=== PATIENT | female | born 1985 | race Two or more races ===

== ENCOUNTER 2024-11-21 21:31 | Inpatient (IN) | payer MEDICAID, SELFPAY ==
[2024-11-21 21:32] VITALS: BP 123/80; PULSE 99; RESP 17; TEMP 37; O2SAT 98
[2024-11-21 22:11] VITALS: PULSE 112; RESP 20; O2SAT 99; BMI 34.9
--- NOTE | 2024-11-21 22:12 | XR_ITS ---
Examination: CT brain head without contrast. 2-D sagittal coronal reconstructions Date and time of exam:November 21, 2024 1102 hours Indications: Patient fell today, passed out 3 hours ago, hit head head pain CTDI: vol (mGy):49 DLP: (mGycm):939 Technique: Multiple CT axial sections of the brain have been obtained, 5 mm slice thickness. Contrast has not been administered. 2-D sagittal, coronal reconstructions have been obtained Low dose protocols were performed. One or more of the following dose reduction techniques were used; automated exposure control, adjustment of the mA and/or KV according to patient size, use of iterative reconstruction technique. Findings: No significant ventricular enlargement. Intra-axial or extra-axial hemorrhage density is not seen. No mass effect or midline shift Basal cisterns are not remarkable. Fourth ventricle is midline. Cranial vault intact. Impression: Negative for acute hemorrhage, mass effect or midline shift
--- NOTE | 2024-11-21 22:13 | PD.EDADULT ---
ED General RME/HPI General Chief complaint: Syncope / Near Syncope Stated complaint: SYNCOPE EPISODE Time Seen by Provider: 11/21/24 22:11 Arrival date/time: 11/21/24 21:31 CC: Syncope HPI patient felt lightheaded dizzy and passed out in her bathroom not sure if she hit her cell head against items in the bathroom states that she has right sided temporal pain, continues to be mildly dizzy. EMS report tachycardia, and a blood sugar greater than 400. Patient is awake alert complaining of right temporal pain. And left knee pain. Related Data Home Medications ?Medication ?Instructions ?Recorded ?Confirmed metformin 1,000 mg tablet 1,000 mg PO QDAY 11/22/24 11/22/24 Allergies Allergy/AdvReac Type Severity Reaction Status Date / Time No Known Allergies Allergy Verified 11/21/24 22:37 Review of Systems Review of Systems Narrative Review of Systems: GEN: No fever, no chills, no weight loss EYES: No discharge, no visual changes, no pain HEENT: No ear pain, no congestion, no sore throat PULM: No shortness of breath, no cough, no congestion CV: No chest pain, no dyspnea on exertion, no palpitations GI: No nausea, no vomiting, no diarrhea, no pain, no constipation : No frequency, no urgency, no dysuria MUSC/SKEL: + joint pain, no back pain SKIN: No rash PSYCH: No hallucinations, no depression HEME/LYMPH: No easy bleeding or bruising tendencies NEURO: No weakness, + headache ED Exam Narrative Physical exam: [General: In mild discomfort not in any acute distress Head mild hematoma to the right temporal region no abrasion induration ulceration or depression anywhere else in the scalp. HEENT: Eyes: Pupils are PERRLA EOMs are intact nose no rhinorrhea or epistaxis mouth pink moist membranes uvula is midline swallow symmetrical phonation is normal. Neck is supple nontender, no JVD no edema Chest equal chest rise nontender to palpation Respiratory: Clear to auscultation no wheezes crackles or rubs CV: Rate rhythm is regular no murmurs rubs or clicks Abdomen is soft nontender no masses positive bowel sounds all 4 quadrants Back: No CVA tenderness no spinous process tenderness from cervical spine thoracic and lumbar spine Skin: Intact no petechiae rash induration ulceration or crepitus Extremities: Left knee pain to the medial aspect of the knee however full range of motion no ecchymosis edema or erythema. Moving all other extremities against resistance cap refill less than 2 seconds neurosensory intact Neuro: Awake alert oriented x3 Glascow coma 15 no focal deficits] Course Quality Measures VTE prophylaxis Orders Category Date Time Status COVID-19 Screening Questionnaire NOW Care 11/22/24 06:[address] Screening X1 Care 11/22/24 01:06 Active Decision to Admit X1 Care 11/22/24 06:05 Completed EKG (ED ONLY) *Do not use* NOW Care 11/21/24 22:12 Completed Saline [Insert IV] NOW Care 11/21/24 23:29 Active Straight [In and Out Catheter] X1 Care 11/21/24 23:29 Completed Consult to Cardiology Stat Cons 11/22/24 06:[address] angio chest abdomen pelvis Stat Exams 11/21/24 23:[address] cervical spine wo con Stat Exams 11/21/24 23:[address] head/brain wo con Stat Exams 11/21/24 22:12 Completed EKG (ED Only) Stat Exams 11/21/24 22:12 Ordered Alcohol, Blood Medical Stat Lab 11/21/24 23:41 Completed BNP [B-Type Natriuretic Peptide] Stat Lab 11/21/24 23:41 Completed Beta Hydroxybutyrate Stat Lab 11/21/24 23:41 Completed CBC Stat Lab 11/21/24 22:36 Completed Comprehensive Metabolic Panel Stat Lab 11/21/24 22:36 Completed D-Dimer Stat Lab 11/21/24 23:41 Completed Drug Screen,Urine Stat Lab 11/21/24 23:30 Completed HCG,Qualitative Serum Stat Lab 11/21/24 23:41 Completed Magnesium Stat Lab 11/21/24 23:41 Completed TSH [Thyroid Stimulating Hormone] Stat Lab 11/21/24 23:41 Completed Troponin I Stat Lab 11/21/24 23:41 Completed Urinalysis Stat Lab 11/21/24 23:30 Completed Urine Culture Stat Lab 11/21/24 23:30 Received VBG [Venous Blood Gas] Stat Lab 11/21/24 23:41 Completed Atropine Inj Vial Med 11/22/24 01:56 Discontinued 0.5 mg IVP X1 ONE Dextrose 5%-Ns [D5-Ns] 1,000 ml Med 11/22/24 03:30 Discontinued IV 125 mls/hr Dextrose 5%-Ns [D5-Ns] 500 ml Med 11/22/24 03:30 Discontinued IV 125 mls/hr Insulin Regular Med 11/21/24 23:29 Discontinued 5 unit SC X1 ONE Metoclopramide Inj [Reglan Inj] Med 11/22/24 01:55 Discontinued 10 mg IVP X1 ONE Ondansetron Inj [Zofran Inj] Med 11/22/24 01:07 Discontinued 4 mg IV X1 ONE Sodium Chloride 0.9% 1000 ml [Ns] 1,000 ml Med 11/21/24 23:29 Discontinued IV 999 mls/hr cefTRIAXone/D5w 1gm IV premix [Rocephin/D5w 1gm IV Med 11/22/24 00:26 Discontinued premix] 50 ml IV X1 Vital Signs Vital signs: Vital Signs Temperature 98.6 F 11/21/24 21:32 Pulse Rate 99 11/21/24 21:32 Respiratory Rate 17 11/21/24 21:32 Blood Pressure 123/80 11/21/24 21:32 Pulse Oximetry (%) 98 11/21/24 21:32 Oxygen Delivery Method Room Air 11/21/24 21:32 [facility] Patient data External records reviewed:: [facility] previous records Clinical information provided by:: patient Social determinants that could affect healthcare access:: none Patient has the following chronic illnesses:: None How is presenting disease/condition affected by chronic disease/condition?: uneffected by Evaluation data The following diagnostics were reviewed and interpreted by me:: lab results and radiology exam(s) Lab and/or radiology exams considered but not ordered:: See [facility] Interpretation Summary: Bradycardia Medications Medications considered but not ordered:: None Medication administrations:: Medication Administration History Acetaminophen (Acetaminophen 325 Mg Tablet) 650 mg PO Q6H PRN PRN Reason: Fever >100.3 or Pain Stop: 12/22/24 07:51 Albuterol/Ipratropium (Albuterol/Ipratropium (Duoneb) Rt Kristyn 3 Ml Nebu) 3 ml INH Q2HR PRN PRN Reason: SHORTNESS OF BREATH OR WHEEZE Stop: 12/22/24 07:51 Dextrose (Dextrose 50%-Water Inj 50 Ml Syringe) 50 ml IV Q15MIN PRN PRN Reason: BG <50 OR BG <70 & pt unresponsive Stop: 12/22/24 07:56 Glucagon (Glucagon Inj 1 Mg Vial) 1 mg IM Q15MIN PRN PRN Reason: BG <70, and no IV access Heparin Sodium (Porcine) (Heparin Sod Inj 5000 Unit/Ml Vial) 5,000 unit SC BID FOR[facility]LY [facility], 1928–1983 Stop: 12/06/24 08:59 Last Admin: 11/22/24 09:33 Dose: 5,000 unit Documented By: DEBBIE Co-signed By: DO Insulin Human Lispro (Insulin Lispro (Admelog) 1 Unit/0.01 Ml Unit) 0 unit SC ACHS FOR[facility]LY [facility], 1928–1983; Protocol Stop: 12/22/24 11:29 Last Admin: 11/22/24 12:33 Dose: 3 unit Documented By: LF Co-signed By: DO Ondansetron HCl (Ondansetron Inj 2 Mg/Ml Inj 2 Ml) 4 mg IV Q6H PRN; Protocol PRN Reason: NAUSEA OR VOMITING Stop: 12/22/24 07:51 Pantoprazole Sodium (Pantoprazole Inj 40 Mg Vial) 40 mg IVP QDAY [facility], 1928–1983 Stop: 12/22/24 08:59 Last Admin: 11/22/24 09:33 Dose: 40 mg Documented By: DEBBIE Sennosides (Senna Tablet) 1 tab PO QDAY FOR[facility], [facility]1983; Protocol Stop: 12/22/24 08:59 Last Admin: 11/22/24 09:33 Dose: 1 tab Documented By: DEBBIE Discontinued Medications Atropine Sulfate (Atropine Sulf Inj 1 Mg/Ml Vial) 0.5 mg IVP X1 ONE Stop: 11/22/24 01:57 Last Admin: 11/22/24 06:20 Dose: Not Given Documented By: JALYN Non-Admin Reason: HR 80-100, cancelled by provider Sodium Chloride (Ns) 1,000 mls @ 999 mls/hr IV .Q1H1M ONE Stop: 11/22/24 00:29 Last Infusion: 11/22/24 01:11 Dose: Infused Documented By: Admin: 11/21/24 23:47 Dose: 999 mls/hr Documented By: IBRAHIMA Ceftriaxone Sodium/Dextrose (Rocephin/D5w 1gm Iv Premix) 50 mls @ 100 mls/hr IV X1 ONE Stop: 11/22/24 00:55 Last Infusion: 11/22/24 02:29 Dose: Infused Documented By: Admin: 11/22/24 01:16 Dose: 100 mls/hr Documented By: IBRAHIMA Dextrose/Sodium Chloride (D5-Ns) 500 mls @ 125 mls/hr IV .Q4H KELLY Stop: 11/22/24 07:29 Dextrose/Sodium Chloride (D5-Ns) 1,000 mls @ 125 mls/hr IV .Q8H KELLY Stop: 11/22/24 11:29 Last Infusion: 11/22/24 08:12 Dose: 0 mls/hr Documented By: Admin: 11/22/24 03:38 Dose: 125 mls/hr Documented By: CCT Comments: Bag not scanning, verified IV fluid with Desi, RN Sodium Chloride (Ns) 1,000 mls @ 999 mls/hr IV .Q1H1M ONE Stop: 11/22/24 10:52 Last Infusion: 11/22/24 11:20 Dose: Infused Documented By: Admin: 11/22/24 10:10 Dose: 999 mls/hr Documented By: DEBBIE Insulin Human Lispro (Insulin Lispro (Admelog) 1 Unit/0.01 Ml Unit) 0 unit SC ACHS KELLY; Protocol Stop: 12/22/24 11:29 Insulin Human Regular (Insulin Hum Regular 1 Unit/0.01 Ml (Per Unit)) 5 unit SC X1 ONE Stop: 11/21/24 23:30 Last Admin: 11/21/24 23:46 Dose: Not Given Documented By: IBRAHIMA Non-Admin Reason: Duplicate Medication on eMAR Admin: 11/21/24 23:45 Dose: 5 unit Documented By: CB Co-signed By: ROMINA Metoclopramide HCl (Metoclopramide Inj 5 Mg/Ml Vial 2 Ml) 10 mg IVP X1 ONE; Protocol Stop: 11/22/24 01:56 Last Admin: 11/22/24 02:13 Dose: 10 mg Documented By: CCT Ondansetron HCl (Ondansetron Inj 2 Mg/Ml Inj 2 Ml) 4 mg IV X1 ONE; Protocol Stop: 11/22/24 01:08 Last Admin: 11/22/24 01:15 Dose: 4 mg Documented By: CB None Consultations Consultation(s) initiated? (list below): No Diagnosis Differential Diagnosis ED Complaint MDM: Bradycardia ACS OK Most likely diagnosis given after review of the tests above:: Bradycardia Admission Indicated Admission indicated?: indicated Explain why admission is indicated or not indicated:: Further medical management Admission Request Was there a request for admission?: No Disposition Plan Disposition Plan: Admit Medical Decision Making Differential Diagnosis Differential Diagnosis: Bradycardia ACS OK Lab Data 11/22/24 08:40 11/22/24 08:40 Labs: Lab Results 11/21/24 11/21/24 11/21/24 Range/Units 22:36 23:30 23:41 WBC 7.8 (3.6-11.0) Thou/mm3 RBC 4.52 (4.00-5.20) Miln/mm3 Hgb 13.2 (12.0-16.0) g/dL Hct 37.8 (36.0-46.0) % MCV 84 (80-100) fL MCH 29.2 (25.0-35.0) pg MCHC 34.9 (31.0-37.0) g/dl RDW Std Deviation 38.0 (36.4-46.3) fL Plt Count 246 (140-440) Thou/mm3 Neut % (Auto) 57 (37-80) % Lymph % (Auto) 34 (10-50) % Piatt % (Auto) 7 (0-12) % Eos % (Auto) 1 (0-10) % Baso % (Auto) 0 (0-2.5) % Neut # (Auto) 4.4 (1.8-7.7) Thou/mm3 Lymph # (Auto) 2.7 (1.0-4.8) Thou/mm3 Piatt # (Auto) 0.6 (0.0-0.8) Thou/mm3 Eos # (Auto) 0.1 (0.0-0.5) Thou/mm3 Baso # (Auto) 0.0 (0.0-0.2) Thou/mm3 Immature Gran # (Auto) 0.01 H (0.00-0.00) Thou/mm3 Absolute Nucleated RBC 0.00 (0.00-0.00) Thou/mm3 Immature Gran % 0 (0-0) % Nucleated RBC % 0 (0) /100 WBC D-Dimer < 250 (<600) ng/mL VBG pH 7.30 L (7.33-7.66) VBG pCO2 45 (36-56) mmHg VBG pO2 34 (15-58) mmHg VBG O2 Sat (Esther) 62 L (96-97) % VBG Base Excess -5 L (-3-3) Sodium 134 L (136-145) mMol/L Potassium 3.7 (3.4-5.1) mMol/L Chloride 103 (98-107) mMol/L Carbon Dioxide 19.7 L (20.0-31.0) mMol/L Anion Gap 11 (7-16) BUN 16 (9-23) mg/dL Creatinine 0.8 (0.6-1.3) mg/dL Estim Creat Clear Calc 91.9 (>60) mL/min eGFR > 60 (60 - ) See Note BUN/Creatinine Ratio 20 (12-20) Ratio Glucose 308 H (74-106) mg/dL Calculated Osmolality 281 (275-295) Calcium 10.1 (8.3-10.6) mg/dL Corrected Calcium 10.1 (8.5-10.1) mg/dL Magnesium 1.8 (1.6-2.6) mg/dL Total Bilirubin 0.5 (0.3-1.2) mg/dL AST 17 (0-34) U/L ALT 37 (10-49) U/L Alkaline Phosphatase 65 (46-116) U/L Troponin I < 0.020 (0.0-0.045) ng/mL B-Natriuretic Peptide < 20 (0-100) pg/mL Total Protein 7.0 (5.7-8.2) gm/dL Albumin 4.1 (3.5-5.0) gm/dL Globulin 2.9 (2.3-3.5) gm/dL Albumin/Globulin Ratio 1.4 (1.2-2.2) Beta-Hydroxybutyrate/Acetoacetate 0.2 (<0.6) mmol/L TSH 1.13 (0.55-4.78) uIU/mL HCG, Qual Negative Ur Collection Type Clean Catch Urine Color Colorless A (Lt Yel-Yel) Urine Clarity Clear (Clear/Hazy) Urine pH 5.5 (5.0-7.0) Ur Specific [place] 1.016 (1.001-1.035) Urine Protein Negative (Neg - Trace) Urine Glucose (UA) 4+ A (Negative) Urine Ketones Negative (Negative) Urine Blood Negative (Negative) Urine Nitrite Positive (Negative) Urine Bilirubin Negative (Negative) Urine Urobilinogen (Auto) Negative (0.0-1.0) mg/dL Ur Leukocyte Esterase Negative (Negative) Urine RBC 1 (0-3) /hpf Urine WBC 9 H (0-5) /hpf Ur Squamous Epith Cells 1 (0-5) /hpf Urine Bacteria Rare (None) Urine Opiates Screen Negative (Negative) Urine Fentanyl Screen Negative (Negative) Ur Barbiturates Screen Negative (Negative) U Amphetamin/Meth Scrn Negative (Negative) U Benzodiazepines Scrn Negative (Negative) U Cocaine Metab Screen Negative (Negative) U Marijuana (THC) Screen Negative (Negative) Ethyl Alcohol < 3.0 (0-10.0) mg/dL Discharge Plan Plan Patient Disposition: Admit Acute Care w/in Hospital Problem List Clinical Impression: Syncope, Bradycardia
--- NOTE | 2024-11-21 22:20 | PC.NURSE ---
Pt brought to the ER via [facility] for syncopal episode. Report received from grease buffer Gera. Pt was in the bathroom felt dizziness while getting up from toilet and passed out. Pt does c/o headache on the right side, rates pain 6/10; unknown if pt hit her head. Pt is alert/oriented to self and place. Pt placed on court recording monitor. Call light within reach. Discussed plan of care with pt, verbalized understanding.
[2024-11-21 22:35] VITALS: PULSE 99
[2024-11-21 22:57] LABS: Basophils % (Auto) 0 % (0-2.5); Eosinophils # (Auto) 0.1 Thou/mm3 (0.0-0.5); Eosinophils % (Auto) 1 % (0-10); Hematocrit 37.8 % (36.0-46.0); Hemoglobin 13.2 g/dL (12.0-16.0); Immature Granulocytes % (Auto) 0 % (0-0); Immature Granulocytes Auto 0.01 Thou/mm3 (0.00-0.00); Lymphocytes # (Auto) 2.7 Thou/mm3 (1.0-4.8); Lymphocytes % (Auto) 34 % (10-50); Mean Corpuscular HGB Conc 34.9 g/dl (31.0-37.0); Mean Corpuscular Hemoglobin 29.2 pg (25.0-35.0); Mean Corpuscular Volume 84 fL (80-100); Monocytes # (Auto) 0.6 Thou/mm3 (0.0-0.8); Monocytes % (Auto) 7 % (0-12); Neutrophils # (Auto) 4.4 Thou/mm3 (1.8-7.7); Neutrophils % (Auto) 57 % (37-80); Nucleated Red Blood Cell % 0 /100 WBC (0); Platelet Count 246 Thou/mm3 (140-440); Red Blood Count 4.52 Miln/mm3 (4.00-5.20); White Blood Count 7.8 Thou/mm3 (3.6-11.0)
--- NOTE | 2024-11-21 22:57 | PC.NURSE ---
Pt taken to CT via [facility].
[2024-11-21 22:59] LABS: Alanine Aminotransferase 37 U/L (10-49); Albumin, Serum 4.1 gm/dL (3.5-5.0); Albumin/Globulin Ratio 1.4 (1.2-2.2); Alkaline Phosphatase 65 U/L (46-116); Anion Gap 11 (7-16); Aspartate Amino Transferase 17 U/L (0-34); BUN/Creatinine Ratio 20 Ratio (12-20); Bilirubin,Total 0.5 mg/dL (0.3-1.2); Blood Urea Nitrogen 16 mg/dL (9-23); Calcium 10.1 mg/dL (8.3-10.6); Calcium (Corrected) 10.1 mg/dL (8.5-10.1); Carbon Dioxide 19.7 mMol/L (20.0-31.0); Chloride 103 mMol/L (98-107); Creatinine (Component) 0.8 mg/dL (0.6-1.3); Estimated Creatinine Clearance 91.9 mL/min (>60); Globulin 2.9 gm/dL (2.3-3.5); Glucose 308 mg/dL (74-106); Osmolality,Calculated 281 (275-295); Potassium 3.7 mMol/L (3.4-5.1); Sodium 134 mMol/L (136-145); eGFR > 60 See Note
--- NOTE | 2024-11-21 23:30 | XR_ITS ---
Examination: CTA chest, with intravenous contrast. CTA abdomen, with intravenous contrast. CTA pelvis, with intravenous contrast. 2-D sagittal and coronal reconstructions. 3-D reconstructions. Date and time of exam: November 22, 2024 0235 hrs. Indications: Injury to the chest and abdomen today, chest pain abdomen pain CTDI vol (mgy) 11.4 DLP (MGycm) 821 Technique: Multiple CTA images, 2.0 mm slice thickness, obtained chest, abdomen, pelvis, with the high-resolution 64 slice scanner. 100 cc Isovue-370 is administered intravenously. Sagittal and coronal 2-D reconstructions are obtained. 3-D reconstructions, angiographic images are obtained. 3-D postprocessing, including vascular maximum intensity projections. Low dose protocols were performed. One or more of the following dose reduction techniques were used; automated exposure control, adjustment of the mA and/or KV according to patient size, use of iterative reconstruction technique. Findings: Thoracic aorta pulmonary arteries intact No pulmonary artery emboli No hemopericardium No pneumothorax pulmonary contusion or hemothorax No liver splenic or renal laceration Significant scarring right kidney No renal or ureteral calculi, no hydronephrosis Aorta intact Normal appendix 21 mm fat-containing umbilical hernia Anteverted uterus Osseous structures intact Impression: Thoracic aorta pulmonary arteries intact No hemopericardium pneumothorax or hemothorax No abdominal parenchymal laceration Abdominal aorta intact No free blood in the abdomen or pelvis
--- NOTE | 2024-11-21 23:30 | XR_ITS ---
Examination: CT cervical spine without contrast 2-D sagittal reconstructions 2-D coronal reconstructions 3-D reconstructions. Exam date and time:November 22, 2024 at 0023 hrs. Indications: Injury to the neck today, neck pain CTDI:vol (mGy) 14.4 DLP: (mGycm) 313 Technique: Multiple 2 mm axial sections of the cervical spine have been obtained. The coronal and sagittal reconstructions have been obtained. 3-D reconstructions have been obtained. Low dose protocols were performed. One or more of the following dose reduction techniques were used; automated exposure control, adjustment of the mA and/or KV according to patient size, use of iterative reconstruction technique. Findings: Axial sections demonstrate intact base of the skull. C1 exhibit satisfactory relationship to the odontoid. No acute cervical vertebral body fracture seen. Alignment posterior spinous processes satisfactory. Impression: No acute cervical fracture.
[2024-11-21] MEDS: INSULIN HUM REGULAR 1 UNIT/0.01 ML (PER UNIT) 5 UNIT SC (23:45)
[2024-11-21] MEDS: SODIUM CHLORIDE 0.9% 1000 ML 1,000 ML 999 ML IV (23:47)
[2024-11-21 23:54] LABS: Collection Type, Urine Clean Catch
[2024-11-22] VITALS (14 sets, daily range): BP systolic 100–136; BP diastolic 63–85; PULSE 40–130; RESP 16–97; TEMP 36.6–37.1; O2SAT 95–100
[2024-11-22 00:03] LABS: Bacteria,Urine Rare; Bilirubin,Urine Negative (Negative); Blood,Urine Negative (Negative); Clarity,Urine Clear (Clear/Hazy); Color,Urine Colorless (Lt Yel-Yel); Glucose, Urine 4+ (Negative); Ketones,Urine Negative (Negative); Leukocyte Esterase,Urine Negative (Negative); Nitrite,Urine Positive (Negative); PH,Urine 5.5 (5.0-7.0); Protein,Urine Negative (Neg - Trace); RBC,Urine 1 /hpf (0-3); Specific Gravity,Urine 1.016 (1.001-1.035); Squamous Epithelial Cell,Urine 1 /hpf (0-5); Urobilinogen,Urine Negative mg/dL (0.0-1.0); WBC,Urine 9 /hpf (0-5)
[2024-11-22 00:08] LABS: Base Excess, Venous -5 (-3-3); O2 Saturation, Venous 62 % (96-97); PCO2, Venous 45 mmHg (36-56); PO2, Venous 34 mmHg (15-58)
[2024-11-22 00:15] LABS: Beta Hydroxybutyrate 0.2 mmol/L (<0.6)
[2024-11-22 00:25] LABS: Amphetamine/Methamp Scrn,U Negative (Negative); Barbiturate Screen,Urine Negative (Negative); Benzodiazepines Screen,Urine Negative (Negative); Benzoylecgonine Screen, Ur Negative (Negative); Fentanyl Screen,Urine Negative (Negative); Opiate Screen,Urine Negative (Negative); THC Screen,Urine Negative (Negative)
[2024-11-22 00:27] LABS: D-Dimer < 250 ng/mL (<600)
[2024-11-22 00:52] LABS: B-Type Natriuretic Peptide < 20 pg/mL (0-100)
--- NOTE | 2024-11-22 01:00 | PC.NURSE ---
At this time, pt states I don't feel good, I need to throw up . Noted heart high 40s, low 50s. Pt given emesis bag. Pt did vomit 200cc of gastric content, green in color. Heart rate is now 100s. Dr. Young made aware. No new orders received at this time.
[2024-11-22 01:01] LABS: Alcohol, Blood Medical < 3.0 mg/dL (0-10.0); Magnesium 1.8 mg/dL (1.6-2.6); Thyroid Stimulating Hormone 1.13 uIU/mL (0.55-4.78); Troponin I < 0.020 ng/mL (0.0-0.045)
[2024-11-22 01:02] LABS: HCG,Qualitative Serum Negative
[2024-11-22] MEDS: ONDANSETRON INJ 2 MG/ML INJ 2 ML 4 MG IV (01:15)
[2024-11-22] MEDS: cefTRIAXone/D5w 1gm IV premix 50 ML IV (01:16)
--- NOTE | 2024-11-22 01:50 | PC.NURSE ---
Noted low HR again, lowest 39. Pt felt nauseated and vomited again. Dr. Young aware, per MD will put in new orders.
--- NOTE | 2024-11-22 01:50 | PC.NURSE ---
Noted low HR again, lowest 39. Pt feeling nauseated and did vomit. Dr. Young aware, per MD will put in new orders.
[2024-11-22] MEDS: METOCLOPRAMIDE INJ 5 MG/ML VIAL 2 ML 10 MG IVP (02:13)
--- NOTE | 2024-11-22 03:20 | PC.NURSE ---
Bedside glucose is 67. Pt is awake/alert/oriented to self and place. No s/s of acute distress noted. Dr. Young made aware. Per MD, will put in new orders.
[2024-11-22] MEDS: DEXTROSE 5%-NS 1,000 ML 125 ML IV (03:38)
--- NOTE | 2024-11-22 05:02 | PC.NURSE ---
At this time, pt is alert/oriented to self and place. No s/s of acute distress noted. Rechecked bedside glucose 155. Dr. Young aware, no new orders received. Plan of care ongoing.
--- NOTE | 2024-11-22 05:20 | PD.EDADDENDU ---
Emergency Room Addendum Addendum Narrative: I took over the care from Link Arriaga NP at 11 PM on 11/21/2024, see his notes for complete H&P and ED course. I reviewed all diagnostic test results. My interpretation of the EKG is sinus rhythm with no acute ST?T changes. My review of the head CT report is no acute findings. My review of the cervical spine CT report is no acute fracture. My review of the chest/abdomen/pelvis CT report is: Blood tests and urine tests remarkable for GLU 308 and UTI. Episodes of bradycardia and vomiting noted. Treatment here included IV fluid and Zofran and Reglan and atropine and Rocephin. When she developed hypoglycemia, D5 ordered. I discussed the case with our office rep and our hospitalist. About the presentation and exam and diagnostics and treatments here. And need of further care in the hospital. Will accept the patient. Steve Young MD
--- NOTE | 2024-11-22 07:10 | PD.RESEVENT ---
Documentation for date of: 11/22/24 Event Note Event Note: Received a call around 6:04 AM on 11/22/2024 for patient in emergency room bed 17, 38-year-old female with past medical history of possible type 2 diabetes (no A1c on file but on metformin) who presented to the ED after she had a syncopal episode where she felt dizzy and had a fall. In the ED, patient presented normotensive with heart rate fluctuating from 99/100 down to a low of 40, respiratory rate 17, afebrile and satting 98 on room air. Pertinent lab findings included blood glucose initially 415, WBC 7.8, hemoglobin 13.2, magnesium 1.8, potassium 3.7, TSH 1.13. Head CT and cervical spine CT showed no acute process or fracture. CTA of the chest abdomen pelvis showed no evidence of vascular injury. Atropine was ordered but never given to the patient as she did not become symptomatic in the ED; however, ED physician called Dr. Kline who would like to admit the patient for workup for the possible symptomatic bradycardia. Signed out the patient to the morning hospitalist team. Smith Negrete, PGY-1
--- NOTE | 2024-11-22 08:03 | ECHO_ITS ---
Transthoracic Echo Report Ht (in): 61 Wt (lb): 185 Exam Location: [facility] Status: Emergency Toe Stapler: Paulina Varela Indications: Procedure Performed: BP: 105 / 80 HR: 102 Rhythm: Tachycardia Technical Quality: Fair MEASUREMENTS (Male / Female) Normal Values 2D ECHO LV Diastolic Diameter PLAX 3.9 cm 4.2 - 5.9 / 3.9 - 5.3 cm LV Systolic Diameter PLAX 2.4 cm IVS Diastolic Thickness 1.0 cm 0.6 - 1.0 / 0.6 - 0.9 cm LVPW Diastolic Thickness 1.1 cm 0.6 - 1.0 / 0.6 - 0.9 cm LV Relative Wall Thickness 0.6 LVOT Diameter 1.8 cm LA Volume Index 13.4 cm?/m? 16 - 28 cm?/m? Ascending Aorta Diameter 2.8 cm M-MODE Aortic Root Diameter MM 2.7 cm LA Systolic Diameter MM 3.4 cm LA Ao Ratio MM 1.3 AV Cusp Separation MM 1.9 cm DOPPLER AV Peak Velocity 121.0 cm/s AV Peak Gradient 5.9 mmHg AV Mean Gradient 3.0 mmHg AV Velocity Time Integral 18.9 cm LVOT Peak Velocity 81.3 cm/s LVOT Peak Gradient 2.6 mmHg LVOT Velocity Time Integral 13.8 cm LVOT Cardiac Index 1846.4 cm?/min?m? AV Area Cont Eq vti 1.9 cm? AV Area Cont Eq pk 1.7 cm? MV Peak Velocity 81.8 cm/s MV Peak Gradient 2.7 mmHg MV Mean Velocity 50.9 cm/s MV Mean Gradient 1.0 mmHg MV Area PHT 5.9 cm? Mitral E Point Velocity 60.1 cm/s Mitral A Point Velocity 86.8 cm/s Mitral E to A Ratio 0.7 LV E' Lateral Velocity 7.9 cm/s Mitral E to LV E' Lateral Ratio 7.6 LV E' Septal Velocity 6.6 cm/s Mitral E to LV E' Septal Ratio 9.1 FINDINGS Left Ventricle Normal left ventricular size, wall thickness, systolic function with no obvious regional wall motion abnormalities. The ejection fraction is visually estimated at 65-70%. Right Ventricle The right ventricle is normal in size and systolic function. Left Atrium The left atrium is normal by two-dimensional, color flow and Doppler imaging with no structural abnormalities, no thrombus formation present. Right Atrium The right atrium is normal by two-dimensional imaging, color flow and Doppler imaging with no struct ural abnormalities, no thrombus formation present. Atrial Septum The interatrial septum appears normal with no evidence of a shunt. Aorta The aorta is normal by two-dimensional, color flow and Doppler interrogation. Mitral Valve The mitral valve is normal by two-dimensional, color flow and Doppler interrogation. There is trace mitral valve regurgitation. Aortic Valve The aortic valve is trileaflet and normal by two-dimensional, color flow and Doppler interrogation. There is no significant aortic valve regurgitation. Tricuspid Valve The tricuspid valve is normal by two-dimensional, color flow and Doppler interrogation. There is tra ce tricuspid valve regurgitation. Pulmonic Valve There is no significant pulmonic valve regurgitation. Vessels The pulmonary artery appears normal. The inferior vena cava pulmonary and hepatic veins appear jad l. Pericardium The pericardium is normal by two-dimensional imaging. There is no significant pericardial effusion. CONCLUSIONS Normal LV size and function. Estimated EF 65-70% Normal RV size and function Trace MR, TR. Ana Andre (Electronically Signed) Final Date: 23 November 2024 15:42
--- NOTE | 2024-11-22 08:05 | ESHP_ITS ---
<Statement entered by Adam Gill MD - 11/22/24 15:34> 46-year-old female with past medical history of cvv-bowivbs-vnuvawoxq diabetes mellitus came to the ED with chief complaint of syncopal episode. Admitted for symptomatic bradycardia. Her heart rate flactuates from 100s to low 50s. she is insulin sensitive .pending cardiac reccs. will hold metformin . she had elevated lactic acid. IV fluid given. continue current management. I discussed with and supervised my co-resident involved in the care of this patient. I agree with the assessment and plan as documented above. Adam Gill,PGY-3 Disclaimer: Despite multiple revisions, due to the dictation software being used, the document below may not be free of grammatical errors including phonetic/typographic errors. However, this does not deter from our commitment to providing health care in the patient's best interest in mind. Documentation for date of: 11/22/24 HPI History of Present Illness Chief complaint: Syncopal episode History of present illness: HPI: Patient is a 38-year-old female with past medical history significant for aeo-pvrqiqz-medsiemwy diabetes mellitus type 2 [10.4]. Patient presented today with a chief complaint of a syncopal episode. Patient says that last night she was sitting on the toilet micturating, upon standing she began to feel dizzy and fainted. She says she thinks she hit her head on the wall prior to falling to the ground. The next thing she remembers she was in the emergency department. In the emergency department patient experienced 4 episode of vomiting, food contents which resolved after treatment with Zofran and IVF. She denies eating anything out of the ordinary. Patient denies any chest pain/pressure, palpitations or shortness of breath. Also denies any PND/orthopnea and diarrhea. Upon review patient also denies any cough, fever, chills, sick contacts or recent travel. ED course: BP 123/80, pulse 99, RR 17, temp 98.6, SpO2 98%. Labs significant for glucose 308, Hb 13.2, HCT 37.8, troponin <0.02, D-dimer <250, TSH 1.13, HbA1c 10.4%. Urinalysis significant for 4+ glucose and nitrite positive. EKG sinus rhythm, rate 94, no acute ST changes. CT chest Abdo pelvis was done which showed no significant findings. CT cervical spine and brain were also done which showed no signs of fracture, mass effect, midline shift or hemorrhage. Patient received insulin lispro 5U SC x 1, normal saline 1L IVF bolus, ondansetron 4 Mg IV x 1, metoclopramide 10 Mg IV x 1 and ceftriaxone 1 g IV x 1. Initially patient's blood glucose was elevated at 308, she received insulin lispro 5 units SC x 1. Subsequently patient became hypoglycemic with a blood glucose of 67 and was started on D5/normal saline by the emergency department physician. Patient also had 1 episode of bradycardia with rates in the 40s, subsequently improved after IV fluids. Patient will be admitted to the floor for workup and management of syncopal episode. Review of Systems Review of Systems Narrative Review of Systems: GENERAL: Denies fever/chills or diaphoresis. HEENT: Denies headaches or visual changes. Denies discharge. Neuro: Denies unusual weakness or difficulty speaking. CARDIO: As above PULM: As above GI: As above URO: Denies buring/itching/pain/urinary changes. APPLIANCE REPAIRER: Denies menstrual changes, hot flashes. MSK/EXT/SKIN: Denies joint/skeletal/muschle pain, issues/changes in upper or lower extremities, itchiness, or superficial pain. PSYCH: Cooperative, pleasant mood & affect. The rest of the review of systems is otherwise negative. Past Medical History Past Medical History Comments [facility] COMMENT: Past medical history: ?Smp-pmtbwwz-ncidsxaqw type II [10.4] Medication list: - Metformin 1 g p.o. daily ? Jardiance Past surgical history: ?Bilateral tubal ligation?2017 Allergies: -NKFDA Social history: Occupational History: Patient previously worked in an [employer]. Unemployed for the past year, she stopped to stay at home and take care of her 4 kids Education Level: Graduated from high school Marital Status: Not . She lives with her partner and 4 children Tobacco use: Denies ETHO use: Has 1 drink per year Illicit drug use: Denies Social History Note: lives with and 4 children Family History: Denies any family history of medical conditions Exam Vital Signs Temp Pulse Resp BP Pulse Ox O2 Del Method 98.4 F 99 16 125/79 97 Room Air 11/22/24 07:48 11/22/24 07:48 11/22/24 07:48 11/22/24 07:48 11/22/24 07:48 11/22/24 07:48 Narrative Exam Constitutional Alert, oriented x 3 and comfortable. Young female lying in bed HEENT Vision grossly intact. Patent nares. Trachea midline Respiratory Chest normal on inspection and clear auscultation bilaterally Cardiovascular S1 and S2 audible, RRR. No murmurs carotid bruit. No gross JVD. Abdominal Soft, obese and non tender to palpation in all quadrants. BS + Genitourinary No bladder tenderness, no flank pain. Normal to palpation Musculoskeletal Extremities tone within normal limits. No LE edema. Neurological CN II - XII grossly intact. Extremity motor and sensation grossly intact. Skin Warm, dry and intact. No apparent lesions. Psychiatric Patient has good affect, is cooperative Results: Labs 11/23/24 05:34 11/23/24 05:34 Labs: Short CBC 11/21/24 Range/Units 22:36 WBC 7.8 (3.6-11.0) Thou/mm3 Hgb 13.2 (12.0-16.0) g/dL Hct 37.8 (36.0-46.0) % Plt Count 246 (140-440) Thou/mm3 BMP 11/21/24 22:36 Sodium 134 L Potassium 3.7 Chloride 103 Carbon Dioxide 19.7 L BUN 16 Creatinine 0.8 Glucose 308 H Calcium 10.1 Cardiac Enzymes 11/21/24 Range/Units 23:41 Troponin I < 0.020 (0.0-0.045) ng/mL Liver Function 11/21/24 Range/Units 22:36 Total Bilirubin 0.5 (0.3-1.2) mg/dL AST 17 (0-34) U/L ALT 37 (10-49) U/L Alkaline Phosphatase 65 (46-116) U/L Albumin 4.1 (3.5-5.0) gm/dL Urine 11/21/24 Range/Units 23:30 Urine Color Colorless A (Lt Yel-Yel) Urine Clarity Clear (Clear/Hazy) Urine pH 5.5 (5.0-7.0) Ur Specific [place] 1.016 (1.001-1.035) Urine Protein Negative (Neg - Trace) Urine Glucose (UA) 4+ A (Negative) ABG Interpretation ABG results: 11/21/24 23:41 VBG pH 7.30 L VBG pCO2 45 VBG pO2 34 VBG Base Excess -5 L Quality Measures Quality Measures VTE prophylaxis Medications Home Medications and Allergies Allergies Allergy/AdvReac Type Severity Reaction Status Date / Time No Known Allergies Allergy Verified 11/21/24 22:37 Visit Medications Acetaminophen (Acetaminophen 325 Mg Tablet) 650 mg PO Q6H PRN PRN Reason: Fever >100.3 or Pain Stop: 12/22/24 07:51 Albuterol/Ipratropium (Albuterol/Ipratropium (Duoneb) Rt Kristyn 3 Ml Nebu) 3 ml INH Q2HR PRN PRN Reason: SHORTNESS OF BREATH OR WHEEZE Stop: 12/22/24 07:51 Dextrose (Dextrose 50%-Water Inj 50 Ml Syringe) 50 ml IV Q15MIN PRN PRN Reason: BG <50 OR BG <70 & pt unresponsive Stop: 12/22/24 07:56 Glucagon (Glucagon Inj 1 Mg Vial) 1 mg IM Q15MIN PRN PRN Reason: BG <70, and no IV access Insulin Human Lispro (Insulin Lispro (Admelog) 1 Unit/0.01 Ml Unit) 0 unit SC [facility]; Protocol Stop: 12/22/24 11:29 Ondansetron HCl (Ondansetron Inj 2 Mg/Ml Inj 2 Ml) 4 mg IV Q6H PRN; Protocol PRN Reason: NAUSEA OR VOMITING Stop: 12/22/24 07:51 Pantoprazole Sodium (Pantoprazole Inj 40 Mg Vial) 40 mg IVP QDAY KELLY Stop: 12/22/24 08:59 Sennosides (Senna Tablet) 1 tab PO QDAY KELLY; Protocol Stop: 12/22/24 08:59 Discontinued Medications Atropine Sulfate (Atropine Sulf Inj 1 Mg/Ml Vial) 0.5 mg IVP X1 ONE Stop: 11/22/24 01:57 Last Admin: 11/22/24 06:20 Dose: Not Given Sodium Chloride (Ns) 1,000 mls @ 999 mls/hr IV .Q1H1M ONE Stop: 11/22/24 00:29 Last Infusion: 11/22/24 01:11 Dose: Infused Ceftriaxone Sodium/Dextrose (Rocephin/D5w 1gm Iv Premix) 50 mls @ 100 mls/hr IV X1 ONE Stop: 11/22/24 00:55 Last Infusion: 11/22/24 02:29 Dose: Infused Dextrose/Sodium Chloride (D5-Ns) 500 mls @ 125 mls/hr IV .Q4H KELLY Stop: 11/22/24 07:29 Dextrose/Sodium Chloride (D5-Ns) 1,000 mls @ 125 mls/hr IV .Q8H KELLY Stop: 11/22/24 11:29 Last Admin: 11/22/24 03:38 Dose: 125 mls/hr Insulin Human Regular (Insulin Hum Regular 1 Unit/0.01 Ml (Per Unit)) 5 unit SC X1 ONE Stop: 11/21/24 23:30 Last Admin: 11/21/24 23:46 Dose: Not Given Metoclopramide HCl (Metoclopramide Inj 5 Mg/Ml Vial 2 Ml) 10 mg IVP X1 ONE; Protocol Stop: 11/22/24 01:56 Last Admin: 11/22/24 02:13 Dose: 10 mg Ondansetron HCl (Ondansetron Inj 2 Mg/Ml Inj 2 Ml) 4 mg IV X1 ONE; Protocol Stop: 11/22/24 01:08 Last Admin: 11/22/24 01:15 Dose: 4 mg Assessment & Plan Plan Patient is a 38-year-old female with past medical history significant for hmp-haflelw-hqggwprmg diabetes mellitus type 2 [10.4]. Patient presented today with a chief complaint of a syncopal episode. Patient will be admitted to the floor for workup and management of syncopal episode. 1. Syncopal episode for investigation 2. Symptomatic bradycardia 3. Orthostatic hypotension Patient says that last night she was sitting on the toilet micturating, upon standing she began to feel dizzy and fainted. DDx: Vasovagal syncope, micturition syncope, sinus node dysfunction, orthostatic hypotension EKG showed sinus rhythm, rate [address] changes. Orthostatic vitals positive. Sitting BP 109/83, standing BP 100/63 Plan: ? Telemetry monitoring ? Transthoracic echocardiogram ordered to assess for wall motion abnormalities, septal defects, valvular defects and ejection fraction - Compression stockings for orthostatic hypotension ? Cardiology, Dr. Christo Kline consulted and is closely following the case. Appreciate recommendations. 4. Wtl-iqmgcrr-iwlnydhdj diabetes mellitus type 2 [10.4%] 5. Lactic acidosis 6. Vomiting - resolved HbA1c on this admission 10.4% On admission bicarb 19.7 and lactic acid 6 In the ED Patient received insulin lispro 5U SC x 1, normal saline 1L IVF bolus, ondansetron 4 Mg IV x 1, metoclopramide 10 Mg IV x 1 and ceftriaxone 1 g IV x 1. This is most likely due to insulin administration and vomiting in a insulin na?ve patient. Plan: ? 1L normal saline IVF bolus ? Repeat lactic acid Health maintenance: Disposition: Pending Transthoracic Echocardiogram Diet: Low consistent Carb Lines: pIVs GI Prophylaxis: Pantoprazole Thrombo Prophylaxis: Heparin Code status: FULL CODE Plan of care discussed with Attending Dr. Gandara and PGY3 Dr. Bridget Fierro MD PGY 1 Attending Provider Attestation/Addendum Claudia, Nicki Gandara DO, attest that I was physically present for the sykes portions of the service and evaluated the patient with the resident and I reviewed and discussed the case with the resident and agree with the resident's findings and plans of care as documented above Patient is a 38-year-old female with past medical history of diabetes who was brought into the ED after having a syncopal episode at home. Patient had just had a bowel movement when she got up and felt very dizzy and lost consciousness. Patient does not recall if she hit her head. Patient states she has been feeling well prior to that and denies any constipation. She denies any fevers, chills, chest pain, shortness of breath. She denies eating out or having any diarrhea. However, upon evaluation in the ED, patient was noted to have nausea and vomiting. She was also noted to have episodes of bradycardia in the 40s. This is concerning for possible symptomatic bradycardia leading to her syncopal episode. Cardiology was consulted from ED. She was noted to have elevated glucose 308 negative D-dimer and TSH 1.3. CTA chest abdomen pelvis was unremarkable. CT head and cervical spine were also unremarkable. Patient was given 5 units of lispro in the ED due to elevated blood glucose which resulted in hypoglycemia of 67. Patient received IV fluids in the ED. Lactic acid was also noted to be elevated at 6. Patient is likely dehydrated secondary to nausea and vomiting. Patient stated that she was feeling well prior to these episodes. Patient will likely need to stop metformin on discharge due to elevated lactic acidosis. Will continue to give IV fluids and follow-up with cardiology recommendations. Will admit to med/telemetry for further cardiac monitoring and workup of symptomatic bradycardia. Suspect that the bradycardia may be associated with vasovagal episode occurring after she had had a bowel movement and nausea and vomiting
--- NOTE | 2024-11-22 08:15 | PC.NURSE ---
SPOKE WITH DR SAUER ABOUT PT BLOOD SUGAR AT 319 NOW. LAST NIGHT PT WAS GIVEN INSULIN FOR ELEVATED BLOOD SUGAR BUT THEN PT BLOOD SUGAR DROPPED TO THE 60'S AND IVF WITH DEXTROS WAS STARTED. PER DR SAUER OK TO STOP IVF AT THIS TIME.
--- NOTE | 2024-11-22 08:24 | PC.NURSE ---
SPOKE AGAIN WITH DR SAUER INFORMED THAT PT IS VERY SENSITIVE TO THE INSULIN THAT THE 5 UNITS THEY GAVE HER LAST NIGHT DROPPED HER SUGARS QUICKLY THATS WHY THEY STARTED THE D5 1/2 NS. PT ONLY TAKES PO MEDS AT HOME. INFORMED I JUST TURNED OFF THE IV DEXTROS AND REQUEST TO HOLD THE MORNING INSULIN TO SEE HOW PT DOES. OK WITH DR SAUER TO HOLD AM INSULIN AND TO CALL AT THE 1130 CHECK TO SEE HOW PT IS DOING
[2024-11-22 08:59] LABS: Basophils % (Auto) 0 % (0-2.5); Eosinophils % (Auto) 0 % (0-10); Hematocrit 41.2 % (36.0-46.0); Hemoglobin 14.2 g/dL (12.0-16.0); Immature Granulocytes % (Auto) 0 % (0-0); Immature Granulocytes Auto 0.02 Thou/mm3 (0.00-0.00); Lymphocytes % (Auto) 12 % (10-50); Mean Corpuscular HGB Conc 34.5 g/dl (31.0-37.0); Mean Corpuscular Hemoglobin 29.2 pg (25.0-35.0); Mean Corpuscular Volume 85 fL (80-100); Monocytes # (Auto) 0.3 Thou/mm3 (0.0-0.8); Monocytes % (Auto) 4 % (0-12); Neutrophils % (Auto) 84 % (37-80); Nucleated Red Blood Cell % 0 /100 WBC (0); Platelet Count 258 Thou/mm3 (140-440); RDW Standard Deviation 39.5 fL (36.4-46.3); Red Blood Count 4.86 Miln/mm3 (4.00-5.20); White Blood Count 8.3 Thou/mm3 (3.6-11.0)
[2024-11-22 09:26] LABS: INR 1.1 (0.9-1.3); Partial Thromboplastin Time 30.5 Seconds (22.0-36.0); Prothrombin Time 12.2 Seconds (9.0-12.2)
[2024-11-22 09:29] LABS: Glucose Estimated Average 252 mg/dL (80-131); Hemoglobin A1C 10.4 % Hgb (4.8-6.0)
[2024-11-22 09:30] LABS: Anion Gap 16 (7-16); BUN/Creatinine Ratio 15 Ratio (12-20); Blood Urea Nitrogen 20 mg/dL (9-23); Calcium 9.2 mg/dL (8.3-10.6); Carbon Dioxide 17.1 mMol/L (20.0-31.0); Cardiac Risk Estimate 2.9 RATIO (3.7-5.6); Chloride 102 mMol/L (98-107); Cholesterol 88 mg/dL (132-200); Creatinine (Component) 1.3 mg/dL (0.6-1.3); Estimated Creatinine Clearance 56.5 mL/min (>60); Glucose 293 mg/dL (74-106); HDL Cholesterol 30 mg/dL (40-60); LDL Cholesterol,Calculated 35 mg/dL (0-130); Osmolality,Calculated 283 (275-295); Potassium 4.2 mMol/L (3.4-5.1); Sodium 135 mMol/L (136-145); Triglycerides 115 mg/dL (30-150); eGFR 53 See Note
[2024-11-22] MEDS: SENNA TABLET 1 TAB PO (09:33)
[2024-11-22] MEDS: HEPARIN SOD INJ 5000 UNIT/ML VIAL SC ×2 (09:33→20:10)
[2024-11-22] MEDS: PANTOPRAZOLE INJ 40 MG VIAL IVP (09:33)
--- NOTE | 2024-11-22 09:52 | PC.NURSE ---
PATIENT UP TO BEDSIDE COMMODE. DOES STATE SHE HAD MILD DIZZINESS WHEN GETTING UP. PT TOLERATED WELL.
[2024-11-22] MEDS: SODIUM CHLORIDE 0.9% 1000 ML 1,000 ML 999 ML IV (10:10)
--- NOTE | 2024-11-22 11:13 | PC.CC ---
Patient is a 38 year-old female who presents to the hospital for Syncopal Episode. Jackeline CORMIER made culy-vl-rhun contact with patient. ASW introduced self, role, and reason for visit. Patient appeared alert and oriented to self, location, and situation. Patient was pleasant and engaged in initial assessment. Patient confirmed information on demographics and reports to living at home with her children. Per patient, she is able to ambulate independently and complete her own ADLs with no assistance. Patient receives primary care at [facility] in [place], [place]. Patient uses [facility] for prescription medication. Patient named her mother, Maria Guadalupe Cortes as her next of kin. Upon discharge patient plans to return home. financial services professional to follow up with any discharge needs.
[2024-11-22 11:54] LABS: Reflex Lactate? Y
[2024-11-22] MEDS: INSULIN LISPRO (AdmeLOG) 1 UNIT/0.01 ML UNIT SC ×3 (12:33→20:13)
[2024-11-22 12:34] LABS: Lactic Acid, 3 HR 4.7 mMol/L (0.4-2.0)
--- NOTE | 2024-11-22 13:19 | PC.NURSE ---
MD DR SAUER CONTACTED REGARDING LACTIC RESULTS AND ORTHO STATICS. STATES SHE WILL TAKE A LOOK AT THEM.
--- NOTE | 2024-11-22 14:01 | ESCONSULT_ITS ---
<Statement entered by Gabriele Kline MD - 11/25/24 10:18> I personally evaluated the patient apparently had a syncopal episode bradycardia mostly vagal episode no need for pacemaker implantation evaluated the patient with PGY 2 Dr. Garner agree with the treatment and recommendation no need for placement plantation patient can be discharged home once he remains asymptomatic nausea vomiting is resolved. Bradycardia appears to be due to vagal stimulation but no evidence of AV block. HPI Data of Consult Requesting Physician: Nicki Gandara DO Admitting Provider: Nicki Gandara DO Attending Provider: Nicki Gandara DO Primary Care Provider: Roseline Merrill PA-C Consult Narrative History of present illness: 38-year-old female patient with significant medical history of diabetes type 2 was brought to ED for an episode of syncope. Patient denies having similar symptoms in the past. Patient states while she was in the bathroom and trying to get up from the toilet she blacked out and fell forward. Patient denied chest pressure/pain/palpitations/headache/NVD or other associate symptoms. Patient follows up with [facility] where she has been prescribed on multiple p.o. medications for her diabetes. Patient has been endorsing polyuria and yesterday had a few episodes of vomiting. On arrival in ED patient was normotensive but her heart rate fluctuated between 99-40 while saturating well with respiratory rate of 17. Labs were significant for glucose of 415, WBC 7.8, Hgb 13.2, mag 1.8, K3.7, TSH 1.1. Initial EKG showed sinus rhythm in the 90s bpm. Head, cervical spine CT were negative for hemorrhage and fractures. Over time patient was witnessed to have bradycardia with pauses while patient was vomiting. Initially atropine was ordered but never administered as patient was asymptomatic. Cardiology was consulted for further management. Medical Hx: Diabetes Medications (need reconciliation): Metformin, Januvia Surgical Hx: Tubal ligation, cholecystectomy Social Hx: Denies smoking cigarette, drinking alcohol or using other illicit drugs, lives with and children Allergies: NKDA CODE STATUS: Full code 11/22/24: Patient syncope most likely secondary to orthostatic hypotension. Patient states she has been having decreased p.o. intake and has been experiencing increased urinary frequency. On admission patient's glucose in the 400s. Patient's bradycardia improved after 1 L of bolus fluid in the ED. While examining patient she was tachycardic most likely secondary to her dehydration. Will recommend continuing fluid intake and managing better glucose control along with orthostatic vitals in the morning. cc:: cc: Nicki Gandara DO Review of Systems Review of Systems Systems Reviewed: All systems reviewed, normal except as documented Exam Vital Signs Temp Pulse Resp BP Pulse Ox O2 Del Method 98.7 F 115 H 16 100/63 97 Room Air 11/22/24 12:55 11/22/24 12:55 11/22/24 12:55 11/22/24 12:55 11/22/24 12:55 11/22/24 12:55 Narrative Exam Constitutional: well-developed, well-nourished, in no acute distress, lying in bed HEENT: NCAT, EOMI, reactive round pupils b/l, patent nares b/l, moist mucous membranes Lung: CTAB, no wheezing, no rhonchi Heart: Regular S1S2, no murmurs, gallops, or rubs Abdomen: Soft, non-distended, non-tender, bowel sounds present throughout Extremities: No cyanosis, clubbing, or edema, LE pulses present b/l Neurologic: No focal sensory or motor deficits noted, AOx3, appropriate affect Skin: Warm, dry, no lesions or rashes noted Results Labs 11/22/24 08:40 11/22/24 08:40 Labs: Short CBC 11/21/24 11/22/24 Range/Units 22:36 08:40 WBC 7.8 8.3 (3.6-11.0) Thou/mm3 Hgb 13.2 14.2 (12.0-16.0) g/dL Hct 37.8 41.2 (36.0-46.0) % Plt Count 246 258 (140-440) Thou/mm3 BMP 11/21/24 11/22/24 22:36 08:40 Sodium 134 L 135 L Potassium 3.7 4.2 D Chloride 103 102 Carbon Dioxide 19.7 L 17.1 L BUN 16 20 Creatinine 0.8 1.3 D Glucose 308 H 293 H Calcium 10.1 9.2 Cardiac Enzymes 11/21/24 Range/Units 23:41 Troponin I < 0.020 (0.0-0.045) ng/mL Liver Function 11/21/24 Range/Units 22:36 Total Bilirubin 0.5 (0.3-1.2) mg/dL AST 17 (0-34) U/L ALT 37 (10-49) U/L Alkaline Phosphatase 65 (46-116) U/L Albumin 4.1 (3.5-5.0) gm/dL Urine 11/21/24 Range/Units 23:30 Urine Color Colorless A (Lt Yel-Yel) Urine Clarity Clear (Clear/Hazy) Urine pH 5.5 (5.0-7.0) Ur Specific [place] 1.016 (1.001-1.035) Urine Protein Negative (Neg - Trace) Urine Glucose (UA) 4+ A (Negative) ABG Interpretation ABG results: 11/21/24 23:41 VBG pH 7.30 L VBG pCO2 45 VBG pO2 34 VBG Base Excess -5 L Quality Measures Quality Measures VTE prophylaxis Medications Home Medications and Allergies Home Medications ?Medication ?Instructions ?Recorded ?Confirmed ?Type metformin 1,000 mg tablet 1,000 mg PO QDAY 11/22/24 11/22/24 History Allergies Allergy/AdvReac Type Severity Reaction Status Date / Time No Known Allergies Allergy Verified 11/21/24 22:37 Visit Medications Acetaminophen (Acetaminophen 325 Mg Tablet) 650 mg PO Q6H PRN PRN Reason: Fever >100.3 or Pain Stop: 12/22/24 07:51 Albuterol/Ipratropium (Albuterol/Ipratropium (Duoneb) Rt Kristyn 3 Ml Nebu) 3 ml INH Q2HR PRN PRN Reason: SHORTNESS OF BREATH OR WHEEZE Stop: 12/22/24 07:51 Dextrose (Dextrose 50%-Water Inj 50 Ml Syringe) 50 ml IV Q15MIN PRN PRN Reason: BG <50 OR BG <70 & pt unresponsive Stop: 12/22/24 07:56 Glucagon (Glucagon Inj 1 Mg Vial) 1 mg IM Q15MIN PRN PRN Reason: BG <70, and no IV access Heparin Sodium (Porcine) (Heparin Sod Inj 5000 Unit/Ml Vial) 5,000 unit SC BID KELLY Stop: 12/06/24 08:59 Last Admin: 11/22/24 09:33 Dose: 5,000 unit Insulin Human Lispro (Insulin Lispro (Admelog) 1 Unit/0.01 Ml Unit) 0 unit SC [facility]; Protocol Stop: 12/22/24 11:29 Last Admin: 11/22/24 12:33 Dose: 3 unit Ondansetron HCl (Ondansetron Inj 2 Mg/Ml Inj 2 Ml) 4 mg IV Q6H PRN; Protocol PRN Reason: NAUSEA OR VOMITING Stop: 12/22/24 07:51 Pantoprazole Sodium (Pantoprazole Inj 40 Mg Vial) 40 mg IVP QDAY [facility] Stop: 12/22/24 08:59 Last Admin: 11/22/24 09:33 Dose: 40 mg Sennosides (Senna Tablet) 1 tab PO QDAY [facility]; Protocol Stop: 12/22/24 08:59 Last Admin: 11/22/24 09:33 Dose: 1 tab Discontinued Medications Atropine Sulfate (Atropine Sulf Inj 1 Mg/Ml Vial) 0.5 mg IVP X1 ONE Stop: 11/22/24 01:57 Last Admin: 11/22/24 06:20 Dose: Not Given Sodium Chloride (Ns) 1,000 mls @ 999 mls/hr IV .Q1H1M ONE Stop: 11/22/24 00:29 Last Infusion: 11/22/24 01:11 Dose: Infused Ceftriaxone Sodium/Dextrose (Rocephin/D5w 1gm Iv Premix) 50 mls @ 100 mls/hr IV X1 ONE Stop: 11/22/24 00:55 Last Infusion: 11/22/24 02:29 Dose: Infused Dextrose/Sodium Chloride (D5-Ns) 500 mls @ 125 mls/hr IV .Q4H [facility] Stop: 11/22/24 07:29 Dextrose/Sodium Chloride (D5-Ns) 1,000 mls @ 125 mls/hr IV .Q8H [facility] Stop: 11/22/24 11:29 Last Infusion: 11/22/24 08:12 Dose: 0 mls/hr Sodium Chloride (Ns) 1,000 mls @ 999 mls/hr IV .Q1H1M ONE Stop: 11/22/24 10:52 Last Infusion: 11/22/24 11:20 Dose: Infused Insulin Human Lispro (Insulin Lispro (Admelog) 1 Unit/0.01 Ml Unit) 0 unit SC [facility]; Protocol Stop: 12/22/24 11:29 Insulin Human Regular (Insulin Hum Regular 1 Unit/0.01 Ml (Per Unit)) 5 unit SC X1 ONE Stop: 11/21/24 23:30 Last Admin: 11/21/24 23:46 Dose: Not Given Metoclopramide HCl (Metoclopramide Inj 5 Mg/Ml Vial 2 Ml) 10 mg IVP X1 ONE; Protocol Stop: 11/22/24 01:56 Last Admin: 11/22/24 02:13 Dose: 10 mg Ondansetron HCl (Ondansetron Inj 2 Mg/Ml Inj 2 Ml) 4 mg IV X1 ONE; Protocol Stop: 11/22/24 01:08 Last Admin: 11/22/24 01:15 Dose: 4 mg Assessment & Plan Plan 38-year-old female patient with significant medical history of diabetes type 2 was brought to ED for an episode of syncope. #Syncope #Bradycardia Cardiac vs. Noncardiac (Vasovagal, Seizure, Situational syncope, Carotid sinus syndrome, Orthostasis) Most likely due to orthostasis in setting of dehydration and decreased p.o. intake Plan: ? Orthostasis vitals ? Encourage p.o. intake of fluids ? Echocardiogram pending ? Replete electrolytes as needed #DM2 #Hyperglycemia ?Management per primary team This patient care was discussed with my attending Dr. Eliud Braxton MD PGY-2 Disclaimer: Minor errors in supervisor cartography may be present since this note was dictated by speech recognition software.
[2024-11-22 15:11] LABS: Lactate (Lactic Acid) 2.2 mMol/L (0.4-2.0)
--- NOTE | 2024-11-22 17:46 | PC.NURSE ---
PATIENT HR NOTED TO BE ABOVE 110 ALL DAY. ADMITTING MD NOTIFIED AND AWARE THIS AM. PT DOES STATE SHE FEELS BETTER AT THIS TIME
[2024-11-22 18:10] LABS: Reflex Lactate? Y
[2024-11-22 19:12] LABS: Lactic Acid, 3 HR 2.7 mMol/L (0.4-2.0)
[2024-11-23] VITALS (7 sets, daily range): BP systolic 100–114; BP diastolic 69–80; PULSE 96–104; RESP 16–98; TEMP 36.2–36.4; O2SAT 96–99
[2024-11-23 05:56] LABS: Basophils % (Auto) 0 % (0-2.5); Eosinophils # (Auto) 0.1 Thou/mm3 (0.0-0.5); Eosinophils % (Auto) 1 % (0-10); Hemoglobin 13.9 g/dL (12.0-16.0); Immature Granulocytes % (Auto) 0 % (0-0); Immature Granulocytes Auto 0.02 Thou/mm3 (0.00-0.00); Lymphocytes # (Auto) 2.9 Thou/mm3 (1.0-4.8); Lymphocytes % (Auto) 42 % (10-50); Mean Corpuscular HGB Conc 33.9 g/dl (31.0-37.0); Mean Corpuscular Hemoglobin 28.9 pg (25.0-35.0); Mean Corpuscular Volume 85 fL (80-100); Monocytes # (Auto) 0.6 Thou/mm3 (0.0-0.8); Monocytes % (Auto) 9 % (0-12); Neutrophils # (Auto) 3.3 Thou/mm3 (1.8-7.7); Neutrophils % (Auto) 47 % (37-80); Nucleated Red Blood Cell % 0 /100 WBC (0); Platelet Count 258 Thou/mm3 (140-440); RDW Standard Deviation 39.8 fL (36.4-46.3); Red Blood Count 4.81 Miln/mm3 (4.00-5.20)
[2024-11-23 06:37] LABS: Anion Gap 11 (7-16); BUN/Creatinine Ratio 25 Ratio (12-20); Blood Urea Nitrogen 25 mg/dL (9-23); Calcium 9.7 mg/dL (8.3-10.6); Carbon Dioxide 22.6 mMol/L (20.0-31.0); Chloride 102 mMol/L (98-107); Estimated Creatinine Clearance 67.6 mL/min (>60); Glucose 212 mg/dL (74-106); Osmolality,Calculated 282 (275-295); Potassium 3.1 mMol/L (3.4-5.1); Sodium 136 mMol/L (136-145); eGFR > 60 See Note
[2024-11-23] MEDS: ACETAMINOPHEN 325 MG TABLET 650 MG PO (07:15)
[2024-11-23] MEDS: INSULIN LISPRO (AdmeLOG) 1 UNIT/0.01 ML UNIT SC ×2 (07:19→11:46)
[2024-11-23] MEDS: POTASSIUM CHLORIDE 20 mEq TABCR 40 MEQ PO (09:01)
[2024-11-23] MEDS: HEPARIN SOD INJ 5000 UNIT/ML VIAL SC (09:01)
[2024-11-23] MEDS: PANTOPRAZOLE INJ 40 MG VIAL IVP (09:02)
[2024-11-23] MEDS: SENNA TABLET 1 TAB PO (09:02)
--- NOTE | 2024-11-23 13:29 | ESDS_ITS ---
<Statement entered by Nicki Gandara DO - 11/23/24 16:38> I, Nicki Gandara DO, attest that I was physically present for the sykes portions of the service and evaluated the patient with the resident and I reviewed and discussed the case with the resident and agree with the resident's findings and plans of care as documented above <Statement entered by Adam Gill MD - 11/23/24 15:40> I discussed with and supervised my co-resident involved in the care of this patient. I agree with the assessment and plan as documented above. Adam Gill,PGY-3 Disclaimer: Despite multiple revisions, due to the dictation software being used, the document below may not be free of grammatical errors including phonetic/typographic errors. However, this does not deter from our commitment to providing health care in the patient's best interest in mind. Planned Discharge Date 11/23/24 DS: Providers Provider Date of admission: 11/23/24 07:57 Primary care physician: Roseline Merrill PA-C Admitting Provider: Nicki Gandara DO Attending Provider on Admission: Nicki Gandara DO Consults: 11/22/24 06:05 Consult to Cardiology Stat Comment: Consulting Provider: Gabriele Kline Instructions: Bradycardia and Syncope Attending Provider on DC: Nicki Gandara DO Discharging Provider: Sunny Fierro MD DS: Diagnosis Problem List Completed Was Problem List Reviewed/Reconciled?: Yes Hospital Course Hospital Course Hospital course: Patient is a 38-year-old female with past medical history significant for [id number]-ptclgvjux diabetes mellitus type 2 [10.4]. Patient presented today with a chief complaint of a syncopal episode. Patient will be admitted to the floor for workup and management of syncopal episode. With regards to her syncopal episode likely etiology vasovagal syncope and orthostatic hypotension. During hospitalization patient was treated with normal saline 1 L IV fluid bolus patient, ondansetron, metoclopramide after which her condition improved. Orthostatic vitals were positive patient was counseled on anti orthostasis muscles. These included stockings and clenching leg muscles. Also counseled on Dr Lomas for obstructive including getting up slowly from the toilet. For her lactic acidosis on diabetes mellitus type 2. Patient was also treated with 1 L normal saline IV fluid bolus after which her lactic acid returned to normal limits. Her vomiting also resolved. All patient's labs are now returning to baseline. Patient is now clinically stable and fit for discharge to home. Discharge diagnoses: 1. Syncopal episode secondary to orthostatic hypotension and vasovagal stimulation 2. Symptomatic bradycardia secondary to vomiting?resolved 3. Orthostatic hypotension 4. Sbw-erjtpmm-kapwwidog diabetes mellitus type 2 [7.4%] 5. Lactic acidosis?resolved 6. Vomiting?resolved Discharge plan: - You were found to have orthostatic hypotension. This means that your blood pressure drops when you stand. To avoid future events, stand slowly and wear compression stocking that reach up to your mid thigh during the day. Also get up slowly when you stand from toilet. - We have discontinued your Jardiance, the diabetic medication. This can also cause low blood pressure and dizziness. Please discard of any you have at home. - We have discontinued your medication metformin. Please discard of any you have at home. - We have started you on a medication Januvia for your diabetes. Take 1 tablet once a day. - Please follow up with your primary doctor within 1 week of discharge. - If you experience any new, persistent or worsening of symptoms either call your primary doctor, dial 911 or come to the emergency department. We are grateful to be able to participate in Ms. Webb's care. We wish her the best. Plan of care discussed with Attending Dr. Gandara and PGY3 Dr. Bridget Fierro MD PGY 1 Time Spent with Patient Time attestation: Total time spent providing and/or coordinating discharge services: Time spent: Greater than 30 minutes (35) Exam Vital Signs Temp Pulse Resp BP Pulse Ox O2 Del Method 97.6 F 104 H 16 114/73 98 Room Air 11/23/24 11:51 11/23/24 11:51 11/23/24 11:51 11/23/24 11:51 11/23/24 11:51 11/23/24 11:51 Narrative Exam Constitutional Alert, oriented x 3 and comfortable. Young female lying in bed HEENT Vision grossly intact. Patent nares. Trachea midline Respiratory Chest normal on inspection and clear auscultation bilaterally Cardiovascular S1 and S2 audible, RRR. No murmurs carotid bruit. No gross JVD. Abdominal Soft, obese and non tender to palpation in all quadrants. BS + Genitourinary No bladder tenderness, no flank pain. Normal to palpation Musculoskeletal Extremities tone within normal limits. No LE edema. Neurological CN II - XII grossly intact. Extremity motor and sensation grossly intact. Skin Warm, dry and intact. No apparent lesions. Psychiatric Patient has good affect, is cooperative Discharge Plan Plan Patient Disposition: HOME (Self Care) Care Plan Goals: - You were found to have orthostatic hypotension. This means that your blood pressure drops when you stand. To avoid future events, stand slowly and wear compression stocking that reach up to your mid thigh during the day. Also get up slowly when you stand from toilet. - We have discontinued your Jardiance, the diabetic medication. This can also cause low blood pressure and dizziness. Please discard of any you have at home. - We have discontinued your medication metformin. Please discard of any you have at home. - We have started you on a medication Januvia for your diabetes. Take 1 tablet once a day. - Please follow up with your primary doctor within 1 week of discharge. - If you experience any new, persistent or worsening of symptoms either call your primary doctor, dial 911 or come to the emergency department. Prescriptions/Referrals Prescriptions/Med Rec: New Januvia 100 mg tablet 100 mg PO QDAY 30 Days Qty: 30 1RF Discontinued metformin 1,000 mg Tablet 1,000 mg PO QDAY Referrals: Roseline Merrill PA-C [Primary Care Provider] - Patient/Caregiver Discharge Instructions Education Materials: What Is Syncope?, Treatment for Vasovagal Syncope, Understanding Vasovagal Syncope Print Language: Icelandic Stand Alone Forms: [employer] Info., Patient Portal Info Letter Discharge Order Discharge Orders: Discharge (Routine); Ordered 11/23/24 Ordered By: Sunny Fierro Quality Discharge Quality Measures VTE prophylaxis
== END 2024-11-23 14:50 | disposition home or self-care (01) | DRG 204 ==
LOC: SERX 11-22 06:46 → S3NX 11-23 06:42 → SERHOLD 11-27 06:10
PROVIDERS: Registered Nurse General Practice; Admitting Provider Internal Medicine; Emergency Provider Emergency Medicine; PCP Physician Assistant; Visit Provider Internal Medicine
DX: I95.1 Orthostatic hypotension (principal); E11.65 Type 2 diabetes mellitus with hyperglycemia; E87.20 Acidosis, unspecified; R00.1 Bradycardia, unspecified; E86.0 Dehydration; Z79.84 Long term (current) use of oral hypoglycemic drugs
CPT/HCPCS: 36415; 70450; 71275; 72125; 74174; 80048; 80053; 80061; 80307; 80320; 81001; 82010; 82803; 83036; 83605; 83735; 83880; 84443; 84484; 84703; 85025; 85379; 85610; 85730; 87077; 87086; 87186; 93005; 93225; 93306; 96361; 96365; 96372; 96375; 99285; A4649; G0378; J0696; J1643; J1815; J2405; J2470; J2765; J7030; J7042; Q9967; A9270; G0480; J1644

== ENCOUNTER → 2024-12-18 | Outpatient (CLI) | payer OTHER, SELFPAY ==
--- NOTE | 2024-12-18 14:00 | XR_ITS ---
Examination: Breast ultrasound, unilateral, right Date and time of exam: December 18, 2024 1442 hours INDICATIONS: Outside mammogram 08/28/2024 15 mm focal asymmetry upper outer right breast Technique: Real-time wilkerson scale ultrasonographic imaging performed right breast including all 4 quadrants as well as nipple retroareolar and axillary region. Findings: 11:00 oval mass spiculated margins 3.6 x 2.2 x 3.1 cm Abnormal multiple axillary lymph nodes IMPRESSION: BI-RADS Category 4: Suspicious for malignancy Suspicious mass 11:00 position right breast, biopsy is needed to exclude breast carcinoma, this mass is amenable to ultrasound-guided breast biopsy for diagnosis Also pathologic multiple right axillary lymph nodes, consider biopsy
--- NOTE | 2024-12-18 14:30 | XR_ITS ---
Examination: Diagnostic digital mammography, unilateral, right Computer aided detection 3-D breast Tomosynthesis, unilateral Date and time of exam: December 18, 2024 1458 hours INDICATIONS: Outside mammogram 08/28/2024 focal asymmetry upper outer right breast Technique: Nonmagnified MLO, CC views of the right breast have been obtained, reconstructed from 3-D Tomosynthesis images. R2 computer aided detection program utilized for evaluation of suspicious masses and/or abnormal calcifications. 3-D Tomosynthesis images obtained. Findings: The breast is heterogeneously dense, which may obscure small masses Suspicious mass is confirmed 11:00 position right breast, 3.6 cm, indistinct margins Partial visualization enlarged axillary lymph nodes, also noted on right breast sonogram today Impression: BI-RADS Category 4: Suspicious for malignancy Suspicious mass 11:00 position right breast Biopsy is needed to say breast carcinoma, this mass is amenable to ultrasound-guided breast biopsy for diagnosis as well as right axillary lymph node
== END | disposition home or self-care (01) ==
PROVIDERS: PCP Family Medicine; Referring Provider Advanced Practice Midwife; Visit Provider Advanced Practice Midwife
DX: R92.341 Mammographic extreme density, right breast (principal); N63.11 Unspecified lump in the right breast, upper outer quadrant; I89.8 Other specified noninfective disorders of lymphatic vessels and lymph nodes
CPT/HCPCS: 76641; 77061; 77065; G0279

== ENCOUNTER 2025-02-05 11:57 | Emergency (ER) | payer MEDICAID, SELFPAY ==
[2025-02-05 11:59] VITALS: BMI 33.2
[2025-02-05 12:22] VITALS: BP 117/81; PULSE 96; RESP 19; TEMP 37; O2SAT 96
--- NOTE | 2025-02-05 12:25 | XR_ITS ---
Examination: Breast ultrasound, unilateral, right complete Date and time of exam: February 11, 2025 1304 hrs. Indications: Palpable lump right breast note is beginning 2 days ago, ultrasound December 18, 2024 BI-RADS 4 suspicious nodule 11:00 position right breast Technique: Real-time wilkerson scale ultrasonographic imaging performed right breast including all 4 quadrants as well as nipple retroareolar and axillary region. Findings: 11:00 oval mass suspicious margins 5.1 x 3.3 cm Multiple abnormal right axillary lymph nodes, the largest 2.2 x 1.5 cm Impression: BI-RADS Category 4: Suspicious for malignancy Suspicious mass 11:00 position right breast as well as suspicious right axillary lymph nodes Biopsy of the left o'clock nodule is needed as well as one of the suspicious right axillary lymph nodes
--- NOTE | 2025-02-05 12:26 | PD.EDRME ---
Rapid Medical Screening Exam E Arrival date/time: 02/05/25 11:57 39-year-old female with no known medical history presents to the emergency room with a chief complaint of tenderness and pain to the right breast. Patient states there are 2 lumps 1 to the breast and 1 to the axilla. Patient states primary care provider told her to come to the emergency room the pain continues. I have greeted and performed a focused initial assessment of this patient. A comprehensive ED assessment and evaluation of the patient, analysis of all test results, and completion of the medical decision making process will be conducted by additional ED providers. Chief Complaint: Recheck/Abnormal Lab/Rx Vital signs: Vital Signs Temperature 98.6 F 02/05/25 12:22 Pulse Rate 96 02/05/25 12:22 Respiratory Rate 19 02/05/25 12:22 Blood Pressure 117/81 02/05/25 12:22 Pulse Oximetry (%) 96 02/05/25 12:22 Oxygen Delivery Method Room Air 02/05/25 12:22 Vital signs reviewed by provider: Yes
[2025-02-05] MEDS: KETOROLAC INJ 60 MG/2 ML VIAL 30 MG IM (12:34)
--- NOTE | 2025-02-05 14:51 | EDNOTE_ITS ---
ED Skin Abcess FB-RME/HPI General Chief complaint: Recheck/Abnormal Lab/Rx Stated complaint: Right breast lump with pain 09/07 x 1 day Time Seen by Provider: 02/05/25 14:13 Arrival date/time: 02/05/25 11:57 RME / HPI RME / HPI narrative: 02/05/25 11:57 39-year-old female with no known medical history presents to the emergency room with a chief complaint of tenderness and pain to the right breast. Patient states there are 2 lumps 1 to the breast and 1 to the axilla. Patient states primary care provider told her to come to the emergency room the pain continues. I have greeted and performed a focused initial assessment of this patient. A comprehensive ED assessment and evaluation of the patient, analysis of all test results, and completion of the medical decision making process will be conducted by additional ED providers. 39 yo female patient presenting with pain to right breast x 1 day. Noticed a lump approximately 3 months ago. Also c/o dry cough. Has been referred to surgery for biposy. Denies fever. Denies CP, SOB. Related Data Previous Rx's ?Medication ?Instructions ?Recorded sitagliptin phosphate 100 mg 100 mg PO QDAY 1 month #3 0 tabs 11/23/24 tablet (Januvia) ibuprofen 600 mg tablet 600 mg PO Q6H PRN pain #30 t abs 02/05/25 Allergies Allergy/AdvReac Type Severity Reaction Status Date / Time No Known Allergies Allergy Verified 11/21/24 22:37 Review of Systems Review of Systems Systems Reviewed: All systems reviewed, normal except as documented ED Exam Narrative Physical exam: GENERAL APPEARANCE: alert and oriented x 4, well-developed, well-nourished, no acute distress HEENT: Normocephalic, atraumatic CHEST: palpable irregular mass right breast 11 oclock, right axillary LAD LUNGS: No increased work of breathing, no respiratory distress HEART: Good peripheral perfusion ABDOMEN: non distended EXTREMITIES: atraumatic; no edema NEUROLOGIC: awake; alert and oriented x4; cranial nerves II-XII grossly intact PSYCHIATRIC: appropriate mood and affect SKIN: warm, dry, normal color; no rashes Course Quality Measures none Orders Category Date Time Status US breast RT complete Stat Exams 02/05/25 12:25 Completed HYDROcodone*/APAP 5/325 [Marathon 5/325] Med 02/05/25 14:55 Discontinued 1 tab PO X1 ONE Ketorolac Inj [Toradol Inj] Med 02/05/25 12:25 Discontinued 30 mg IM X1 ONE Vital Signs Vital signs: Vital Signs Temperature 98.6 F 02/05/25 12:22 Pulse Rate 96 02/05/25 12:22 Respiratory Rate 19 02/05/25 12:22 Blood Pressure 117/81 02/05/25 12:22 Pulse Oximetry (%) 96 02/05/25 12:22 Oxygen Delivery Method Room Air 02/05/25 12:22 Skin / Abscess / Foreign Body Patient data External records reviewed:: [facility] previous records Clinical information provided by:: patient Social determinants that could affect healthcare access:: none Patient has the following chronic illnesses:: Diabetes How is presenting disease/condition affected by chronic disease/condition?: uneffected by Evaluation data The following diagnostics were reviewed and interpreted by me:: radiology exam(s) Lab and/or radiology exams considered but not ordered:: None Interpretation Summary: Agree with radiologist interpretation of ultrasound Medications / Prescriptions Medications or Prescriptions considered but not ordered:: None Medication administrations:: Medication Administration History Discontinued Medications Hydrocodone Bitart/Acetaminophen (Hydrocodone/Apap 5/325 Tablet) 1 tab PO X1 ONE Stop: 02/05/25 14:56 Ketorolac Tromethamine (Ketorolac Inj 60 Mg/2 Ml Vial) 30 mg IM X1 ONE Stop: 02/05/25 12:26 Last Admin: 02/05/25 12:34 Dose: 30 mg Documented By: BD As above Consultations Consultation(s) initiated? (list below): No Diagnosis Skin/Abscess Differential Diagnosis: abscess of skin or subcutaneous tissue, cellulitis, insect bites and other Most likely diagnosis given after review of the tests above:: Breast mass with concern for malignancy Admission Indicated Admission indicated?: not indicated Admission Request Was there a request for admission?: No Disposition Plan Disposition Plan: Discharge Discharge Attestation Discharge Attestation: The patient and all family members were given an opportunity to ask questions and understood the discharge instructions. Discharge instructions specifically effects, indications for sooner follow up or return to the emergency department, and the expected course of current diagnosis. Patient condition: Stable Discharge Plan Plan Patient Disposition: HOME (Self Care) Prescriptions/Referrals Prescriptions/Med Rec: New ibuprofen 600 mg tablet 600 mg PO Q6H PRN (Reason: pain) Qty: 30 0RF No Action Januvia 100 mg tablet 100 mg PO QDAY 30 Days Qty: 30 1RF Referrals: Olegario Haley MD [Primary Care Provider] - In 1 week Problem List Clinical Impression: Breast mass, right Patient/Caregiver Discharge Instructions Education Materials: ED Breast Lump, Uncertain Cause Additional Instructions: Follow up with surgeon for biopsy as previously referred by your primary care doctor Print Language: Kosovan Stand Alone Forms: [employer]ha Award Info., Patient Portal Info Letter
[2025-02-05] MEDS: HYDROcodone/APAP 5/325 TABLET 1 TAB PO (15:02)
== END 2025-02-05 15:05 | disposition home or self-care (01) ==
PROVIDERS: Emergency Provider Emergency Medicine; PCP Family Medicine
DX: N63.11 Unspecified lump in the right breast, upper outer quadrant (principal); E11.9 Type 2 diabetes mellitus without complications
CPT/HCPCS: 76641; 93005; 99284; J1885; A9270

== ENCOUNTER → 2025-04-03 | Outpatient (CLI) | payer OTHER, SELFPAY ==
[2025-04-02 13:48] LABS: Basophils % (Auto) 0 % (0-2.5); Eosinophils # (Auto) 0.2 Thou/mm3 (0.0-0.5); Eosinophils % (Auto) 3 % (0-10); Hematocrit 39.6 % (36.0-46.0); Hemoglobin 13.9 g/dL (12.0-16.0); Immature Granulocytes % (Auto) 0 % (0-0); Immature Granulocytes Auto 0.04 Thou/mm3 (0.00-0.00); Lymphocytes # (Auto) 2.4 Thou/mm3 (1.0-4.8); Lymphocytes % (Auto) 26 % (10-50); Mean Corpuscular HGB Conc 35.1 g/dl (31.0-37.0); Mean Corpuscular Hemoglobin 28.3 pg (25.0-35.0); Mean Corpuscular Volume 81 fL (80-100); Monocytes # (Auto) 0.7 Thou/mm3 (0.0-0.8); Monocytes % (Auto) 8 % (0-12); Neutrophils # (Auto) 5.6 Thou/mm3 (1.8-7.7); Neutrophils % (Auto) 63 % (37-80); Nucleated Red Blood Cell % 0 /100 WBC (0); Platelet Count 308 Thou/mm3 (140-440); RDW Standard Deviation 35.8 fL (36.4-46.3); Red Blood Count 4.92 Miln/mm3 (4.00-5.20)
[2025-04-02 14:04] LABS: Partial Thromboplastin Time 29.9 Seconds (22.0-36.0); Prothrombin Time 10.9 Seconds (9.0-12.2)
[2025-04-02 14:16] LABS: Beta HCG,Quantitative 1 mIU/mL (<5.0)
--- NOTE | 2025-04-03 08:30 | XR_ITS ---
Examinations: Ultrasound-guided percutaneous breast biopsy, left breast 11:00 nodule Left breast sonography limited INDICATIONS: Left breast sonogram February 05, 2025 BI-RADS 4 suspicious mass 11:00 position left breast. Exam date and time: April 03, 2025 0923 hours. Informed consent provided. Technique: A timeout was completed verifying correct patient, procedure, site, positioning, and special equipment if applicable Informed consent provided. The patient was placed in a supine position for the breast biopsy. Sonographic images of the breast were performed for localization of the suspicious nodule The patient's breast was prepped and draped in sterile fashion. Maximum sterile barrier technique, hand hygiene, ultrasound sterile technique 1% lidocaine was used to anesthetize the skin and breast adjacent to the suspicious nodule. Utilizing ultrasonographic guidance, 8 core biopsies were obtained of the suspicious nodule utilizing an 18-gauge BioPince needle. The specimens appears satisfactory. US guided breast biopsy marker placement. Estimated blood loss 3 cc. The patient tolerated the procedure well and there were no complications. Impression: Successful ultrasound-guided percutaneous breast biopsy, left breast 11:00 nodule. Ultrasound guided breast biopsy marker placement.
--- NOTE | 2025-04-03 08:30 | XR_ITS ---
Examinations: Ultrasound-guided percutaneous biopsy right axillary lymph node Right axillary sonography limited INDICATIONS: BI-RADS 4 suspicious axillary lymph nodes on breast sonogram January 28, 2025 right axilla Exam date and time: April 03, 2025 0925 hours. Informed consent provided. Technique: A timeout was completed verifying correct patient, procedure, site, positioning, and special equipment if applicable Informed consent provided. The patient was placed in a supine position for the axillary biopsy. Sonographic images of the axilla were performed for localization of the suspicious axillary lymph node The patient's breast was prepped and draped in sterile fashion. Maximum sterile barrier technique, hand hygiene, ultrasound sterile technique 1% lidocaine was used to anesthetize the skin and breast adjacent to the suspicious nodule. Utilizing ultrasonographic guidance, 8 core biopsies were obtained of the suspicious nodule utilizing an 18-gauge BioPince needle. The specimens appears satisfactory. The patient tolerated the procedure well and there were no complications. Impression: Successful ultrasound-guided percutaneous biopsy abnormal right axillary lymph node
== END | disposition home or self-care (01) ==
LOC: SDIM 08:42
PROVIDERS: Radiology Diagnostic Radiology; PCP Physician Assistant; Referring Provider Physician Assistant; Visit Provider Physician Assistant
DX: C50.411 Malignant neoplasm of upper-outer quadrant of right female breast (principal); C50.611 Malignant neoplasm of axillary tail of right female breast; Z17.1 Estrogen receptor negative status [ER-]; Z17.22 Progesterone receptor negative status; Z01.812 Encounter for preprocedural laboratory examination
CPT/HCPCS: 19083; 19084; 36415; 84702; 85025; 85610; 85730; A4648

== ENCOUNTER 2025-06-12 15:45 | Emergency (ER) | payer MEDICAID, SELFPAY ==
[2025-06-12 16:00] VITALS: BP 135/85; PULSE 109; RESP 18; TEMP 37.1; O2SAT 96
--- NOTE | 2025-06-12 16:16 | XR_ITS ---
Examination: Cervical spine 3 views TECHNIQUE: AP, lateral, coned AP odontoid cervical spine 3 views Date and time: June 12, 2025, 1634 hours INDICATIONS: Neck pain 3 months. FINDINGS: Satisfactory limited cervical vertebral bodies. No cervical fracture No significant cervical disc narrowing IMPRESSION: No cervical fracture or significant cervical disc narrowing
--- NOTE | 2025-06-12 16:16 | XR_ITS ---
Examination: Shoulder,left, 3 views Technique: Shoulder AP internal rotation, AP external rotation, Y view shoulder, 3 views Exam date and time :June 12, 2025 1623 hours INDICATIONS: Left shoulder pain beginning 3 months ago. FINDINGS: Mild narrowing glenohumeral joint. No shoulder fracture or dislocation No AC joint separation IMPRESSION: Mild narrowing glenohumeral joint
--- NOTE | 2025-06-12 16:16 | EKG_ITS ---
[facility] Test Date: 2025-06-12 Pat Name: ROLLY FERRODepartment: Room: - Gender: Female [employer]: : 1985 Requested By: Divya Bobby Order Number: [id number] Reading MD: Divya Bobby Measurements Intervals [place] Rate: 124 P: 18 SC: 133 QRS: 12 QRSD: 85 T: 21 QT: 298 QTc: 429 Interpretive Statements SINUS TACHYCARDIA ABNORMAL RHYTHM ECG No previous ECG available for comparison /store/S0/[id number].pdf
--- NOTE | 2025-06-12 16:16 | XR_ITS ---
Examination: Duplex scan of the upper extremity, unilateral left Date and time of exam: June 12, 2025 1657 hours INDICATIONS: Left arm and shoulder swelling and pain 3 months Technique: Duplex scan of the extremity veins using B-mode/grayscale imaging and Doppler spectral analysis and color flow Attention is directed to internal echogenicity, compression and augmentation involving these veins, color flow assessment, spectral analysis Findings: Major deep venous structures in the extremity demonstrate normal course and caliber. There is no evidence of deep vein thrombosis. Normal color flow and spectral analysis Impression: Negative for DVT..
--- NOTE | 2025-06-12 16:17 | EDNOTE_ITS ---
Upper Extremity Injury RME/HPI General Chief Complaint: Extremity Injury, Upper Stated Complaint: L) ARM/SHOULDER PAIN Time Seen by Provider: 06/12/25 16:02 Arrival date/time: 06/12/25 15:45 This is a case of a 39-year-old female with no medical history came in in the emergency room due to left arm pain for 1 week on and off with swelling denies any injury or trauma patient states that the pain is sharp radiating to the left side of the neck going down to his left elbow denies any numbness tingling sensation weakness chest pain shortness of breath or palpitation Limitations: no limitations Related Data Previous Rx's ?Medication ?Instructions ?Recorded sitagliptin phosphate 100 mg 100 mg PO QDAY 1 month #3 0 tabs 11/23/24 tablet (Januvia) ibuprofen 600 mg tablet 600 mg PO Q6H PRN pain #30 t abs 02/05/25 cyclobenzaprine 10 mg tablet 10 mg PO BID PRN muscle s pasm #10 06/12/25 tabs ibuprofen 800 mg tablet 800 mg PO Q8H PRN pain #20 t abs 06/12/25 lidocaine 5 % topical patch 1 patch topical QDAY PRN p ain #15 06/12/25 (Lidoderm) ea Allergies Allergy/AdvReac Type Severity Reaction Status Date / Time No Known Allergies Allergy Verified 06/12/25 15:49 Review of Systems Review of Systems Systems Reviewed: All systems reviewed, normal except as documented Constitutional Constitutional: Reports system reviewed and no additional complaints, except as documented, Reports as per HPI, Denies chills, Denies fever(s) and Denies headache(s) ENT Ears, Nose, Mouth, and Throat: Denies headache(s) and Reports neck pain Cardiovascular Cardiovascular: Reports system reviewed and no additional complaints, except as documented and Reports as per HPI Respiratory Respiratory: Reports system reviewed and no additional complaints, except as documented and Reports as per HPI Gastrointestinal Gastrointestinal: Reports system reviewed and no additional complaints, except as documented and Reports as per HPI Musculoskeletal Musculoskeletal: Reports system reviewed and no additional complaints, except as documented, Reports as per HPI, Reports neck pain and Reports other (Left arm pain left shoulder pain) Neurologic Neurologic: Reports system reviewed and no additional complaints, except as documented, Reports as per HPI and Denies headache(s) Past Medical History Past Medical History CARDIAC: Negative Cardiac Disorders or Congestive Heart Failure RESPIRATORY: Negative Chronic Obstructive Pulmonary Disease (COPD) or Asthma GENITOURINARY: Negative Renal Disease ENDOCRINE: Positive Endocrine Disorders and Diabetes Mellitus Type 2; Negative Diabetes Mellitus Type 1 HEMATOLOGIC: Negative Sickle Cell Disease OTHER HISTORY: Positive Hospitalization; Negative Falls, Blood Transfusions or Anesthesia Reactions Surgical History SURGICAL: Positive Tubal Ligation Social History SMOKING STATUS: Never smoker ED Exam General Limitations: Present no limitations General appearance: Present alert, in no apparent distress and other (Patient is awake alert oriented not in distress nontoxic looking well-hydrated well- nourished) Head Head exam: Present atraumatic, normocephalic and normal inspection Eye Eye exam: Present normal appearance, PERRL and EOMI ENT ENT exam: Present normal exam, normal oropharynx and mucous membranes moist Neck Neck exam: Present normal inspection, full ROM, trachea midline and tenderness (Mild tenderness on the cervical area no crepitation no deformity no redness no swelling no paraspinal no paravertebral tenderness negative meningeal sign ROM intact neurovascular intact); Absent meningismus, lymphadenopathy or thyromegaly Chest Chest inspection: Present normal inspection and symmetric chest wall rise Respiratory Respiratory exam: Present normal lung sounds bilaterally; Absent respiratory distress, wheezes, stridor, accessory muscle use or prolonged expiratory phase Cardiovascular Cardiovascular exam: Present regular rate, normal rhythm and normal heart sounds; Absent bradycardia, tachycardia, irregular rhythm, systolic murmur or diastolic murmur Abdominal Exam Abdominal exam: Present soft and normal bowel sounds; Absent distention, tenderness, guarding or rebound Extremities Exam Extremities exam: Present normal inspection and full ROM Expanded Upper Extremity Exam Shoulder exam: Present normal inspection, full ROM, tenderness (Mild tenderness on the left shoulder joint mild swelling no crepitation no deformity ROM intact neurovascular) and swelling; Absent abrasion, laceration, ecchymosis, deformity, crepitus, dislocation, erythema or tenderness over AC joint Arm exam: Present normal inspection, full ROM, tenderness (Mild tenderness on the left arm mild swelling ROM intact neurovascular) and swelling; Absent abrasion, laceration, ecchymosis, deformity, crepitus, erythema or other Elbow exam: Present normal inspection and full ROM; Absent tenderness or swelling Forearm/Wrist exam: Present normal inspection and full ROM; Absent tenderness or swelling Hand exam: Present normal inspection and full ROM; Absent tenderness or swelling Back Exam Back exam: Present normal inspection and full ROM Neurological Exam Neurological exam: Present alert, oriented X3, CN II-XII intact, normal gait and reflexes normal; Absent motor sensory deficit Psychiatric Psychiatric exam: Present normal affect and normal mood Skin Skin exam: Present warm, dry, intact and normal color Course Quality Measures none Orders Category Date Time Status EKG (ED ONLY) *Do not use* NOW Care 06/12/25 16:17 Completed EKG (ED ONLY) *Do not use* NOW Care 06/12/25 18:37 Completed sling [Splint / Immobilizer] STAT Care 06/12/25 18:21 Active EKG (ED Only) Stat Exams 06/12/25 16:16 Draft EKG (ED Only) Stat Exams 06/12/25 18:36 Draft US venous doppler UE LT Stat Exams 06/12/25 16:16 Completed XR cervical spine 2-3V Stat Exams 06/12/25 16:16 Completed XR shoulder LT min 2V Stat Exams 06/12/25 16:16 Completed Troponin I Stat Lab 06/12/25 16:28 Completed Dexamethasone Inj [Decadron Inj] Med 06/12/25 18:21 Discontinued 10 mg IM X1 ONE Ketorolac Inj [Toradol Inj] Med 06/12/25 18:21 Discontinued 30 mg IM X1 ONE Vital Signs Vital signs: Vital Signs Temperature 98.7 F 06/12/25 16:00 Pulse Rate 109 H 06/12/25 16:00 Respiratory Rate 18 06/12/25 16:00 Blood Pressure 135/85 H 06/12/25 16:00 Pulse Oximetry (%) 96 06/12/25 16:00 Oxygen Delivery Method Room Air 06/12/25 16:00 Patient is not febrile not tachycardic not tachypneic BP stable not hypoxic oxygen saturation in room Extremity Injury MDM Narrative MDM Narrative:: This is a case of a 39-year-old female with no medical history came in in the emergency room due to left arm pain for 1 week on and off with swelling denies any injury or trauma patient states that the pain is sharp radiating to the left side of the neck going down to his left elbow denies any numbness tingling sensation weakness chest pain shortness of breath or palpitation physical examination patient is awake alert oriented not in distress nontoxic looking neurological exam is normal awake alert oriented x 4 no focal deficit GCS 15/15 steady gait patient noted to have tenderness on the left shoulder joint with mild swelling no crepitation no deformity ROM intact but with pain neurovascular intact left arm noted to have tenderness and mild swelling ROM intact neurovascular intact mild tenderness on the left side of the neck no crepitation no deformity no paraspinal tenderness no paravertebral tenderness straight leg exam is normal no signs and symptoms of cauda equina patient EKG showed sinus tach at 104 troponin is negative thus the left arm pain is not a cardiac origin patient x-ray of the shoulder noted a mild narrowing of glenohumeral joint suggestive of osteoarthritis patient neck x-ray is normal patient is negative for DVT patient was given Toradol and dexamethasone and sling was applied patient tolerated well neurovascular intact patient with results reassessed after 30 minutes pain was improved and resolved patient will follow-up with PCP in 2 days for reevaluation and to be referred to Ortho for further evaluation and treatment for possible MRI to rule out ligament injury for any recurrence persistent worsening symptoms return precaution in the ER was advised Patient was discharged with comfortable condition walking with stable gait. Patient verbalized no further complains explained diagnosis and answered patient question. Patient is comfortable with the proposed management plan including the need to follow up with his/her primary care physician and any specialist if applicable Discussed patient for any urgent condition or worsening sx, He/She needed to go to emergency room immediately or call 911. Patient acknowledge the responsibility to follow up as instructed and to monitor her/his symptoms. For any persistence of the symptoms for more than 3-5 days return precaution advised. Discussed the result of the test and was given printed discharge instruction Patient data External records reviewed:: [facility] previous records Clinical information provided by:: patient Social determinants that could affect healthcare access:: none Patient has the following chronic illnesses:: None How is presenting disease/condition affected by chronic disease/condition?: no chronic disease Evaluation data The following diagnostics were reviewed and interpreted by me:: lab results and radiology exam(s) Lab and/or radiology exams considered but not ordered:: Reviewed Interpretation Summary: Reviewed Medications / Prescriptions Medications or Prescriptions considered but not ordered:: Given Medication administrations:: Medication Administration History Discontinued Medications Dexamethasone Sodium Phosphate (Dexamethasone Sod Phos Inj 10 Mg/Ml Vial) 10 mg IM X1 ONE Stop: 06/12/25 18:22 Ketorolac Tromethamine (Ketorolac Inj 60 Mg/2 Ml Vial) 30 mg IM X1 ONE Stop: 06/12/25 18:22 Given Consultations Consultation(s) initiated? (list below): No Diagnosis Upper Extremity Injury Differential Diagnosis: other (Osteoarthritis DDD cervical DVT) Most likely diagnosis given after review of the tests above:: Osteoarthritis Admission Indicated Admission indicated?: not indicated Explain why admission is indicated or not indicated:: Not indicated Admission Request Was there a request for admission?: No Admission Attestation Admission request attestation: Not indicated Disposition Plan Disposition Plan: Discharge Discharge Attestation Discharge Attestation: The patient and all family members were given an opportunity to ask questions and understood the discharge instructions. Discharge instructions specifically effects, indications for sooner follow up or return to the emergency department, and the expected course of current diagnosis. Patient condition: Stable Discharge Plan Plan Patient Disposition: HOME (Self Care) Patient condition on transfer: Stable Prescriptions/Referrals Prescriptions/Med Rec: New ibuprofen 800 mg tablet 800 mg PO Q8H PRN (Reason: pain) Qty: 20 0RF cyclobenzaprine 10 mg tablet 10 mg PO BID PRN (Reason: muscle spasm) Qty: 10 0RF Rx Instructions: no dirving lidocaine [Lidoderm] 5 % adhesive patch,medicated 1 patch topical QDAY PRN (Reason: pain) Qty: 15 0RF Rx Instructions: leave on most painful area for up to 12 hrs No Action Januvia 100 mg tablet 100 mg PO QDAY 30 Days Qty: 30 1RF ibuprofen 600 mg tablet 600 mg PO Q6H PRN (Reason: pain) Qty: 30 0RF Referrals: No Primary/Family,Physician [Primary Care Provider] - In 1 week Problem List Clinical Impression: Osteoarthritis of left shoulder, Neck muscle spasm, Arm pain, left Patient/Caregiver Discharge Instructions Education Materials: ED Neck Spasm, No Trauma, ED Osteoarthritis, ED RICE Additional Instructions: Follow-up with your primary care physician in 2 days for reevaluation and to be referred to orthopedic surgeon for further evaluation and treatment of osteoarthritis for possible MRI to rule out ligament injury worsening symptoms or any emergent concerns such as numbness weakness tingling sensation incontinence to urine or stool call 911 or go to the nearest emergency room ice pack and warm compress as needed for pain elevate to decrease swelling keep the sling in place until cleared by your primary care physician take your medication as directed Print Language: Mongolian Stand Alone Forms: Radha Award Info., Patient Portal Info Letter PA/DOCK GUARD Supervising Physician NAILA/MELODY Supervising Physician: DR Dinero
[2025-06-12 16:59] LABS: Troponin I < 0.002 ng/mL (0.0-0.045)
--- NOTE | 2025-06-12 18:36 | EKG_ITS ---
[facility] Test Date: 2025-06-12 Pat Name: ROLLY FERRODepartment: Room: - Gender: Female Home Health Care Respiratory Therapist: : 1985 Requested By: Divya Bobby Order Number: [id number] Reading MD: Divya Bobby Measurements Intervals [place] Rate: 104 P: 17 NC: 134 QRS: 30 QRSD: 85 T: 23 QT: 334 QTc: 440 Interpretive Statements SINUS TACHYCARDIA ABNORMAL RHYTHM ECG Compared to ECG 06/12/2025 16:24:05 No significant changes /store/S0/[id number]/[id number].pdf
[2025-06-12] MEDS: KETOROLAC INJ 60 MG/2 ML VIAL 30 MG IM (19:00)
[2025-06-12] MEDS: DEXAMETHASONE SOD PHOS INJ 10 MG/ML VIAL IM (19:00)
[2025-06-12 19:12] VITALS: BP 123/68; PULSE 79; RESP 19; TEMP 36.8; O2SAT 100
== END 2025-06-12 19:12 | disposition home or self-care (01) ==
PROVIDERS: Nurse Practitioner Family; Emergency Provider Emergency Medicine
DX: M19.012 Primary osteoarthritis, left shoulder (principal); M62.838 Other muscle spasm
CPT/HCPCS: 36415; 72040; 73030; 84484; 93005; 93971; 96372; 99284; J1100; J1885

== ENCOUNTER 2025-06-28 08:57 | Outpatient (RCR) | payer MEDICAID, SELFPAY ==
--- NOTE | 2025-06-06 16:48 | CTCCONSULT_ITS ---
[facility] [address] [place], [place] [address] Consultation Note Date: 06/06/2025 MR#: [id number] Name: ROLLY FERRO : 1985 Dx: C50.411 Malignant neoplasm of upper-outer quadrant of right female breast Attending physician. NAILA Kim [facility]. Reason for consultation. Patient with triple negative breast CA with axillary mets referred to the cancer center. History of Present Illness: Patient is a 39-year-old lady who felt a growing mass in her right breast. Bilateral mammogram 08/28/2024 revealed a focal asymmetry right breast with 1.5 cm upper outer quadrant and additional imaging recommended. Underwent right breast ultrasound 02/05/2025 and this revealed large 5.1 x 3.3 cm suspicious mass 11:00 with multiple abnormal right axilla lymph nodes largest 2.2 x 1.5 cm. Underwent biopsy of the right breast mass 04/03/2025 at 11:00 revealing infiltrating ductal carcinoma high-grade modified SBR 08/07 ER [place] negative HER2/pipe 1+ negative and the right axillary mass infiltrating carcinoma high-grade as detailed in the right breast mass. Patient referred to the cancer center. Past Medical History: History of diabetes Meds. Naproxen Janumet Allergies none Family history. No breast cancer or other cancers in family Social History: Age of first 13 4 pregnancies 4 births last menses May 30 2025 Review of Systems: Has pain in the right axilla and the left shoulder, she shortness of breath with exertion unexplained fatigue diarrhea chest pains Physical Exam: General: Adequate nourished appearing lady no acute distress HEENT: Adequate nourished appearing lady no acute distress; right supra [place] palpable CV: Large right breast mass involving about one half of her right breast central and outer portion; easily palpable right axillary mass about the size of a golf ball. ABD: Soft no organomegaly tenderness EXT: No signs of clubbing or edema Assessment:#1. Local regional advanced right breast CA involving about one half of her right breast in the central and outer quadrant with right axillary mass about the size of a golf ball. Both breast and axilla biopsied infiltrating ductal carcinoma triple negative with high Ki-67 greater than 50% positive. Right supra clavicle node feels enlarged as well. #2. Port placement for chemo access, echocardiogram to establish baseline prior to chemo, PET scan for staging. #3. Medical oncologist Dr. King will see patient soon. #4. I will follow patient for palliative care and the probable eventual need for radiation post chemo postsurgery. #5. Thank you for referral to the cancer center and allowing me to evaluate this patient. Cc: [facility] Electronically signed by: Dominick Young MD, DABR 06/06/2025 4:46 PM
--- NOTE | 2025-06-28 12:55 | CTCCONSULT_ITS ---
Patient: ROLLY FERRO : 1985 MR#: [id number] Page 2 of 2 CONSULTATION NOTE DATE OF CONSULTATION: 06/28/2025 NAME: ROLLY FERRO ACCOUNT: [id number] : 1985 AGE: 39 REFERRING PHYSICIAN: Truman Stoner MD PRIMARY PHYSICIAN: REASON FOR VISIT: ONCOLOGY HISTORY: DIAGNOSIS: Malignant neoplasm of upper-outer quadrant of right female breast [ICD10] C50.411 DATE OF DIAGNOSIS: 04/03/2025 STAGE/TNM: At least stage III TREATMENT HISTORY: Care?Plan Start?Date Cycle Day Intent TNBC?Pembro?17?cy?TaxCar?4?cy?AC?4?cy?Keynote?522 06/28/2025 1 21 Curative?(adjuvant) HISTORY OF PRESENT ILLNESS: 39-year-old female 08/28/2024 mammogram showed abnormality in the right breast 02/05/2025 ultrasound of the right breast showed lesion concerning for malignancy 04/03/2025 right breast biopsy showed infiltrating ductal carcinoma high-grade grade 3 ER negative NM negative Ki-67 50% HER2 -1+ low and patient was referred to oncology 06/06/2025 patient seen by radiation oncologist Dr. Young. Right breast showed 5.1 x 3.3 cm mass and right axilla lymph node 2.2 x 1.5 cm documented on the ultrasound from 02/05/2025. Orders placed for PET CT scan port placement and patient referred to medical oncology 06/28/2025 patient seen by oncology. 6 stat orders placed for chemotherapy based on keynote trial. Expedited orders placed for port catheter placement and echocardiogram. Chemo can be started while waiting for echocardiogram PET CT scan pending Will wait for brain MRI. OTHER MEDICAL HISTORY/CONDITIONS: Right breast infiltrating ductal carcinoma - dx 04/03/25 Diabetes Arthritis DENIES FAMILY HISTORY: Patient?denies?family?cancer?history. 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 CeleBREX - 50 mg 1 Capsule Twice a Day 2. Janumet - 50-1,000 mg 1 tab Twice a Day 3. metFORMIN - 1,000 mg 1 tab Daily Medications Last Reconciled by Audrey Benedict RN on 06/28/2025 ALLERGIES: No Known Drug Allergies REVIEW OF SYSTEMS: A complete 14-point review of systems was performed and is negative except as noted in interval history. PHYSICAL EXAMINATION: VITAL SIGNS: Temperature?96.8, B/P?118/94, Height?61.5?inches, Oxygen?Saturation?99% Weight?164?lbs (Change?since?06/06/25:?-5?lbs) PAIN: 0 - No pain ECOG Performance Status: 0 - Asymptomatic and fully active GENERAL APPEARANCE: Appears well, in no apparent distress, appropriately interactive. HEENT: Normocephalic, no temporal wasting, normal conjunctiva, no scleral icterus, normal hearing, lips without lesions, neck normal range of motion. CARDIOVASCULAR: Not assessed. PULMONARY: Normal respiratory effort, no respiratory distress or use of accessory muscles, speaking in full sentences, no tachypnea. EXTREMITIES: No pedal edema or cyanosis. SKIN: Normal skin appearance. NEUROLOGIC: Alert and oriented x4. PSHYCHIATRIC: Appropriate affect, mood normal, behavior normal, intact thought and speech. Breast examination shows large breast lesion and enlarged lymph node LABORATORY DATA: I have personally reviewed and interpreted each of the patient?s relevant lab tests, abnormal findings are below: Date ASSESSMENT/PLAN: Locally advanced breast cancer systemic imaging pending Patient was unfortunately diagnosed with suspicious lesion in July 2024 Patient's care has been delayed and is finally seen in oncology on 06/28/2025 Discussed with patient the main course of treatment is neoadjuvant chemotherapy with the hope to shrink the tumor Will start on pembrolizumab carboplatin Taxol Adriamycin and cyclophosphamide based on keynote trial Will request for stat port catheter placement so patient can start chemotherapy Echo needed before Adriamycin Chemotherapy education class appointment given to patient Will start chemo ISAIAH Will request nurses to place pictures of the breast before starting chemotherapy in chart ORDERS: Order # Description [id number] [place] [address] [id number] CBC + Comprehensive Metabolic Panel [id number] Lab Appointment [id number] RETURN TO CLINIC: I reviewed the diagnosis, prognosis, and recommended treatment/procedure options with the patient (and/or their legal insurance claims representative), including the potential benefits, risks, side effects and alternative therapies. We also discussed the option of no treatment and the possibility of clinical trial participation, if applicable. All questions were addressed, and they demonstrated understanding. They provided informed consent to proceed with the proposed plan of care. BILLING AND COMPLIANCE: I reviewed external records from providers outside my specialty as summarized above. I spent a total of 50 minutes on this patient?s care on the day of their visit excluding time spent related to any billed procedures. This time includes time spent with the patient as well as time spent documenting in the medical record, reviewing patients records and tests, obtaining history, placing orders, communicating with other healthcare professionals, counseling the patient, family or caregiver, and/or care coordination for the diagnoses above. Electronically Signed by: Guille King MD T: 12:53 PM CC: PCP: Referring: Truman Stoner This document was completed utilizing speech recognition software. Grammatical errors, random word insertions, pronoun errors, and incomplete sentences are an occasional consequence of this system due to software limitations, ambient noise, and hardware issues. Any formal questions or concerns about the content, text or information contained within the body of this dictation should be directly addressed to the provider for clarification.
== END 2025-06-28 23:59 | disposition home or self-care (01) ==
LOC: SCTC 08:57
PROVIDERS: PCP Family Medicine; Referring Provider Family Medicine; Visit Provider Internal Medicine Hematology & Oncology
DX: C50.411 Malignant neoplasm of upper-outer quadrant of right female breast (principal); C50.611 Malignant neoplasm of axillary tail of right female breast; Z17.421 Hormone receptor negative with human epidermal growth factor receptor 2 negative status
CPT/HCPCS: 99213; G0463

== ENCOUNTER 2025-07-05 08:54 | Outpatient (CLI) | payer MEDICAID, SELFPAY ==
[2025-07-03 15:28] VITALS: BMI 32.5
[2025-07-04 15:21] LABS: Basophils # (Auto) 0.0 Thou/mm3 (0.0-0.2); Basophils % (Auto) 0 % (0-2.5); Eosinophils # (Auto) 0.2 Thou/mm3 (0.0-0.5); Eosinophils % (Auto) 2 % (0-10); Hematocrit 37.7 % (36.0-46.0); Hemoglobin 12.4 g/dL (12.0-16.0); Immature Granulocytes Auto 0.03 Thou/mm3 (0.00-0.00); Lymphocytes # (Auto) 1.6 Thou/mm3 (1.0-4.8); Lymphocytes % (Auto) 22 % (10-50); Mean Corpuscular HGB Conc 32.9 g/dl (31.0-37.0); Mean Corpuscular Hemoglobin 28.6 pg (25.0-35.0); Mean Corpuscular Volume 87 fL (80-100); Monocytes # (Auto) 0.4 Thou/mm3 (0.0-0.8); Monocytes % (Auto) 6 % (0-12); Neutrophils # (Auto) 4.9 Thou/mm3 (1.8-7.7); Neutrophils % (Auto) 69 % (37-80); Nucleated Red Blood Cell # 0.00 Thou/mm3 (0.00-0.00); Nucleated Red Blood Cell % 0 /100 WBC (0); Platelet Count 271 Thou/mm3 (140-440); RDW Standard Deviation 39.8 fL (36.4-46.3); Red Blood Count 4.33 Miln/mm3 (4.00-5.20); White Blood Count 7.1 Thou/mm3 (3.6-11.0)
[2025-07-04 15:36] LABS: HCG,Qualitative Serum Negative
[2025-07-04 15:39] LABS: INR 1.0 (0.9-1.3); Partial Thromboplastin Time 28.8 Seconds (22.0-36.0); Prothrombin Time 11.2 Seconds (9.0-12.2)
[2025-07-05] VITALS (14 sets, daily range): BP systolic 126–156; BP diastolic 89–103; PULSE 92–110; RESP 11–25; O2SAT 90–100
--- NOTE | 2025-07-05 09:30 | XR_ITS ---
Examination: IR venous implantation Port-A-Cath. Ultrasound-guided needle placement right internal jugular vein. Fluoroscopy AP Chest, portable single view Exam date and time: July 05, 2025 0920 hours INDICATIONS: Diagnosis malignant neoplasm upper outer quadrant right female breast need for long-term chemotherapy. Informed consent provided Technique: A timeout was completed, verifying correct patient, procedure, site, positioning, and special equipment if applicable The patient was placed in a dependent position appropriate for central line placement based on the vein to be cannulated. The patient's right neck was prepped and draped in sterile fashion. Maximum Sterile Barrier Technique used including cap, mask, sterile gown, sterile gloves, and sterile full body drape. If ultrasound technique used: sterile gel and sterile probe covers. Hand Hygiene performed using proper scrub, soap and water, or alcohol-based hand rub. Site right portable apparatus utilized to confirm patency of the right internal jugular vein. Utilizing ultrasonographic guidance successful 21-gauge needle puncture into the right internal jugular vein. Ultrasound images were recorded and stored. Successful micropuncture with a 21-gauge needle was performed. 0.18 wire guide was introduced into the IVC under fluoroscopic guidance. The wires is then exchanged for a 0.25 J-wire guide placed in the vena cava. Blunt dissection utilized to form pocket in the upper right chest 8 [place] 20 cm Port-A-Cath line connected to a Port-A-Cath reservoir and placed in venous sheath into the superior vena cava in proper position under fluoroscopic guidance Port-A-Cath incision site sutured radiologist was present for the entire procedure Estimated blood loss3 cc. Findings: Under fluoroscopy, the tip of the Port-A-Cath is in good position in the vena cava. Portable chest x-ray, post Port-A-Cath placement, as ordered. Impression: Successful ultrasound-guided needle placement right internal jugular vein. Successful IR venous implantation Port-A-Cath Fluoroscopy 0.5 minute radiation dose 5.91 milligray 1 spot fluoroscopic chest film. AP portable chest completion procedure demonstrates satisfactory position Port-A-Cath SVC. May use Port-A-Cath
[2025-07-05] MEDS: HEPARIN SOD LOCK SYR 100 UNIT/ML 500 UNIT STFIELD (10:00)
[2025-07-05] MEDS: SODIUM CHLORIDE 0.9% 500 ML 500 ML 250 ML IV (10:00)
[2025-07-05] MEDS: fentaNYL CIT INJ 50 mCg/ML AMP 2ML 150 MCG IV (10:29)
[2025-07-05] MEDS: LIDOCAINE INJ PF 1% 30 ML VIAL 10 ML INFL (10:30)
[2025-07-05] MEDS: LIDOCAINE 1% W/EPI 1:100K 20 ML VIAL 7 ML INFL (10:30)
--- NOTE | 2025-07-05 11:27 | XR_ITS ---
Examination: AP chest single view Technique one AP portable upright chest single view Date and time: July 05, 2025 11:28 AM INDICATIONS: Chest pain post Port-A-Cath insertion today. FINDINGS: Reduced inspiratory effort. Normal heart size. No pneumothorax. Mild elevation right hemidiaphragm. No aspiration pneumonia or pulmonary edema IMPRESSION: No pneumothorax No aspiration pneumonia or pulmonary edema
[2025-07-05] MEDS: fentaNYL CIT INJ 50 mCg/ML AMP 2ML 25 MCG IVP (11:35)
== END 2025-07-05 12:30 | disposition home or self-care (01) ==
PROVIDERS: Radiology Diagnostic Radiology; Referring Provider Radiology Therapeutic Radiology; Visit Provider Radiology Therapeutic Radiology
DX: C50.411 Malignant neoplasm of upper-outer quadrant of right female breast (principal); Z01.812 Encounter for preprocedural laboratory examination
CPT/HCPCS: 36558; 36415; 76937; 77001; 84703; 85025; 85610; 85730; 99152; 99153; C1769; C1788; C1894; J0689; J0690; J1642; J3010; J3490; J7050; J7999

== ENCOUNTER → 2025-07-13 | Outpatient (CLI) | payer MEDICAID, SELFPAY ==
--- NOTE | 2025-07-13 15:30 | XR_ITS ---
Examination: CT chest with intravenous contrast CT abdomen with intravenous contrast CT pelvis with intravenous contrast 2-D coronal and sagittal reconstructions Time of exam: July 13, 2025 1542 hours Comparison November 22, 2024 INDICATIONS: Diagnosis breast cancer 6 months ago, restaging CTDI: vol (mGy) : 19.9 DLP: (mGycm): 838 Technique: Multiple axial images of the chest, abdomen and pelvis with intravenous contrast, 3.0 mm slice thickness. Images obtained post intravenous injection Isovue 370 60 cc. 2-D sagittal and coronal reconstructions. Low dose protocols were performed. One or more of the following dose reduction techniques were used; automated exposure control, adjustment of the mA and/or KV according to patient size, use of iterative reconstruction technique. Findings: Spiculated 6.7 x 7.7 cm right breast mass with multiple markedly enlarged axillary metastatic lymph nodes, the largest 4 cm No thoracic aortic aneurysm dilatation No pulmonary artery filling defects. No paratracheal tracheobronchial or bronchopulmonary adenopathy. No pneumonia, pulmonary edema, pleural disease or pulmonary nodules Diffuse fatty infiltration throughout the liver no liver or splenic lesions Contracted gallbladder No pancreatic mass Normal adrenal glands Moderate right renal parenchymal scar formation, no hydronephrosis or renal calculi Normal appendix No abdominal or pelvic lymphadenopathy 21 mm fat-containing a buckle hernia No bowel obstruction No ascites No pelvic mass Urinary bladder wall thickening up to 7 mm The osseous structures appear intact IMPRESSION: Large right breast mass with spiculated margins Multiple metastatic right axillary lymph nodes No mediastinal lymphadenopathy No pneumonia, pulmonary edema, pleural disease or pulmonary nodules. Normal adrenal glands No hepatic metastases No abdominal or pelvic lymphadenopathy Mild urinary bladder wall thickening, differential would include cystitis
== END | disposition home or self-care (01) ==
PROVIDERS: PCP Family Medicine; Referring Provider Radiology Therapeutic Radiology; Visit Provider Radiology Therapeutic Radiology
DX: N63.10 Unspecified lump in the right breast, unspecified quadrant (principal); N32.89 Other specified disorders of bladder; C77.3 Secondary and unspecified malignant neoplasm of axilla and upper limb lymph nodes; C50.411 Malignant neoplasm of upper-outer quadrant of right female breast
CPT/HCPCS: 71260; 74177; A4649; Q9967

== ENCOUNTER → 2025-07-13 | Outpatient (CLI) | payer MEDICAID, SELFPAY ==
--- NOTE | 2025-07-13 12:30 | XR_ITS ---
Examination: Bone scan whole body, radioisotope Date and time of exam: July 13, 2025 1337 hours INDICATIONS: Diagnosis malignant neoplasm upper outer quadrant right female breast, staging Technique: Study has been performed with intravenous administration of 23.3 mci 99M technetium MDP. Anterior, posterior whole body images are obtained. Images have been obtained including the lower extremities. Findings: Increased isotope accumulation upper body the sternum Minor increased uptake right hip IMPRESSION: Positive bone scan but nonspecific Recommend plain film sternum and right hip follow-up
== END | disposition home or self-care (01) ==
PROVIDERS: Referring Provider Radiology Therapeutic Radiology; Visit Provider Radiology Therapeutic Radiology
DX: R93.7 Abnormal findings on diagnostic imaging of other parts of musculoskeletal system (principal); C50.411 Malignant neoplasm of upper-outer quadrant of right female breast
CPT/HCPCS: 78306; A9503

== ENCOUNTER → 2025-07-17 | Outpatient (CLI) | payer MEDICAID, SELFPAY ==
--- NOTE | 2025-07-17 09:30 | ECHO_ITS ---
Transthoracic Echo Report Ht (in): 62 Wt (lb): 166 Exam Location: Echo Lab Status: Outpatient Hearing Aid Fitter: Marta Denton Indications: Procedure Performed: BP: 154 / 41 HR: 100 MEASUREMENTS (Male / Female) Normal Values 2D ECHO LV Diastolic Diameter PLAX 3.8 cm 4.2 - 5.9 / 3.9 - 5.3 cm LV Systolic Diameter PLAX 2.5 cm IVS Diastolic Thickness 1.0 cm 0.6 - 1.0 / 0.6 - 0.9 cm LVPW Diastolic Thickness 1.1 cm 0.6 - 1.0 / 0.6 - 0.9 cm LV Relative Wall Thickness 0.6 LVOT Diameter 1.9 cm LA Volume Index 21.6 cm?/m? 16 - 28 cm?/m? Ascending Aorta Diameter 2.6 cm M-MODE AV Cusp Separation MM 1.6 cm DOPPLER AV Peak Velocity 130.0 cm/s AV Peak Gradient 6.8 mmHg AV Mean Gradient 4.0 mmHg AV Velocity Time Integral 25.3 cm LVOT Peak Velocity 87.5 cm/s LVOT Peak Gradient 3.1 mmHg LVOT Velocity Time Integral 14.3 cm LVOT Cardiac Index 2201.2 cm?/min?m? AV Area Cont Eq vti 1.6 cm? AV Area Cont Eq pk 1.9 cm? MV Area PHT 8.1 cm? Mitral E Point Velocity 57.8 cm/s Mitral A Point Velocity 72.4 cm/s Mitral E to A Ratio 0.8 LV E' Lateral Velocity 6.9 cm/s Mitral E to LV E' Lateral Ratio 8.4 LV E' Septal Velocity 4.8 cm/s Mitral E to LV E' Septal Ratio 12.1 TR Peak Velocity 198.7 cm/s TR Peak Gradient 15.8 mmHg PV Peak Velocity 93.1 cm/s PV Peak Gradient 3.5 mmHg FINDINGS Left Ventricle Normal left ventricular size, wall thickness, systolic function with no obvious regional wall motion abnormalities. There is grade I diastolic dysfunction of the left ventricle (impaired relaxation pattern). The ejection fraction is visually estimated at 60-65%. Right Ventricle The right ventricle is normal in size and systolic function. The estimated right ventricular systolic pressure, 21 mmHg. Left Atrium The left atrial cavity size is mildly increased. Right Atrium The right atrium is normal by two-dimensional imaging, color flow and Doppler imaging with no structural abnormalities, no thrombus formation present. Atrial Septum The interatrial septum appears normal with no evidence of a shunt. Aorta The aorta is normal by two-dimensional, color flow and Doppler interrogation. Mitral Valve The mitral valve is normal by two-dimensional, color flow and Doppler interrogation. Trace mitral regurgitation. Aortic Valve The aortic valve is trileaflet and normal by two-dimensional, color flow and Doppler interrogation. There is no significant aortic valve regurgitation. Tricuspid Valve The tricuspid valve is normal by two-dimensional, color flow and Doppler interrogation There is trace tricuspid valve regurgitation. Pulmonic Valve The pulmonic valve is not well visualized. There is no significant pulmonic valve regurgitation. Vessels The pulmonary artery appears normal. The inferior vena cava pulmonary and hepatic veins appear normal. Pericardium The pericardium is normal by two-dimensional imaging. There is no significant pericardial effusion. CONCLUSIONS Normal left ventricular size and function. Approximate ejection fraction is 60-60% LA mildly dilated Trace mitral and trace tricuspid regurgitation noted. No wall motion abnormalities noted. Apoorva Lawson (Electronically Signed) Final Date: 17 July 2025 12:28
== END | disposition home or self-care (01) ==
LOC: SDIM 09:05
PROVIDERS: PCP Family Medicine; Referring Provider Radiology Therapeutic Radiology; Visit Provider Radiology Therapeutic Radiology
DX: I08.1 Rheumatic disorders of both mitral and tricuspid valves (principal); C50.411 Malignant neoplasm of upper-outer quadrant of right female breast
CPT/HCPCS: 93306

== ENCOUNTER 2025-07-18 02:42 | Emergency (ER) | payer MEDICAID, SELFPAY ==
[2025-07-18 02:43] VITALS: BMI 32.0
[2025-07-18 03:04] VITALS: BP 141/97; PULSE 98; RESP 16; TEMP 36.7; O2SAT 98
--- NOTE | 2025-07-18 03:18 | XR_ITS ---
Examination: CT brain head without contrast. 2-D sagittal coronal reconstructions Date and time of exam:July 18, 2025 0403 hours INDICATIONS: Headaches and pressure behind the right eye beginning 2 days ago CTDI: vol (mGy):48.7 DLP: (mGycm):968 Technique: Multiple CT axial sections of the brain have been obtained, 5 mm slice thickness. Contrast has not been administered. 2-D sagittal, coronal reconstructions have been obtained Low dose protocols were performed. One or more of the following dose reduction techniques were used; automated exposure control, adjustment of the mA and/or KV according to patient size, use of iterative reconstruction technique. Findings: No significant ventricular enlargement. Intra-axial or extra-axial hemorrhage density is not seen. No mass effect or midline shift Basal cisterns are not remarkable. Fourth ventricle is midline. Cranial vault intact. Impression: Negative for acute hemorrhage, mass effect or midline shift As clinically warranted, consider brain MRI follow-up if symptoms persist
--- NOTE | 2025-07-18 03:26 | EDNOTE_ITS ---
ED Headache RME/HPI General Chief Complaint: Headache Stated Complaint: HEADACHE X 2 DAYS Time Seen by Provider: 07/18/25 03:17 Arrival date/time: 07/18/25 02:42 39F with history of breast cancer (port put in 2 weeks ago; hasn't started chemo yet) presents to ED with 2 days of R-sided KENNEY and eye pressure. Patient denies vision changes, AMS, seizures, N/V, slurred speech, weakness, URI symptoms, and fevers/chills. Some light sensitivity. Limitations: no limitations Related Data Home Medications ?Medication ?Instructions ?Recorded ?Confirmed metformin 1,000 mg tablet 1,000 mg PO QDAY 07/05/25 sitagliptin phosphate 50 1 tab PO BID 07/05/25 mg-metformin 1,000 mg tablet (Janumet) Previous Rx's ?Medication ?Instructions ?Recorded rizatriptan 10 mg disintegrating See Rx Instructions P O .COMPLEX 07/18/25 tablet (Maxalt-TRAFFIC INCIDENT MANAGEMENT MANAGER) #14 tabs Allergies Allergy/AdvReac Type Severity Reaction Status Date / Time No Known Allergies Allergy Verified 07/18/25 02:46 Review of Systems Review of Systems Systems Reviewed: All systems reviewed, normal except as documented Constitutional Constitutional: Reports system reviewed and no additional complaints, except as documented, Reports as per HPI, Denies fever(s) and Reports headache(s) Eyes Eyes: Reports as per HPI and Reports photophobia ENT Ears, Nose, Mouth, and Throat: Denies disequilibrium and Reports headache(s) Cardiovascular Cardiovascular: Reports system reviewed and no additional complaints, except as documented, Denies chest pain and Denies dyspnea Respiratory Respiratory: Reports system reviewed and no additional complaints, except as documented, Denies cough and Denies dyspnea Gastrointestinal Gastrointestinal: Reports system reviewed and no additional complaints, except as documented, Denies abdominal pain, Denies nausea and Denies vomiting Neurologic Neurologic: Reports system reviewed and no additional complaints, except as documented, Denies confusion, Denies disequilibrium and Reports headache(s) Psychiatric Psychiatric: Denies confusion Past Medical History Past Medical History CARDIAC: Negative Cardiac Disorders or Congestive Heart Failure RESPIRATORY: Negative Chronic Obstructive Pulmonary Disease (COPD) or Asthma GASTROINTESTINAL: Negative Gastrointestinal Disorders GENITOURINARY: Positive Kidney Stones; Negative Renal Disease REPRODUCTIVE: Positive Breast Cancer MUSCULOSKELETAL: Positive Arthritis ENDOCRINE: Positive Endocrine Disorders and Diabetes Mellitus Type 2; Negative Diabetes Mellitus Type 1 HEMATOLOGIC: Negative Sickle Cell Disease OTHER HISTORY: Positive Hospitalization, Cancer (stage 3) and Breast Cancer; Negative Falls, Blood Transfusions or Anesthesia Reactions Surgical History SURGICAL: Positive Tubal Ligation Social History SMOKING STATUS: Never smoker ED Exam General Limitations: Present no limitations General appearance: Present alert and in no apparent distress Head Head exam: Present atraumatic Eye Eye exam: Present normal appearance, PERRL and EOMI ENT ENT exam: Present normal exam, normal oropharynx and mucous membranes moist Neck Neck exam: Present normal inspection, full ROM and trachea midline Chest Chest inspection: Present normal inspection and symmetric chest wall rise Respiratory Respiratory exam: Present normal lung sounds bilaterally Cardiovascular Cardiovascular exam: Present regular rate, normal rhythm and normal heart sounds Abdominal Exam Abdominal exam: Present soft and normal bowel sounds Extremities Exam Extremities exam: Present normal inspection and full ROM Back Exam Back exam: Present normal inspection and full ROM Neurological Exam Neurological exam: Present alert, oriented X3 and CN II-XII intact Psychiatric Psychiatric exam: Present normal affect and normal mood Skin Skin exam: Present warm, dry, intact and normal color Course Quality Measures none Orders Category Date Time Status CT head/brain wo con Stat Exams 07/18/25 03:18 Taken Metoclopramide [Reglan] Med 07/18/25 03:17 Discontinued 10 mg PO X1 ONE SUMAtriptan INJ [Imitrex Inj] Med 07/18/25 03:17 Discontinued 6 mg SC X1 ONE Vital Signs Vital signs: Vital Signs Temperature 98.0 F 07/18/25 03:04 Pulse Rate 98 07/18/25 03:04 Respiratory Rate 16 07/18/25 03:04 Blood Pressure 141/97 H 07/18/25 03:04 Pulse Oximetry (%) 98 07/18/25 03:04 Oxygen Delivery Method Room Air 07/18/25 03:04 O2 at 98% on RA and WNLs Headache MDM Narrative MDM Narrative:: 39F with history of breast cancer (port put in 2 weeks ago; hasn't started chemo yet) presents to ED with 2 days of R-sided KENNEY and eye pressure. Patient denies vision changes, AMS, seizures, N/V, slurred speech, weakness, URI symptoms, and fevers/chills. Some light sensitivity. Physical exam reveals normal pupil response and EOM. CN II-XII grossly intact. Gait normal. Speech normal. Neg pronator drift. Patient is afebrile, calm, and alert. CT unremarkable. Meds improved symptoms. Patient data External records reviewed:: [facility] previous records Clinical information provided by:: patient Social determinants that could affect healthcare access:: none Patient has the following chronic illnesses:: breast cancer How is presenting disease/condition affected by chronic disease/condition?: exacerbated by Evaluation data The following diagnostics were reviewed and interpreted by me:: radiology exam(s) Lab and/or radiology exams considered but not ordered:: ordered Interpretation Summary: above Medications / Prescriptions Medications or Prescriptions considered but not ordered:: ordered Medication administrations:: Medication Administration History Discontinued Medications Metoclopramide HCl (Metoclopramide 5 Mg Tablet) 10 mg PO X1 ONE Stop: 07/18/25 03:18 Last Admin: 07/18/25 03:49 Dose: 10 mg Documented By: Sumatriptan Succinate (Sumatriptan Inj 6 Mg/0.5 Ml Vial) 6 mg SC X1 ONE Stop: 07/18/25 03:18 Last Admin: 07/18/25 03:49 Dose: 6 mg Documented By: above Consultations Consultation(s) initiated? (list below): No Diagnosis Differential diagnosis headache: migraine, tension headache, subarachnoid hemorrhage, headache, meningitis, sinusitis and postconcussion syndrome Most likely diagnosis given after review of the tests above:: migraine Admission Indicated Admission indicated?: not indicated Admission Request Was there a request for admission?: No Disposition Plan Disposition Plan: Discharge Discharge Attestation Discharge Attestation: The patient and all family members were given an opportunity to ask questions and understood the discharge instructions. Discharge instructions specifically effects, indications for sooner follow up or return to the emergency department, and the expected course of current diagnosis. Patient condition: Stable Discharge Plan Plan Patient Disposition: HOME (Self Care) Discharge Disposition comment: STable Prescriptions/Referrals Prescriptions/Med Rec: New rizatriptan [Maxalt-TRAFFIC INCIDENT MANAGEMENT MANAGER] 10 mg tablet,disintegrating See Rx Instructions .ROUTE .COMPLEX Qty: 14 0RF Rx Instructions: take 1 tab at onset of headache; if no relief may repeat 1 tab after at least 2 hrs; max = 3 tabs/24 hr No Action Janumet 50-1,000 mg tablet 1 tab PO BID metformin 1,000 mg tablet 1,000 mg PO QDAY Referrals: Olegario Haley MD [Primary Care Provider] - In 1 week Problem List Clinical Impression: Migraine Patient/Caregiver Discharge Instructions Education Materials: ED Headache, Migraine, Classic Additional Instructions: Please follow-up with PCP within 24-48 hours and return immediately if symptoms worsen. Print Language: Faroese Stand Alone Forms: Work/School Release, Patient Portal Info Letter PA/SANDFILL OPERATOR SURFACE Supervising Physician PA/SANDFILL OPERATOR SURFACE Supervising Physician: Dr. Young
[2025-07-18] MEDS: SUMAtriptan INJ 6 MG/0.5 ML VIAL SC (03:49)
[2025-07-18] MEDS: METOCLOPRAMIDE 5 MG TABLET 10 MG PO (03:49)
--- NOTE | 2025-07-18 04:36 | PRELIM_ITS ---
CT scan of the head without intravenous contrast (axial sections with sagittal and coronal reformats). July 18, 2025 0403 hours Clinical History: Headache and pressure behind right eye Comparison: No prior study is available for comparison. Findings: There is no evidence of intracranial hemorrhage, mass effect or midline shift. The ventricles and CSF spaces are unremarkable. The calvarium is unremarkable. There is partial sclerosis of the bilateral mastoid air cells. The visualized paranasal sinuses are clear. Impression: No evidence of intracranial hemorrhage, mass effect or midline shift. Other findings as described above. Suggest clinical correlation and follow up accordingly. Report Electronically Signed By: Cory Calvert 07/18/2025 4:36:11 AM [EST]
== END 2025-07-18 04:59 | disposition home or self-care (01) ==
PROVIDERS: Emergency Provider Emergency Medicine; PCP Family Medicine
DX: G43.909 Migraine, unspecified, not intractable, without status migrainosus (principal)
CPT/HCPCS: 70450; 96372; 99283; J3030; A9270

== ENCOUNTER 2025-07-26 07:49 | Outpatient (RCR) | payer MEDICAID, SELFPAY ==
[2025-06-29 11:58] LABS: Basophils # (Auto) 0.0 Thou/mm3 (0.0-0.2); Basophils % (Auto) 0 % (0-2.5); Eosinophils # (Auto) 0.1 Thou/mm3 (0.0-0.5); Eosinophils % (Auto) 1 % (0-10); Hematocrit 39.8 % (36.0-46.0); Hemoglobin 13.6 g/dL (12.0-16.0); Immature Granulocytes Auto 0.04 Thou/mm3 (0.00-0.00); Lymphocytes # (Auto) 2.2 Thou/mm3 (1.0-4.8); Lymphocytes % (Auto) 21 % (10-50); Mean Corpuscular HGB Conc 34.2 g/dl (31.0-37.0); Mean Corpuscular Hemoglobin 29.1 pg (25.0-35.0); Mean Corpuscular Volume 85 fL (80-100); Monocytes # (Auto) 0.7 Thou/mm3 (0.0-0.8); Monocytes % (Auto) 7 % (0-12); Neutrophils # (Auto) 7.5 Thou/mm3 (1.8-7.7); Neutrophils % (Auto) 71 % (37-80); Nucleated Red Blood Cell # 0.00 Thou/mm3 (0.00-0.00); Nucleated Red Blood Cell % 0 /100 WBC (0); Platelet Count 286 Thou/mm3 (140-440); RDW Standard Deviation 41.3 fL (36.4-46.3); Red Blood Count 4.68 Miln/mm3 (4.00-5.20); White Blood Count 10.6 Thou/mm3 (3.6-11.0)
[2025-06-29 12:09] LABS: Alanine Aminotransferase 49 U/L (10-49); Albumin, Serum 4.3 gm/dL (3.5-5.0); Albumin/Globulin Ratio 1.3 (1.2-2.2); Alkaline Phosphatase 57 U/L (46-116); Anion Gap 13 (7-16); Aspartate Amino Transferase 31 U/L (0-34); BUN/Creatinine Ratio 23 Ratio (12-20); Bilirubin,Total 0.3 mg/dL (0.3-1.2); Blood Urea Nitrogen 16 mg/dL (9-23); Calcium 9.9 mg/dL (8.3-10.6); Calcium (Corrected) 9.9 mg/dL (8.5-10.1); Carbon Dioxide 24.7 mMol/L (20.0-31.0); Chloride 103 mMol/L (98-107); Creatinine (Component) 0.7 mg/dL (0.6-1.3); Globulin 3.4 gm/dL (2.3-3.5); Glucose 66 mg/dL (74-106); Osmolality,Calculated 280 (275-295); Potassium 3.5 mMol/L (3.4-5.1); Sodium 141 mMol/L (136-145); Total Protein 7.7 gm/dL (5.7-8.2); eGFR > 60 See Note
[2025-07-18 16:33] LABS: Basophils # (Auto) 0.0 Thou/mm3 (0.0-0.2); Basophils % (Auto) 0 % (0-2.5); Eosinophils # (Auto) 0.2 Thou/mm3 (0.0-0.5); Eosinophils % (Auto) 3 % (0-10); Hematocrit 37.4 % (36.0-46.0); Hemoglobin 12.6 g/dL (12.0-16.0); Immature Granulocytes Auto 0.02 Thou/mm3 (0.00-0.00); Lymphocytes # (Auto) 1.9 Thou/mm3 (1.0-4.8); Lymphocytes % (Auto) 26 % (10-50); Mean Corpuscular HGB Conc 33.7 g/dl (31.0-37.0); Mean Corpuscular Hemoglobin 28.8 pg (25.0-35.0); Mean Corpuscular Volume 86 fL (80-100); Monocytes # (Auto) 0.5 Thou/mm3 (0.0-0.8); Monocytes % (Auto) 7 % (0-12); Neutrophils # (Auto) 4.9 Thou/mm3 (1.8-7.7); Neutrophils % (Auto) 65 % (37-80); Nucleated Red Blood Cell # 0.00 Thou/mm3 (0.00-0.00); Nucleated Red Blood Cell % 0 /100 WBC (0); Platelet Count 264 Thou/mm3 (140-440); RDW Standard Deviation 38.3 fL (36.4-46.3); Red Blood Count 4.37 Miln/mm3 (4.00-5.20); White Blood Count 7.5 Thou/mm3 (3.6-11.0)
[2025-07-18 17:05] LABS: Alanine Aminotransferase 33 U/L (10-49); Albumin, Serum 4.0 gm/dL (3.5-5.0); Albumin/Globulin Ratio 1.3 (1.2-2.2); Alkaline Phosphatase 62 U/L (46-116); Anion Gap 15 (7-16); Aspartate Amino Transferase 26 U/L (0-34); BUN/Creatinine Ratio 11 Ratio (12-20); Bilirubin,Total 0.3 mg/dL (0.3-1.2); Blood Urea Nitrogen 11 mg/dL (9-23); Calcium 9.8 mg/dL (8.3-10.6); Calcium (Corrected) 9.8 mg/dL (8.5-10.1); Carbon Dioxide 20.3 mMol/L (20.0-31.0); Chloride 99 mMol/L (98-107); Creatinine (Component) 1.0 mg/dL (0.6-1.3); Free T4 (Free Thyroxine) 1.35 ng/dL (0.89-1.76); Globulin 3.2 gm/dL (2.3-3.5); Osmolality,Calculated 294 (275-295); Potassium 4.0 mMol/L (3.4-5.1); Sodium 134 mMol/L (136-145); Thyroid Stimulating Hormone 1.17 uIU/mL (0.55-4.78); Total Protein 7.2 gm/dL (5.7-8.2); eGFR > 60 See Note
[2025-07-19 07:10] LABS: Glucose 578 mg/dL (74-106)
[2025-07-25 16:14] LABS: Basophils # (Auto) 0.0 Thou/mm3 (0.0-0.2); Basophils % (Auto) 0 % (0-2.5); Eosinophils # (Auto) 0.1 Thou/mm3 (0.0-0.5); Eosinophils % (Auto) 3 % (0-10); Hematocrit 34.3 % (36.0-46.0); Hemoglobin 11.4 g/dL (12.0-16.0); Immature Granulocytes Auto 0.02 Thou/mm3 (0.00-0.00); Lymphocytes # (Auto) 1.7 Thou/mm3 (1.0-4.8); Lymphocytes % (Auto) 31 % (10-50); Mean Corpuscular HGB Conc 33.2 g/dl (31.0-37.0); Mean Corpuscular Hemoglobin 29.1 pg (25.0-35.0); Mean Corpuscular Volume 88 fL (80-100); Monocytes # (Auto) 0.4 Thou/mm3 (0.0-0.8); Monocytes % (Auto) 8 % (0-12); Neutrophils # (Auto) 3.2 Thou/mm3 (1.8-7.7); Neutrophils % (Auto) 58 % (37-80); Nucleated Red Blood Cell # 0.00 Thou/mm3 (0.00-0.00); Nucleated Red Blood Cell % 0 /100 WBC (0); Platelet Count 247 Thou/mm3 (140-440); RDW Standard Deviation 39.5 fL (36.4-46.3); Red Blood Count 3.92 Miln/mm3 (4.00-5.20); White Blood Count 5.4 Thou/mm3 (3.6-11.0)
[2025-07-25 16:31] LABS: HCG,Qualitative Serum Negative
[2025-07-25 16:45] LABS: Alanine Aminotransferase 58 U/L (10-49); Albumin, Serum 3.7 gm/dL (3.5-5.0); Albumin/Globulin Ratio 1.3 (1.2-2.2); Alkaline Phosphatase 52 U/L (46-116); Anion Gap 11 (7-16); Aspartate Amino Transferase 34 U/L (0-34); BUN/Creatinine Ratio 22 Ratio (12-20); Bilirubin,Total 0.3 mg/dL (0.3-1.2); Blood Urea Nitrogen 13 mg/dL (9-23); Calcium 9.4 mg/dL (8.3-10.6); Calcium (Corrected) 9.6 mg/dL (8.5-10.1); Carbon Dioxide 25.1 mMol/L (20.0-31.0); Chloride 102 mMol/L (98-107); Creatinine (Component) 0.6 mg/dL (0.6-1.3); Globulin 2.8 gm/dL (2.3-3.5); Glucose 285 mg/dL (74-106); Osmolality,Calculated 285 (275-295); Potassium 3.7 mMol/L (3.4-5.1); Sodium 138 mMol/L (136-145); Total Protein 6.5 gm/dL (5.7-8.2); eGFR > 60 See Note
== END 2025-07-29 23:59 | disposition home or self-care (01) ==
LOC: SCTC 07:49
PROVIDERS: PCP Physician Assistant; Referring Provider Physician Assistant; Visit Provider Internal Medicine Hematology & Oncology
DX: Z51.11 Encounter for antineoplastic chemotherapy (principal); C50.411 Malignant neoplasm of upper-outer quadrant of right female breast; Z17.1 Estrogen receptor negative status [ER-]; Z17.22 Progesterone receptor negative status; Z17.32 Human epidermal growth factor receptor 2 negative status
CPT/HCPCS: 36415; 36591; 80053; 84439; 84443; 84703; 85025; 96367; 96375; 96413; 96417; 99424; 99425; A4216; J1100; J1200; J1453; J1642; J2405; J3490; J7040; J7050; J9045; J9267; J9271

== ENCOUNTER → 2025-08-08 | Outpatient (CLI) | payer MEDICAID, SELFPAY ==
[2025-08-08 10:11] LABS: Basophils # (Auto) 0.0 Thou/mm3 (0.0-0.2); Basophils % (Auto) 0 % (0-2.5); Eosinophils # (Auto) 0.1 Thou/mm3 (0.0-0.5); Eosinophils % (Auto) 2 % (0-10); Hematocrit 35.1 % (36.0-46.0); Hemoglobin 11.8 g/dL (12.0-16.0); Immature Granulocytes Auto 0.04 Thou/mm3 (0.00-0.00); Lymphocytes # (Auto) 1.4 Thou/mm3 (1.0-4.8); Lymphocytes % (Auto) 25 % (10-50); Mean Corpuscular HGB Conc 33.6 g/dl (31.0-37.0); Mean Corpuscular Hemoglobin 29.1 pg (25.0-35.0); Mean Corpuscular Volume 87 fL (80-100); Monocytes # (Auto) 0.4 Thou/mm3 (0.0-0.8); Monocytes % (Auto) 6 % (0-12); Neutrophils # (Auto) 3.8 Thou/mm3 (1.8-7.7); Neutrophils % (Auto) 66 % (37-80); Nucleated Red Blood Cell # 0.00 Thou/mm3 (0.00-0.00); Nucleated Red Blood Cell % 0 /100 WBC (0); Platelet Count 237 Thou/mm3 (140-440); RDW Standard Deviation 38.8 fL (36.4-46.3); Red Blood Count 4.05 Miln/mm3 (4.00-5.20); White Blood Count 5.8 Thou/mm3 (3.6-11.0)
[2025-08-08 10:31] LABS: Alanine Aminotransferase 40 U/L (10-49); Albumin, Serum 3.9 gm/dL (3.5-5.0); Albumin/Globulin Ratio 1.5 (1.2-2.2); Alkaline Phosphatase 65 U/L (46-116); Anion Gap 7 (7-16); Aspartate Amino Transferase 22 U/L (0-34); BUN/Creatinine Ratio 18 Ratio (12-20); Bilirubin,Total 0.2 mg/dL (0.3-1.2); Blood Urea Nitrogen 11 mg/dL (9-23); Calcium 9.3 mg/dL (8.3-10.6); Calcium (Corrected) 9.4 mg/dL (8.5-10.1); Carbon Dioxide 26.1 mMol/L (20.0-31.0); Chloride 106 mMol/L (98-107); Creatinine (Component) 0.6 mg/dL (0.6-1.3); Globulin 2.6 gm/dL (2.3-3.5); Glucose 238 mg/dL (74-106); Osmolality,Calculated 284 (275-295); Potassium 4.2 mMol/L (3.4-5.1); Sodium 139 mMol/L (136-145); Thyroid Stimulating Hormone 0.72 uIU/mL (0.55-4.78); Total Protein 6.5 gm/dL (5.7-8.2); eGFR > 60 See Note
[2025-08-08 11:01] LABS: HCG,Qualitative Serum Negative
== END | disposition home or self-care (01) ==
LOC: SLAB 09:25
PROVIDERS: PCP Family Medicine; Referring Provider Internal Medicine Hematology & Oncology; Visit Provider Internal Medicine Hematology & Oncology
DX: C50.411 Malignant neoplasm of upper-outer quadrant of right female breast (principal)
CPT/HCPCS: 36415; 80053; 84443; 84703; 85025

== ENCOUNTER 2025-08-20 22:24 | Emergency (ER) | payer MEDICAID, SELFPAY ==
[2025-08-20 22:27] VITALS: BP 135/88; PULSE 134; RESP 19; TEMP 37; O2SAT 98; BMI 29.2
[2025-08-20 22:29] VITALS: PULSE 98; RESP 16; O2SAT 98
--- NOTE | 2025-08-20 22:31 | XR_ITS ---
Examination: CT brain head without contrast. 2-D sagittal coronal reconstructions Date and time of exam:August 20, 2025, 1111 hrs. Indications: Injury to the head today, head pain CTDI: vol (mGy):50.8 DLP: (mGycm):966 Technique: Multiple CT axial sections of the brain have been obtained, 5 mm slice thickness. Contrast has not been administered. 2-D sagittal, coronal reconstructions have been obtained Low dose protocols were performed. One or more of the following dose reduction techniques were used; automated exposure control, adjustment of the mA and/or KV according to patient size, use of iterative reconstruction technique. Findings: No significant ventricular enlargement. Intra-axial or extra-axial hemorrhage density is not seen. No mass effect or midline shift Basal cisterns are not remarkable. Fourth ventricle is midline. Cranial vault intact. Impression: Negative for acute hemorrhage, mass effect or midline shift
--- NOTE | 2025-08-20 22:31 | XR_ITS ---
Examination: CT cervical spine without contrast 2-D sagittal reconstructions 2-D coronal reconstructions 3-D reconstructions. Exam date and time:August 20, 2025 1111 hrs. Indications: Injury to the neck today, neck pain CTDI:vol (mGy) 16.9 DLP: (mGycm) 344 Technique: Multiple 2 mm axial sections of the cervical spine have been obtained. The coronal and sagittal reconstructions have been obtained. 3-D reconstructions have been obtained. Low dose protocols were performed. One or more of the following dose reduction techniques were used; automated exposure control, adjustment of the mA and/or KV according to patient size, use of iterative reconstruction technique. Findings: Axial sections demonstrate intact base of the skull. C1 exhibit satisfactory relationship to the odontoid. No acute cervical vertebral body fracture seen. Alignment posterior spinous processes satisfactory. Impression: No acute cervical fracture.
--- NOTE | 2025-08-20 22:33 | EKG_ITS ---
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
[2025-08-20 22:39] VITALS: PULSE 131
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
[2025-08-20] MEDS: SODIUM CHLORIDE 0.9% 1000 ML 1,000 ML 999 ML IV (22:48)
[2025-08-20 23:40] LABS: Basophils # (Auto) 0.0 Thou/mm3 (0.0-0.2); Basophils % (Auto) 0 % (0-2.5); Eosinophils # (Auto) 0.1 Thou/mm3 (0.0-0.5); Eosinophils % (Auto) 2 % (0-10); Hematocrit 32.0 % (36.0-46.0); Hemoglobin 11.0 g/dL (12.0-16.0); Immature Granulocytes Auto 0.03 Thou/mm3 (0.00-0.00); Lymphocytes # (Auto) 1.3 Thou/mm3 (1.0-4.8); Lymphocytes % (Auto) 24 % (10-50); Mean Corpuscular HGB Conc 34.4 g/dl (31.0-37.0); Mean Corpuscular Hemoglobin 29.3 pg (25.0-35.0); Mean Corpuscular Volume 85 fL (80-100); Monocytes # (Auto) 0.3 Thou/mm3 (0.0-0.8); Monocytes % (Auto) 6 % (0-12); Neutrophils # (Auto) 3.7 Thou/mm3 (1.8-7.7); Neutrophils % (Auto) 68 % (37-80); Nucleated Red Blood Cell # 0.00 Thou/mm3 (0.00-0.00); Nucleated Red Blood Cell % 0 /100 WBC (0); Platelet Count 160 Thou/mm3 (140-440); RDW Standard Deviation 40.7 fL (36.4-46.3); Red Blood Count 3.76 Miln/mm3 (4.00-5.20); White Blood Count 5.4 Thou/mm3 (3.6-11.0)
[2025-08-20 23:56] LABS: Alanine Aminotransferase 30 U/L (10-49); Albumin, Serum 3.9 gm/dL (3.5-5.0); Albumin/Globulin Ratio 1.7 (1.2-2.2); Alkaline Phosphatase 73 U/L (46-116); Anion Gap 9 (7-16); Aspartate Amino Transferase 14 U/L (0-34); BUN/Creatinine Ratio 18 Ratio (12-20); Bilirubin,Total 0.2 mg/dL (0.3-1.2); Blood Urea Nitrogen 14 mg/dL (9-23); Calcium 9.3 mg/dL (8.3-10.6); Calcium (Corrected) 9.4 mg/dL (8.5-10.1); Carbon Dioxide 25.5 mMol/L (20.0-31.0); Chloride 108 mMol/L (98-107); Creatinine (Component) 0.8 mg/dL (0.6-1.3); Estimated Creatinine Clearance 86.3 mL/min (>60); Globulin 2.3 gm/dL (2.3-3.5); Glucose 362 mg/dL (74-106); Magnesium 1.2 mg/dL (1.6-2.6); Osmolality,Calculated 298 (275-295); Potassium 3.4 mMol/L (3.4-5.1); Sodium 142 mMol/L (136-145); Total Protein 6.2 gm/dL (5.7-8.2); eGFR > 60 See Note
[2025-08-21 00:02] LABS: INR 1.0 (0.9-1.3); Partial Thromboplastin Time 26.2 Seconds (22.0-36.0); Prothrombin Time 11.1 Seconds (9.0-12.2)
--- NOTE | 2025-08-21 00:02 | XR_ITS ---
Examination: Left shoulder 2 views Technique one AP internal rotation Y-view left shoulder 2 views Date and time: August 21, 2025, 0008 hrs. Indications: Patient fell today with injury to the shoulder, shoulder pain Findings: No shoulder fracture or dislocation No foreign body Impression: No shoulder fracture or dislocation
[2025-08-21 00:16] VITALS: BP 133/92; PULSE 117; RESP 16; TEMP 36.7; O2SAT 98
[2025-08-21] MEDS: MAGNESIUM OXIDE 400 MG TABLET PO (00:26)
[2025-08-21] MEDS: INSULIN HUM REGULAR 1 UNIT/0.01 ML (PER UNIT) 5 UNIT SC (00:27)
--- NOTE | 2025-08-21 01:15 | PC.NURSE ---
TCSO WAS ON SCENE, .
[2025-08-21 01:31] VITALS: BP 133/74; PULSE 115; RESP 19; O2SAT 99
== END 2025-08-21 01:31 | disposition home or self-care (01) ==
PROVIDERS: Emergency Provider Emergency Medicine; PCP Family Medicine
DX: S06.9X9A Unspecified intracranial injury with loss of consciousness of unspecified duration, initial encounter (principal); M54.2 Cervicalgia; M25.512 Pain in left shoulder; E83.42 Hypomagnesemia; E11.65 Type 2 diabetes mellitus with hyperglycemia; R00.0 Tachycardia, unspecified; I10 Essential (primary) hypertension; C50.919 Malignant neoplasm of unspecified site of unspecified female breast; Y04.0XXA Assault by unarmed brawl or fight, initial encounter
CPT/HCPCS: 36415; 70450; 72125; 73030; 80053; 83735; 85025; 85610; 85730; 93005; 96360; 99284; J1815; J7030; A9270

== ENCOUNTER 2025-08-23 07:33 | Outpatient (RCR) | payer MEDICAID, SELFPAY ==
[2025-08-01 12:57] LABS: Basophils # (Auto) 0.1 Thou/mm3 (0.0-0.2); Basophils % (Auto) 1 % (0-2.5); Eosinophils # (Auto) 0.2 Thou/mm3 (0.0-0.5); Eosinophils % (Auto) 3 % (0-10); Hematocrit 37.5 % (36.0-46.0); Hemoglobin 12.6 g/dL (12.0-16.0); Immature Granulocytes Auto 0.05 Thou/mm3 (0.00-0.00); Lymphocytes # (Auto) 1.9 Thou/mm3 (1.0-4.8); Lymphocytes % (Auto) 30 % (10-50); Mean Corpuscular HGB Conc 33.6 g/dl (31.0-37.0); Mean Corpuscular Hemoglobin 29.1 pg (25.0-35.0); Mean Corpuscular Volume 87 fL (80-100); Monocytes # (Auto) 0.5 Thou/mm3 (0.0-0.8); Monocytes % (Auto) 7 % (0-12); Neutrophils # (Auto) 3.8 Thou/mm3 (1.8-7.7); Neutrophils % (Auto) 59 % (37-80); Nucleated Red Blood Cell # 0.00 Thou/mm3 (0.00-0.00); Nucleated Red Blood Cell % 0 /100 WBC (0); Platelet Count 323 Thou/mm3 (140-440); RDW Standard Deviation 39.2 fL (36.4-46.3); Red Blood Count 4.33 Miln/mm3 (4.00-5.20); White Blood Count 6.5 Thou/mm3 (3.6-11.0)
[2025-08-01 13:18] LABS: HCG,Qualitative Serum Negative
[2025-08-01 13:27] LABS: Alanine Aminotransferase 61 U/L (10-49); Albumin, Serum 4.2 gm/dL (3.5-5.0); Albumin/Globulin Ratio 1.4 (1.2-2.2); Alkaline Phosphatase 62 U/L (46-116); Anion Gap 14 (7-16); Aspartate Amino Transferase 33 U/L (0-34); BUN/Creatinine Ratio 34 Ratio (12-20); Bilirubin,Total 0.3 mg/dL (0.3-1.2); Blood Urea Nitrogen 17 mg/dL (9-23); Calcium 10.3 mg/dL (8.3-10.6); Calcium (Corrected) 10.3 mg/dL (8.5-10.1); Carbon Dioxide 21.4 mMol/L (20.0-31.0); Chloride 104 mMol/L (98-107); Creatinine (Component) 0.5 mg/dL (0.6-1.3); Globulin 3.0 gm/dL (2.3-3.5); Glucose 73 mg/dL (74-106); Osmolality,Calculated 278 (275-295); Potassium 3.9 mMol/L (3.4-5.1); Sodium 139 mMol/L (136-145); Total Protein 7.2 gm/dL (5.7-8.2); eGFR > 60 See Note
[2025-08-15 11:41] LABS: Basophils # (Auto) 0.0 Thou/mm3 (0.0-0.2); Basophils % (Auto) 1 % (0-2.5); Eosinophils # (Auto) 0.1 Thou/mm3 (0.0-0.5); Eosinophils % (Auto) 2 % (0-10); Hematocrit 33.6 % (36.0-46.0); Hemoglobin 11.6 g/dL (12.0-16.0); Immature Granulocytes Auto 0.08 Thou/mm3 (0.00-0.00); Lymphocytes # (Auto) 1.8 Thou/mm3 (1.0-4.8); Lymphocytes % (Auto) 25 % (10-50); Mean Corpuscular HGB Conc 34.5 g/dl (31.0-37.0); Mean Corpuscular Hemoglobin 29.3 pg (25.0-35.0); Mean Corpuscular Volume 85 fL (80-100); Monocytes # (Auto) 0.5 Thou/mm3 (0.0-0.8); Monocytes % (Auto) 7 % (0-12); Neutrophils # (Auto) 4.6 Thou/mm3 (1.8-7.7); Neutrophils % (Auto) 65 % (37-80); Nucleated Red Blood Cell # 0.00 Thou/mm3 (0.00-0.00); Nucleated Red Blood Cell % 0 /100 WBC (0); Platelet Count 259 Thou/mm3 (140-440); RDW Standard Deviation 38.1 fL (36.4-46.3); Red Blood Count 3.96 Miln/mm3 (4.00-5.20); White Blood Count 7.1 Thou/mm3 (3.6-11.0)
[2025-08-15 11:53] LABS: HCG,Qualitative Serum Negative
[2025-08-15 11:55] LABS: Alanine Aminotransferase 37 U/L (10-49); Albumin, Serum 4.0 gm/dL (3.5-5.0); Albumin/Globulin Ratio 1.6 (1.2-2.2); Alkaline Phosphatase 72 U/L (46-116); Anion Gap 12 (7-16); Aspartate Amino Transferase 23 U/L (0-34); BUN/Creatinine Ratio 13 Ratio (12-20); Bilirubin,Total 0.3 mg/dL (0.3-1.2); Blood Urea Nitrogen 8 mg/dL (9-23); Calcium 9.4 mg/dL (8.3-10.6); Calcium (Corrected) 9.4 mg/dL (8.5-10.1); Carbon Dioxide 22.5 mMol/L (20.0-31.0); Chloride 105 mMol/L (98-107); Creatinine (Component) 0.6 mg/dL (0.6-1.3); Globulin 2.5 gm/dL (2.3-3.5); Glucose 281 mg/dL (74-106); Osmolality,Calculated 285 (275-295); Potassium 3.8 mMol/L (3.4-5.1); Sodium 139 mMol/L (136-145); Thyroid Stimulating Hormone 0.66 uIU/mL (0.55-4.78); Total Protein 6.5 gm/dL (5.7-8.2); eGFR > 60 See Note
[2025-08-22 11:16] LABS: Basophils # (Auto) 0.0 Thou/mm3 (0.0-0.2); Basophils % (Auto) 0 % (0-2.5); Eosinophils # (Auto) 0.1 Thou/mm3 (0.0-0.5); Eosinophils % (Auto) 2 % (0-10); Hematocrit 32.1 % (36.0-46.0); Hemoglobin 11.3 g/dL (12.0-16.0); Immature Granulocytes Auto 0.04 Thou/mm3 (0.00-0.00); Lymphocytes # (Auto) 1.8 Thou/mm3 (1.0-4.8); Lymphocytes % (Auto) 29 % (10-50); Mean Corpuscular HGB Conc 35.2 g/dl (31.0-37.0); Mean Corpuscular Hemoglobin 29.7 pg (25.0-35.0); Mean Corpuscular Volume 84 fL (80-100); Monocytes # (Auto) 0.4 Thou/mm3 (0.0-0.8); Monocytes % (Auto) 6 % (0-12); Neutrophils # (Auto) 3.8 Thou/mm3 (1.8-7.7); Neutrophils % (Auto) 62 % (37-80); Nucleated Red Blood Cell # 0.00 Thou/mm3 (0.00-0.00); Nucleated Red Blood Cell % 0 /100 WBC (0); Platelet Count 166 Thou/mm3 (140-440); RDW Standard Deviation 39.3 fL (36.4-46.3); Red Blood Count 3.81 Miln/mm3 (4.00-5.20); White Blood Count 6.1 Thou/mm3 (3.6-11.0)
[2025-08-22 11:38] LABS: HCG,Qualitative Serum Negative
[2025-08-22 11:41] LABS: Alanine Aminotransferase 35 U/L (10-49); Albumin, Serum 4.1 gm/dL (3.5-5.0); Albumin/Globulin Ratio 1.8 (1.2-2.2); Alkaline Phosphatase 63 U/L (46-116); Anion Gap 15 (7-16); Aspartate Amino Transferase 22 U/L (0-34); BUN/Creatinine Ratio 13 Ratio (12-20); Bilirubin,Total 0.3 mg/dL (0.3-1.2); Blood Urea Nitrogen 8 mg/dL (9-23); Calcium 9.5 mg/dL (8.3-10.6); Calcium (Corrected) 9.5 mg/dL (8.5-10.1); Carbon Dioxide 21.5 mMol/L (20.0-31.0); Chloride 105 mMol/L (98-107); Creatinine (Component) 0.6 mg/dL (0.6-1.3); Globulin 2.3 gm/dL (2.3-3.5); Glucose 234 mg/dL (74-106); Osmolality,Calculated 287 (275-295); Potassium 3.2 mMol/L (3.4-5.1); Sodium 141 mMol/L (136-145); Total Protein 6.4 gm/dL (5.7-8.2); eGFR > 60 See Note
[2025-08-22 11:47] LABS: Folate 14.30 ng/mL (>5.38); Vitamin B12 353 pg/mL (211-911)
[2025-08-22 11:48] LABS: Ferritin 86 ng/mL (7.3-270.7); Iron 63 mcg/dL (50-170); Percent Iron Saturation 17 % (20-55); Total Iron Binding Capacity 357 mcg/dL (250-425); Unsaturated Iron Binding 294 (225-295)
[2025-08-22 17:02] LABS: Magnesium 1.2 mg/dL (1.6-2.6)
[2025-08-23 13:29] LABS: Magnesium 2.0 mg/dL (1.6-2.6)
--- NOTE | 2025-08-26 23:17 | CTCFLWUP_ITS ---
Patient: KYLIE FERRO : 1985 Page 5 of 6 FOLLOW UP NOTE DATE OF SERVICE: 08/20/2025 NAME: KYLIE FERRO ACCOUNT: [id number] : 1985 AGE: 39 INTERVAL HISTORY: Kylie Webb, a female undergoing chemotherapy, presented for follow-up with headaches, shoulder pain, scalp rash, skin matthew, and anxiety with tachycardia. Her tumors are shrinking after completing 2 cycles of chemotherapy. Treatment plan includes continuing chemotherapy with follow-up in 2 months, muscle relaxants for shoulder pain, minor-infused coconut oil and topical steroids for scalp dermatitis, iron studies for hyperpigmentation, and Ativan 1mg PRN for anxiety, particularly before chemotherapy sessions. Subjective Chief Complaint Follow-up for cancer treatment, headaches, shoulder pain, skin matthew, scalp rash, anxiety with shortness of breath and chest pain History of Present Illness Kylie Webb presents for follow-up of ongoing cancer treatment. She reports that her tumors are shrinking in response to chemotherapy. The patient is experiencing daily headaches and shoulder pain as side effects of the treatment. Ms. Webb notes that she has been having headaches every day, which may be exacerbated by eye strain. She also complains of shoulder pain, which is aggravated by poor posture. The patient reports feeling out of breath and experiencing significant pain around her chemotherapy port site. She experiences anxiety related to her chemotherapy treatments, with her heart rate increasing to 118-120 beats per minute during these episodes. The patient has developed a rash on her scalp following hair loss from chemotherapy. She describes the area as sensitive to touch and painful. Additionally, Ms. Webb has noticed matthew of her skin, which may be related to sun exposure or possibly iron deficiency. In terms of treatment adherence, the patient is continuing with her prescribed chemotherapy regimen and has completed approximately half of the planned treatment course. She denies drinking coffee, which has been suggested to help with her headaches. Medications and Supplements - Protein shakes (Insure or Premier Protein) - Coffee - Ativan 1 mg - For anxiety and to help relax before chemotherapy - Chemotherapy - Causing weakness - Patient has completed 2 cycles Review of Systems General: Positive for muscle aches. Skin: Positive for skin matthew, scalp rash. HEENT: Positive for headaches. Cardiovascular: Positive for tachycardia. Respiratory: Positive for dyspnea. Musculoskeletal: Positive for shoulder pain. Psychiatric: Positive for anxiety. Objective Vital Signs - Heart Rate: 118-120 bpm Physical Examination Musculoskeletal: Pain elicited when shoulders are manipulated. Significant tightness noted in shoulder area. Skin: Matthew of the skin observed. Rash present on scalp. 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 [ICD10] C50.411 DATE OF DIAGNOSIS: 04/03/2025 STAGE/TNM: At least stage III TREATMENT HISTORY: Care?Plan Start?Date Cycle Day Intent TNBC?Pembro?17?cy?TaxCar?4?cy?AC?4?cy?Keynote?522 07/19/2025 1 21 Curative?(adjuvant) HISTORY OF PRESENT ILLNESS: 39-year-old female 08/28/2024 mammogram showed abnormality in the right breast 02/05/2025 ultrasound of the right breast showed lesion concerning for malignancy 04/03/2025 right breast biopsy showed infiltrating ductal carcinoma high-grade grade 3 ER negative DC negative Ki-67 50% HER2 -1+ low and patient was referred to oncology 06/06/2025 patient seen by radiation oncologist Dr. Young. Right breast showed 5.1 x 3.3 cm mass and right axilla lymph node 2.2 x 1.5 cm documented on the ultrasound from 02/05/2025. Orders placed for PET CT scan port placement and patient referred to medical oncology 06/28/2025 patient seen by oncology. 6 stat orders placed for chemotherapy based on keynote trial. Expedited orders placed for port catheter placement and echocardiogram. Chemo can be started while waiting for echocardiogram PET CT scan pending Will wait for brain MRI. OTHER MEDICAL HISTORY/CONDITIONS: Right breast infiltrating ductal carcinoma - dx 04/03/25 Diabetes Arthritis DENIES FAMILY HISTORY: Patient?denies?family?cancer?history. 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 Tobacco?Use:?DENIES ETOH?Use:?DENIES Drug?Note:?DENIES Social History Note:?LIVES WITH 3 CHILDREN RUNNER ON HISTORY: Menarche?-?Age:?13 Date?LMP:?05/30/2025 Hormone?Use:?DEPO?X?3?YRS :?4 Live?Births:?4 Age?1st?:?13 MEDICATIONS: 1. CeleBREX - 50 mg 1 Capsule Twice a Day 2. Compazine - 5 mg 5 mg Daily 3. Janumet - 50-1,000 mg 1 tab Twice a Day 4. metFORMIN - 1,000 mg 1 tab Daily 5. ondansetron - 8 mg 8 mg Daily Medications Last Reconciled by Maria Guadalupe Chávez MD on 08/20/2025 ALLERGIES: No Known Drug Allergies REVIEW OF SYSTEMS: A complete 14-point review of systems was performed and is negative except as noted in interval history. PHYSICAL EXAMINATION: VITAL SIGNS: Temperature?97.6, B/P?137/91, Oxygen?Saturation?97% Weight?160?lbs (Change?since?08/16/25:?-10.4?lbs) PAIN: 0 - No pain ECOG Performance Status: 1 - Symptomatic; ambulatory; restricted in strenuous activity GENERAL APPEARANCE: Appears well, in no apparent distress, appropriately interactive. HEENT: Normocephalic, no temporal wasting, normal conjunctiva, no scleral icterus, normal hearing, lips without lesions, neck normal range of motion. CARDIOVASCULAR: Not assessed. PULMONARY: Normal respiratory effort, no respiratory distress or use of accessory muscles, speaking in full sentences, no tachypnea. EXTREMITIES: No pedal edema or cyanosis. SKIN: Normal skin appearance. NEUROLOGIC: Alert and oriented x4. PSHYCHIATRIC: Appropriate affect, mood normal, behavior normal, intact thought and speech. Breast examination shows large breast lesion and enlarged lymph node LABORATORY DATA: I have personally reviewed and interpreted each of the patient?s relevant lab tests, abnormal findings are below: Date 08/22/25 08/23/25 ??WHITE?BLOOD?COUNT?(Thou/mm3) 6.1 ? ??RED?BLOOD?COUNT?(Miln/mm3) 3.81?L ? ??HEMOGLOBIN?(gm/dl) 11.3?L ? ??HEMATOCRIT?(%) 32.1?L ? ??PLATELET?COUNT?(Thou/mm3) 166 ? ??NEUTROPHILS?%,?AUTO?(%) 62 ? ??LYMPH?%,?AUTO?(%) 29 ? ??NEUTROPHILS,?AUTO?(Thou/mm3) 3.8 ? ??GLUCOSE,RANDOM?(mg/dL) 234?H ? ??BLOOD?UREA?NITROGEN?(mg/dL) 8?L ? ??CREATININE?(mg/dL) 0.60 ? ??SODIUM?(mmol/L) 141 ? ??POTASSIUM?(mmol/L) 3.2?L ? ??CHLORIDE?(mmol/L) 105 ? ??CrCl?(CandG)?(ml/min) 120.76 ? ??AST/SGOT?(Unit/L) 22 ? ??ALT/SGPT?(Unit/L) 35 ? ??ALKALINE?PHOSPHATASE?(Unit/L) 63 ? ??BILIRUBIN,?TOTAL?(mg/dL) 0.3 ? ??PROTEIN?TOTAL?(gm/dl) 6.4 ? ??ALBUMIN,?SERUM?(gm/dl) 4.1 ? ??GLOBULIN?(gm/dl) 2.3 ? ??ALBUMIN/GLOBULIN?RATIO 1.8 ? ??CALCIUM,?SERUM?(mg/dL) 9.5 ? ??CALCIUM?SERUM?(CORRECTED)?(mg/dL) 9.5 ? ??MAGNESIUM?(mg/dL) 1.2?L 2.0 ASSESSMENT/PLAN: Assessment and Plan Kylie Webb, a female patient undergoing chemotherapy for tumor treatment, presents with headaches, shoulder pain, and scalp irritation. Malignant neoplasm (unspecified) Assessment: Patient is undergoing chemotherapy for tumor treatment. Recent imaging shows tumor shrinkage, indicating positive response to current treatment regimen. Patient has completed approximately half of the planned treatment course (2 cycles). Plan: - Continue current chemotherapy regimen - Follow-up appointment in 2 months - Monitor for side effects and complications Headache Assessment: Patient reports daily headaches, likely multifactorial in etiology. Contributing factors may include chemotherapy-induced muscle weakness, eye strain, and possible caffeine withdrawal. Plan: - Recommend consistent use of prescription eyewear - Advise on proper posture (shoulders back, lift bust) - Suggest daily coffee consumption with food (avoid on chemotherapy days) - Consider protein shakes (e.g., Ensure, Premier Protein) for nutritional support Myalgia Assessment: Patient reports shoulder pain, which is exacerbated by poor posture. Physical examination reveals significant muscle tightness in the shoulder area. Plan: - Prescribe muscle relaxant for nighttime use - Recommend posture-supporting belt - Educate on proper posture techniques Dermatitis of scalp Assessment: Patient presents with scalp irritation and rash following chemotherapy-induced alopecia. Scalp is sensitive to touch, suggesting possible inflammation or dermatitis. Plan: - Recommend application of minor-infused coconut oil twice daily - Prescribe topical steroid cream for scalp - Advise against scratching or irritating the scalp - Suggest use of cold cap therapy during chemotherapy to reduce pain and sensitivity Hyperpigmentation Assessment: Patient exhibits matthew of the skin, which may be due to chemotherapy side effects or possible iron deficiency. Plan: - Order iron studies - Recommend twice-daily application of sunscreen - Advise sun avoidance - Consider IV iron supplementation pending lab results Anxiety Assessment: Patient experiences anxiety before chemotherapy treatments, manifesting as dyspnea and tachycardia (heart rate up to 132 bpm noted previously). Plan: - Prescribe Ativan 1 mg tablet PRN for anxiety, especially before chemotherapy treatments - Educate on proper use and potential for habit formation - Recommend distraction techniques (e.g., music, watching shows) during chemotherapy - Teach vagus nerve stimulation technique (rubbing behind the earORDERS: Order # Description [id number] Comprehensive Metabolic Panel - 12 + CBC with Auto Diff [id number] Iron Panel + Ferritin + Vitamin B-12 + Folic Acid; Serum [id number] MD Follow Up 2 Months [id number] CBC + Comprehensive Metabolic Panel [id number] Lab Appointment RETURN TO CLINIC: I reviewed the diagnosis, prognosis, and recommended treatment/procedure options with the patient (and/or their legal electroplating sales representative), including the potential benefits, risks, side effects and alternative therapies. We also discussed the option of no treatment and the possibility of clinical trial participation, if applicable. All questions were addressed, and they demonstrated understanding. They provided informed consent to proceed with the proposed plan of care. BILLING AND COMPLIANCE: I reviewed external records from providers outside my specialty as summarized above. I spent a total of 50 minutes on this patient?s care on the day of their visit excluding time spent related to any billed procedures. This time includes time spent with the patient as well as time spent documenting in the medical record, reviewing patients records and tests, obtaining history, placing orders, communicating with other healthcare professionals, counseling the patient, family or caregiver, and/or care coordination for the diagnoses above. Electronically Signed by: {Object.Sanct_ID*PnP.NameFL@}, {Object.Sanct_ID*PnP.Suffix@U} D: {Object.Sanct_Date} T: {Object.Sanct_Time} CC: PCP: Referring: Olegario Haley This document was completed utilizing speech recognition software. Grammatical errors, random word insertions, pronoun errors, and incomplete sentences are an occasional consequence of this system due to software limitations, ambient noise, and hardware issues. Any formal questions or concerns about the content, text or information contained within the body of this dictation should be directly addressed to the provider for clarification.
== END 2025-08-28 23:59 | disposition home or self-care (01) ==
LOC: SCTC 07:33
PROVIDERS: PCP Family Medicine; Referring Provider Family Medicine; Visit Provider Internal Medicine Hematology & Oncology
DX: Z51.11 Encounter for antineoplastic chemotherapy (principal); C50.411 Malignant neoplasm of upper-outer quadrant of right female breast; Z17.1 Estrogen receptor negative status [ER-]; Z17.22 Progesterone receptor negative status; Z17.32 Human epidermal growth factor receptor 2 negative status; R51.9 Headache, unspecified; M79.18 Myalgia, other site; L30.9 Dermatitis, unspecified; L81.9 Disorder of pigmentation, unspecified; F41.9 Anxiety disorder, unspecified
CPT/HCPCS: 36591; 80053; 82607; 82728; 82746; 83540; 83550; 83735; 84443; 84703; 85025; 96367; 96368; 96375; 96413; 96417; 99212; A4216; J1100; J1200; J1453; J1642; J2405; J3475; J3490; J7040; J7050; J7060; J9045; J9267; J9271; G0463

== ENCOUNTER 2025-08-24 14:01 | Outpatient (RCR) | payer MEDICAID, SELFPAY ==
--- NOTE | 2025-08-24 14:54 | PT.OIERPT ---
PT OP Initial Eval Patient Information Outpatient Physical Therapy Treatment Date: 08/24/25 Visit Reasons: pain in left shoulder Medical Diagnosis: M19.012 Treatment Dx #1: Left Shoulder Pain Treatment Dx #2: Left Shoulder Mobility Deficits Start of Care: 08/24/25 Smoking Status Smoking Status: Never smoker Initial Assessment Subjective: Pt is a 39 y/o female reports of left shoulder pain (8/10) insidious onset ~ 1 month ago. Pt denies of trauma or injury. Pt's most recent xray negative. No MRI has been done thus far. Pt has limitation with overhead motions, lifting, chores, self care, gripping, and performing recreational activities. Objective: Left Shoulder PROM: all motions are WFL Left Shoulder AROM Flexion: 160 deg Abduction: 160 deg External Rotation: 80 deg Internal Rotation: 70 deg Left Shoulder MMTs: grossly 3/5 Left Scapula MMTs: grossly 3/5 Special Test (+) active guadarrama's (+) speed's Palpation: TTP long head of biceps Assessment: Pt demonstrate left shoulder pain consistent with labrum involvement leading to difficulty with ADLs. Pt will attempt physical therapy if pain persist Pt will be refer back to provider for further consultation. Short Term and Surgical Scheduler Goals 1) Increase left shoulder AROM WFL in 6 wks to be able to perform overhead motions 2) Decrease shoulder pain to 2/10 in 6 wks to be able to sleep on the shoulder 3) Increase left shoulder MMTs grossly to 4-/5 in 6 wks to be able to perform lifting activities 4) Increase left scapula MMTs grossly to 4-/5 in 6 wks to be able to perform recreational activities 5) Indep with HEP Treatment Plan 1) Manual Therapy 2) Therapeutic Activities 3) Therapeutic Exercises 4) Modalities (ice, heat) Frequency and Duration: 2 x wk for 6 wks Certification Dates: 08/24/25 to 11/23/25 Procedure Charges OP PT Eval Mod Complex 30 minutes: Yes
== END 2025-08-28 23:59 | disposition home or self-care (01) ==
LOC: CPTX 14:01
PROVIDERS: PCP Nurse Practitioner Family; Referring Provider Nurse Practitioner Family; Visit Provider Nurse Practitioner Family
DX: M25.512 Pain in left shoulder (principal); M19.012 Primary osteoarthritis, left shoulder
CPT/HCPCS: 97162

== ENCOUNTER → 2025-09-12 | Outpatient (CLI) | payer MEDICAID, SELFPAY ==
[2025-09-12 10:52] LABS: HCG,Qualitative Serum Negative
[2025-09-12 10:58] LABS: Basophils # (Auto) 0.0 Thou/mm3 (0.0-0.2); Basophils % (Auto) 0 % (0-2.5); Eosinophils # (Auto) 0.2 Thou/mm3 (0.0-0.5); Eosinophils % (Auto) 6 % (0-10); Hematocrit 31.2 % (36.0-46.0); Hemoglobin 10.5 g/dL (12.0-16.0); Immature Granulocytes Auto 0.03 Thou/mm3 (0.00-0.00); Lymphocytes # (Auto) 1.5 Thou/mm3 (1.0-4.8); Lymphocytes % (Auto) 45 % (10-50); Mean Corpuscular HGB Conc 33.7 g/dl (31.0-37.0); Mean Corpuscular Hemoglobin 30.5 pg (25.0-35.0); Mean Corpuscular Volume 91 fL (80-100); Monocytes # (Auto) 0.2 Thou/mm3 (0.0-0.8); Monocytes % (Auto) 7 % (0-12); Neutrophils # (Auto) 1.4 Thou/mm3 (1.8-7.7); Neutrophils % (Auto) 41 % (37-80); Nucleated Red Blood Cell # 0.00 Thou/mm3 (0.00-0.00); Nucleated Red Blood Cell % 0 /100 WBC (0); Platelet Count 314 Thou/mm3 (140-440); RDW Standard Deviation 52.8 fL (36.4-46.3); Red Blood Count 3.44 Miln/mm3 (4.00-5.20); White Blood Count 3.5 Thou/mm3 (3.6-11.0)
[2025-09-12 14:26] LABS: Alanine Aminotransferase 63 U/L (10-49); Albumin, Serum 4.1 gm/dL (3.5-5.0); Albumin/Globulin Ratio 1.8 (1.2-2.2); Alkaline Phosphatase 63 U/L (46-116); Anion Gap 9 (7-16); Aspartate Amino Transferase 35 U/L (0-34); BUN/Creatinine Ratio 18 Ratio (12-20); Bilirubin,Total 0.3 mg/dL (0.3-1.2); Blood Urea Nitrogen 9 mg/dL (9-23); Calcium 9.5 mg/dL (8.3-10.6); Calcium (Corrected) 9.5 mg/dL (8.5-10.1); Carbon Dioxide 27.6 mMol/L (20.0-31.0); Chloride 107 mMol/L (98-107); Creatinine (Component) 0.5 mg/dL (0.6-1.3); Globulin 2.3 gm/dL (2.3-3.5); Glucose 94 mg/dL (74-106); Osmolality,Calculated 285 (275-295); Potassium 4.2 mMol/L (3.4-5.1); Sodium 144 mMol/L (136-145); Thyroid Stimulating Hormone 1.10 uIU/mL (0.55-4.78); Total Protein 6.4 gm/dL (5.7-8.2); eGFR > 60 See Note
[2025-09-12 16:41] LABS: Free T4 (Free Thyroxine) 1.36 ng/dL (0.89-1.76)
== END | disposition home or self-care (01) ==
LOC: SCTO 09:55
PROVIDERS: PCP Family Medicine; Referring Provider Internal Medicine Hematology & Oncology; Visit Provider Internal Medicine Hematology & Oncology
DX: C50.411 Malignant neoplasm of upper-outer quadrant of right female breast (principal); E03.9 Hypothyroidism, unspecified
CPT/HCPCS: 36415; 80053; 84439; 84443; 84703; 85025

== ENCOUNTER → 2025-09-19 | Outpatient (CLI) | payer MEDICAID, SELFPAY ==
[2025-09-19 09:23] LABS: Basophils # (Auto) 0.0 Thou/mm3 (0.0-0.2); Basophils % (Auto) 1 % (0-2.5); Eosinophils # (Auto) 0.1 Thou/mm3 (0.0-0.5); Eosinophils % (Auto) 2 % (0-10); Hematocrit 31.5 % (36.0-46.0); Hemoglobin 10.7 g/dL (12.0-16.0); Immature Granulocytes Auto 0.03 Thou/mm3 (0.00-0.00); Lymphocytes # (Auto) 1.5 Thou/mm3 (1.0-4.8); Lymphocytes % (Auto) 42 % (10-50); Mean Corpuscular HGB Conc 34.0 g/dl (31.0-37.0); Mean Corpuscular Hemoglobin 30.7 pg (25.0-35.0); Mean Corpuscular Volume 90 fL (80-100); Monocytes # (Auto) 0.4 Thou/mm3 (0.0-0.8); Monocytes % (Auto) 11 % (0-12); Neutrophils # (Auto) 1.5 Thou/mm3 (1.8-7.7); Neutrophils % (Auto) 44 % (37-80); Nucleated Red Blood Cell # 0.00 Thou/mm3 (0.00-0.00); Nucleated Red Blood Cell % 0 /100 WBC (0); Platelet Count 327 Thou/mm3 (140-440); RDW Standard Deviation 53.3 fL (36.4-46.3); Red Blood Count 3.49 Miln/mm3 (4.00-5.20); White Blood Count 3.5 Thou/mm3 (3.6-11.0)
[2025-09-19 09:35] LABS: HCG,Qualitative Serum Negative
[2025-09-19 09:36] LABS: Alanine Aminotransferase 45 U/L (10-49); Albumin, Serum 4.3 gm/dL (3.5-5.0); Albumin/Globulin Ratio 2.0 (1.2-2.2); Alkaline Phosphatase 78 U/L (46-116); Anion Gap 10 (7-16); Aspartate Amino Transferase 26 U/L (0-34); BUN/Creatinine Ratio 32 Ratio (12-20); Bilirubin,Total 0.4 mg/dL (0.3-1.2); Blood Urea Nitrogen 19 mg/dL (9-23); Calcium 9.8 mg/dL (8.3-10.6); Calcium (Corrected) 9.8 mg/dL (8.5-10.1); Carbon Dioxide 26.6 mMol/L (20.0-31.0); Chloride 105 mMol/L (98-107); Creatinine (Component) 0.6 mg/dL (0.6-1.3); Free T4 (Free Thyroxine) 1.60 ng/dL (0.89-1.76); Globulin 2.2 gm/dL (2.3-3.5); Glucose 117 mg/dL (74-106); Osmolality,Calculated 286 (275-295); Potassium 4.0 mMol/L (3.4-5.1); Sodium 142 mMol/L (136-145); Thyroid Stimulating Hormone 0.90 uIU/mL (0.55-4.78); Total Protein 6.5 gm/dL (5.7-8.2); eGFR > 60 See Note
== END | disposition home or self-care (01) ==
LOC: SCTO 08:38
PROVIDERS: PCP Family Medicine; Referring Provider Internal Medicine Hematology & Oncology; Visit Provider Internal Medicine Hematology & Oncology
DX: C50.411 Malignant neoplasm of upper-outer quadrant of right female breast (principal); E03.9 Hypothyroidism, unspecified
CPT/HCPCS: 36415; 80053; 84439; 84443; 84703; 85025

== ENCOUNTER 2025-09-26 11:30 | Outpatient (RCR) | payer MEDICAID, SELFPAY ==
--- NOTE | 2025-09-03 10:28 | PT.ODAYNRPT ---
PT Outpatient Daily Note OP Daily Note Outpatient Physical Therapy Treatment Date: 09/03/25 Visit Reasons: PAIN IN LEFT SHOULDER Subjective: Pt's shoulder feels a little better. Pt is unsure if it's because she's taking a lot of medication and thats why she is not feeling much pain. Objective: Please see flow chart for list of ther ex performed Assessment: tolerate exercises with minimal pain Plan: Continue with PT Length of Time (minutes) of Treatment: 30 Minutes Procedure Charges Therapeutic Exercise 30 minutes: Yes
--- NOTE | 2025-09-05 13:05 | PT.ODAYNRPT ---
PT Outpatient Daily Note OP Daily Note Outpatient Physical Therapy Treatment Date: 09/05/25 Visit Reasons: PAIN IN LEFT SHOULDER Subjective: Pt reports L shoulder is doing a little better. Objective: Please see lfow sheet for ther ex list. Assessment: Pt able to replicate assigned interventions with good technique, no complaints. Plan: Continue with pOC. Length of Time (minutes) of Treatment: 30 Minutes Procedure Charges Therapeutic Exercise 30 minutes: Yes
--- NOTE | 2025-09-19 11:42 | PT.ODAYNRPT ---
PT Outpatient Daily Note OP Daily Note Outpatient Physical Therapy Treatment Date: 09/19/25 Visit Reasons: PAIN IN LEFT SHOULDER Subjective: Pt's shoulder feels much better. Pt notice overhead motions are getting easier with less pain. Objective: Please see flow chart for list of ther ex performed Assessment: progress patient to shoulder 3 way with YTB with good tolerance to exercises. Pt demonstrate improved shoulder flexion and scaption AAROM with less pain Plan: Continue with PT Length of Time (minutes) of Treatment: 30 Minutes Procedure Charges Therapeutic Exercise 30 minutes: Yes
--- NOTE | 2025-09-26 12:51 | PT.ODAYNRPT ---
PT Outpatient Daily Note OP Daily Note Outpatient Physical Therapy Treatment Date: 09/26/25 Visit Reasons: PAIN IN LEFT SHOULDER Subjective: Pt's shoulder feels better. No new concerns to report. Objective: Please see flow chart for list of ther ex performed Assessment: tolerate exercises with minimal pain Plan: Continue with PT Length of Time (minutes) of Treatment: 30 Minutes Procedure Charges Therapeutic Exercise 30 minutes: Yes
== END 2025-09-28 23:59 | disposition home or self-care (01) ==
LOC: CPTX 11:30
PROVIDERS: PCP Nurse Practitioner Family; Referring Provider Nurse Practitioner Family; Visit Provider Nurse Practitioner Family
DX: M25.512 Pain in left shoulder (principal); M19.012 Primary osteoarthritis, left shoulder
CPT/HCPCS: 97110

== ENCOUNTER 2025-09-27 07:36 | Outpatient (RCR) | payer MEDICAID, SELFPAY ==
[2025-08-29 11:51] LABS: Basophils # (Auto) 0.0 Thou/mm3 (0.0-0.2); Basophils % (Auto) 0 % (0-2.5); Eosinophils # (Auto) 0.1 Thou/mm3 (0.0-0.5); Eosinophils % (Auto) 2 % (0-10); Hematocrit 34.6 % (36.0-46.0); Hemoglobin 12.1 g/dL (12.0-16.0); Immature Granulocytes Auto 0.04 Thou/mm3 (0.00-0.00); Lymphocytes # (Auto) 1.6 Thou/mm3 (1.0-4.8); Lymphocytes % (Auto) 25 % (10-50); Mean Corpuscular HGB Conc 35.0 g/dl (31.0-37.0); Mean Corpuscular Hemoglobin 29.6 pg (25.0-35.0); Mean Corpuscular Volume 85 fL (80-100); Monocytes # (Auto) 0.4 Thou/mm3 (0.0-0.8); Monocytes % (Auto) 6 % (0-12); Neutrophils # (Auto) 4.2 Thou/mm3 (1.8-7.7); Neutrophils % (Auto) 66 % (37-80); Nucleated Red Blood Cell # 0.00 Thou/mm3 (0.00-0.00); Nucleated Red Blood Cell % 0 /100 WBC (0); Platelet Count 182 Thou/mm3 (140-440); RDW Standard Deviation 43.1 fL (36.4-46.3); Red Blood Count 4.09 Miln/mm3 (4.00-5.20); White Blood Count 6.4 Thou/mm3 (3.6-11.0)
[2025-08-29 12:08] LABS: HCG,Qualitative Serum Negative
[2025-08-29 12:14] LABS: Magnesium 1.1 mg/dL (1.6-2.6)
[2025-08-29 12:45] LABS: Alanine Aminotransferase 56 U/L (10-49); Albumin, Serum 4.4 gm/dL (3.5-5.0); Albumin/Globulin Ratio 1.8 (1.2-2.2); Alkaline Phosphatase 66 U/L (46-116); Anion Gap 15 (7-16); Aspartate Amino Transferase 38 U/L (0-34); BUN/Creatinine Ratio 13 Ratio (12-20); Bilirubin,Total 0.6 mg/dL (0.3-1.2); Blood Urea Nitrogen 12 mg/dL (9-23); Calcium 9.4 mg/dL (8.3-10.6); Calcium (Corrected) 9.4 mg/dL (8.5-10.1); Carbon Dioxide 22.3 mMol/L (20.0-31.0); Chloride 102 mMol/L (98-107); Creatinine (Component) 0.9 mg/dL (0.6-1.3); Globulin 2.4 gm/dL (2.3-3.5); Osmolality,Calculated 295 (275-295); Potassium 3.8 mMol/L (3.4-5.1); Sodium 139 mMol/L (136-145); Thyroid Stimulating Hormone 0.66 uIU/mL (0.55-4.78); Total Protein 6.8 gm/dL (5.7-8.2); eGFR > 60 See Note
[2025-08-29 13:04] LABS: Glucose 427 mg/dL (74-106)
[2025-08-30 09:59] LABS: Glucose 150 mg/dL (74-106); Magnesium 1.2 mg/dL (1.6-2.6)
[2025-09-05 10:55] LABS: Basophils # (Auto) 0.0 Thou/mm3 (0.0-0.2); Basophils % (Auto) 0 % (0-2.5); Eosinophils # (Auto) 0.1 Thou/mm3 (0.0-0.5); Eosinophils % (Auto) 3 % (0-10); Hematocrit 29.9 % (36.0-46.0); Hemoglobin 10.1 g/dL (12.0-16.0); Immature Granulocytes Auto 0.02 Thou/mm3 (0.00-0.00); Lymphocytes # (Auto) 1.3 Thou/mm3 (1.0-4.8); Lymphocytes % (Auto) 35 % (10-50); Mean Corpuscular HGB Conc 33.8 g/dl (31.0-37.0); Mean Corpuscular Hemoglobin 30.1 pg (25.0-35.0); Mean Corpuscular Volume 89 fL (80-100); Monocytes # (Auto) 0.2 Thou/mm3 (0.0-0.8); Monocytes % (Auto) 7 % (0-12); Neutrophils # (Auto) 2.0 Thou/mm3 (1.8-7.7); Neutrophils % (Auto) 55 % (37-80); Nucleated Red Blood Cell # 0.00 Thou/mm3 (0.00-0.00); Nucleated Red Blood Cell % 0 /100 WBC (0); Platelet Count 192 Thou/mm3 (140-440); RDW Standard Deviation 49.1 fL (36.4-46.3); Red Blood Count 3.35 Miln/mm3 (4.00-5.20); White Blood Count 3.6 Thou/mm3 (3.6-11.0)
[2025-09-05 11:02] LABS: Magnesium 1.5 mg/dL (1.6-2.6)
[2025-09-05 11:06] LABS: HCG,Qualitative Serum Negative
[2025-09-05 11:08] LABS: Alanine Aminotransferase 38 U/L (10-49); Albumin, Serum 4.0 gm/dL (3.5-5.0); Albumin/Globulin Ratio 1.7 (1.2-2.2); Alkaline Phosphatase 63 U/L (46-116); Anion Gap 9 (7-16); Aspartate Amino Transferase 24 U/L (0-34); BUN/Creatinine Ratio 18 Ratio (12-20); Bilirubin,Total 0.3 mg/dL (0.3-1.2); Blood Urea Nitrogen 11 mg/dL (9-23); Calcium 9.4 mg/dL (8.3-10.6); Calcium (Corrected) 9.4 mg/dL (8.5-10.1); Carbon Dioxide 26.3 mMol/L (20.0-31.0); Chloride 108 mMol/L (98-107); Creatinine (Component) 0.6 mg/dL (0.6-1.3); Globulin 2.3 gm/dL (2.3-3.5); Glucose 142 mg/dL (74-106); Osmolality,Calculated 286 (275-295); Potassium 3.7 mMol/L (3.4-5.1); Sodium 143 mMol/L (136-145); Thyroid Stimulating Hormone 0.43 uIU/mL (0.55-4.78); Total Protein 6.3 gm/dL (5.7-8.2); eGFR > 60 See Note
[2025-09-06 09:57] LABS: Free T4 (Free Thyroxine) 1.34 ng/dL (0.89-1.76)
[2025-09-26 16:13] LABS: Basophils # (Auto) 0.0 Thou/mm3 (0.0-0.2); Basophils % (Auto) 0 % (0-2.5); Eosinophils # (Auto) 0.0 Thou/mm3 (0.0-0.5); Eosinophils % (Auto) 1 % (0-10); Hematocrit 29.3 % (36.0-46.0); Hemoglobin 10.3 g/dL (12.0-16.0); Immature Granulocytes Auto 0.05 Thou/mm3 (0.00-0.00); Lymphocytes # (Auto) 1.8 Thou/mm3 (1.0-4.8); Lymphocytes % (Auto) 38 % (10-50); Mean Corpuscular HGB Conc 35.2 g/dl (31.0-37.0); Mean Corpuscular Hemoglobin 31.1 pg (25.0-35.0); Mean Corpuscular Volume 89 fL (80-100); Monocytes # (Auto) 0.4 Thou/mm3 (0.0-0.8); Monocytes % (Auto) 9 % (0-12); Neutrophils # (Auto) 2.4 Thou/mm3 (1.8-7.7); Neutrophils % (Auto) 51 % (37-80); Nucleated Red Blood Cell # 0.00 Thou/mm3 (0.00-0.00); Nucleated Red Blood Cell % 0 /100 WBC (0); Platelet Count 291 Thou/mm3 (140-440); RDW Standard Deviation 51.8 fL (36.4-46.3); Red Blood Count 3.31 Miln/mm3 (4.00-5.20); White Blood Count 4.7 Thou/mm3 (3.6-11.0)
[2025-09-26 16:26] LABS: Alanine Aminotransferase 39 U/L (10-49); Albumin, Serum 4.5 gm/dL (3.5-5.0); Albumin/Globulin Ratio 2.1 (1.2-2.2); Alkaline Phosphatase 57 U/L (46-116); Anion Gap 11 (7-16); Aspartate Amino Transferase 30 U/L (0-34); BUN/Creatinine Ratio 26 Ratio (12-20); Bilirubin,Total 0.6 mg/dL (0.3-1.2); Blood Urea Nitrogen 13 mg/dL (9-23); Calcium 9.6 mg/dL (8.3-10.6); Calcium (Corrected) 9.6 mg/dL (8.5-10.1); Carbon Dioxide 25.7 mMol/L (20.0-31.0); Chloride 105 mMol/L (98-107); Creatinine (Component) 0.5 mg/dL (0.6-1.3); Free T4 (Free Thyroxine) 1.49 ng/dL (0.89-1.76); Globulin 2.1 gm/dL (2.3-3.5); Glucose 130 mg/dL (74-106); Osmolality,Calculated 285 (275-295); Potassium 3.3 mMol/L (3.4-5.1); Sodium 142 mMol/L (136-145); Thyroid Stimulating Hormone 0.53 uIU/mL (0.55-4.78); Total Protein 6.6 gm/dL (5.7-8.2); eGFR > 60 See Note
[2025-09-27 08:48] LABS: HCG,Qualitative Serum Negative
== END 2025-09-28 23:59 | disposition home or self-care (01) ==
LOC: SCTC 07:36
PROVIDERS: PCP Nurse Practitioner Family; Referring Provider Nurse Practitioner Family; Visit Provider Internal Medicine Hematology & Oncology
DX: Z51.11 Encounter for antineoplastic chemotherapy (principal); C50.411 Malignant neoplasm of upper-outer quadrant of right female breast; Z17.1 Estrogen receptor negative status [ER-]; Z17.22 Progesterone receptor negative status; Z17.32 Human epidermal growth factor receptor 2 negative status; R51.9 Headache, unspecified; M25.519 Pain in unspecified shoulder; L27.0 Generalized skin eruption due to drugs and medicaments taken internally; L65.8 Other specified nonscarring hair loss; T45.1X5D Adverse effect of antineoplastic and immunosuppressive drugs, subsequent encounter; R23.8 Other skin changes; F41.9 Anxiety disorder, unspecified
CPT/HCPCS: 36591; 80053; 82947; 83735; 84439; 84443; 84703; 85025; 96361; 96365; 96366; 96367; 96368; 96374; 96375; 96413; 96415; 96417; A4216; J1100; J1200; J1434; J1642; J2405; J3475; J3490; J7030; J7040; J7050; J7060; J9045; J9267; J9271; A9270

== ENCOUNTER 2025-10-14 07:39 | Emergency (ER) | payer MEDICAID, SELFPAY ==
[2025-10-14 07:41] VITALS: BMI 31.1
[2025-10-14 07:48] VITALS: BP 125/87; PULSE 122; RESP 19; TEMP 36.7; O2SAT 98
--- NOTE | 2025-10-14 08:14 | PD.EDNEURO ---
Neuro Symptoms Deficit-RME/HPI General Stated Complaint: WHOLE FACE RIGHT/HAND NUMB/FEELS COLD SINCE 0300 Time Seen by Provider: 10/14/25 08:05 Arrival date/time: 10/14/25 07:39 RME / HPI RME / HPI Narrative: See [facility] for Dr. Young's HPI Documentation. Related Data Home Medications ?Medication ?Instructions ?Recorded ?Confirmed metformin 1,000 mg tablet 1,000 mg PO QDAY 07/05/25 07/05/25 sitagliptin phosphate 50 1 tab PO BID 07/05/25 07/05/25 mg-metformin 1,000 mg tablet (Janumet) Previous Rx's ?Medication ?Instructions ?Recorded rizatriptan 10 mg disintegrating See Rx Instructions PO .COMPLEX 07/18/25 tablet (Maxalt-[employer]) #14 tabs cefdinir 300 mg capsule 300 mg PO BID #14 caps 10/14/25 lorazepam 2 mg tablet (Ativan) 2 mg PO BID PRN anxiety #20 tabs 10/14/25 magnesium oxide 400 mg PO BID #60 tabs 10/14/25 ondansetron 4 mg disintegrating 4 mg PO TID PRN nausea and 10/14/25 tablet vomiting 30 days #10 tabs Allergies Allergy/AdvReac Type Severity Reaction Status Date / Time No Known Allergies Allergy Verified 10/14/25 07:43 Review of Systems Review of Systems Systems Reviewed: All systems reviewed, normal except as documented Past Medical History Past Medical History GENITOURINARY: Positive Kidney Stones REPRODUCTIVE: Positive Breast Cancer MUSCULOSKELETAL: Positive Arthritis ENDOCRINE: Positive Endocrine Disorders and Diabetes Mellitus Type 2 OTHER HISTORY: Positive Hospitalization, Chemotherapy, Cancer and Breast Cancer Surgical History SURGICAL: Positive Tubal Ligation Social History SMOKING STATUS: Never smoker SUBSTANCE USE: does not use ALCOHOL: Never ED Exam Narrative Physical exam: See [facility] for Dr. Young's HPI Documentation. Course Quality Measures none Orders Category Date Time Status Bedside COVID-19 Antigen Test NOW Care 10/14/25 08:17 Completed EKG (ED ONLY) *Do not use* NOW Care 10/14/25 08:18 Completed Saline [Insert IV] NOW Care 10/14/25 08:[address] chest abdomen pelvis wo Stat Exams 10/14/25 08:[address] head/brain wo con Stat Exams 10/14/25 08:18 Completed EKG (ED Only) Stat Exams 10/14/25 08:18 Draft XR chest 1V portable Stat Exams 10/14/25 08:18 Completed BNP [B-Type Natriuretic Peptide] Stat Lab 10/14/25 08:38 Completed Beta Hydroxybutyrate Stat Lab 10/14/25 08:38 Completed Bilirubin,Direct Stat Lab 10/14/25 08:38 Completed Blood Culture (Lab) Stat Lab 10/14/25 08:38 Received CBC Stat Lab 10/14/25 08:38 Completed CMP [Comprehensive Metabolic Panel] Stat Lab 10/14/25 08:38 Completed CRP [C-Reactive Protein] Stat Lab 10/14/25 08:38 Completed ESR [Sed Rate (ESR)] Stat Lab 10/14/25 08:38 Completed Free T3 Stat Lab 10/14/25 08:38 Completed Free T4 (Free Thyroxine) Stat Lab 10/14/25 08:38 Completed HCG,Qualitative Serum Stat Lab 10/14/25 08:38 Completed Hemoglobin A1C [Glycohemoglobin w (eAG)] Stat Lab 10/14/25 08:38 Completed Influenza A & B Rapid Panel Stat Lab 10/14/25 09:23 Completed Lactate (Lactic Acid) Stat Lab 10/14/25 08:38 Completed Lipase Stat Lab 10/14/25 08:38 Completed Magnesium Stat Lab 10/14/25 08:38 Completed Procalcitonin Stat Lab 10/14/25 08:38 Completed TSH [Thyroid Stimulating Hormone] Stat Lab 10/14/25 08:38 Completed Troponin I Stat Lab 10/14/25 08:38 Completed UA, C/S IF [Urinalysis, C/S if Indicated] Stat Lab 10/14/25 08:51 Completed Urine Culture Stat Lab 10/14/25 08:51 Received Ketorolac Inj [Toradol Inj] Med 10/14/25 08:17 Discontinued 30 mg IVP X1 ONE LORazepam [Ativan Inj] Med 10/14/25 12:19 Discontinued 1 mg IVP X1 ONE LORazepam [Ativan Inj] Med 10/14/25 12:21 Discontinued 2 mg IVP X1 ONE Magnesium Sulfate 4 GM Ivpb [Magnesium Sulfate Ivpb] Med 10/14/25 09:45 Discontinued 4 gm in 50 ml IV X1 Morphine* Inj Med 10/14/25 08:17 Discontinued 2 mg IV X1 ONE Morphine* Inj Med 10/14/25 11:59 Discontinued 4 mg IV X1 ONE Ondansetron Inj [Zofran Inj] Med 10/14/25 08:17 Discontinued 4 mg IVP X1 ONE Sodium Chloride 0.9% 1000 ml [Ns] 1,000 ml Med 10/14/25 08:17 Discontinued IV 999 mls/hr cefTRIAXone/D5w 1gm IV premix [Rocephin/D5w 1gm IV Med 10/14/25 08:17 Discontinued premix] 1 gm in 50 ml IV X1 Vital Signs Vital signs: Vital Signs Temperature 98.1 F 10/14/25 07:48 Pulse Rate 122 H 10/14/25 07:48 Respiratory Rate 19 10/14/25 07:48 Blood Pressure 125/87 H 10/14/25 07:48 Pulse Oximetry (%) 98 10/14/25 07:48 Oxygen Delivery Method Room Air 10/14/25 07:48 Neuro Symptoms / Deficit MDM Narrative MDM Narrative:: This section includes all my notes and documentations, including HPI, PE, and ED course. Steve Young MD HPI: 39-year-old female with history of breast cancer (started chemotherapy a couple days ago) here with multiple concerns. Including headache and dizziness and chest pain and palpitations. No other complaints. ROS: All negative except as documented in HPI. Physical Exam: General: Alert and oriented. Appears anxious. Eyes: Conjunctivae and lids clear. EOMI. PERRL. ENT: No nasal congestion. Pharynx normal. Tympanic membrane normal bilaterally. Neck: Supple. No carotid bruit. No JVD. Heart: RRR. Lungs: No respiratory distress. Good air movement. No rhonchi, wheezing, rales. Abdomen: Soft and nontender. Normal bowel sounds. No distension. No rebound or guarding. Back: No CVA tenderness. Legs: No clubbing, cyanosis, edema. Skin: Warm and dry. Neuro: Alert and oriented X 3. Cranial Nerves II-XII grossly intact. No peripheral motor deficits. I reviewed all diagnostic test results: My interpretation of the EKG is: Sinus rhythm (103 bpm) with nonspecific ST-T changes. My interpretation of the chest x-ray is: No active disease My review of the head CT report is: NAD. My review of the chest/abdomen/pelvis CT report is: NAD. Blood tests remarkable for Mg 1.0. UA showed positive leukocyte esterase, 35 WBC, and bacteria. Covid/influenza negative. At this point, diagnoses include: UTI Hypomagnesemia Anxiety Treatment here included: IVF Zofran 4 mg IV Toradol 30 mg IV Morphine 4 mg IV Rocephin 1 g IV MgSO4 4 gram IV Ativan 2 g IV Significant improvement noted. Recommended outpatient treatment. Based on my best medical judgment, made decision no further evaluation or treatment indicated at this time. Patient understands and agrees to the discharge instructions customized and printed, see below. Discharge Instructions from Dr. Young printed for you: 1. After extensive evaluation, there is no life-threatening condition. Such as stroke or heart attack. 2. Your magnesium level was extremely low. Your organs need magnesium to function. Many of your symptoms were due to low magnesium level. Take magnesium pills as prescribed. Your body does not absorb magnesium from the pills very well. So increase food rich in magnesium. Such as peanuts and almonds and cashews and green and leafy vegetables. 3. For your urine infection, take cefdinir as prescribed. For good hydration, increase oral fluid and maintain clear urine. If dark or yellow, increase oral fluid. Zofran for nausea/vomiting. 4. Ativan for stress. 5. See a private doctor on 10/16/2025 for recheck and further care. Ask to review all test results and official radiology reports, to make sure you receive all necessary follow-ups and monitoring, including repeat magnesium level. 6. Seek immediate medical care with worsening or with any concerns. Instrucciones de giles del Dr. Young impresas para usted: 1. Tras stephanie evaluaci?n exhaustiva, no se detecta ninguna afecci?n que ponga en riesgo gutierrez za. [place] un derrame cerebral o un ataque card?aco. 2. Gutierrez nivel de magnesio era extremadamente bajo. Tonia ?rganos necesitan magnesio para funcionar. Muchos de tonia s?ntomas se debieron a un nivel bajo de magnesio. [place] las pastillas de magnesio seg?n lo prescrito. Gutierrez cuerpo no absorbe camelia el magnesio de las pastillas. Por lo tanto, aumente el consumo de alimentos ricos en magnesio. [place] cacahuetes, almendras, anacardos y verduras de hoja zaida. 3. Para gutierrez infecci?n urinaria, tome cefdinir seg?n lo prescrito. Para stephanie buena hidrataci?n, aumente la ingesta de l?quidos y mantenga la orina christine. Si es oscura o amarilla, aumente la ingesta de l?quidos. Zofran para las n?useas/v?mitos. 4. Ativan para el estr?s. 5. Consulte a un m?dico privado el 16/10/2025 para stephanie revisi?n y atenci?n adicional. Solicite revisar todos los resultados de las pruebas y los informes radiol?gicos oficiales para asegurarse de recibir todos los seguimientos y controles necesarios, incluyendo la repetici?n de la medici?n del nivel de magnesio. 6. Busque atenci?n m?dica inmediata si gutierrez estado empeora o si tiene alguna inquietud. Steve Young MD Patient data External records reviewed:: [facility] previous records Clinical information provided by:: patient Social determinants that could affect healthcare access:: none Patient has the following chronic illnesses:: History of breast cancer that started chemotherapy this past Wednesday. How is presenting disease/condition affected by chronic disease/condition?: exacerbated by Evaluation data The following diagnostics were reviewed and interpreted by me:: lab results, radiology exam(s) and EKG tracing(s) (My interpretation of the EKG is: Sinus rhythm (103 bpm) with nonspecific ST-T changes. Steve Young MD) Lab and/or radiology exams considered but not ordered:: none Interpretation Summary: I reviewed all diagnostic test results: My interpretation of the EKG is: Sinus rhythm (103 bpm) with nonspecific ST-T changes. My interpretation of the chest x-ray is: No active disease My review of the head CT report is: NAD. My review of the chest/abdomen/pelvis CT report is: NAD. Blood tests remarkable for Mg 1.0. UA showed positive leukocyte esterase, 35 WBC, and bacteria. Covid/influenza negative. Medications / Prescriptions Medications or Prescriptions considered but not ordered:: none Medication administrations:: Medication Administration History Discontinued Medications Ceftriaxone Sodium/Dextrose (Rocephin/D5w 1gm Iv Premix) 1 gm in 50 mls @ 100 mls/hr IV X1 ONE Stop: 10/14/25 08:46 Last Infusion: 10/14/25 09:13 Dose: Infused Documented By: Admin: 10/14/25 08:43 Dose: 100 mls/hr Documented By: EF Sodium Chloride (Ns) 1,000 mls @ 999 mls/hr IV .Q1H1M ONE Stop: 10/14/25 09:17 Last Infusion: 10/14/25 09:43 Dose: Infused Documented By: Admin: 10/14/25 08:42 Dose: 999 mls/hr Documented By: EF Magnesium Sulfate (Magnesium Sulfate Ivpb) 4 gm in 50 mls @ 12.5 mls/hr IV X1 ONE Stop: 10/14/25 13:44 Last Infusion: 10/14/25 14:19 Dose: Infused Documented By: Admin: 10/14/25 10:04 Dose: 12.5 mls/hr Documented By: EF Ketorolac Tromethamine (Ketorolac Inj 30 Mg/Ml Vial) 30 mg IVP X1 ONE Stop: 10/14/25 08:18 Last Admin: 10/14/25 08:43 Dose: 30 mg Documented By: EF Lorazepam (Lorazepam 2 Mg/Ml Vial) 1 mg IVP X1 ONE Stop: 10/14/25 12:20 Last Admin: 10/14/25 12:22 Dose: Not Given Documented By: EF Non-Admin Reason: Cancelled by Provider Lorazepam (Lorazepam 2 Mg/Ml Vial) 2 mg IVP X1 ONE Stop: 10/14/25 12:22 Last Admin: 10/14/25 12:24 Dose: 2 mg Documented By: EF Morphine Sulfate (Morphine Sulf Inj 4 Mg/Ml Vial) 2 mg IV X1 ONE Stop: 10/14/25 08:18 Last Admin: 10/14/25 08:43 Dose: 2 mg Documented By: EF Morphine Sulfate (Morphine Sulf Inj 4 Mg/Ml Vial) 4 mg IV X1 ONE Stop: 10/14/25 12:00 Last Admin: 10/14/25 12:08 Dose: 4 mg Documented By: EF Ondansetron HCl (Ondansetron Inj 2 Mg/Ml Inj 2 Ml) 4 mg IVP X1 ONE; Protocol Stop: 10/14/25 08:18 Last Admin: 10/14/25 08:43 Dose: 4 mg Documented By: EF Treatment here included: IVF Zofran 4 mg IV Toradol 30 mg IV Morphine 4 mg IV Rocephin 1 g IV MgSO4 4 gram IV Ativan 2 g IV Consultations Consultation(s) initiated? (list below): No Diagnosis Neuro Differential Diagnosis: convulsions, delirium, subarachnoid hemorrhage, peripheral neuropathy, cerebrovascular accident, transient cerebral ischemia and other Most likely diagnosis given after review of the tests above:: UTI Hypomagnesemia Anxiety Admission Indicated Admission indicated?: not indicated Explain why admission is indicated or not indicated:: With significant improvement and no condition needing emergent intervention, there was no indication for admission. Admission Request Was there a request for admission?: No Disposition Plan Disposition Plan: Discharge Discharge Attestation Discharge Attestation: The patient and all family members were given an opportunity to ask questions and understood the discharge instructions. Discharge instructions specifically effects, indications for sooner follow up or return to the emergency department, and the expected course of current diagnosis. Patient condition: Stable Discharge Plan Plan Patient Disposition: HOME (Self Care) Prescriptions/Referrals Prescriptions/Med Rec: New cefdinir 300 mg capsule 300 mg PO BID Qty: 14 0RF magnesium oxide 400 mg magnesium tablet 400 mg PO BID Qty: 60 0RF lorazepam [Ativan] 2 mg tablet 2 mg PO BID PRN (Reason: anxiety) Qty: 20 0RF ondansetron 4 mg tablet,disintegrating 4 mg PO TID PRN (Reason: nausea and vomiting) 30 Days Qty: 10 0RF No Action rizatriptan [Maxalt[employer]] 10 mg tablet,disintegrating See Rx Instructions .ROUTE .COMPLEX Qty: 14 0RF Rx Instructions: take 1 tab at onset of headache; if no relief may repeat 1 tab after at least 2 hrs; max = 3 tabs/24 hr Janumet 50-1,000 mg tablet 1 tab PO BID metformin 1,000 mg tablet 1,000 mg PO QDAY Problem List Clinical Impression: UTI (urinary tract infection), Hypomagnesemia Patient/Caregiver Discharge Instructions Discharge Activity: activity as tolerated Education Materials: Magnesium (Blood), ED CYSTITIS Female Adult Additional Instructions: Discharge Instructions from Dr. Young printed for you: 1. After extensive evaluation, there is no life-threatening condition. Such as stroke or heart attack. 2. Your magnesium level was extremely low. Your organs need magnesium to function. Many of your symptoms were due to low magnesium level. Take magnesium pills as prescribed. Your body does not absorb magnesium from the pills very well. So increase food rich in magnesium. Such as peanuts and almonds and cashews and green and leafy vegetables. 3. For your urine infection, take cefdinir as prescribed. For good hydration, increase oral fluid and maintain clear urine. If dark or yellow, increase oral fluid. Zofran for nausea/vomiting. 4. Ativan for stress. 5. See a private doctor on 10/16/2025 for recheck and further care. Ask to review all test results and official radiology reports, to make sure you receive all necessary follow-ups and monitoring, including repeat magnesium level. 6. Seek immediate medical care with worsening or with any concerns. Instrucciones de giles del Dr. Young impresas para usted: 1. Tras stephanie evaluaci?n exhaustiva, no se detecta ninguna afecci?n que ponga en riesgo gutierrez za. [place] un derrame cerebral o un ataque card?aco. 2. Gutierrez nivel de magnesio era extremadamente bajo. Tonia ?rganos necesitan magnesio para funcionar. Muchos de tonia s?ntomas se debieron a un nivel bajo de magnesio. [place] las pastillas de magnesio seg?n lo prescrito. Gutierrez cuerpo no absorbe camelia el magnesio de las pastillas. Por lo tanto, aumente el consumo de alimentos ricos en magnesio. [place] cacahuetes, almendras, anacardos y verduras de hoja zaida. 3. Para gutierrez infecci?n urinaria, tome cefdinir seg?n lo prescrito. Para stephanie buena hidrataci?n, aumente la ingesta de l?quidos y mantenga la orina christine. Si es oscura o amarilla, aumente la ingesta de l?quidos. Zofran para las n?useas/v?mitos. 4. Ativan para el estr?s. 5. Consulte a un m?dico privado el 16/10/2025 para stephanie revisi?n y atenci?n adicional. Solicite revisar todos los resultados de las pruebas y los informes radiol?gicos oficiales para asegurarse de recibir todos los seguimientos y controles necesarios, incluyendo la repetici?n de la medici?n del nivel de magnesio. 6. Busque atenci?n m?dica inmediata si gutierrez estado empeora o si tiene alguna inquietud. Print Language: Malay Stand Alone Forms: Radha Award Info., Patient Portal Info Letter
--- NOTE | 2025-10-14 08:18 | XR_ITS ---
Examination: CT chest, without intravenous contrast. CT abdomen, without intravenous contrast. CT pelvis, without intravenous contrast. 2-D sagittal and coronal reconstructions. 3-D reconstructions. Date and time of exam: October 14, 2025, 1114 hours, comparison CT chest abdomen pelvis July 13, 2025 INDICATIONS: Diagnosis breast cancer, right arm numbness facial numbness shortness of breath beginning 3:00 a.m. this morning, patient undergoing chemotherapy CTDI vol (mgy) 9.98 DLP (MGycm) 666 Technique: Multiple CT images, 3.0 mm slice thickness, obtained chest, abdomen, pelvis, with the high-resolution 64 slice scanner.. Sagittal and coronal 2-D reconstructions are obtained. 3-D reconstructions Low dose protocols were performed. One or more of the following dose reduction techniques were used; automated exposure control, adjustment of the mA and/or KV according to patient size, use of iterative reconstruction technique. Findings: Smaller right breast mass with breast biopsy marker, axial image 53, which may represent residual glandular tissue and scarring, measuring 32 mm Abnormal right axillary lymph nodes although smaller compared to the July 13, 2025 exam No thoracic aortic or pulmonary arterial enlargement No interval paratracheal tracheobronchial or bronchopulmonary adenopathy No interval pneumonia or pulmonary edema or pulmonary mass lesion No interval liver or splenic lesion No gallstones No pancreatic or adrenal mass lesion Tiny 1 to 2 mm right renal calculi and soft calcifications lower pole right kidney but no hydronephrosis or ureteral calculi No interval significant abdominal or pelvic lymphadenopathy Normal appendix No pelvic mass Bladder intact Moderate osteopenia IMPRESSION: Smaller right breast mass with breast marker right breast, 32 mm scarring versus glandular tissue versus residual right breast mass Abnormal right axillary lymph nodes although smaller compared to July 13, 2025 No interval mediastinal lymphadenopathy No interval pneumonia or pulmonary edema No interval liver or splenic lesions No metastatic adrenal mass lesions Nonobstructing right renal calculi No interval abdominal or pelvic lymphadenopathy Given the patient's presentation, consider right arm venogram follow-up
--- NOTE | 2025-10-14 08:18 | XR_ITS ---
EXAMINATION: AP chest single view TECHNIQUE: 1. AP portable upright chest single view Date and time: October 14, 2025, 0842 hours, comparison July 05, 2025 INDICATIONS: Shortness of breath chest pain beginning 6 hours ago FINDINGS: Normal heart size Mild elevation right hemidiaphragm. Right internal jugular Port-A-Cath tip right atrium No pneumonia or pulmonary edema IMPRESSION: No active disease
--- NOTE | 2025-10-14 08:18 | XR_ITS ---
Examination: CT brain head without contrast. 2-D sagittal coronal reconstructions Date and time of exam: October 14, 2025, 1113 hours, comparison 08/20/2025 INDICATIONS: Breast carcinoma diagnosis, metastatic axillary lymph nodes, undergoing chemotherapy, onset headache right facial numbness beginning 3:00 a.m. this morning CTDI: vol (mGy): 50.3 DLP: (mGycm): 998 Technique: Multiple CT axial sections of the brain have been obtained, 5 mm slice thickness. Contrast has not been administered. 2-D sagittal, coronal reconstructions have been obtained Low dose protocols were performed. One or more of the following dose reduction techniques were used; automated exposure control, adjustment of the mA and/or KV according to patient size, use of iterative reconstruction technique. Findings: No significant ventricular enlargement. Intra-axial or extra-axial hemorrhage density is not seen. No mass effect or midline shift Basal cisterns are not remarkable. Fourth ventricle is midline. Cranial vault intact. Impression: Negative for acute hemorrhage, mass effect or midline shift As clinically warranted, brain MRI follow-up pre and postcontrast would best assess for acute ischemic change, early cerebral metastatic disease
--- NOTE | 2025-10-14 08:18 | EKG_ITS ---
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
[2025-10-14] MEDS: SODIUM CHLORIDE 0.9% 1000 ML 1,000 ML 999 ML IV (08:42)
[2025-10-14] MEDS: KETOROLAC INJ 30 MG/ML VIAL IVP (08:43)
[2025-10-14] MEDS: ONDANSETRON INJ 2 MG/ML INJ 2 ML 4 MG IVP (08:43)
[2025-10-14] MEDS: MORPHINE SULF INJ 4 MG/ML VIAL 2 MG IV (08:43)
[2025-10-14] MEDS: cefTRIAXone/D5w 1gm IV premix 1 GM/50 ML BAG IV (08:43)
[2025-10-14 08:55] LABS: Lactate (Lactic Acid) 1.8 mMol/L (0.4-2.0)
[2025-10-14 08:57] LABS: Beta Hydroxybutyrate 0.3 mmol/L (<0.6)
[2025-10-14 09:01] LABS: Basophils # (Auto) 0.1 Thou/mm3 (0.0-0.2); Basophils % (Auto) 1 % (0-2.5); Eosinophils # (Auto) 0.0 Thou/mm3 (0.0-0.5); Eosinophils % (Auto) 0 % (0-10); Hematocrit 29.8 % (36.0-46.0); Hemoglobin 10.2 g/dL (12.0-16.0); Immature Granulocytes Auto 1.06 Thou/mm3 (0.00-0.00); Lymphocytes # (Auto) 0.7 Thou/mm3 (1.0-4.8); Lymphocytes % (Auto) 7 % (10-50); Mean Corpuscular HGB Conc 34.2 g/dl (31.0-37.0); Mean Corpuscular Hemoglobin 31.8 pg (25.0-35.0); Mean Corpuscular Volume 93 fL (80-100); Monocytes # (Auto) 0.2 Thou/mm3 (0.0-0.8); Monocytes % (Auto) 2 % (0-12); Neutrophils # (Auto) 8.3 Thou/mm3 (1.8-7.7); Neutrophils % (Auto) 80 % (37-80); Nucleated Red Blood Cell # 0.00 Thou/mm3 (0.00-0.00); Nucleated Red Blood Cell % 0 /100 WBC (0); Platelet Count 106 Thou/mm3 (140-440); RDW Standard Deviation 52.9 fL (36.4-46.3); Red Blood Count 3.21 Miln/mm3 (4.00-5.20); White Blood Count 10.4 Thou/mm3 (3.6-11.0)
[2025-10-14 09:08] LABS: HCG,Qualitative Serum Negative
[2025-10-14 09:12] LABS: Glucose Estimated Average 169 mg/dL (80-131); Hemoglobin A1C 7.5 % Hgb (4.8-6.0)
[2025-10-14 09:16] LABS: B-Type Natriuretic Peptide < 20 pg/mL (0-100)
[2025-10-14 09:21] LABS: Sed Rate (ESR) 11 mm/hr (0-20)
[2025-10-14 09:23] LABS: Alanine Aminotransferase 30 U/L (10-49); Albumin, Serum 4.5 gm/dL (3.5-5.0); Albumin/Globulin Ratio 2.5 (1.2-2.2); Alkaline Phosphatase 81 U/L (46-116); Anion Gap 10 (7-16); Aspartate Amino Transferase 17 U/L (0-34); BUN/Creatinine Ratio 23 Ratio (12-20); Bilirubin,Direct 0.4 mg/dL (0.0-0.3); Bilirubin,Total 0.8 mg/dL (0.3-1.2); Blood Urea Nitrogen 14 mg/dL (9-23); C-Reactive Protein < 0.5 mg/dL (0.0-0.9); Calcium 9.1 mg/dL (8.3-10.6); Calcium (Corrected) 9.1 mg/dL (8.5-10.1); Carbon Dioxide 25.2 mMol/L (20.0-31.0); Chloride 105 mMol/L (98-107); Creatinine (Component) 0.6 mg/dL (0.6-1.3); Estimated Creatinine Clearance 118.6 mL/min (>60); Globulin 1.8 gm/dL (2.3-3.5); Glucose 230 mg/dL (74-106); Lipase 39 U/L (12-53); Magnesium 1.0 mg/dL (1.6-2.6); Osmolality,Calculated 286 (275-295); Potassium 3.8 mMol/L (3.4-5.1); Procalcitonin 0.19 ng/ml (0.0-0.49); Sodium 140 mMol/L (136-145); Thyroid Stimulating Hormone 0.29 uIU/mL (0.55-4.78); Total Protein 6.3 gm/dL (5.7-8.2); Troponin I < 0.002 ng/mL (0.0-0.045); eGFR > 60 See Note
[2025-10-14 09:28] VITALS: BP 114/81; PULSE 103; RESP 14; TEMP 36.7; O2SAT 99
[2025-10-14 09:35] LABS: Collection Type, Urine Clean Catch
[2025-10-14 09:44] LABS: Bacteria,Urine Rare; Bilirubin,Urine Negative (Negative); Blood,Urine Negative (Negative); Glucose, Urine Trace (Negative); Ketones,Urine Negative (Negative); Leukocyte Esterase,Urine Positive (Negative); Nitrite,Urine Negative (Negative); PH,Urine 6.5 (5.0-7.0); Protein,Urine Negative (Neg - Trace); RBC,Urine 1 /hpf (0-3); Specific Gravity,Urine 1.003 (1.001-1.035); Squamous Epithelial Cell,Urine 1 /hpf (0-5); Urobilinogen,Urine Negative mg/dL (0.0-1.0); WBC,Urine 35 /hpf (0-5)
[2025-10-14 09:48] LABS: Clarity,Urine Hazy (Clear/Hazy); Color,Urine Lt-Yellow (Lt Yel-Yel); Culture Indicated,Urine Yes
[2025-10-14 09:56] LABS: Influenza A Ag Negative; Influenza B Ag Negative
[2025-10-14] MEDS: Magnesium Sulfate 4 GM Ivpb 4 GM/50 ML BAG IV (10:04)
[2025-10-14 10:40] LABS: Free T3 3.3 pg/mL (2.3-4.2); Free T4 (Free Thyroxine) 1.61 ng/dL (0.89-1.76)
[2025-10-14] MEDS: MORPHINE SULF INJ 4 MG/ML VIAL IV (12:08)
[2025-10-14] MEDS: LORazepam 2 MG/ML VIAL IVP (12:24)
[2025-10-14 13:26] VITALS: BP 114/76; PULSE 110; RESP 8; TEMP 36.6; O2SAT 100
== END 2025-10-14 14:24 | disposition home or self-care (01) ==
PROVIDERS: Emergency Provider Emergency Medicine; PCP Family Medicine
DX: N39.0 Urinary tract infection, site not specified (principal); E83.42 Hypomagnesemia
CPT/HCPCS: 36415; 70450; 71045; 71250; 74176; 80053; 81001; 82010; 82248; 83036; 83605; 83690; 83735; 83880; 84145; 84439; 84443; 84481; 84484; 84703; 85025; 85652; 86140; 87040; 87077; 87086; 87186; 87502; 87635; 93005; 96361; 96365; 96366; 96375; 99284; J0696; J1885; J2060; J2270; J2405; J3475; J7030

== ENCOUNTER 2025-10-18 14:54 | Inpatient (IN) | payer MEDICAID, SELFPAY ==
[2025-10-18] VITALS (9 sets, daily range): BP systolic 113–131; BP diastolic 80–97; PULSE 115–131; RESP 18–96; TEMP 36.5–38.9; O2SAT 10–100; BMI 30.2
--- NOTE | 2025-10-18 15:00 | EKG_ITS ---
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
--- NOTE | 2025-10-18 15:00 | XR_ITS ---
EXAMINATION: AP chest single view TECHNIQUE: AP portable semiupright chest single view Date and time: June 17, 2025, 1527 hours, comparison October 14, 2025 INDICATIONS: Weakness today FINDINGS: Normal heart size No pneumonia or pulmonary edema. Right internal jugular Port-A-Cath tip right atrium Moderate osteopenia IMPRESSION: No active disease
[2025-10-18] MEDS: MethylPREDNISolone SOD SUCC 62.5 MG/ML 2ML VIAL 125 MG IV (15:08)
[2025-10-18] MEDS: SODIUM CHLORIDE 0.9% 1000 ML 1,000 ML 999 ML IV ×2 (15:12→16:48)
--- NOTE | 2025-10-18 15:24 | PD.EDSOB ---
ED SOB =RME/HPI General Chief Complaint: Weakness Stated Complaint: WEAKNESS Time Seen by Provider: 10/18/25 15:00 Arrival date/time: 10/18/25 14:54 RME / HPI RME / HPI Narrative: 39 year old female with history of hypertension, diabetes, and breast cancer presents to the ED BIBA from home for evaluation of shortness of breath today. Per medics report, the patient on scene was found lying on the floor and appeared to have difficulty breathing. State the patient was saturating 96-97% on room air. However, was noted to be hypotensive SBP 50s and tachycardic 150s. Was started on IV fluids and after ~ 200cc SBP improved to 60s then 114s with the latest SBP being 90s prior to arrival. Prehospital BG 153. In the ED, patient reports she began a new chemotherapy last week and has noted feeling more fatigued than usual. States today she had chest pressure and tightness accompanied by feeling short of breath, faint, and itching sensation all throughout body. States she put herself down to the floor. No LOC reported. Patient additionally reports she was evaluated here last week and diagnosed with a UTI. Was discharged home with antibiotics which she has taken. Denies any fevers, chills, nausea, vomiting, abdominal pain, or urinary symptoms. Does report diarrhea beginning yesterday, occurring 4-5x's a day. Related Data Home Medications ?Medication ?Instructions ?Recorded ?Confirmed metformin 1,000 mg tablet 1,000 mg PO QDAY 07/05/25 07/05/25 sitagliptin phosphate 50 1 tab PO BID 07/05/25 07/05/25 mg-metformin 1,000 mg tablet (Janumet) Previous Rx's ?Medication ?Instructions ?Recorded rizatriptan 10 mg disintegrating See Rx Instructions PO .COMPLEX 07/18/25 tablet (Maxalt-FIRE EXTINGUISH[employer] TESTER) #14 tabs cefdinir 300 mg capsule 300 mg PO BID #14 caps 10/14/25 lorazepam 2 mg tablet (Ativan) 2 mg PO BID PRN anxiety #20 tabs 10/14/25 magnesium oxide 400 mg PO BID #60 tabs 10/14/25 ondansetron 4 mg disintegrating 4 mg PO TID PRN nausea and 10/14/25 tablet vomiting 30 days #10 tabs Allergies Allergy/AdvReac Type Severity Reaction Status Date / Time No Known Allergies Allergy Verified 10/14/25 07:43 Review of Systems Review of Systems Systems Reviewed: All systems reviewed, normal except as documented Past Medical History Past Medical History RESPIRATORY: Positive Asthma GENITOURINARY: Positive Kidney Stones REPRODUCTIVE: Positive Breast Cancer MUSCULOSKELETAL: Positive Arthritis ENDOCRINE: Positive Endocrine Disorders and Diabetes Mellitus Type 2 OTHER HISTORY: Positive Hospitalization, Chemotherapy, Cancer and Breast Cancer Surgical History SURGICAL: Positive Tubal Ligation Social History SMOKING STATUS: Never smoker SUBSTANCE USE: does not use ED Exam Narrative Physical exam: Constitutional: Awake, alert, ill appearing, uncomfortable. HEENT: Normocephalic, atraumatic, extraocular movements intact. Neck: Supple CV: Tachycardic rate and regular rhythm, no murmurs/rubs/gallops heard Lungs: Generally clear to auscultation BL, no respiratory distress. Abd: Soft, tender to lower abdomen, ND, no HSM noted to palpation, no rebound or guarding. Extremities: No deformities, no edema noted Neuro: AAOx3, CN 2-12 GIBL, no acute neuro deficit noted. Skin: Warm, dry, intact Course Course Course Narrative: 1714h: Pt with fever and neutropenia. Treating for neutropenic fever. No source determined thus far. Cultures pending. CTA ordered for r/o PE given reported SOB w CP earlier today - pending. Sats 100% on RA at this time and no respiratory distress. I spoke with hospitalist team B for admission. They will see pt for admit. Quality Measures Current suspected stage: sepsis Possible source: unknown Blood cultures ordered: completed in ED Antibiotic ordered: Yes Pertinent labs: 10/18/25 15:14 Procalcitonin 0.25 ng/ml (0.0-0.49) sepsis Orders Category Date Time Status Admit to Inpatient Status Routine Admission 10/18/25 18:17 Active Patient Condition Routine Admission 10/18/25 18:16 Ordered Bedside COVID-19 Antigen Test NOW Care 10/18/25 16:55 Active COVID-19 Screening Questionnaire NOW Care 10/18/25 17:[address] Screening NOW Care 10/18/25 16:18 Active Business Insurance Agent NOW Care 10/18/25 15:00 Active Continuous Pulse Oximetry NOW Care 10/18/25 15:00 Completed Continuous Pulse Oximetry NOW Care 10/18/25 18:16 Completed Decision to Admit X1 Care 10/18/25 17:15 Completed EKG (ED ONLY) *Do not use* NOW Care 10/18/25 15:00 Completed Insert IV STAT Care 10/18/25 15:00 Active Isolation Precaution QSHIFT Care 10/18/25 17:35 Active Miscellaneous Nursing Order NOW Care 10/18/25 18:21 Active Notify provider NEEDED Care 10/18/25 18:16 Active Sequential Compression Device QSHIFT Care 10/18/25 18:16 Active Straight [In and Out Catheter] X1 Care 10/18/25 16:33 Active Diet Carbohydrate Consistent Diet 10/19/[address] angio chest Stat Exams 10/18/25 16:18 Completed EKG (ED Only) Stat Exams 10/18/25 15:00 Draft XR chest 1V portable Stat Exams 10/18/25 15:00 Completed Arterial Blood Gas Stat Lab 10/18/25 17:21 Completed B-Type Natriuretic Peptide Stat Lab 10/18/25 15:14 Completed Blood Culture (Lab) Stat Lab 10/18/25 16:46 Received CBC AM DRAW Lab 10/19/25 05:26 Completed CBC AM DRAW Lab 10/20/25 05:00 Ordered CBC AM DRAW Lab 10/21/25 05:00 Ordered CBC AM DRAW Lab 10/22/25 05:00 Ordered CBC AM DRAW Lab 10/23/25 05:00 Ordered CBC AM DRAW Lab 10/24/25 05:00 Ordered CBC AM DRAW Lab 10/25/25 05:00 Ordered CBC AM DRAW Lab 10/26/25 05:00 Ordered CBC AM DRAW Lab 10/27/25 05:00 Ordered CBC AM DRAW Lab 10/28/25 05:00 Ordered CBC Stat Lab 10/18/25 15:14 Completed Comprehensive Metabolic Panel AM DRAW Lab 10/19/25 05:26 Completed Comprehensive Metabolic Panel AM DRAW Lab 10/20/25 05:00 Ordered Comprehensive Metabolic Panel AM DRAW Lab 10/21/25 05:00 Ordered Comprehensive Metabolic Panel AM DRAW Lab 10/22/25 05:00 Ordered Comprehensive Metabolic Panel AM DRAW Lab 10/23/25 05:00 Ordered Comprehensive Metabolic Panel AM DRAW Lab 10/24/25 05:00 Ordered Comprehensive Metabolic Panel AM DRAW Lab 10/25/25 05:00 Ordered Comprehensive Metabolic Panel AM DRAW Lab 10/26/25 05:00 Ordered Comprehensive Metabolic Panel AM DRAW Lab 10/27/25 05:00 Ordered Comprehensive Metabolic Panel AM DRAW Lab 10/28/25 05:00 Ordered Comprehensive Metabolic Panel Stat Lab 10/18/25 15:14 Completed D-Dimer Stat Lab 10/18/25 15:14 Completed Drug Screen,Urine Stat Lab 10/18/25 16:43 Completed HCG Qualitative,Urine Stat Lab 10/18/25 16:49 Completed HCG,Qualitative Serum Stat Lab 10/18/25 15:14 Completed Influenza A & B Rapid Panel Stat Lab 10/18/25 17:19 Completed MRSA Nasal Screen Stat Lab 10/18/25 21:07 Received Magnesium AM DRAW Lab 10/19/25 05:26 Completed Magnesium AM DRAW Lab 10/20/25 05:00 Ordered Magnesium AM DRAW Lab 10/21/25 05:00 Ordered Magnesium AM DRAW Lab 10/22/25 05:00 Ordered Magnesium AM DRAW Lab 10/23/25 05:00 Ordered Magnesium AM DRAW Lab 10/24/25 05:00 Ordered Magnesium AM DRAW Lab 10/25/25 05:00 Ordered Magnesium AM DRAW Lab 10/26/25 05:00 Ordered Magnesium AM DRAW Lab 10/27/25 05:00 Ordered Magnesium AM DRAW Lab 10/28/25 05:00 Ordered Magnesium Stat Lab 10/18/25 15:14 Completed Partial Thromboplastin Time Stat Lab 10/18/25 15:14 Completed Path Review Blood Smear Stat Lab 10/18/25 15:14 Completed Phosphorous AM DRAW Lab 10/19/25 05:26 Completed Phosphorous AM DRAW Lab 10/20/25 05:00 Ordered Phosphorous AM DRAW Lab 10/21/25 05:00 Ordered Phosphorous AM DRAW Lab 10/22/25 05:00 Ordered Phosphorous AM DRAW Lab 10/23/25 05:00 Ordered Phosphorous AM DRAW Lab 10/24/25 05:00 Ordered Phosphorous AM DRAW Lab 10/25/25 05:00 Ordered Phosphorous AM DRAW Lab 10/26/25 05:00 Ordered Phosphorous AM DRAW Lab 10/27/25 05:00 Ordered Phosphorous AM DRAW Lab 10/28/25 05:00 Ordered Procalcitonin Stat Lab 10/18/25 15:14 Completed Prothrombin Time with INR Stat Lab 10/18/25 15:14 Completed RSV [Respiratory Syncytial Virus Ag] Stat Lab 10/18/25 21:07 Completed Strep A Rapid Stat Lab 10/18/25 17:19 Completed Troponin I Stat Lab 10/18/25 15:14 Completed Urinalysis Stat Lab 10/18/25 16:49 Completed Urine Culture Stat Lab 10/18/25 16:49 Received Acetaminophen Ivpb [Ofirmev Inj] Med 10/18/25 16:33 Discontinued 1,000 mg in 100 ml IV NOW Acetaminophen Tab [Tylenol Tab] Med 10/18/25 18:16 Active 650 mg PO Q6H PRN Acetaminophen Tab [Tylenol Tab] Med 10/18/25 18:16 Active 650 mg PO Q6H PRN Cefepime Inj [Maxipime Inj] 2 gm Med 10/18/25 17:11 Discontinued SODIUM CHLORIDE 0.9% (Popper) [Ns 0.9% (P)] 50 ml IV NOW DiphenhydrAMINE INJ [Benadryl Inj] Med 10/18/25 15:01 Discontinued 50 mg IVP X1 ONE HYDROcodone*/APAP 5/325 [[place] 5/325] Med 10/18/25 18:16 Active 1 tab PO Q4HR PRN HYDROcodone/APAP 10/325 [[place] 10/325] Med 10/18/25 18:16 Active 1 tab PO Q4HR PRN Magnesium Sulfate 2 GM Ivpb [Magnesium Sulfate Ivpb] Med 10/18/25 16:32 Discontinued 2 gm in 50 ml IV X1 MethylPREDNISolone.* [SoluMEDROL Inj] Med 10/18/25 15:00 Discontinued 125 mg IV X1 ONE Ondansetron Inj [Zofran Inj] Med 10/18/25 18:16 Active 4 mg IVP Q6H PRN Pantoprazole Inj [Protonix Inj] Med 10/19/25 09:00 Active 40 mg IVP QDAY Piper/Tazo Inj [Zosyn Inj] 4.5 gm Med 10/18/25 22:00 Active Sodium Chloride 0.9% (Pop) [NS 0.9% mini bag] 100 ml IV Q8HR Senna [Senokot] Med 10/18/25 18:16 Active 1 tab PO QDAY PRN Sodium Chloride 0.9% 1000 ml [Ns] 1,000 ml Med 10/18/25 15:01 Discontinued IV 999 mls/hr Sodium Chloride 0.9% 1000 ml [Ns] 1,000 ml Med 10/18/25 16:34 Discontinued IV 999 mls/hr Vancomycin Inj 1,500 mg Med 10/18/25 17:12 Discontinued Sodium Chloride 0.9% 500 ml [Ns] 500 ml IV X1 Vancomycin Pharmacy to Dose Med 10/18/25 18:30 Discontinued 1 each IV QDAY Code Status Routine Oth 10/18/25 18:16 Ordered Oxygen Delivery NOW RT 10/18/25 15:00 Active Oxygen Delivery PRN RT 10/18/25 18:16 Active Vital Signs Vital signs: Vital Signs Pulse Rate 131 H 10/18/25 15:00 Respiratory Rate 20 10/18/25 15:00 Pulse Oximetry (%) 10 L 10/18/25 15:00 Oxygen Flow Rate 4 10/18/25 15:00 Shortness of Breath / Dyspnea Patient data External records reviewed:: [facility] previous records and EMS form Clinical information provided by:: patient and EMS Social determinants that could affect healthcare access:: none Patient has the following chronic illnesses:: hypertension, diabetes, and breast cancer How is presenting disease/condition affected by chronic disease/condition?: exacerbated by Evaluation data The following diagnostics were reviewed and interpreted by me:: lab results, radiology exam(s) and EKG tracing(s) (EKG @ 15:11h, interpreted by me, sinus tachycardia, rate 131, no STEMI. ) Lab and/or radiology exams considered but not ordered:: none Interpretation Summary: Ordering Physician: America Hoyt MD Date of Service: 10/18/25 Procedure(s): XR chest 1V portable Accession Number(s): [id number] cc: Johnie Garcia MD; America Hoyt MD~ EXAMINATION: AP chest single view TECHNIQUE: AP portable semiupright chest single view Date and time: June 17, 2025, 1527 hours, comparison October 14, 2025 INDICATIONS: Weakness today FINDINGS: Normal heart size No pneumonia or pulmonary edema. Right internal jugular Port-A-Cath tip right atrium Moderate osteopenia IMPRESSION: No active disease Dictated By: Johnie Garcia MD Signed By: <Electronically signed by Johnie Garcia MD in OV> 10/18/25 9307 Medications / Prescriptions Medications or Prescriptions considered but not ordered:: None Medication administrations:: Medication Administration History Acetaminophen (Acetaminophen 325 Mg Tablet) 650 mg PO Q6H PRN PRN Reason: Fever >101.5 Stop: 11/17/25 18:15 Acetaminophen (Acetaminophen 325 Mg Tablet) 650 mg PO Q6H PRN PRN Reason: PAIN SCALE 1-3 (mild Stop: 11/17/25 18:15 Hydrocodone Bitart/Acetaminophen (Hydrocodone/Apap 5/325 Tablet) 1 tab PO Q4HR PRN PRN Reason: PAIN SCALE 4-6 (Moderate Stop: 10/23/25 18:15 Hydrocodone Bitart/Acetaminophen (Hydrocodone/Apap 10/325 Tab) 1 tab PO Q4HR PRN PRN Reason: PAIN SCALE 7-10 (Severe Stop: 10/23/25 18:15 Dextrose (Dextrose 50%-Water Inj 50 Ml Syringe) 25 ml IV Q15MIN PRN PRN Reason: BG 50-70 responsive npo pt Stop: 11/17/25 19:08 Dextrose (Dextrose 50%-Water Inj 50 Ml Syringe) 50 ml IV Q15MIN PRN PRN Reason: BG <50 OR BG <70 & pt unresponsive Stop: 11/17/25 19:08 Glucagon (Glucagon Inj 1 Mg Vial) 1 mg IM Q15MIN PRN PRN Reason: BG <70, and no IV access Piperacillin Sod/Tazobactam (Sod 4.5 gm/ Sodium Chloride) 100 mls @ 25 mls/hr IV Q8HR [facility]; Protocol Stop: 10/25/25 21:59 Last Admin: 10/19/25 05:07 Dose: 25 mls/hr Documented By: Infusion: 10/19/25 02:19 Dose: Infused Documented By: Admin: 10/18/25 22:19 Dose: 25 mls/hr Documented By: RM Insulin Human Lispro (Insulin Lispro (Admelog) 1 Unit/0.01 Ml Unit) 0 unit SC [facility]; Protocol Stop: 11/17/25 20:59 Last Admin: 10/18/25 20:46 Dose: 4 unit Documented By: ANIYA Co-signed By: ADE Ondansetron HCl (Ondansetron Inj 2 Mg/Ml Inj 2 Ml) 4 mg IVP Q6H PRN; Protocol PRN Reason: NAUSEA OR VOMITING Stop: 11/17/25 18:15 Pantoprazole Sodium (Pantoprazole Inj 40 Mg Vial) 40 mg IVP QDAY [facility] Stop: 11/18/25 08:59 Pharmacy Consult (Vancomycin Pharmacy To Dose 1 Each Each) 1 each IV QDAY PRN PRN Reason: PROTOCOL Stop: 11/17/25 18:29 Sennosides (Senna Tablet) 1 tab PO QDAY PRN; Protocol PRN Reason: constipation Stop: 11/17/25 18:15 Discontinued Medications Diphenhydramine HCl (Diphenhydramine Inj 50 Mg/Ml Vial) 50 mg IVP X1 ONE Stop: 10/18/25 15:02 Last Admin: 10/18/25 15:11 Dose: 50 mg Documented By: ED Sodium Chloride (Ns) 1,000 mls @ 999 mls/hr IV .Q1H1M ONE Stop: 10/18/25 16:01 Last Infusion: 10/18/25 16:53 Dose: Infused Documented By: Admin: 10/18/25 15:12 Dose: 999 mls/hr Documented By: ED Magnesium Sulfate (Magnesium Sulfate Ivpb) 2 gm in 50 mls @ 25 mls/hr IV X1 ONE Stop: 10/18/25 18:31 Last Admin: 10/18/25 16:48 Dose: 25 mls/hr Documented By: ROMINA Acetaminophen (Ofirmev Inj) 1,000 mg in 100 mls @ 250 mls/hr IV NOW ONE Stop: 10/18/25 16:56 Last Infusion: 10/18/25 17:12 Dose: Infused Documented By: Admin: 10/18/25 16:47 Dose: 250 mls/hr Documented By: DB Sodium Chloride (Ns) 1,000 mls @ 999 mls/hr IV .Q1H1M ONE Stop: 10/18/25 17:34 Last Infusion: 10/18/25 18:40 Dose: Infused Documented By: Admin: 10/18/25 16:48 Dose: 999 mls/hr Documented By: DB Cefepime HCl 2 gm/ Sodium (Chloride) 50 mls @ 100 mls/hr IV NOW ONE Stop: 10/18/25 17:40 Last Infusion: 10/18/25 18:41 Dose: Infused Documented By: Admin: 10/18/25 17:30 Dose: 100 mls/hr Documented By: DB Vancomycin HCl 1,500 mg/ (Sodium Chloride) 500 mls @ 200 mls/hr IV X1 ONE Stop: 10/18/25 19:41 Last Admin: 10/18/25 19:13 Dose: 200 mls/hr Documented By: RUSSELL Magnesium Sulfate (Magnesium Sulfate Ivpb) 4 gm in 50 mls @ 12.5 mls/hr IV X1 ONE Stop: 10/18/25 22:49 Last Admin: 10/18/25 20:46 Dose: 12.5 mls/hr Documented By: WO Potassium Chloride (Kcl Ivpb) 10 meq in 100 mls @ 100 mls/hr IV Q1H KELLY Stop: 10/18/25 22:51 Last Admin: 10/19/25 03:22 Dose: 100 mls/hr Documented By: Infusion: 10/19/25 01:07 Dose: Infused Documented By: Admin: 10/19/25 00:07 Dose: 100 mls/hr Documented By: Infusion: 10/18/25 23:18 Dose: Infused Documented By: Admin: 10/18/25 22:18 Dose: 100 mls/hr Documented By: Infusion: 10/18/25 21:46 Dose: Infused Documented By: Admin: 10/18/25 20:46 Dose: 100 mls/hr Documented By: ANIYA Insulin Human Regular (Insulin Hum Regular 1 Unit/0.01 Ml (Per Unit)) 10 unit IV X1 ONE Stop: 10/19/25 00:18 Last Admin: 10/19/25 00:39 Dose: 10 unit Documented By: RM Co-signed By: SAVANNAH Methylprednisolone Sodium Succinate (Methylprednisolone Sod Succ 62.5 Mg/Ml 2ml Vial) 125 mg IV X1 ONE Stop: 10/18/25 15:01 Last Admin: 10/18/25 15:08 Dose: 125 mg Documented By: ED Pharmacy Consult (Vancomycin Pharmacy To Dose 1 Each Each) 1 each IV QDAY KELLY Stop: 11/17/25 18:29 Last Admin: 10/18/25 20:14 Dose: Not Given Documented By: RM(2) Non-Admin Reason: Duplicate Medication on eMAR See above Consultations Consultation(s) initiated? (list below): Yes Consultation #1 (Physician, Specialty, Details): See course Diagnosis Shortness of Breath Differential Diagnosis: acute exacerbation of chronic obstructive airways disease, congestive heart failure, community acquired pneumonia and pulmonary embolism Most likely diagnosis given after review of the tests above:: Neutropenic fever sepsis Hypomagnesemia Thrombocytopenia Admission Indicated Admission indicated?: indicated Admission Request Was there a request for admission?: Yes Admission Attestation Admission request attestation: Discussed case with [] from Hospitalist service regarding admission. Discussed patients ED course, exam findings, labs, and radiology results. The Hospitalist [agrees,declines] to accept the patient for admission. Disposition Plan Disposition Plan: Admit Critical Care Time Critical Care Time Critical Care Time: Yes Total Critical Care Time (min.): 32 Attestation: The high probability of a clinically significant, sudden or life threatening deterioration required my full and direct attention, intervention and personal management. The aggregate critical care time was [32] minutes. This time is in addition to time spent performing reported procedures but includes the following: [x] Data Review and interpretation [x] Patient assessment and monitoring of vital signs [x] Documentation [x] Medication orders and management Discharge Plan Plan Patient Disposition: Admit Acute Care w/in Hospital Problem List Clinical Impression: Neutropenic fever, Sepsis, Hypomagnesemia, Thrombocytopenia
[2025-10-18 15:49] LABS: INR 1.1 (0.9-1.3); Partial Thromboplastin Time 31.6 Seconds (22.0-36.0); Prothrombin Time 11.2 Seconds (9.0-12.2)
[2025-10-18 15:51] LABS: B-Type Natriuretic Peptide < 20 pg/mL (0-100)
[2025-10-18 15:53] LABS: Alanine Aminotransferase 12 U/L (10-49); Albumin, Serum 4.1 gm/dL (3.5-5.0); Albumin/Globulin Ratio 2.6 (1.2-2.2); Alkaline Phosphatase 53 U/L (46-116); Anion Gap 13 (7-16); Aspartate Amino Transferase 10 U/L (0-34); BUN/Creatinine Ratio 20 Ratio (12-20); Bilirubin,Total 0.8 mg/dL (0.3-1.2); Blood Urea Nitrogen 12 mg/dL (9-23); Calcium 9.0 mg/dL (8.3-10.6); Calcium (Corrected) 9.0 mg/dL (8.5-10.1); Carbon Dioxide 21.0 mMol/L (20.0-31.0); Chloride 104 mMol/L (98-107); Creatinine (Component) 0.6 mg/dL (0.6-1.3); Estimated Creatinine Clearance 116.9 mL/min (>60); Globulin 1.6 gm/dL (2.3-3.5); Glucose 274 mg/dL (74-106); Magnesium 1.0 mg/dL (1.6-2.6); Osmolality,Calculated 285 (275-295); Potassium 3.5 mMol/L (3.4-5.1); Sodium 138 mMol/L (136-145); Total Protein 5.7 gm/dL (5.7-8.2); Troponin I < 0.020 ng/mL (0.0-0.045); eGFR > 60 See Note
[2025-10-18 15:58] LABS: D-Dimer 722 ng/mL (<600)
--- NOTE | 2025-10-18 16:18 | XR_ITS ---
Examination: CTA chest with intravenous contrast 2-D reconstructions 3-D reconstructions, vascular Date and time of exam: October 18, 2025, 1809 hours, comparison CT chest without contrast October 14, 2025 CTDI: vol (mGy) 8.99 DLP: (mGycm) 277 INDICATIONS: Chest pain shortness of breath today Technique: Multiple axial sections of the thorax have been obtained. 3 mm slice thickness, from below the hemidiaphragms to above the apices of the lungs. Mediastinal and lung density settings have been obtained. 2-D sagittal and coronal reconstructions. 3-D angiographic renderings, 3-D volume renderings, 3D post processing, vascular maximum intensity projections obtained. Contrast administered is 100 cc Isovue-370. Low dose protocols were performed. One or more of the following dose reduction techniques were used; automated exposure control, adjustment of the mA and/or KV according to patient size, use of iterative reconstruction technique. Findings: Again noted right breast mass with breast biopsy marker, 30 mm No thoracic aortic aneurysmal dilatation or dissection There is considerable breathing movement degrading pulmonary artery visualization but no pulmonary artery filling defects noted No pneumonia or pulmonary edema 25 mm splenic lesion axial image 103 No visualized liver lesion no gallstones No pancreatic mass Kidneys partially visualized no hydronephrosis IMPRESSION: Negative for pulmonary artery emboli No pneumonia or pulmonary edema Recommend splenic ultrasound follow-up to exclude 25 mm splenic lesion
[2025-10-18] MEDS: ACETAMINOPHEN IVPB 1,000 MG/100 ML VIAL 250 MG IV (16:47)
[2025-10-18] MEDS: Magnesium Sulfate 2 GM Ivpb 2 GM/50 ML BAG IV (16:48)
[2025-10-18 16:54] LABS: Collection Type, Urine Clean Catch; Squamous Epithelial Cell,Urine 0 /hpf (0-5)
[2025-10-18 16:58] LABS: Basophils # (Auto) 0.0 Thou/mm3 (0.0-0.2); Basophils % (Auto) 0 % (0-2.5); Eosinophils # (Auto) 0.0 Thou/mm3 (0.0-0.5); Eosinophils % (Auto) 6 % (0-10); Hematocrit 23.4 % (36.0-46.0); Immature Granulocytes Auto 0.00 Thou/mm3 (0.00-0.00); Lymphocytes # (Auto) 0.5 Thou/mm3 (1.0-4.8); Lymphocytes % (Auto) 75 % (10-50); Mean Corpuscular HGB Conc 35.9 g/dl (31.0-37.0); Mean Corpuscular Hemoglobin 31.5 pg (25.0-35.0); Mean Corpuscular Volume 88 fL (80-100); Monocytes # (Auto) 0.1 Thou/mm3 (0.0-0.8); Monocytes % (Auto) 13 % (0-12); Neutrophils # (Auto) 0.0 Thou/mm3 (1.8-7.7); Neutrophils % (Auto) 6 % (37-80); Nucleated Red Blood Cell # 0.00 Thou/mm3 (0.00-0.00); Nucleated Red Blood Cell % 0 /100 WBC (0); RDW Standard Deviation 42.0 fL (36.4-46.3); Red Blood Count 2.67 Miln/mm3 (4.00-5.20)
[2025-10-18 17:01] LABS: Hemoglobin 8.4 g/dL (12.0-16.0); Platelet Count 47 Thou/mm3 (140-440); White Blood Count 0.7 Thou/mm3 (3.6-11.0)
[2025-10-18 17:07] LABS: Amphetamine/Methamp Scrn,U Negative (Negative); Barbiturate Screen,Urine Negative (Negative); Benzodiazepines Screen,Urine Negative (Negative); Benzoylecgonine Screen, Ur Negative (Negative); Fentanyl Screen,Urine Negative (Negative); Opiate Screen,Urine Negative (Negative); THC Screen,Urine Negative (Negative)
[2025-10-18 17:10] LABS: Bacteria,Urine 4+; Bilirubin,Urine Negative (Negative); Blood,Urine Negative (Negative); Clarity,Urine Clear (Clear/Hazy); Color,Urine Lt-Yellow (Lt Yel-Yel); Glucose, Urine 4+ (Negative); Ketones,Urine Negative (Negative); Leukocyte Esterase,Urine Negative (Negative); Nitrite,Urine Negative (Negative); PH,Urine 6.0 (5.0-7.0); Protein,Urine Negative (Neg - Trace); RBC,Urine < 1 /hpf (0-3); Specific Gravity,Urine 1.005 (1.001-1.035); Urobilinogen,Urine Negative mg/dL (0.0-1.0); WBC,Urine 1 /hpf (0-5)
[2025-10-18 17:26] LABS: HCG,Qualitative Serum Negative
[2025-10-18 17:27] LABS: Base Excess -4 (-3-3); HCO3 21 mEq/L (20-26); Inspired Oxygen, FIO2 21 %; O2 Saturation 101 % (91-98); PCO2 34 mmHg (32.0-48.0); PO2 174 mmHg (83-108); pH, Arterial 7.40 (7.35-7.45)
[2025-10-18 17:27] LABS: Procalcitonin 0.25 ng/ml (0.0-0.49)
[2025-10-18 17:28] LABS: Allen Test Performed/OK; Puncture Site Right Radial
[2025-10-18] MEDS: CEFEPIME INJ 2 GM in SODIUM CHLORIDE 0.9% (Popper) 50 ML IV (17:30)
[2025-10-18 17:32] LABS: Path Review Blood Smear Sent to Pathologist; Slide Review Platelets confirmed
[2025-10-18 17:55] LABS: Influenza A Ag Negative; Influenza B Ag Negative; Strep A Rapid Negative (Negative)
--- NOTE | 2025-10-18 18:23 | ESHP_ITS ---
<Statement entered by Daily Aguilar MD - 10/20/25 18:18> Patient was seen and examined at bedside. I agree on the assessment and plan on this note as documented by resident Dr Sam Ortiz DO PGY1. 39-year-old female with past medical history of hypertension, diabetes, migraines and breast cancer with significant metastasis to brain with invasion of occipital bone presented to [facility] emergency department with a chief complaint of worsening shortness of breath. Chest x-ray in ER negative for pneumonia, CTA negative for PE, patient significantly neutropenic otherwise pancytopenia noted on labs, D-dimer elevation was noted as well. Patient will be started on empiric IV Zosyn and vancomycin due to neutropenic sepsis, unknown source for now will consider further workup. Otherwise 25 mm splenic lesion was noted for which patient was undergo ultrasound spleen. Continue to monitor patient. Case discussed with attending Dr. Hugh Aguilar MD PGY-2 Documentation for date of: 10/18/25 HPI History of Present Illness History of present illness: History of Present Illness: Deangelo Cruzica 39 y/o Female, with PMH of hypertension, diabetes, and breast cancer, presented to ED on 10/18/2025 due to worsening Shortness of Breathe. 6-month ago patient was diagnosed with breast cancer. It was then she has been getting treatment with Oncologist, Dr. Carreon. About 2 weeks ago she changed her Chemo-Port and started a new chemotherapy medication. Since then she started to have episodes of shortness of breath that looks like a panic attack and rash on her chest. Today at 2 PM her shortness of breath started to worsen prompting her to call ambulance. She also had headache and chills. Patient based on ED record, patient was found lying on floor with difficulty breathing but her O2 saturation was 96 to 97% on room air with hypotension of systolic blood pressure 50s and tachycardia with 150s. After IV fluids, her systolic blood pressure improved to 110 later at downtrended to 90s. Patient will be admitted for management of neutropenic fever. ED course -Vitals: 113/91, 100% on room air, RR 22, OK 126, temperature 102.F -Labs: WBC 0.7, Hgb 8.4, HCT 23.4, platelet 47, neutrophil percentage 6, D-dimer 722, potassium 3.5, glucose 274, magnesium 1.0, troponin<0.02, BNP<20 -UA: clear yellow urine, urine glucose 4+, urine nitrate negative, urine bacteria 4+, urine WBC 1. -CXR (10/18/2025): No pneumonia or pulmonary edema. -Chest CTA (10/18/2025): Negative for pulmonary artery emboli, No pneumonia or pulmonary edema, Recommend splenic ultrasound follow-up to exclude 25 mm splenic lesion In ED patient received acetaminophen IV 1000 mg x 1, cefepime IV 2 g, IV Benadryl 50 mg x 1, IV magnesium 2 g x 1, IV Solu-Medrol 125 mg x 1, IV bolus NS 1 L x 2, IV vancomycin 1500 mg x 1 Medical history: As stated above Surgical history: Denies Allergies: NKDA Medications: Pending official med rec Family history: Famil hx of cancer Social history: Denies smoking cigarettes, drinking alcohol or using other illicit drugsI Review of Systems Review of Systems Narrative Review of Systems: All 12 systems assessed and the patient denies unless otherwise stated in HPI Exam Vital Signs Temp Pulse Resp BP Pulse Ox O2 Del Method O2 Flow Rate 99.8 F 117 H 25 H 130/88 H 100 Nasal Cannula 4 10/18/25 17:33 10/18/25 18:17 10/18/25 18:17 10/18/25 17:33 10/18/25 18:17 10/18/25 17:33 10/18/25 18:17 Narrative Exam General: No acute distress, Frail, AAO x3 Eye: PERRL, EOMI, normal conjunctiva, no scleral icterus HENT: Normocephalic, atraumatic, hearing intact to conversation at normal volume, moist oral mucosa Neck: Supple, non-tender, no JVD, no lymphadenopathy Lungs:Symmetric chest rise, Clear to auscultate bilaterally, No wheezing, rhonchi, crackles Heart: Peripheral pulses intact bilaterally, Regular Rate and Rhythm. Abdomen: Soft, non-tender, non-distended, no palpable masses Musculoskeletal: Normal range of motion and strength, No cyanosis or edema, No visible joint swelling Skin: Skin is warm, dry, no rashes or lesions. Psychiatric: Cooperative, appropriate mood and affect, Awake and alert, not agitated Neuro: Cranial nerves II-XII grossly intact. Strength 5/5 throughout. Sensations intact to light touch. Results: Labs 10/19/25 19:42 10/19/25 05:26 Labs: Short CBC 10/18/25 Range/Units 15:14 WBC 0.7 L* D (3.6-11.0) Thou/mm3 Hgb 8.4 L (12.0-16.0) g/dL Hct 23.4 L (36.0-46.0) % Plt Count 47 L D (140-440) Thou/mm3 BMP 10/18/25 15:14 Sodium 138 Potassium 3.5 Chloride 104 Carbon Dioxide 21.0 BUN 12 Creatinine 0.6 Glucose 274 H Calcium 9.0 Cardiac Enzymes 10/18/25 Range/Units 15:14 Troponin I < 0.020 (0.0-0.045) ng/mL Liver Function 10/18/25 Range/Units 15:14 Total Bilirubin 0.8 (0.3-1.2) mg/dL AST 10 (0-34) U/L ALT 12 (10-49) U/L Alkaline Phosphatase 53 (46-116) U/L Albumin 4.1 (3.5-5.0) gm/dL Urine 10/18/25 Range/Units 16:49 Urine Color Lt-Yellow (Lt Yel-Yel) Urine Clarity Clear (Clear/Hazy) Urine pH 6.0 (5.0-7.0) Ur Specific [place] 1.005 (1.001-1.035) Urine Protein Negative (Neg - Trace) Urine Glucose (UA) 4+ A (Negative) ABG Interpretation ABG results: 10/18/25 17:21 ABG pH 7.40 ABG pCO2 34 ABG pO2 174 H ABG HCO3 21 ABG O2 Saturation 101 H ABG Base Excess -4 L Quality Measures Quality Measures sepsis Current suspected stage: sepsis Possible source: unknown Blood cultures ordered: completed in ED Antibiotic ordered: Yes Medications Home Medications and Allergies Home Medications ?Medication ?Instructions ?Recorded ?Confirmed ?Type metformin 1,000 mg tablet 1,000 mg PO QDAY 07/05/25 History sitagliptin phosphate 50 1 tab PO BID 07/05/25 History mg-metformin 1,000 mg tablet (Janumet) Allergies Allergy/AdvReac Type Severity Reaction Status Date / Time No Known Allergies Allergy Verified 10/14/25 07:43 Visit Medications Acetaminophen (Acetaminophen 325 Mg Tablet) 650 mg PO Q6H PRN PRN Reason: Fever >101.5 Stop: 11/17/25 18:15 Acetaminophen (Acetaminophen 325 Mg Tablet) 650 mg PO Q6H PRN PRN Reason: PAIN SCALE 1-3 (mild Stop: 11/17/25 18:15 Hydrocodone Bitart/Acetaminophen (Hydrocodone/Apap 5/325 Tablet) 1 tab PO Q4HR PRN PRN Reason: PAIN SCALE 4-6 (Moderate Stop: 10/23/25 18:15 Hydrocodone Bitart/Acetaminophen (Hydrocodone/Apap 10/325 Tab) 1 tab PO Q4HR PRN PRN Reason: PAIN SCALE 7-10 (Severe Stop: 10/23/25 18:15 Magnesium Sulfate (Magnesium Sulfate Ivpb) 2 gm in 50 mls @ 25 mls/hr IV X1 ONE Stop: 10/18/25 18:31 Last Admin: 10/18/25 16:48 Dose: 25 mls/hr Vancomycin HCl 1,500 mg/ (Sodium Chloride) 500 mls @ 200 mls/hr IV X1 ONE Stop: 10/18/25 19:41 Piperacillin Sod/Tazobactam (Sod 4.5 gm/ Sodium Chloride) 100 mls @ 200 mls/hr IV Q8HR KELLY; Protocol Stop: 10/25/25 21:59 Ondansetron HCl (Ondansetron Inj 2 Mg/Ml Inj 2 Ml) 4 mg IVP Q6H PRN; Protocol PRN Reason: NAUSEA OR VOMITING Stop: 11/17/25 18:15 Pantoprazole Sodium (Pantoprazole Inj 40 Mg Vial) 40 mg IVP QDAY KELLY Stop: 11/18/25 08:59 Pharmacy Consult (Vancomycin Pharmacy To Dose 1 Each Each) 1 each IV QDAY KELLY Stop: 11/18/25 08:59 Pharmacy Consult (Vancomycin Pharmacy To Dose 1 Each Each) 1 each IV QDAY KELLY Stop: 11/17/25 18:29 Sennosides (Senna Tablet) 1 tab PO QDAY PRN; Protocol PRN Reason: constipation Stop: 11/17/25 18:15 Discontinued Medications Diphenhydramine HCl (Diphenhydramine Inj 50 Mg/Ml Vial) 50 mg IVP X1 ONE Stop: 10/18/25 15:02 Last Admin: 10/18/25 15:11 Dose: 50 mg Sodium Chloride (Ns) 1,000 mls @ 999 mls/hr IV .Q1H1M ONE Stop: 10/18/25 16:01 Last Infusion: 10/18/25 16:53 Dose: Infused Acetaminophen (Ofirmev Inj) 1,000 mg in 100 mls @ 250 mls/hr IV NOW ONE Stop: 10/18/25 16:56 Last Infusion: 10/18/25 17:12 Dose: Infused Sodium Chloride (Ns) 1,000 mls @ 999 mls/hr IV .Q1H1M ONE Stop: 10/18/25 17:34 Last Admin: 10/18/25 16:48 Dose: 999 mls/hr Cefepime HCl 2 gm/ Sodium (Chloride) 50 mls @ 100 mls/hr IV NOW ONE Stop: 10/18/25 17:40 Last Admin: 10/18/25 17:30 Dose: 100 mls/hr Methylprednisolone Sodium Succinate (Methylprednisolone Sod Succ 62.5 Mg/Ml 2ml Vial) 125 mg IV X1 ONE Stop: 10/18/25 15:01 Last Admin: 10/18/25 15:08 Dose: 125 mg Assessment & Plan Plan Ms Marquez, Kylie 39 y/o Female, with PMH of hypertension, diabetes, and breast cancer, presented to ED on 10/18/2025 due to worsening Shortness of Breathe. Patient will be admitted for management of neutropenic fever. #Neutropenic fever, with unknown source #Hx of UTI, E.coli 10/14/2025 -About 2 weeks ago she changed her Chemo-Port and started a new chemotherapy medication. Since then she started to have episodes of shortness of breath that looks like a panic attack and rash on her chest. -On 10/14/2025, Her urine culture showed E.coli -Labs: WBC 0.7, Hgb 8.4, HCT 23.4, platelet 47, neutrophil percentage 6, D-dimer 722, potassium 3.5, glucose 274, magnesium 1.0, troponin<0.02, BNP<20 -UA: clear yellow urine, urine glucose 4+, urine nitrate negative, urine bacteria 4+, urine WBC 1. -CXR (10/18/2025): No pneumonia or pulmonary edema. -Chest CTA (10/18/2025): Negative for pulmonary artery emboli, No pneumonia or pulmonary edema, Recommend splenic ultrasound follow-up to exclude 25 mm splenic lesion Plan: -Pending BCx and UCx -On IV zosyn 4.5 g q8hr (10/18-) and IV Vancomycin qd (10/18-) #Breast Cancer -On chemo-port -Currently following oncologist, Dr. King. -Follow-up outpatient #HTN -Pending med rec #Type 2 Diabetes Mellitus -HbA1c (10/14/2025): 7.5 -On SSI #25 mm splenic lesion -Incidental finding on 25 mm on Chest CTA (10/18/2025) -Pending Spleen US Disposition: Tele Diet: Carb consistent diet GI prophylaxis: IV pantoprazole 40mg qd DVT prophylaxis: SCD Code: FULL Assessment and plan discussed with my attending physician Dr. Conrad and Dr. Aguilar (PGY-2) Dr. Ortiz (PGY-1) - Internal medicine resident Attending Provider Attestation/Addendum I have seen and examined the patient. I was physically present for the [place] portions of the services provided including history, physical exam, diagnosis, treatment plans and orders. I agree with assessment and plan of care as documented by residents. After examination of the patient and review of the clinical data I feel that this patient needs admission to the hospital for further treatment/evaluation. Even though this this note was carefully revised there may still be minor errors in apparatus cleaner due to voice recognition software. Hugh Conrad MD
--- NOTE | 2025-10-18 18:52 | XR_ITS ---
EXAMINATION: Ultrasound soft tissue spleen TECHNIQUE: Grayscale sonographic images soft tissue spleen Date and time: October 18, 2025, 1903 hours INDICATIONS: Splenic lesion on CT examination today. FINDINGS: Spleen 13.8 cm No splenic lesion is confirmed IMPRESSION: Mild splenomegaly No splenic lesion is confirmed, CT appearance probably relates to heterogeneous enhancement of the spleen on the contrast images
[2025-10-18] MEDS: Vancomycin Inj 1,500 MG in SODIUM CHLORIDE 0.9% 500 ML 500 ML 200 MG IV (19:13)
[2025-10-18 19:30] LABS: HCG Qualitative,Urine Negative
[2025-10-18] MEDS: Magnesium Sulfate 4 GM Ivpb 4 GM/50 ML BAG IV (20:46)
[2025-10-18] MEDS: INSULIN LISPRO (AdmeLOG) 1 UNIT/0.01 ML UNIT SC (20:46)
[2025-10-18] MEDS: POTASSIUM CHL 10 mEq IVPB 10 MEQ/100 ML BAG 100 MEQ IV ×2 (20:46→22:18)
[2025-10-18 22:14] LABS: Respiratory Syncytial Virus Ag Negative (Negative)
[2025-10-18] MEDS: PIPER/TAZO INJ 4.5 GM in SODIUM CHLORIDE 0.9% (POP) 100 ML IV (22:19)
[2025-10-19] VITALS (11 sets, daily range): BP systolic 100–136; BP diastolic 66–89; PULSE 99–115; RESP 14–29; TEMP 35.8–36.8; O2SAT 96–100; BMI 32.1
[2025-10-19] MEDS: POTASSIUM CHL 10 mEq IVPB 10 MEQ/100 ML BAG 100 MEQ IV ×2 (00:07→03:22)
[2025-10-19] MEDS: INSULIN HUM REGULAR 1 UNIT/0.01 ML (PER UNIT) 10 UNIT IV (00:39)
[2025-10-19] MEDS: PIPER/TAZO INJ 4.5 GM in SODIUM CHLORIDE 0.9% (POP) 100 ML IV ×3 (05:07→21:05)
[2025-10-19 06:08] LABS: Basophils # (Auto) 0.0 Thou/mm3 (0.0-0.2); Basophils % (Auto) 0 % (0-2.5); Eosinophils # (Auto) 0.1 Thou/mm3 (0.0-0.5); Eosinophils % (Auto) 12 % (0-10); Immature Granulocytes Auto 0.00 Thou/mm3 (0.00-0.00); Lymphocytes # (Auto) 0.4 Thou/mm3 (1.0-4.8); Lymphocytes % (Auto) 63 % (10-50); Mean Corpuscular HGB Conc 34.9 g/dl (31.0-37.0); Mean Corpuscular Hemoglobin 31.5 pg (25.0-35.0); Mean Corpuscular Volume 90 fL (80-100); Monocytes # (Auto) 0.1 Thou/mm3 (0.0-0.8); Monocytes % (Auto) 12 % (0-12); Neutrophils # (Auto) 0.1 Thou/mm3 (1.8-7.7); Neutrophils % (Auto) 13 % (37-80); Nucleated Red Blood Cell # 0.00 Thou/mm3 (0.00-0.00); Nucleated Red Blood Cell % 0 /100 WBC (0); RDW Standard Deviation 43.6 fL (36.4-46.3); Red Blood Count 2.13 Miln/mm3 (4.00-5.20)
[2025-10-19 06:15] LABS: Hematocrit 19.2 % (36.0-46.0); Hemoglobin 6.7 g/dL (12.0-16.0); Platelet Count 42 Thou/mm3 (140-440); White Blood Count 0.6 Thou/mm3 (3.6-11.0)
[2025-10-19 06:38] LABS: Alanine Aminotransferase 10 U/L (10-49); Albumin, Serum 3.5 gm/dL (3.5-5.0); Albumin/Globulin Ratio 2.1 (1.2-2.2); Alkaline Phosphatase 43 U/L (46-116); Anion Gap 9 (7-16); Aspartate Amino Transferase < 8 U/L (0-34); BUN/Creatinine Ratio 26 Ratio (12-20); Bilirubin,Total 0.4 mg/dL (0.3-1.2); Blood Urea Nitrogen 13 mg/dL (9-23); Calcium 8.5 mg/dL (8.3-10.6); Calcium (Corrected) 8.9 mg/dL (8.5-10.1); Carbon Dioxide 24.1 mMol/L (20.0-31.0); Chloride 108 mMol/L (98-107); Creatinine (Component) 0.5 mg/dL (0.6-1.3); Estimated Creatinine Clearance 144.9 mL/min (>60); Globulin 1.7 gm/dL (2.3-3.5); Glucose 219 mg/dL (74-106); Magnesium 1.8 mg/dL (1.6-2.6); Osmolality,Calculated 288 (275-295); Phosphorous 3.1 mg/dL (2.4-5.1); Potassium 4.2 mMol/L (3.4-5.1); Sodium 141 mMol/L (136-145); Total Protein 5.2 gm/dL (5.7-8.2); eGFR > 60 See Note
[2025-10-19 06:45] LABS: Path Review Blood Smear Sent to Pathologist; Slide Review Platelets confirmed
[2025-10-19] MEDS: ACETAMINOPHEN 325 MG TABLET 650 MG PO (07:26)
--- NOTE | 2025-10-19 08:29 | ESPR_ITS ---
Subjective Subjective Interval history: unable to see today. have a test planned of my own. admitted for fever and breast CA. counts low. on empiric vanco/zosyn with neg chest imaging noted. Exam Vital Signs Temp Pulse Resp BP Pulse Ox O2 Del Method O2 Flow Rate 98.3 F 107 H 20 112/68 100 Nasal Cannula 2 10/19/25 07:50 10/19/25 07:50 10/19/25 07:50 10/19/25 07:50 10/19/25 07:50 10/19/25 07:50 10/19/25 07:50 Objective - Internal Medicine Labs 10/19/25 05:26 10/19/25 05:26 Labs: Laboratory Results - last 24 hr 10/18/25 10/18/25 10/18/25 15:14 16:43 16:49 WBC 0.7 L* D RBC 2.67 L Hgb 8.4 L Hct 23.4 L MCV 88 MCH 31.5 MCHC 35.9 RDW Std Deviation 42.0 Plt Count 47 L D Neut % (Auto) 6 L Lymph % (Auto) 75 H [place] % (Auto) 13 H Eos % (Auto) 6 Baso % (Auto) 0 Neut # (Auto) 0.0 L Lymph # (Auto) 0.5 L [place] # (Auto) 0.1 Eos # (Auto) 0.0 Baso # (Auto) 0.0 Immature Gran # (Auto) 0.00 Absolute Nucleated RBC 0.00 Immature Gran % 0 Nucleated RBC % 0 Smear Path Review Sent to Pathologist PT 11.2 INR 1.1 APTT 31.6 D-Dimer 722 H Puncture Site ABG pH ABG pCO2 ABG pO2 ABG HCO3 ABG O2 Saturation ABG Base Excess FiO2 Sodium 138 Potassium 3.5 Chloride 104 Carbon Dioxide 21.0 Anion Gap 13 BUN 12 Creatinine 0.6 Estim Creat Clear Calc 116.9 eGFR > 60 BUN/Creatinine Ratio 20 Glucose 274 H Calculated Osmolality 285 Calcium 9.0 Corrected Calcium 9.0 Phosphorus Magnesium 1.0 L Total Bilirubin 0.8 AST 10 ALT 12 Alkaline Phosphatase 53 Troponin I < 0.020 B-Natriuretic Peptide < 20 Total Protein 5.7 Albumin 4.1 Globulin 1.6 L Albumin/Globulin Ratio 2.6 H Procalcitonin 0.25 HCG, Qual Negative Ur Collection Type Clean Catch Urine Color Lt-Yellow Urine Clarity Clear Urine pH 6.0 Ur Specific [place] 1.005 Urine Protein Negative Urine Glucose (UA) 4+ A Urine Ketones Negative Urine Blood Negative Urine Nitrite Negative Urine Bilirubin Negative Urine Urobilinogen (Auto) Negative Ur Leukocyte Esterase Negative Urine RBC < 1 Urine WBC 1 Ur Squamous Epith Cells 0 Urine Bacteria 4+ A Urine HCG, Qual Negative Urine Opiates Screen Negative Urine Fentanyl Screen Negative Ur Barbiturates Screen Negative U Amphetamin/Meth Scrn Negative U Benzodiazepines Scrn Negative U Cocaine Metab Screen Negative U Marijuana (THC) Screen Negative Influenza A (Rapid) Influenza B (Rapid) RSV Rapid Group A Strep Rapid Misc Test Result Platelets confirmed Crossmatch 10/18/25 10/18/25 10/18/25 17:19 17:21 21:07 WBC RBC Hgb Hct MCV MCH MCHC RDW Std Deviation Plt Count Neut % (Auto) Lymph % (Auto) [place] % (Auto) Eos % (Auto) Baso % (Auto) Neut # (Auto) Lymph # (Auto) [place] # (Auto) Eos # (Auto) Baso # (Auto) Immature Gran # (Auto) Absolute Nucleated RBC Immature Gran % Nucleated RBC % Smear Path Review PT INR APTT D-Dimer Puncture Site Right Radial ABG pH 7.40 ABG pCO2 34 ABG pO2 174 H ABG HCO3 21 ABG O2 Saturation 101 H ABG Base Excess -4 L FiO2 21 Sodium Potassium Chloride Carbon Dioxide Anion Gap BUN Creatinine Estim Creat Clear Calc eGFR BUN/Creatinine Ratio Glucose Calculated Osmolality Calcium Corrected Calcium Phosphorus Magnesium Total Bilirubin AST ALT Alkaline Phosphatase Troponin I B-Natriuretic Peptide Total Protein Albumin Globulin Albumin/Globulin Ratio Procalcitonin HCG, Qual Ur Collection Type Urine Color Urine Clarity Urine pH Ur Specific [place] Urine Protein Urine Glucose (UA) Urine Ketones Urine Blood Urine Nitrite Urine Bilirubin Urine Urobilinogen (Auto) Ur Leukocyte Esterase Urine RBC Urine WBC Ur Squamous Epith Cells Urine Bacteria Urine HCG, Qual Urine Opiates Screen Urine Fentanyl Screen Ur Barbiturates Screen U Amphetamin/Meth Scrn U Benzodiazepines Scrn U Cocaine Metab Screen U Marijuana (THC) Screen Influenza A (Rapid) Negative Influenza B (Rapid) Negative RSV Rapid Negative Group A Strep Rapid Negative Misc Test Result Crossmatch 10/19/25 10/19/25 05:26 08:05 WBC 0.6 L* RBC 2.13 L Hgb 6.7 L* D Hct 19.2 L* MCV 90 MCH 31.5 MCHC 34.9 RDW Std Deviation 43.6 Plt Count 42 L Neut % (Auto) 13 L Lymph % (Auto) 63 H [place] % (Auto) 12 Eos % (Auto) 12 H Baso % (Auto) 0 Neut # (Auto) 0.1 L Lymph # (Auto) 0.4 L [place] # (Auto) 0.1 Eos # (Auto) 0.1 Baso # (Auto) 0.0 Immature Gran # (Auto) 0.00 Absolute Nucleated RBC 0.00 Immature Gran % 0 Nucleated RBC % 0 Smear Path Review Sent to Pathologist PT INR APTT D-Dimer Puncture Site ABG pH ABG pCO2 ABG pO2 ABG HCO3 ABG O2 Saturation ABG Base Excess FiO2 Sodium 141 Potassium 4.2 D Chloride 108 H Carbon Dioxide 24.1 Anion Gap 9 BUN 13 Creatinine 0.5 L Estim Creat Clear Calc 144.9 eGFR > 60 BUN/Creatinine Ratio 26 H Glucose 219 H D Calculated Osmolality 288 Calcium 8.5 Corrected Calcium 8.9 Phosphorus 3.1 Magnesium 1.8 Total Bilirubin 0.4 AST < 8 ALT 10 Alkaline Phosphatase 43 L Troponin I B-Natriuretic Peptide Total Protein 5.2 L Albumin 3.5 D Globulin 1.7 L Albumin/Globulin Ratio 2.1 Procalcitonin HCG, Qual Ur Collection Type Urine Color Urine Clarity Urine pH Ur Specific [place] Urine Protein Urine Glucose (UA) Urine Ketones Urine Blood Urine Nitrite Urine Bilirubin Urine Urobilinogen (Auto) Ur Leukocyte Esterase Urine RBC Urine WBC Ur Squamous Epith Cells Urine Bacteria Urine HCG, Qual Urine Opiates Screen Urine Fentanyl Screen Ur Barbiturates Screen U Amphetamin/Meth Scrn U Benzodiazepines Scrn U Cocaine Metab Screen U Marijuana (THC) Screen Influenza A (Rapid) Influenza B (Rapid) RSV Rapid Group A Strep Rapid Misc Test Result Platelets confirmed Crossmatch See Detail ABG Interpretation ABG results: 10/18/25 17:21 ABG pH 7.40 ABG pCO2 34 ABG pO2 174 H ABG HCO3 21 ABG O2 Saturation 101 H ABG Base Excess -4 L Assessment & Plan A&P Narrative acute illness with fever leucopenia with neutropenia. possibly from chemo for breast CA breast ca current empiric abx reasonable, I will be seeing her wednesday if she remains in house at that time. if port obviously infected then it should be removed if no port then may be acute viral process as those occur too. if bc neg at 48hr. can move to po levaquin to finish 7d rx overall Time Spent With Patient Time: Total time spent is greater than 50% in coordination of care (as documented) at patient's floor/unit and/or counseling patient:
--- NOTE | 2025-10-19 09:07 | PC.SS ---
Follow up note: On IV antibiotic. Cultures are pending.
[2025-10-19] MEDS: FILGRASTIM INJ (ZARXIO) 300 MCG/0.5 ML SYRINGE SC (10:37)
[2025-10-19] MEDS: VANCOMYCIN/D5W 1,250 MG IVPB 250 ML 120 MG IV ×2 (10:40→21:05)
[2025-10-19] MEDS: BENZONATATE 100 MG CAPSULE PO ×2 (11:47→22:10)
--- NOTE | 2025-10-19 12:04 | XR_ITS ---
Examination: CT abdomen and pelvis without contrast. Coronal 3-D reconstructions. Sagittal 2-D reconstructions. Date and time of exam: October 19, 2025, 1442 hours INDICATIONS: Fever with neutropenia several days Comparison October 14, 2025 CTDI: vol (mGy): 8.86 DLP: (mGycm): 509 Technique: Axial images of the abdomen have been obtained, 3 mm slice thickness Intravenous contrast material has not been administered. Low dose protocols were performed. One or more of the following dose reduction techniques were used; automated exposure control, adjustment of the mA and/or KV according to patient size, use of iterative reconstruction technique. Findings: No focal liver or splenic lesions No gallstones No pancreatic or adrenal mass No renal or ureteral calculi, no hydronephrosis Normal appendix 3 cm umbilical hernia containing incarcerated fat No abdominal or pelvic abscess No diverticulitis Urinary bladder is contracted around a Pool catheter, urinary bladder shows significant thickening IMPRESSION: No renal or ureteral calculi, no hydronephrosis Normal appendix 3 cm umbilical hernia containing incarcerated fat No abdominal or pelvic abscess Cystitis pattern
[2025-10-19] MEDS: INSULIN LISPRO (AdmeLOG) 1 UNIT/0.01 ML UNIT SC ×3 (12:33→21:05)
--- NOTE | 2025-10-19 14:19 | ESPR_ITS ---
<Statement entered by Dell Melissa MD - 10/19/25 17:35> Patient seen and examined at bedside. I discussed and supervised with the internet systems administrator physician who took care of this patient. I personally saw and examined the patient. I agree with most of the assessment and plan. Plan of care discussed with attending Dr. Conrad. Dell Melissa MD PGY-2 Documentation for date of: 10/19/25 Subjective Subjective Interval history: Overnight patient has been afebrile with 98.3 F. Patient's hemoglobin dropped down to 6.78.4. 1 units of PRBC was given. Blood culture and urine culture are still pending. Per oncology recommendations, started on Filgrastim 300 mcg SC qd. patient still have a burning pain on her chest where Chemo-Port was inserted. ID consulted. Will continue IV vancomycin and IV zosyn 4.5 g IV q8hr Pending CT abd/pelvis w/o contrast. Exam Vital Signs Temp Pulse Resp BP Pulse Ox O2 Del Method O2 Flow Rate 96.9 F 108 H 16 108/68 99 Nasal Cannula 2 10/19/25 12:00 10/19/25 12:00 10/19/25 12:00 10/19/25 12:00 10/19/25 12:00 10/19/25 12:00 10/19/25 12:00 Narrative Exam General: No acute distress, Frail, AAO x3 Eye: PERRL, EOMI, normal conjunctiva, no scleral icterus HENT: Normocephalic, atraumatic, hearing intact to conversation at normal volume, moist oral mucosa Neck: Supple, non-tender, no JVD, no lymphadenopathy Lungs:Symmetric chest rise, Clear to auscultate bilaterally, No wheezing, rhonchi, crackles Heart: Peripheral pulses intact bilaterally, Regular Rate and Rhythm. Abdomen: Soft, non-tender, non-distended, no palpable masses Musculoskeletal: Normal range of motion and strength, No cyanosis or edema, No visible joint swelling Skin: Skin is warm, dry, no rashes or lesions. Psychiatric: Cooperative, appropriate mood and affect, Awake and alert, not agitated Neuro: Cranial nerves II-XII grossly intact. Strength 5/5 throughout. Sensations intact to light touch. Objective Labs 10/19/25 05:26 10/19/25 05:26 Labs: Laboratory Results - last 24 hr 10/18/25 10/18/25 10/18/25 15:14 16:43 16:49 WBC 0.7 L* D RBC 2.67 L Hgb 8.4 L Hct 23.4 L MCV 88 MCH 31.5 MCHC 35.9 RDW Std Deviation 42.0 Plt Count 47 L D Neut % (Auto) 6 L Lymph % (Auto) 75 H [place] % (Auto) 13 H Eos % (Auto) 6 Baso % (Auto) 0 Neut # (Auto) 0.0 L Lymph # (Auto) 0.5 L [place] # (Auto) 0.1 Eos # (Auto) 0.0 Baso # (Auto) 0.0 Immature Gran # (Auto) 0.00 Absolute Nucleated RBC 0.00 Immature Gran % 0 Nucleated RBC % 0 Smear Path Review Sent to Pathologist PT 11.2 INR 1.1 APTT 31.6 D-Dimer 722 H Puncture Site ABG pH ABG pCO2 ABG pO2 ABG HCO3 ABG O2 Saturation ABG Base Excess FiO2 Sodium 138 Potassium 3.5 Chloride 104 Carbon Dioxide 21.0 Anion Gap 13 BUN 12 Creatinine 0.6 Estim Creat Clear Calc 116.9 eGFR > 60 BUN/Creatinine Ratio 20 Glucose 274 H Calculated Osmolality 285 Calcium 9.0 Corrected Calcium 9.0 Phosphorus Magnesium 1.0 L Total Bilirubin 0.8 AST 10 ALT 12 Alkaline Phosphatase 53 Troponin I < 0.020 B-Natriuretic Peptide < 20 Total Protein 5.7 Albumin 4.1 Globulin 1.6 L Albumin/Globulin Ratio 2.6 H Procalcitonin 0.25 HCG, Qual Negative Ur Collection Type Clean Catch Urine Color Lt-Yellow Urine Clarity Clear Urine pH 6.0 Ur Specific [place] 1.005 Urine Protein Negative Urine Glucose (UA) 4+ A Urine Ketones Negative Urine Blood Negative Urine Nitrite Negative Urine Bilirubin Negative Urine Urobilinogen (Auto) Negative Ur Leukocyte Esterase Negative Urine RBC < 1 Urine WBC 1 Ur Squamous Epith Cells 0 Urine Bacteria 4+ A Urine HCG, Qual Negative Urine Opiates Screen Negative Urine Fentanyl Screen Negative Ur Barbiturates Screen Negative U Amphetamin/Meth Scrn Negative U Benzodiazepines Scrn Negative U Cocaine Metab Screen Negative U Marijuana (THC) Screen Negative Influenza A (Rapid) Influenza B (Rapid) RSV Rapid Group A Strep Rapid Misc Test Result Platelets confirmed Blood Type Antibody Screen Crossmatch Blood Bank Wristband ID 10/18/25 10/18/25 10/18/25 17:19 17:21 21:07 WBC RBC Hgb Hct MCV MCH MCHC RDW Std Deviation Plt Count Neut % (Auto) Lymph % (Auto) [place] % (Auto) Eos % (Auto) Baso % (Auto) Neut # (Auto) Lymph # (Auto) [place] # (Auto) Eos # (Auto) Baso # (Auto) Immature Gran # (Auto) Absolute Nucleated RBC Immature Gran % Nucleated RBC % Smear Path Review PT INR APTT D-Dimer Puncture Site Right Radial ABG pH 7.40 ABG pCO2 34 ABG pO2 174 H ABG HCO3 21 ABG O2 Saturation 101 H ABG Base Excess -4 L FiO2 21 Sodium Potassium Chloride Carbon Dioxide Anion Gap BUN Creatinine Estim Creat Clear Calc eGFR BUN/Creatinine Ratio Glucose Calculated Osmolality Calcium Corrected Calcium Phosphorus Magnesium Total Bilirubin AST ALT Alkaline Phosphatase Troponin I B-Natriuretic Peptide Total Protein Albumin Globulin Albumin/Globulin Ratio Procalcitonin HCG, Qual Ur Collection Type Urine Color Urine Clarity Urine pH Ur Specific [place] Urine Protein Urine Glucose (UA) Urine Ketones Urine Blood Urine Nitrite Urine Bilirubin Urine Urobilinogen (Auto) Ur Leukocyte Esterase Urine RBC Urine WBC Ur Squamous Epith Cells Urine Bacteria Urine HCG, Qual Urine Opiates Screen Urine Fentanyl Screen Ur Barbiturates Screen U Amphetamin/Meth Scrn U Benzodiazepines Scrn U Cocaine Metab Screen U Marijuana (THC) Screen Influenza A (Rapid) Negative Influenza B (Rapid) Negative RSV Rapid Negative Group A Strep Rapid Negative Misc Test Result Blood Type Antibody Screen Crossmatch Blood Bank Wristband ID 10/19/25 10/19/25 05:26 08:05 WBC 0.6 L* RBC 2.13 L Hgb 6.7 L* D Hct 19.2 L* MCV 90 MCH 31.5 MCHC 34.9 RDW Std Deviation 43.6 Plt Count 42 L Neut % (Auto) 13 L Lymph % (Auto) 63 H [place] % (Auto) 12 Eos % (Auto) 12 H Baso % (Auto) 0 Neut # (Auto) 0.1 L Lymph # (Auto) 0.4 L [place] # (Auto) 0.1 Eos # (Auto) 0.1 Baso # (Auto) 0.0 Immature Gran # (Auto) 0.00 Absolute Nucleated RBC 0.00 Immature Gran % 0 Nucleated RBC % 0 Smear Path Review Sent to Pathologist PT INR APTT D-Dimer Puncture Site ABG pH ABG pCO2 ABG pO2 ABG HCO3 ABG O2 Saturation ABG Base Excess FiO2 Sodium 141 Potassium 4.2 D Chloride 108 H Carbon Dioxide 24.1 Anion Gap 9 BUN 13 Creatinine 0.5 L Estim Creat Clear Calc 144.9 eGFR > 60 BUN/Creatinine Ratio 26 H Glucose 219 H D Calculated Osmolality 288 Calcium 8.5 Corrected Calcium 8.9 Phosphorus 3.1 Magnesium 1.8 Total Bilirubin 0.4 AST < 8 ALT 10 Alkaline Phosphatase 43 L Troponin I B-Natriuretic Peptide Total Protein 5.2 L Albumin 3.5 D Globulin 1.7 L Albumin/Globulin Ratio 2.1 Procalcitonin HCG, Qual Ur Collection Type Urine Color Urine Clarity Urine pH Ur Specific [place] Urine Protein Urine Glucose (UA) Urine Ketones Urine Blood Urine Nitrite Urine Bilirubin Urine Urobilinogen (Auto) Ur Leukocyte Esterase Urine RBC Urine WBC Ur Squamous Epith Cells Urine Bacteria Urine HCG, Qual Urine Opiates Screen Urine Fentanyl Screen Ur Barbiturates Screen U Amphetamin/Meth Scrn U Benzodiazepines Scrn U Cocaine Metab Screen U Marijuana (THC) Screen Influenza A (Rapid) Influenza B (Rapid) RSV Rapid Group A Strep Rapid Misc Test Result Platelets confirmed Blood Type O Positive Antibody Screen NEGATIVE Crossmatch See Detail Blood Bank Wristband ID Yes ABG Interpretation ABG results: 10/18/25 17:21 ABG pH 7.40 ABG pCO2 34 ABG pO2 174 H ABG HCO3 21 ABG O2 Saturation 101 H ABG Base Excess -4 L Quality Measures Quality Measures sepsis Current suspected stage: sepsis Possible source: unknown Blood cultures ordered: completed in ED Antibiotic ordered: Yes Assessment & Plan Assessment Current Active Medications: Generic Name Dose Route Start Last Admin Trade Name Freq PRN Reason Stop Dose Admin Acetaminophen 650 mg 10/18/25 18:16 10/19/25 07:26 Acetaminophen 325 Mg Tablet PO 11/17/25 18:15 650 mg Q6H PRN Administration Fever >101.5 Acetaminophen 650 mg 10/18/25 18:16 Acetaminophen 325 Mg Tablet PO 11/17/25 18:15 Q6H PRN PAIN SCALE 1-3 (mild Hydrocodone Bitart/Acetaminophen 1 tab 10/18/25 18:16 Hydrocodone/Apap 5/325 Tablet PO 10/23/25 18:15 Q4HR PRN PAIN SCALE 4-6 (Moderate Hydrocodone Bitart/Acetaminophen 1 tab 10/18/25 18:16 Hydrocodone/Apap 10/325 Tab PO 10/23/25 18:15 Q4HR PRN PAIN SCALE 7-10 (Severe Benzonatate 100 mg 10/19/25 11:05 10/19/25 11:47 Benzonatate 100 Mg Capsule PO 11/18/25 11:04 100 mg Q8HR PRN Administration COUGH Protocol Dextrose 25 ml 10/18/25 19:09 Dextrose 50%-Water Inj 50 Ml Syringe IV 11/17/25 19:08 Q15MIN PRN BG 50-70 responsive npo pt Dextrose 50 ml 10/18/25 19:09 Dextrose 50%-Water Inj 50 Ml Syringe IV 11/17/25 19:08 Q15MIN PRN BG <50 OR BG <70 & pt unresponsive Filgrastim 300 mcg 10/19/25 09:00 10/19/25 10:37 Filgrastim Inj (Zarxio) 300 Mcg/0.5 Ml Syringe SC 10/22/25 08:59 300 mcg QDAY KELLY Administration Glucagon 1 mg 10/18/25 19:09 Glucagon Inj 1 Mg Vial IM Q15MIN PRN BG <70, and no IV access Piperacillin Sod/Tazobactam 100 mls @ 25 mls/hr 10/18/25 22:00 10/19/25 05:07 Sod 4.5 gm/ Sodium Chloride IV 10/25/25 21:59 25 mls/hr Q8HR KELLY Administration Protocol Vancomycin HCl/Dextrose 250 mls @ 120 mls/hr 10/19/25 10:00 10/19/25 10:40 Vancomycin/D5w 1,250 Mg Ivpb IV 10/26/25 09:59 120 mls/hr BID@1000,2200 KELLY Administration Protocol Insulin Human Lispro 0 unit 10/18/25 21:00 10/19/25 12:33 Insulin Lispro (Admelog) 1 Unit/0.01 Ml Unit SC 11/17/25 20:59 2 unit ACHS KELLY Administration Protocol Ondansetron HCl 4 mg 10/18/25 18:16 Ondansetron Inj 2 Mg/Ml Inj 2 Ml IVP 11/17/25 18:15 Q6H PRN NAUSEA OR VOMITING Protocol Pantoprazole Sodium 40 mg 10/19/25 09:00 10/19/25 08:03 Pantoprazole Inj 40 Mg Vial IVP 11/18/25 08:59 40 mg QDAY KELLY Administration Pharmacy Consult 1 each 10/19/25 06:09 Vancomycin Pharmacy To Dose 1 Each Each IV 11/17/25 18:29 QDAY PRN PROTOCOL Sennosides 1 tab 10/18/25 18:16 Senna Tablet PO 11/17/25 18:15 QDAY PRN constipation Protocol Plan Ms Marquez, Kylie 39 y/o Female, with PMH of hypertension, diabetes, and breast cancer, presented to ED on 10/18/2025 due to worsening Shortness of Breathe. Patient will be admitted for management of neutropenic fever. #Neutropenic fever, with unknown source #Hx of UTI, E.coli 10/14/2025 -About 2 weeks ago she changed her Chemo-Port and started a new chemotherapy medication. Since then she started to have episodes of shortness of breath that looks like a panic attack and rash on her chest. -On 10/14/2025, Her urine culture showed E.coli -Labs: WBC 0.7, Hgb 8.4, HCT 23.4, platelet 47, neutrophil percentage 6, D-dimer 722, potassium 3.5, glucose 274, magnesium 1.0, troponin<0.02, BNP<20 -UA: clear yellow urine, urine glucose 4+, urine nitrate negative, urine bacteria 4+, urine WBC 1. -CXR (10/18/2025): No pneumonia or pulmonary edema. -Chest CTA (10/18/2025): Negative for pulmonary artery emboli, No pneumonia or pulmonary edema, Recommend splenic ultrasound follow-up to exclude 25 mm splenic lesion -Patient's hemoglobin dropped down to 6.78.4. 1 units of PRBC was given. Plan: -On Filgrastim 300 mcg SC qd. -Pending BCx and UCx -On IV zosyn 4.5 g q8hr (10/18-) and IV Vancomycin qd (10/18-) -Consulted ID, Dr. Carrillo, appreciate recommendations -Pending CT abd/pelvis w/o contrast. #Breast Cancer -On chemo-port -Currently following oncologist, Dr. King. -Follow-up outpatient #HTN -Pending med rec #Type 2 Diabetes Mellitus -HbA1c (10/14/2025): 7.5 -On SSI #25 mm splenic lesion -Incidental finding on 25 mm on Chest CTA (10/18/2025) -Pending Spleen US Disposition: Tele Diet: Carb consistent diet GI prophylaxis: IV pantoprazole 40mg qd DVT prophylaxis: SCD Code: FULL Assessment and plan discussed with my attending physician Dr. Conrad and Dr. Melissa (PGY-2) Dr. Ortiz (PGY-1) - Internal medicine resident Attending Provider Attestation/Addendum I have seen and examined the patient. I was physically present for the [place] portions of the services provided including history, physical exam, diagnosis, treatment plans and orders. I agree with assessment and plan of care as documented by residents. Even though this this note was carefully revised there may still be minor errors in computer tape librarian due to voice recognition software. Hugh Conrad MD
[2025-10-19] MEDS: MG HYD/AL HYD/SIME (Maalox Reg) SUSP 30 ML UDC PO (14:25)
[2025-10-19] MEDS: ONDANSETRON INJ 2 MG/ML INJ 2 ML 4 MG IVP (14:39)
[2025-10-19 19:51] LABS: Hematocrit 22.8 % (36.0-46.0)
[2025-10-19 20:17] LABS: Hemoglobin 8.1 g/dL (12.0-16.0)
[2025-10-20] VITALS (7 sets, daily range): BP systolic 106–134; BP diastolic 70–92; PULSE 92–112; RESP 11–96; TEMP 35.7–36.9; O2SAT 96–99; BMI 31.6
[2025-10-20] MEDS: HYDROcodone/APAP 5/325 TABLET 1 TAB PO ×3 (03:35→21:50)
[2025-10-20] MEDS: PIPER/TAZO INJ 4.5 GM in SODIUM CHLORIDE 0.9% (POP) 100 ML IV ×3 (05:13→21:49)
[2025-10-20 06:26] LABS: Basophils # (Auto) 0.0 Thou/mm3 (0.0-0.2); Basophils % (Auto) 1 % (0-2.5); Eosinophils # (Auto) 0.1 Thou/mm3 (0.0-0.5); Eosinophils % (Auto) 12 % (0-10); Hematocrit 23.7 % (36.0-46.0); Immature Granulocytes Auto 0.01 Thou/mm3 (0.00-0.00); Lymphocytes # (Auto) 0.5 Thou/mm3 (1.0-4.8); Lymphocytes % (Auto) 44 % (10-50); Mean Corpuscular HGB Conc 35.4 g/dl (31.0-37.0); Mean Corpuscular Hemoglobin 31.6 pg (25.0-35.0); Mean Corpuscular Volume 89 fL (80-100); Monocytes # (Auto) 0.2 Thou/mm3 (0.0-0.8); Monocytes % (Auto) 16 % (0-12); Neutrophils # (Auto) 0.3 Thou/mm3 (1.8-7.7); Neutrophils % (Auto) 26 % (37-80); Nucleated Red Blood Cell # 0.00 Thou/mm3 (0.00-0.00); Nucleated Red Blood Cell % 0 /100 WBC (0); RDW Standard Deviation 42.1 fL (36.4-46.3); Red Blood Count 2.66 Miln/mm3 (4.00-5.20)
[2025-10-20 06:36] LABS: Hemoglobin 8.4 g/dL (12.0-16.0); White Blood Count 1.2 Thou/mm3 (3.6-11.0)
[2025-10-20 06:37] LABS: Platelet Count 31 Thou/mm3 (140-440)
[2025-10-20 06:54] LABS: Alanine Aminotransferase 11 U/L (10-49); Albumin, Serum 3.7 gm/dL (3.5-5.0); Albumin/Globulin Ratio 1.9 (1.2-2.2); Alkaline Phosphatase 40 U/L (46-116); Anion Gap 10 (7-16); Aspartate Amino Transferase 11 U/L (0-34); BUN/Creatinine Ratio 18 Ratio (12-20); Bilirubin,Total 0.6 mg/dL (0.3-1.2); Blood Urea Nitrogen 9 mg/dL (9-23); Calcium 8.5 mg/dL (8.3-10.6); Calcium (Corrected) 8.7 mg/dL (8.5-10.1); Carbon Dioxide 25.4 mMol/L (20.0-31.0); Chloride 104 mMol/L (98-107); Creatinine (Component) 0.5 mg/dL (0.6-1.3); Estimated Creatinine Clearance 143.6 mL/min (>60); Globulin 1.9 gm/dL (2.3-3.5); Glucose 239 mg/dL (74-106); Magnesium 1.3 mg/dL (1.6-2.6); Osmolality,Calculated 284 (275-295); Phosphorous 2.5 mg/dL (2.4-5.1); Potassium 3.7 mMol/L (3.4-5.1); Sodium 139 mMol/L (136-145); Total Protein 5.6 gm/dL (5.7-8.2); eGFR > 60 See Note
[2025-10-20 06:55] LABS: Slide Review Platelets confirmed
[2025-10-20] MEDS: INSULIN LISPRO (AdmeLOG) 1 UNIT/0.01 ML UNIT SC ×4 (08:12→21:49)
[2025-10-20] MEDS: Magnesium Sulfate 4 GM Ivpb 4 GM/50 ML BAG IV (08:13)
[2025-10-20] MEDS: FILGRASTIM INJ (ZARXIO) 300 MCG/0.5 ML SYRINGE SC (09:11)
[2025-10-20 09:16] LABS: Vancomycin,Trough 10.4 mcg/mL (5.0-10.0)
[2025-10-20] MEDS: VANCOMYCIN/D5W 1500 MG IVPB 300 ML 120 MG IV ×2 (10:25→21:49)
--- NOTE | 2025-10-20 12:41 | ESPR_ITS ---
<Statement entered by Dell Melissa MD - 10/20/25 16:44> Patient seen and examined at bedside. I discussed and supervised with the summer internship physician who took care of this patient. I personally saw and examined the patient. I agree with most of the assessment and plan. Plan of care discussed with attending Dr. Conrad. Dell Melissa MD PGY-2 Documentation for date of: 10/20/25 Subjective Subjective Interval history: Urine culture (10/18/2025) showed E. coli sensitive to Zosyn. Blood culture (10/18/2025) negative for [address] abdomen pelvis (10/19/2025): showed Cystitis pattern, 3 cm umbilical hernia containing incarcerated fat. Per patient's oncologist, Dr. King's recommendations, will continue to treat patient in hospital until her absolute neutrophil count is above 1000. Currently 300. Will continue Filgrastim 300mcg SC qd, IV zosyn 4.5 g q8hr, and IV Vancomycin. Patient's bedside glucose level is 283. Used 7 units of lisulin lispro on SSI. Started basal insulin Degludec 5 units. Spleen US (10/18/2025): showed No splenic lesion is confirmed, CT appearance probably relates to heterogeneous enhancement of the spleen on the contrast images Exam Vital Signs Temp Pulse Resp BP Pulse Ox O2 Del Method O2 Flow Rate 96.3 F L 101 H 18 111/81 98 Room Air 2 10/20/25 12:00 10/20/25 12:00 10/20/25 12:00 10/20/25 12:00 10/20/25 12:00 10/20/25 12:00 10/19/25 12:00 Narrative Exam General: No acute distress, Frail, AAO x3 Eye: PERRL, EOMI, normal conjunctiva, no scleral icterus HENT: Normocephalic, atraumatic, hearing intact to conversation at normal volume, moist oral mucosa Neck: Supple, non-tender, no JVD, no lymphadenopathy Lungs:Symmetric chest rise, Clear to auscultate bilaterally, No wheezing, rhonchi, crackles Heart: Peripheral pulses intact bilaterally, Regular Rate and Rhythm. Abdomen: Soft, non-tender, non-distended, no palpable masses Musculoskeletal: Normal range of motion and strength, No cyanosis or edema, No visible joint swelling Skin: Skin is warm, dry, no rashes or lesions. Psychiatric: Cooperative, appropriate mood and affect, Awake and alert, not agitated Neuro: Cranial nerves II-XII grossly intact. Strength 5/5 throughout. Sensations intact to light touch. Objective Labs 10/20/25 05:59 10/20/25 05:59 Labs: Laboratory Results - last 24 hr 10/19/25 10/19/25 10/20/25 08:05 19:42 05:59 WBC 1.2 L* D RBC 2.66 L Hgb 8.1 L D 8.4 L Hct 22.8 L 23.7 L MCV 89 MCH 31.6 MCHC 35.4 RDW Std Deviation 42.1 Plt Count 31 L D Neut % (Auto) 26 L Lymph % (Auto) 44 [place] % (Auto) 16 H Eos % (Auto) 12 H Baso % (Auto) 1 Neut # (Auto) 0.3 L Lymph # (Auto) 0.5 L [place] # (Auto) 0.2 Eos # (Auto) 0.1 Baso # (Auto) 0.0 Immature Gran # (Auto) 0.01 H Absolute Nucleated RBC 0.00 Immature Gran % 1 H Nucleated RBC % 0 Sodium 139 Potassium 3.7 D Chloride 104 Carbon Dioxide 25.4 Anion Gap 10 BUN 9 Creatinine 0.5 L Estim Creat Clear Calc 143.6 eGFR > 60 BUN/Creatinine Ratio 18 Glucose 239 H Calculated Osmolality 284 Calcium 8.5 Corrected Calcium 8.7 Phosphorus 2.5 Magnesium 1.3 L Total Bilirubin 0.6 AST 11 ALT 11 Alkaline Phosphatase 40 L Total Protein 5.6 L Albumin 3.7 Globulin 1.9 L Albumin/Globulin Ratio 1.9 Vancomycin Trough Misc Test Result Platelets confirmed Crossmatch See Detail 10/20/25 08:50 WBC RBC Hgb Hct MCV MCH MCHC RDW Std Deviation Plt Count Neut % (Auto) Lymph % (Auto) [place] % (Auto) Eos % (Auto) Baso % (Auto) Neut # (Auto) Lymph # (Auto) [place] # (Auto) Eos # (Auto) Baso # (Auto) Immature Gran # (Auto) Absolute Nucleated RBC Immature Gran % Nucleated RBC % Sodium Potassium Chloride Carbon Dioxide Anion Gap BUN Creatinine Estim Creat Clear Calc eGFR BUN/Creatinine Ratio Glucose Calculated Osmolality Calcium Corrected Calcium Phosphorus Magnesium Total Bilirubin AST ALT Alkaline Phosphatase Total Protein Albumin Globulin Albumin/Globulin Ratio Vancomycin Trough 10.4 H Misc Test Result Crossmatch ABG Interpretation ABG results: 10/18/25 17:21 ABG pH 7.40 ABG pCO2 34 ABG pO2 174 H ABG HCO3 21 ABG O2 Saturation 101 H ABG Base Excess -4 L Quality Measures Quality Measures sepsis Current suspected stage: sepsis Possible source: unknown Blood cultures ordered: completed in ED Antibiotic ordered: Yes Assessment & Plan Assessment Current Active Medications: Generic Name Dose Route Start Last Admin Trade Name Freq PRN Reason Stop Dose Admin Acetaminophen 650 mg 10/18/25 18:16 10/19/25 07:26 Acetaminophen 325 Mg Tablet PO 11/17/25 18:15 650 mg Q6H PRN Administration Fever >101.5 Acetaminophen 650 mg 10/18/25 18:16 Acetaminophen 325 Mg Tablet PO 11/17/25 18:15 Q6H PRN PAIN SCALE 1-3 (mild Hydrocodone Bitart/Acetaminophen 1 tab 10/18/25 18:16 10/20/25 03:35 Hydrocodone/Apap 5/325 Tablet PO 10/23/25 18:15 1 tab Q4HR PRN Administration PAIN SCALE 4-6 (Moderate Hydrocodone Bitart/Acetaminophen 1 tab 10/18/25 18:16 Hydrocodone/Apap 10/325 Tab PO 10/23/25 18:15 Q4HR PRN PAIN SCALE 7-10 (Severe Benzonatate 100 mg 10/19/25 11:05 10/19/25 22:10 Benzonatate 100 Mg Capsule PO 11/18/25 11:04 100 mg Q8HR PRN Administration COUGH Protocol Dextrose 25 ml 10/18/25 19:09 Dextrose 50%-Water Inj 50 Ml Syringe IV 11/17/25 19:08 Q15MIN PRN BG 50-70 responsive npo pt Dextrose 50 ml 10/18/25 19:09 Dextrose 50%-Water Inj 50 Ml Syringe IV 11/17/25 19:08 Q15MIN PRN BG <50 OR BG <70 & pt unresponsive Filgrastim 300 mcg 10/19/25 09:00 10/20/25 09:11 Filgrastim Inj (Zarxio) 300 Mcg/0.5 Ml Syringe SC 10/22/25 08:59 300 mcg QDAY KELLY Administration Glucagon 1 mg 10/18/25 19:09 Glucagon Inj 1 Mg Vial IM Q15MIN PRN BG <70, and no IV access Piperacillin Sod/Tazobactam 100 mls @ 25 mls/hr 10/18/25 22:00 10/20/25 05:13 Sod 4.5 gm/ Sodium Chloride IV 10/25/25 21:59 25 mls/hr Q8HR KELLY Administration Protocol Vancomycin HCl/Dextrose 300 mls @ 120 mls/hr 10/20/25 10:00 10/20/25 10:25 Vancomycin/D5w 1500 Mg Ivpb IV 10/27/25 09:59 120 mls/hr BID@1000,2200 KELLY Administration Insulin Human Lispro 0 unit 10/18/25 21:00 10/20/25 08:12 Insulin Lispro (Admelog) 1 Unit/0.01 Ml Unit SC 11/17/25 20:59 2 unit ACHS KELLY Administration Protocol Ondansetron HCl 4 mg 10/18/25 18:16 10/19/25 14:39 Ondansetron Inj 2 Mg/Ml Inj 2 Ml IVP 11/17/25 18:15 4 mg Q6H PRN Administration NAUSEA OR VOMITING Protocol Pantoprazole Sodium 40 mg 10/19/25 09:00 10/20/25 08:13 Pantoprazole Inj 40 Mg Vial IVP 11/18/25 08:59 40 mg QDAY KELLY Administration Pharmacy Consult 1 each 10/19/25 06:09 Vancomycin Pharmacy To Dose 1 Each Each IV 11/17/25 18:29 QDAY PRN PROTOCOL Sennosides 1 tab 10/18/25 18:16 Senna Tablet PO 11/17/25 18:15 QDAY PRN constipation Protocol Plan Ms Marquez, Kylie 39 y/o Female, with PMH of hypertension, diabetes, and breast cancer, presented to ED on 10/18/2025 due to worsening Shortness of Breathe. Patient will be admitted for management of neutropenic fever. #Neutropenic fever, 2/2 #UTI, E.coli #Hx of UTI, E.coli 10/14/2025 -About 2 weeks ago she changed her Chemo-Port and started a new chemotherapy medication. Since then she started to have episodes of shortness of breath that looks like a panic attack and rash on her chest. -On 10/14/2025, Her urine culture showed E.coli -Labs: WBC 0.7, Hgb 8.4, HCT 23.4, platelet 47, neutrophil percentage 6, D-dimer 722, potassium 3.5, glucose 274, magnesium 1.0, troponin<0.02, BNP<20 -UA: clear yellow urine, urine glucose 4+, urine nitrate negative, urine bacteria 4+, urine WBC 1. -CXR (10/18/2025): No pneumonia or pulmonary edema. -Chest CTA (10/18/2025): Negative for pulmonary artery emboli, No pneumonia or pulmonary edema, Recommend splenic ultrasound follow-up to exclude 25 mm splenic lesion -Patient's hemoglobin dropped down to 6.78.4. 1 units of PRBC was given. -Urine culture (10/18/2025) showed E. coli sensitive to Zosyn. -Blood culture (10/18/2025) negative for 24 hours. -CT abdomen pelvis (10/19/2025): showed Cystitis pattern, 3 cm umbilical hernia containing incarcerated fat. -Per patient's oncologist, Dr. King's recommendations, will continue to treat patient in hospital until her absolute neutrophil count is above 1000. Plan: -On Filgrastim 300 mcg SC qd. -Pending BCx -On IV zosyn 4.5 g q8hr (10/18-) and IV Vancomycin qd (10/18-) -Consulted ID, Dr. Carrillo, appreciate recommendations #Breast Cancer -On chemo-port -Currently following oncologist, Dr. King. -Follow-up outpatient #HTN -Pending med rec #Type 2 Diabetes Mellitus -HbA1c (10/14/2025): 7.5 -On SSI -On basal insulin Degludec 5 units. #25 mm splenic lesion -Incidental finding on 25 mm on Chest CTA (10/18/2025) -Spleen US (10/18/2025): showed No splenic lesion is confirmed, CT appearance probably relates to heterogeneous enhancement of the spleen on the contrast images Disposition: Tele Diet: Carb consistent diet GI prophylaxis: IV pantoprazole 40mg qd DVT prophylaxis: SCD Code: FULL Assessment and plan discussed with my attending physician Dr. Conrad and Dr. Melissa (PGY-2) Dr. Ortiz (PGY-1) - Internal medicine resident Attending Provider Attestation/Addendum I have seen and examined the patient. I was physically present for the [place] portions of the services provided including history, physical exam, diagnosis, treatment plans and orders. I agree with assessment and plan of care as documented by residents. Even though this this note was carefully revised there may still be minor errors in neon sign worker due to voice recognition software. Hugh Conrad MD
--- NOTE | 2025-10-20 14:20 | PC.SS ---
Rounding: Pending Neuro consult
[2025-10-20] MEDS: INSULIN DEGLUDEC 5 UNIT/0.05 ML (PER 5 UNITS) SC (14:22)
[2025-10-21] VITALS (10 sets, daily range): BP systolic 107–119; BP diastolic 69–86; PULSE 80–112; RESP 16–98; TEMP 36.1–36.7; O2SAT 95–99; BMI 31.6
[2025-10-21] MEDS: PIPER/TAZO INJ 4.5 GM in SODIUM CHLORIDE 0.9% (POP) 100 ML IV (05:08)
[2025-10-21 05:21] LABS: Basophils # (Auto) 0.0 Thou/mm3 (0.0-0.2); Basophils % (Auto) 1 % (0-2.5); Eosinophils # (Auto) 0.2 Thou/mm3 (0.0-0.5); Eosinophils % (Auto) 8 % (0-10); Hematocrit 23.5 % (36.0-46.0); Immature Granulocytes Auto 0.12 Thou/mm3 (0.00-0.00); Lymphocytes # (Auto) 0.7 Thou/mm3 (1.0-4.8); Lymphocytes % (Auto) 33 % (10-50); Mean Corpuscular HGB Conc 36.2 g/dl (31.0-37.0); Mean Corpuscular Hemoglobin 32.2 pg (25.0-35.0); Mean Corpuscular Volume 89 fL (80-100); Monocytes # (Auto) 0.3 Thou/mm3 (0.0-0.8); Monocytes % (Auto) 15 % (0-12); Neutrophils # (Auto) 0.9 Thou/mm3 (1.8-7.7); Neutrophils % (Auto) 39 % (37-80); Nucleated Red Blood Cell # 0.00 Thou/mm3 (0.00-0.00); Nucleated Red Blood Cell % 0 /100 WBC (0); RDW Standard Deviation 41.7 fL (36.4-46.3); Red Blood Count 2.64 Miln/mm3 (4.00-5.20); White Blood Count 2.3 Thou/mm3 (3.6-11.0)
[2025-10-21 05:31] LABS: Hemoglobin 8.5 g/dL (12.0-16.0); Platelet Count 31 Thou/mm3 (140-440)
[2025-10-21 05:44] LABS: Slide Review Platelets confirmed
[2025-10-21 06:06] LABS: Alanine Aminotransferase 14 U/L (10-49); Albumin, Serum 3.7 gm/dL (3.5-5.0); Albumin/Globulin Ratio 1.9 (1.2-2.2); Alkaline Phosphatase 41 U/L (46-116); Anion Gap 10 (7-16); Aspartate Amino Transferase 14 U/L (0-34); BUN/Creatinine Ratio 14 Ratio (12-20); Bilirubin,Total 0.5 mg/dL (0.3-1.2); Blood Urea Nitrogen 7 mg/dL (9-23); Calcium 8.7 mg/dL (8.3-10.6); Calcium (Corrected) 8.9 mg/dL (8.5-10.1); Carbon Dioxide 26.4 mMol/L (20.0-31.0); Chloride 105 mMol/L (98-107); Creatinine (Component) 0.5 mg/dL (0.6-1.3); Estimated Creatinine Clearance 143.8 mL/min (>60); Globulin 2.0 gm/dL (2.3-3.5); Glucose 215 mg/dL (74-106); Magnesium 1.5 mg/dL (1.6-2.6); Osmolality,Calculated 285 (275-295); Phosphorous 3.1 mg/dL (2.4-5.1); Potassium 3.6 mMol/L (3.4-5.1); Sodium 141 mMol/L (136-145); Total Protein 5.7 gm/dL (5.7-8.2); eGFR > 60 See Note
[2025-10-21] MEDS: HYDROcodone/APAP 5/325 TABLET 1 TAB PO (07:16)
[2025-10-21 07:38] LABS: Vancomycin,Trough 21.6 mcg/mL (5.0-10.0)
[2025-10-21] MEDS: INSULIN LISPRO (AdmeLOG) 1 UNIT/0.01 ML UNIT SC ×4 (07:43→20:23)
--- NOTE | 2025-10-21 07:51 | PC.NURSE ---
Pt said will bring list of meds so that med rec can be done.
[2025-10-21] MEDS: FILGRASTIM INJ (ZARXIO) 300 MCG/0.5 ML SYRINGE SC (08:01)
[2025-10-21] MEDS: INSULIN DEGLUDEC 5 UNIT/0.05 ML (PER 5 UNITS) SC ×2 (08:02→12:20)
[2025-10-21] MEDS: Magnesium Sulfate 4 GM Ivpb 4 GM/50 ML BAG IV (09:29)
[2025-10-21] MEDS: VANCOMYCIN/D5W 1500 MG IVPB 300 ML 120 MG IV (09:30)
--- NOTE | 2025-10-21 09:30 | PC.NURSE ---
Pt wants to shower. Called Dr. Suarez and asked if patient can be off the monitor to shower. Dr will put new orders in. Also inquired about patient's kelley catheter. said we can discontinue kelley.
--- NOTE | 2025-10-21 11:55 | ESPR_ITS ---
<Statement entered by Dell Melissa MD - 10/21/25 16:15> Patient seen and examined at bedside. I discussed and supervised with the international project manager physician who took care of this patient. I personally saw and examined the patient. I agree with most of the assessment and plan. Patient stable. Continue inpatient treatment until goal of ANC 1.0 or greater. Plan of care discussed with attending Dr. Conrad. Dell Melissa MD PGY-2 Documentation for date of: 10/21/25 Subjective Subjective Interval history: Patient was seen and examined at bedside. No acute events took place overnight. patient denies lightheadedness, headache, chest pain, abdominal pain, dysuria, or other urinary symptoms. Patient on Kelley catheter which we will discontinue. Balance of -3 L in fluid ins and outs over the past 24 hours. Had a BM at 4:00 PM yesterday? Received 8 units of sliding scale insulin yesterday, and additional 2 units this a.m.?for glc 215 Blood culture negative after 48 hours? Urine culture (10/18/2025) showed E. coli sensitive to Zosyn. CT abdomen pelvis (10/19/2025): showed Cystitis pattern, 3 cm umbilical hernia containing incarcerated fat. Per patient's oncologist, Dr. King's recommendations, will continue to treat patient in hospital until her absolute neutrophil count is above 1000. Currently 900. Exam Vital Signs Temp Pulse Resp BP Pulse Ox O2 Del Method O2 Flow Rate 97.1 F 83 18 118/83 97 Room Air 2 10/21/25 08:00 10/21/25 08:04 10/21/25 08:04 10/21/25 08:00 10/21/25 08:00 10/21/25 08:00 10/20/25 16:00 Narrative Exam General: No acute distress, Frail, AAO x3 Eye: PERRL, EOMI, normal conjunctiva, no scleral icterus HENT: Normocephalic, atraumatic, hearing intact to conversation at normal volume, moist oral mucosa Neck: Supple, non-tender, no JVD, no lymphadenopathy Lungs:Symmetric chest rise, Clear to auscultate bilaterally, No wheezing, rhonchi, crackles Heart: Peripheral pulses intact bilaterally, Regular Rate and Rhythm. Abdomen: Soft, non-tender, non-distended, no palpable masses Musculoskeletal: Normal range of motion and strength, No cyanosis or edema, No visible joint swelling Skin: Skin is warm, dry, no rashes or lesions. Psychiatric: Cooperative, appropriate mood and affect, Awake and alert, not agitated Neuro: Cranial nerves II-XII grossly intact. Strength 5/5 throughout. Sensations intact to light touch. Objective Labs 10/22/25 05:52 10/22/25 05:52 Labs: Laboratory Results - last 24 hr 10/21/25 04:26 WBC 2.3 L D RBC 2.64 L Hgb 8.5 L Hct 23.5 L MCV 89 MCH 32.2 MCHC 36.2 RDW Std Deviation 41.7 Plt Count 31 L Neut % (Auto) 39 Lymph % (Auto) 33 [place] % (Auto) 15 H Eos % (Auto) 8 Baso % (Auto) 1 Neut # (Auto) 0.9 L Lymph # (Auto) 0.7 L [place] # (Auto) 0.3 Eos # (Auto) 0.2 Baso # (Auto) 0.0 Immature Gran # (Auto) 0.12 H Absolute Nucleated RBC 0.00 Immature Gran % 5 H Nucleated RBC % 0 Sodium 141 Potassium 3.6 Chloride 105 Carbon Dioxide 26.4 Anion Gap 10 BUN 7 L Creatinine 0.5 L Estim Creat Clear Calc 143.8 eGFR > 60 BUN/Creatinine Ratio 14 Glucose 215 H Calculated Osmolality 285 Calcium 8.7 Corrected Calcium 8.9 Phosphorus 3.1 Magnesium 1.5 L Total Bilirubin 0.5 AST 14 ALT 14 Alkaline Phosphatase 41 L Total Protein 5.7 Albumin 3.7 Globulin 2.0 L Albumin/Globulin Ratio 1.9 Vancomycin Trough 21.6 H* Misc Test Result Platelets confirmed ABG Interpretation ABG results: 10/18/25 17:21 ABG pH 7.40 ABG pCO2 34 ABG pO2 174 H ABG HCO3 21 ABG O2 Saturation 101 H ABG Base Excess -4 L Quality Measures Quality Measures sepsis Current suspected stage: ruled out Possible source: unknown Blood cultures ordered: completed in ED Antibiotic ordered: Yes Assessment & Plan Assessment Current Active Medications: Generic Name Dose Route Start Last Admin Trade Name Freq PRN Reason Stop Dose Admin Acetaminophen 650 mg 10/18/25 18:16 10/19/25 07:26 Acetaminophen 325 Mg Tablet PO 11/17/25 18:15 650 mg Q6H PRN Administration Fever >101.5 Acetaminophen 650 mg 10/18/25 18:16 Acetaminophen 325 Mg Tablet PO 11/17/25 18:15 Q6H PRN PAIN SCALE 1-3 (mild Hydrocodone Bitart/Acetaminophen 1 tab 10/18/25 18:16 10/21/25 07:16 Hydrocodone/Apap 5/325 Tablet PO 10/23/25 18:15 1 tab Q4HR PRN Administration PAIN SCALE 4-6 (Moderate Hydrocodone Bitart/Acetaminophen 1 tab 10/18/25 18:16 Hydrocodone/Apap 10/325 Tab PO 10/23/25 18:15 Q4HR PRN PAIN SCALE 7-10 (Severe Benzonatate 100 mg 10/19/25 11:05 10/19/25 22:10 Benzonatate 100 Mg Capsule PO 11/18/25 11:04 100 mg Q8HR PRN Administration COUGH Protocol Dextrose 25 ml 10/18/25 19:09 Dextrose 50%-Water Inj 50 Ml Syringe IV 11/17/25 19:08 Q15MIN PRN BG 50-70 responsive npo pt Dextrose 50 ml 10/18/25 19:09 Dextrose 50%-Water Inj 50 Ml Syringe IV 11/17/25 19:08 Q15MIN PRN BG <50 OR BG <70 & pt unresponsive Filgrastim 300 mcg 10/19/25 09:00 10/21/25 08:01 Filgrastim Inj (Zarxio) 300 Mcg/0.5 Ml Syringe SC 10/22/25 08:59 300 mcg QDAY KELLY Administration Glucagon 1 mg 10/18/25 19:09 Glucagon Inj 1 Mg Vial IM Q15MIN PRN BG <70, and no IV access Magnesium Sulfate 4 gm in 50 mls @ 12.5 mls/hr 10/21/25 08:16 10/21/25 09:29 Magnesium Sulfate Ivpb IV 10/21/25 12:15 12.5 mls/hr X1 ONE Administration Insulin Degludec 10 unit 10/22/25 09:00 Insulin Degludec 5 Unit/0.05 Ml (Per 5 Units) SC 11/21/25 08:59 QDAY KELLY Insulin Human Lispro 0 unit 10/18/25 21:00 10/21/25 07:43 Insulin Lispro (Admelog) 1 Unit/0.01 Ml Unit SC 11/17/25 20:59 2 unit ACHS KELLY Administration Protocol Levofloxacin 750 mg 10/21/25 09:45 Levofloxacin 250 Mg Tablet PO 10/28/25 09:44 QDAY KELLY Ondansetron HCl 4 mg 10/18/25 18:16 10/19/25 14:39 Ondansetron Inj 2 Mg/Ml Inj 2 Ml IVP 11/17/25 18:15 4 mg Q6H PRN Administration NAUSEA OR VOMITING Protocol Pantoprazole Sodium 40 mg 10/19/25 09:00 10/21/25 08:02 Pantoprazole Inj 40 Mg Vial IVP 11/18/25 08:59 40 mg QDAY KELLY Administration Potassium Chloride 20 meq 10/21/25 17:30 Potassium Chloride 20 Meq Tabcr PO 10/22/25 17:29 BIDWM KELLY Sennosides 1 tab 10/18/25 18:16 Senna Tablet PO 11/17/25 18:15 QDAY PRN constipation Protocol Plan Ms Marquez, Kylie 39 y/o Female, with PMH of hypertension, diabetes, and breast cancer, presented to ED on 10/18/2025 due to worsening Shortness of Breathe. Patient will be admitted for management of neutropenic fever. Urine culture (10/18/2025) showed E. coli sensitive to Zosyn. CT abdomen pelvis (10/19/2025): showed Cystitis pattern, 3 cm umbilical hernia containing incarcerated fat. Per patient's oncologist, Dr. King's recommendations, will continue to treat patient in hospital until her absolute neutrophil count is above 1000. Currently 900. #Neutropenic fever, 2/ #UTI, E.coli #Hx of UTI, E.coli 10/14/2025 -About 2 weeks ago she changed her Chemo-Port and started a new chemotherapy medication. Since then she started to have episodes of shortness of breath that looks like a panic attack and rash on her chest. -On 10/14/2025, Her urine culture showed E.coli -Labs: WBC 0.7, Hgb 8.4, HCT 23.4, platelet 47, neutrophil percentage 6, D-dimer 722, potassium 3.5, glucose 274, magnesium 1.0, troponin<0.02, BNP<20 -UA: clear yellow urine, urine glucose 4+, urine nitrate negative, urine bacteria 4+, urine WBC 1. -CXR (10/18/2025): No pneumonia or pulmonary edema. -Chest CTA (10/18/2025): Negative for pulmonary artery emboli, No pneumonia or pulmonary edema, Recommend splenic ultrasound follow-up to exclude 25 mm splenic lesion -Patient's hemoglobin dropped down to 6.78.4. 1 units of PRBC was given. -Urine culture (10/18/2025) showed E. coli sensitive to Zosyn. -Blood culture (10/18/2025) negative for 24 hours. -CT abdomen pelvis (10/19/2025): showed Cystitis pattern, 3 cm umbilical hernia containing incarcerated fat. -Per patient's oncologist, Dr. King's recommendations, will continue to treat patient in hospital until her absolute neutrophil count is above 1000. 900 on 10/21 ? Blood culture negative after 48 hours? Plan: -On Filgrastim 300 mcg SC qd. -Levofloxacin p.o. 750 mg daily -DC'ed kelley -Discontinued IV zosyn 4.5 g q8hr (10/18- 10/21) and IV Vancomycin qd (10/18- 10/21) -Consulted ID, Dr. Carrillo, appreciate recommendations #Breast Cancer -On chemo-port -Currently following oncologist, Dr. King. -Follow-up outpatient #HTN BP WNL during this hospitalization -Pending med rec #Type 2 Diabetes Mellitus -HbA1c (10/14/2025): 7.5 -On SSI -Meli basal insulin Degludec 10 units. #25 mm splenic lesion -Incidental finding on 25 mm on Chest CTA (10/18/2025) -Spleen US (10/18/2025): showed No splenic lesion is confirmed, CT appearance probably relates to heterogeneous enhancement of the spleen on the contrast images Disposition: Tele Diet: Carb consistent diet GI prophylaxis: IV pantoprazole 40mg qd DVT prophylaxis: SCD Code: FULL Assessment and plan discussed with my attending physician Dr. Conrad and Dr. Melissa (PGY-2) Even though this this note was carefully revised there may still be minor errors in sports medicine masseur due to voice recognition software. Sunday Alexis, DO PGY I Attending Provider Attestation/Addendum I have seen and examined the patient. I was physically present for the sykes portions of the services provided including history, physical exam, diagnosis, treatment plans and orders. I agree with assessment and plan of care as documented by residents. Even though this this note was carefully revised there may still be minor errors in sports medicine masseur due to voice recognition software. Hugh Conrad MD
[2025-10-21] MEDS: LEVOFLOXACIN 250 MG TABLET 750 MG PO (12:21)
[2025-10-22] VITALS: BP 116/75; PULSE 100; PULSE 98; RESP 19; TEMP 36.5; O2SAT 97
[2025-10-22 04:00] VITALS: BP 96/73; PULSE 96; PULSE 97; RESP 18; TEMP 36.1; O2SAT 95
[2025-10-22 05:27] VITALS: BMI 31.6
[2025-10-22 06:15] LABS: Basophils # (Auto) 0.1 Thou/mm3 (0.0-0.2); Basophils % (Auto) 1 % (0-2.5); Eosinophils # (Auto) 0.2 Thou/mm3 (0.0-0.5); Eosinophils % (Auto) 5 % (0-10); Hematocrit 25.5 % (36.0-46.0); Hemoglobin 9.0 g/dL (12.0-16.0); Immature Granulocytes Auto 0.27 Thou/mm3 (0.00-0.00); Lymphocytes # (Auto) 0.9 Thou/mm3 (1.0-4.8); Lymphocytes % (Auto) 23 % (10-50); Mean Corpuscular HGB Conc 35.3 g/dl (31.0-37.0); Mean Corpuscular Hemoglobin 31.5 pg (25.0-35.0); Mean Corpuscular Volume 89 fL (80-100); Monocytes # (Auto) 0.5 Thou/mm3 (0.0-0.8); Monocytes % (Auto) 13 % (0-12); Neutrophils # (Auto) 2.0 Thou/mm3 (1.8-7.7); Neutrophils % (Auto) 51 % (37-80); Nucleated Red Blood Cell # 0.05 Thou/mm3 (0.00-0.00); Nucleated Red Blood Cell % 1 /100 WBC (0); RDW Standard Deviation 41.1 fL (36.4-46.3); Red Blood Count 2.86 Miln/mm3 (4.00-5.20); White Blood Count 4.0 Thou/mm3 (3.6-11.0)
[2025-10-22 06:47] LABS: Platelet Count 33 Thou/mm3 (140-440)
[2025-10-22 07:13] LABS: Alanine Aminotransferase 16 U/L (10-49); Albumin, Serum 3.9 gm/dL (3.5-5.0); Albumin/Globulin Ratio 2.0 (1.2-2.2); Alkaline Phosphatase 55 U/L (46-116); Anion Gap 11 (7-16); Aspartate Amino Transferase 12 U/L (0-34); BUN/Creatinine Ratio 17 Ratio (12-20); Bilirubin,Total 0.5 mg/dL (0.3-1.2); Blood Urea Nitrogen 10 mg/dL (9-23); Calcium 9.2 mg/dL (8.3-10.6); Calcium (Corrected) 9.3 mg/dL (8.5-10.1); Carbon Dioxide 25.5 mMol/L (20.0-31.0); Chloride 106 mMol/L (98-107); Creatinine (Component) 0.6 mg/dL (0.6-1.3); Estimated Creatinine Clearance 119.8 mL/min (>60); Globulin 2.0 gm/dL (2.3-3.5); Glucose 248 mg/dL (74-106); Magnesium 1.5 mg/dL (1.6-2.6); Osmolality,Calculated 290 (275-295); Phosphorous 2.7 mg/dL (2.4-5.1); Potassium 3.8 mMol/L (3.4-5.1); Sodium 142 mMol/L (136-145); Total Protein 5.9 gm/dL (5.7-8.2); eGFR > 60 See Note
[2025-10-22 07:14] LABS: Slide Review Platelets confirmed
[2025-10-22] MEDS: INSULIN LISPRO (AdmeLOG) 1 UNIT/0.01 ML UNIT SC ×2 (07:54→12:05)
[2025-10-22 08:00] VITALS: BP 105/79; PULSE 106; PULSE 97; RESP 20; TEMP 36.3; O2SAT 98
[2025-10-22] MEDS: INSULIN DEGLUDEC 5 UNIT/0.05 ML (PER 5 UNITS) 10 UNIT SC (08:38)
[2025-10-22] MEDS: Magnesium Sulfate 4 GM Ivpb 4 GM/50 ML BAG IV (08:38)
[2025-10-22] MEDS: LEVOFLOXACIN 250 MG TABLET 750 MG PO (08:39)
--- NOTE | 2025-10-22 10:44 | ESDS_ITS ---
<Statement entered by Nicki Gandara DO - 10/23/25 08:28> I, Nicki Gandara DO, attest that I was physically present for the sykes portions of the service and evaluated the patient with the resident and I reviewed and discussed the case with the resident and agree with the resident's findings and plans of care as documented above <Statement entered by Daily Aguilar MD - 10/22/25 18:32> Patient was seen and examined by me personally. I have reviewed the below documentation by the team resident and agree with its findings. Discharge plan was discussed with the attending, Dr. Nicki Monroe MD Internal Medicine, PGY-2 Planned Discharge Date 10/22/25 DS: Providers Provider Date of admission: 10/18/25 18:38 Primary care physician: Physician Chelsy Primary/Family Admitting Provider: Hugh Conrad MD Attending Provider on Admission: Nicki Gandara DO Consults: 10/19/25 08:22 Consult to Infectious Diseases Routine Comment: Breast CA on chemo, Neutropenic fever. Consulting Provider: Kai Carrillo Attending Provider on DC: Sam Ortiz DO Discharging Provider: Sam Ortiz DO Anticipated date of discharge: 10/22/25 DS: Diagnosis Problem List Completed Was Problem List Reviewed/Reconciled?: Yes Hospital Course Hospital Course Hospital course: Summary: Kylie Cruz 39 y/o Female, with PMH of hypertension, diabetes, and breast cancer, presented to ED on 10/18/2025 due to worsening Shortness of Breathe. Patient will be admitted for management of neutropenic fever. Patient received IV antibiotics and Filgrastim SC for her neutropenic fever. Urine Culture positive for E.coli, likely source of infection. Patient's labs and vitals were stable, and was discharged on 10/22/2025. ED course -Vitals: 113/91, 100% on room air, RR 22, OH 126, temperature 102.F -Labs: WBC 0.7, Hgb 8.4, HCT 23.4, platelet 47, neutrophil percentage 6, D-dimer 722, potassium 3.5, glucose 274, magnesium 1.0, troponin<0.02, BNP<20 -UA: clear yellow urine, urine glucose 4+, urine nitrate negative, urine bacteria 4+, urine WBC 1. -CXR (10/18/2025): No pneumonia or pulmonary edema. -Chest CTA (10/18/2025): Negative for pulmonary artery emboli, No pneumonia or pulmonary edema, Recommend splenic ultrasound follow-up to exclude 25 mm splenic lesion In ED patient received acetaminophen IV 1000 mg x 1, cefepime IV 2 g, IV Benadryl 50 mg x 1, IV magnesium 2 g x 1, IV Solu-Medrol 125 mg x 1, IV bolus NS 1 L x 2, IV vancomycin 1500 mg x 1 Hospital Course: Upon admission to the hospital, for her neutropenic fever, patient was started on IV zosyn 4.5 g q8hr and IV Vancomycin qd. Patient had incidental finding on 25 mm of splenic lesion on Chest CTA (10/18/2025), but spleen US (10/18/2025) confirmed No splenic lesion. On 10/19, Patient's hemoglobin dropped down to 6.7. 1 units of PRBC was given which improved to Hgb level of 8.1. Patient has breast cancer, currently following oncologist, Dr. King. Per oncology recommendations, started on Filgrastim 300 mcg SC qd until her Absolute Neutrophil Count (ANC) increased more than 1000. Urine culture (10/18/2025) showed E. coli sensitive to Zosyn. Blood culture (10/18/2025) negative for [address] abdomen pelvis (10/19/2025): showed Cystitis pattern, 3 cm umbilical hernia containing incarcerated fat. On 10/21, discontineud IV zosyn and IV vancomycin. Started on Levofloxacin p.o. 750 mg daily. On 10/22, patient's ANC improved to 2000. Patient's labs and vitals were stable, and was discharged on 10/22/2025. #Neutropenic fever, 2/2 #UTI, E.coli #Pancytopenia #Breast Cancer #Hypertension #Type 2 Diabetes Mellitus #Hypomagnesemia Instructions: You have been started on the following medications: - Macrobid 100mg twice daily for 3 more days - Magnesium glycinate 100mg once daily The following medications havce been STOPPED: - Magnesium oxide Please continue taking all other medications as previously prescribed. Please follow up with your primary doctor in 7-10 days. If you do not have a primary, please come to [facility]: [address], [place] [address] Return to ED if you develop new or worsening symptoms. Se le valera iniciado los siguientes medicamentos: - Macrobid 100 mg dos veces al d?a ella 3 d?as m?s - Glicinato de magnesio 100 mg stephanie vez al d?a Se valera suspendido los siguientes medicamentos: - ?xido de magnesio Contin?e tomando todos los dem?s medicamentos seg?n lo prescrito previamente. Consulte con gutierrez m?dico de cabecera en 7 a 10 d?as. Si no tiene un m?dico de cabecera, acuda al [facility]?chan: [address], [place] [address] Tel?fono: Regrese a urgencias si presenta s?ntomas nuevos o que empeoran. Assessment and plan discussed with my attending physician Dr. Gandara and Dr. Aguilar (PGY-2) Dr. Ortiz (PGY-1) - Internal medicine resident Status at Discharge Overall status at discharge: patient is progressing back to baseline Time Spent with Patient Time attestation: Total time spent providing and/or coordinating discharge services: Time spent: Greater than 30 minutes Exam Vital Signs Temp Pulse Resp BP Pulse Ox O2 Del Method O2 Flow Rate 97.3 F 97 20 105/79 98 Room Air 2 10/22/25 08:00 10/22/25 08:00 10/22/25 08:00 10/22/25 08:00 10/22/25 08:00 10/22/25 08:00 10/20/25 16:00 Narrative Exam General: No acute distress, Frail, AAO x3 Eye: PERRL, EOMI, normal conjunctiva, no scleral icterus HENT: Normocephalic, atraumatic, hearing intact to conversation at normal volume, moist oral mucosa Neck: Supple, non-tender, no JVD, no lymphadenopathy Lungs:Symmetric chest rise, Clear to auscultate bilaterally, No wheezing, rhonchi, crackles Heart: Peripheral pulses intact bilaterally, Regular Rate and Rhythm. Abdomen: Soft, non-tender, non-distended, no palpable masses Musculoskeletal: Normal range of motion and strength, No cyanosis or edema, No visible joint swelling Skin: Skin is warm, dry, no rashes or lesions. Psychiatric: Cooperative, appropriate mood and affect, Awake and alert, not rosa isela tated Neuro: Cranial nerves II-XII grossly intact. Strength 5/5 throughout. Sensations intact to light touch. Discharge Plan Plan Patient Disposition: HOME (Self Care) Patient condition on transfer: Stable Care Plan Goals: You have been started on the following medications: - Macrobid 100mg twice daily for 3 more days - Magnesium glycinate 100mg once daily The following medications havce been STOPPED: - Magnesium oxide Please continue taking all other medications as previously prescribed. Please follow up with your primary doctor in 7-10 days. If you do not have a primary, please come to [facility]: [address], [place] [address] Return to ED if you develop new or worsening symptoms. Se le valera iniciado los siguientes medicamentos: - Macrobid 100 mg dos veces al d?a ella 3 d?as m?s - Glicinato de magnesio 100 mg stephanie vez al d?a Se valera suspendido los siguientes medicamentos: - ?xido de magnesio Contin?e tomando todos los dem?s medicamentos seg?n lo prescrito previamente. Consulte con gutierrez m?dico de cabecera en 7 a 10 d?as. Si no tiene un m?dico de cabecera, acuda al [facility]?chan: [address], [place] [address] Tel?fono: Regrese a urgencias si presenta s?ntomas nuevos o que empeoran. Prescriptions/Referrals Prescriptions/Med Rec: New nitrofurantoin monohyd/m-cryst [Macrobid] 100 mg capsule 100 mg PO BID 3 Days Qty: 6 0RF Rx Instructions: must administer with a meal/food Mag Glycinate 100 mg tablet 100 mg PO QDAY 30 Days Qty: 30 0RF Continued rizatriptan [Maxalt-GRANTS MANAGER] 10 mg tablet,disintegrating See Rx Instructions .ROUTE .COMPLEX Qty: 14 0RF Rx Instructions: take 1 tab at onset of headache; if no relief may repeat 1 tab after at least 2 hrs; max = 3 tabs/24 hr Janumet 50-1,000 mg tablet 1 tab PO BID metformin 1,000 mg tablet 1,000 mg PO QDAY cefdinir 300 mg capsule 300 mg PO BID Qty: 14 0RF lorazepam [Ativan] 2 mg tablet 2 mg PO BID PRN (Reason: anxiety) Qty: 20 0RF ondansetron 4 mg tablet,disintegrating 4 mg PO TID PRN (Reason: nausea and vomiting) 30 Days Qty: 10 0RF Discontinued magnesium oxide 400 mg magnesium tablet 400 mg PO BID Qty: 60 0RF Referrals: Guille King MD [Physician, Hematology & Oncology] No Primary/Family,Physician [Primary Care Provider] Patient/Caregiver Discharge Instructions Discharge Activity: activity as tolerated Education Materials: Neutropenia, Urinary Tract Infections in Women, Understanding Urinary Tract ... Print Language: Moroccan Stand Alone Forms: Radha Award Info., Patient Portal Info Letter Discharge Order Discharge Orders: Discharge (Routine); Ordered 10/22/25 Ordered By: Daily Aguilar Quality Discharge Quality Measures VTE prophylaxis
--- NOTE | 2025-10-22 11:08 | ESPR_ITS ---
Subjective Subjective Interval history: asked to see. going home . that is good. reviewed data wednesday. 10/19 Exam Vital Signs Temp Pulse Resp BP Pulse Ox O2 Del Method O2 Flow Rate 97.3 F 97 20 105/79 98 Room Air 2 10/22/25 08:00 10/22/25 08:00 10/22/25 08:00 10/22/25 08:00 10/22/25 08:00 10/22/25 08:00 10/20/25 16:00 Objective - Internal Medicine Labs 10/22/25 05:52 10/22/25 05:52 Labs: Laboratory Results - last 24 hr 10/22/25 05:52 WBC 4.0 D RBC 2.86 L Hgb 9.0 L Hct 25.5 L MCV 89 MCH 31.5 MCHC 35.3 RDW Std Deviation 41.1 Plt Count 33 L Neut % (Auto) 51 Lymph % (Auto) 23 [place] % (Auto) 13 H Eos % (Auto) 5 Baso % (Auto) 1 Neut # (Auto) 2.0 Lymph # (Auto) 0.9 L [place] # (Auto) 0.5 Eos # (Auto) 0.2 Baso # (Auto) 0.1 Immature Gran # (Auto) 0.27 H Absolute Nucleated RBC 0.05 H Immature Gran % 7 H Nucleated RBC % 1 H Sodium 142 Potassium 3.8 Chloride 106 Carbon Dioxide 25.5 Anion Gap 11 BUN 10 Creatinine 0.6 Estim Creat Clear Calc 119.8 eGFR > 60 BUN/Creatinine Ratio 17 Glucose 248 H Calculated Osmolality 290 Calcium 9.2 Corrected Calcium 9.3 Phosphorus 2.7 Magnesium 1.5 L Total Bilirubin 0.5 AST 12 ALT 16 Alkaline Phosphatase 55 D Total Protein 5.9 Albumin 3.9 Globulin 2.0 L Albumin/Globulin Ratio 2.0 Misc Test Result Platelets confirmed ABG Interpretation ABG results: 10/18/25 17:21 ABG pH 7.40 ABG pCO2 34 ABG pO2 174 H ABG HCO3 21 ABG O2 Saturation 101 H ABG Base Excess -4 L Assessment & Plan A&P Narrative acute illness with fever leucopenia with neutropenia. possibly from chemo for breast CA, resolved breast ca current empiric abx reasonable, bc neg at 48hr. ok to move to po levaquin to finish 7d rx overall as there is a rt chest port noted but bc are neg so far. I originally planned longer rx but stopped that as initial bc are neg. Time Spent With Patient Time: Total time spent is greater than 50% in coordination of care (as documented) at patient's floor/unit and/or counseling patient:
[2025-10-22 11:17] VITALS: PULSE 97; RESP 20; RESP 98
[2025-10-22 11:38] LABS: HIV (1&2) Antibody Rapid Non-Reactive
[2025-10-22 12:00] VITALS: BP 116/79; PULSE 100; PULSE 110; RESP 13; TEMP 36.7; O2SAT 99
[2025-10-22 12:16] LABS: Hepatitis C Antibody Non Reactive (Non React)
--- NOTE | 2025-10-22 13:32 | ESCONSULT_ITS ---
RE: ROLLY FERRO : 1985 DATE OF CONSULTATION: 10/22/2025 REFERRING PHYSICIAN: Dr. Conrad REASON FOR CONSULTATION: Port in the right chest with UTI. HISTORY OF PRESENT ILLNESS: Patient had a positive urine culture, but negative blood cultures. I am going to repeat the blood cultures and note that urine cultures are positive for E. coli s as listed she was anemic. That has improved. Her urinalysis shows 4+ glucose and she has appears to have diabetes that is not well controlled. There is a prior urinalysis on 10/14 that shows 35 white cells. She has just 1 white cell noted on her current UA on 10/18. Her blood cultures are negative. I suggested that treatment would be okay for about a week if the port was removed, but the port remains in place and has not been addressed. Port-A-Cath is mentioned on the x-ray. There is a right IJ Port-A-Cath in the right atrium noted. Blood cultures are negative. Looks like we are just treating the urine. PAST MEDICAL HISTORY: Her medical problems include neutropenic fever, which appears to be resolved. PAST SURGICAL HISTORY: She has had breast surgery and a port placement. ALLERGIES: NONE NOTED. IMMUNIZATIONS: Last tetanus is not known. She does not take a flu shot. She has not had COVID vaccine. She has not had pneumococcal vaccination. FAMILY HISTORY: Presently unremarkable SOCIAL HISTORY: She lives at home with her and her children. PHYSICAL EXAMINATION: CHEST: Patient has a nontender port in the right chest. ASSESSMENT AND PLAN: I have ordered some more blood cultures and an HIV and hepatitis C test, all of which remain pending. I am not sure if they are going to get them before she goes. She is ordered to switch to Levaquin by the others, which is fine. The blood cultures are negative, so we are going to get some more blood. Her leukopenia and neutropenia also appears to have resolved. She has a history of breast cancer, for which she recently had chemo a couple of weeks ago. She has chemo due again late next week. I will cancel the blood cultures and 7 days of treatment should be fine. It looks like Levaquin was ordered for 7 days anyway, which is probably what the primary team will do. DT: 11:25:54 TT: 13:31:00 Ref: [id number] - TID: [id number] MTDD
== END 2025-10-22 14:50 | disposition home or self-care (01) | DRG 660 ==
LOC: SERX 17:58 → SERHOLD 18:40 → S2NX 21:41
PROVIDERS: Internal Medicine Infectious Disease; Physician Assistant; Admitting Provider Student in an Organized Health Care Education/Training Program; Emergency Provider Family Medicine; Visit Provider Internal Medicine
DX: D70.9 Neutropenia, unspecified (principal); E11.9 Type 2 diabetes mellitus without complications; I10 Essential (primary) hypertension; D61.818 Other pancytopenia; R50.81 Fever presenting with conditions classified elsewhere; C50.919 Malignant neoplasm of unspecified site of unspecified female breast; D73.89 Other diseases of spleen; E83.42 Hypomagnesemia; Z79.4 Long term (current) use of insulin; Z79.84 Long term (current) use of oral hypoglycemic drugs; N30.90 Cystitis, unspecified without hematuria; B96.20 Unspecified Escherichia coli [E. coli] as the cause of diseases classified elsewhere
CPT/HCPCS: 36415; 36600; 51701; 51702; 71045; 71275; 74176; 76705; 80053; 80202; 80307; 81001; 81025; 82803; 83735; 83880; 84100; 84145; 84484; 84703; 85014; 85018; 85025; 85379; 85610; 85730; 86703; 86803; 86850; 86900; 86901; 86923; 87040; 87077; 87081; 87086; 87186; 87502; 87634; 87635; 87651; 93005; 96361; 96365; 96366; 96375; 99291; 99292; A4314; A4649; J0131; J0692; J1200; J1815; J2405; J2470; J2543; J2919; J3373; J3374; J3475; J3480; J7030; J7050; J7999; P9016; Q5101; Q9967; A9270

== ENCOUNTER 2025-10-23 14:11 | Outpatient (RCR) | payer MEDICAID, SELFPAY ==
[2025-10-03 15:15] LABS: Basophils # (Auto) 0.0 Thou/mm3 (0.0-0.2); Basophils % (Auto) 0 % (0-2.5); Eosinophils # (Auto) 0.1 Thou/mm3 (0.0-0.5); Eosinophils % (Auto) 2 % (0-10); Hematocrit 28.8 % (36.0-46.0); Hemoglobin 10.0 g/dL (12.0-16.0); Immature Granulocytes Auto 0.07 Thou/mm3 (0.00-0.00); Lymphocytes # (Auto) 1.6 Thou/mm3 (1.0-4.8); Lymphocytes % (Auto) 29 % (10-50); Mean Corpuscular HGB Conc 34.7 g/dl (31.0-37.0); Mean Corpuscular Hemoglobin 31.3 pg (25.0-35.0); Mean Corpuscular Volume 90 fL (80-100); Monocytes # (Auto) 0.4 Thou/mm3 (0.0-0.8); Monocytes % (Auto) 8 % (0-12); Neutrophils # (Auto) 3.3 Thou/mm3 (1.8-7.7); Neutrophils % (Auto) 59 % (37-80); Nucleated Red Blood Cell # 0.02 Thou/mm3 (0.00-0.00); Nucleated Red Blood Cell % 0 /100 WBC (0); Platelet Count 242 Thou/mm3 (140-440); RDW Standard Deviation 51.8 fL (36.4-46.3); Red Blood Count 3.19 Miln/mm3 (4.00-5.20); White Blood Count 5.5 Thou/mm3 (3.6-11.0)
[2025-10-03 15:27] LABS: HCG,Qualitative Serum Negative
[2025-10-03 15:35] LABS: Alanine Aminotransferase 45 U/L (10-49); Albumin, Serum 4.2 gm/dL (3.5-5.0); Albumin/Globulin Ratio 2.5 (1.2-2.2); Alkaline Phosphatase 66 U/L (46-116); Anion Gap 11 (7-16); Aspartate Amino Transferase 33 U/L (0-34); BUN/Creatinine Ratio 25 Ratio (12-20); Bilirubin,Total 0.4 mg/dL (0.3-1.2); Blood Urea Nitrogen 15 mg/dL (9-23); Calcium 9.3 mg/dL (8.3-10.6); Calcium (Corrected) 9.3 mg/dL (8.5-10.1); Carbon Dioxide 25.3 mMol/L (20.0-31.0); Chloride 106 mMol/L (98-107); Creatinine (Component) 0.6 mg/dL (0.6-1.3); Free T4 (Free Thyroxine) 1.25 ng/dL (0.89-1.76); Globulin 1.7 gm/dL (2.3-3.5); Glucose 259 mg/dL (74-106); Osmolality,Calculated 292 (275-295); Potassium 3.3 mMol/L (3.4-5.1); Sodium 142 mMol/L (136-145); Thyroid Stimulating Hormone 0.44 uIU/mL (0.55-4.78); Total Protein 5.9 gm/dL (5.7-8.2); eGFR > 60 See Note
[2025-10-10 14:41] LABS: Basophils # (Auto) 0.0 Thou/mm3 (0.0-0.2); Basophils % (Auto) 0 % (0-2.5); Eosinophils # (Auto) 0.1 Thou/mm3 (0.0-0.5); Eosinophils % (Auto) 2 % (0-10); Hematocrit 31.6 % (36.0-46.0); Hemoglobin 11.0 g/dL (12.0-16.0); Immature Granulocytes Auto 0.05 Thou/mm3 (0.00-0.00); Lymphocytes # (Auto) 1.8 Thou/mm3 (1.0-4.8); Lymphocytes % (Auto) 31 % (10-50); Mean Corpuscular HGB Conc 34.8 g/dl (31.0-37.0); Mean Corpuscular Hemoglobin 31.3 pg (25.0-35.0); Mean Corpuscular Volume 90 fL (80-100); Monocytes # (Auto) 0.5 Thou/mm3 (0.0-0.8); Monocytes % (Auto) 8 % (0-12); Neutrophils # (Auto) 3.4 Thou/mm3 (1.8-7.7); Neutrophils % (Auto) 58 % (37-80); Nucleated Red Blood Cell # 0.00 Thou/mm3 (0.00-0.00); Nucleated Red Blood Cell % 0 /100 WBC (0); Platelet Count 203 Thou/mm3 (140-440); RDW Standard Deviation 51.4 fL (36.4-46.3); Red Blood Count 3.52 Miln/mm3 (4.00-5.20); White Blood Count 5.9 Thou/mm3 (3.6-11.0)
[2025-10-10 15:00] LABS: Alanine Aminotransferase 43 U/L (10-49); Albumin, Serum 4.4 gm/dL (3.5-5.0); Albumin/Globulin Ratio 1.9 (1.2-2.2); Alkaline Phosphatase 62 U/L (46-116); Anion Gap 11 (7-16); Aspartate Amino Transferase 36 U/L (0-34); BUN/Creatinine Ratio 25 Ratio (12-20); Bilirubin,Total 0.5 mg/dL (0.3-1.2); Blood Urea Nitrogen 15 mg/dL (9-23); Calcium 10.2 mg/dL (8.3-10.6); Calcium (Corrected) 10.2 mg/dL (8.5-10.1); Carbon Dioxide 23.9 mMol/L (20.0-31.0); Chloride 105 mMol/L (98-107); Creatinine (Component) 0.6 mg/dL (0.6-1.3); Free T4 (Free Thyroxine) 1.51 ng/dL (0.89-1.76); Globulin 2.3 gm/dL (2.3-3.5); Glucose 116 mg/dL (74-106); Osmolality,Calculated 281 (275-295); Potassium 3.9 mMol/L (3.4-5.1); Sodium 140 mMol/L (136-145); Thyroid Stimulating Hormone 0.56 uIU/mL (0.55-4.78); Total Protein 6.7 gm/dL (5.7-8.2); eGFR > 60 See Note
--- NOTE | 2025-10-27 23:31 | CTCFLWUP_ITS ---
Patient: ROLLY FERRO : 1985 Page 2 of 2 FOLLOW UP NOTE DATE OF SERVICE: 10/22/2025 NAME: ROLLY FERRO ACCOUNT: [id number] : 1985 AGE: 39 INTERVAL HISTORY: patient received last cycle with the Adriamycin and cyclophosphamide. Patient became neutropenic. Plan is to reduce cyclophosphamide by 10% and add IV fluids. Patient advised to come back after 1 week of chemotherapy for IV fluids and will do lab checks to see if patient responded to Neulasta 6 mg and if not we will supplement with Neupogen. Medications and Supplements - Protein shakes (Insure or Premier Protein) - Coffee - Ativan 1 mg - For anxiety and to help relax before chemotherapy - Chemotherapy - Causing weakness - Patient has completed 2 cycles Review of Systems General: Positive for muscle aches. Skin: Positive for skin matthew, scalp rash. HEENT: Positive for headaches. Cardiovascular: Positive for tachycardia. Respiratory: Positive for dyspnea. Musculoskeletal: Positive for shoulder pain. Psychiatric: Positive for anxiety. Objective Vital Signs - Heart Rate: 118-120 bpm Physical Examination Musculoskeletal: Pain elicited when shoulders are manipulated. Significant tightness noted in shoulder area. Skin: Matthew of the skin observed. Rash present on scalp. )ONCOLOGY HISTORY: ONCOLOGY HISTORY: DIAGNOSIS: Malignant neoplasm of upper-outer quadrant of right female breast [ICD10] C50.411 Malignant neoplasm of upper-outer quadrant of right female breast [ICD10] C50.411 DATE OF DIAGNOSIS: STAGE/TNM: TREATMENT HISTORY: Care?Plan Start?Date Cycle Day Intent TNBC?Pembro?17?cy?TaxCar?4?cy?AC?4?cy?Keynote?522 07/19/2025 1 21 Curative?(adjuvant) HISTORY OF PRESENT ILLNESS: 39-year-old female 08/28/2024 mammogram showed abnormality in the right breast 02/05/2025 ultrasound of the right breast showed lesion concerning for malignancy 04/03/2025 right breast biopsy showed infiltrating ductal carcinoma high-grade grade 3 ER negative VT negative Ki-67 50% HER2 -1+ low and patient was referred to oncology 06/06/2025 patient seen by radiation oncologist Dr. Young. Right breast showed 5.1 x 3.3 cm mass and right axilla lymph node 2.2 x 1.5 cm documented on the ultrasound from 02/05/2025. Orders placed for PET CT scan port placement and patient referred to medical oncology 06/28/2025 patient seen by oncology. 6 stat orders placed for chemotherapy based on keynote trial. Expedited orders placed for port catheter placement and echocardiogram. Chemo can be started while waiting for echocardiogram PET CT scan pending Will wait for brain MRI. OTHER MEDICAL HISTORY/CONDITIONS: Right breast infiltrating ductal carcinoma - dx 04/03/25 Diabetes Arthritis DENIES FAMILY HISTORY: Patient?denies?family?cancer?history. 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 Tobacco?Use:?DENIES ETOH?Use:?DENIES Drug?Note:?DENIES Social History Note:?LIVES WITH 3 CHILDREN [employer] HISTORY: Menarche?-?Age:?13 Date?LMP:?05/30/2025 Hormone?Use:?DEPO?X?3?YRS :?4 Live?Births:?4 Age?1st?:?13 MEDICATIONS: 1. CeleBREX - 50 mg 1 Capsule Twice a Day 2. clindamycin phosphate - 1 % 1 Jar Daily 3. Compazine - 5 mg 5 mg Daily 4. Janumet - 50-1,000 mg 1 tab Twice a Day 5. metFORMIN - 1,000 mg 1 tab Daily 6. ondansetron - 8 mg 8 mg Daily?Palabra Meds? Medications Last Reconciled by Maria Guadalupe Chávez MD on 10/22/2025 ALLERGIES: No Known Drug Allergies REVIEW OF SYSTEMS: A complete 14-point review of systems was performed and is negative except as noted in interval history. PHYSICAL EXAMINATION:?CloneBlock PE? VITAL SIGNS: Temperature?98.4, B/P?117/82, Oxygen?Saturation?97% Weight?164?lbs (Change?since?10/12/25:?-10.4?lbs) PAIN: 0 - No pain ECOG Performance Status: 1 - Symptomatic; ambulatory; restricted in strenuous activity GENERAL APPEARANCE: Appears well, in no apparent distress, appropriately interactive. HEENT: Normocephalic, no temporal wasting, normal conjunctiva, no scleral icterus, normal hearing, lips without lesions, neck normal range of motion. CARDIOVASCULAR: Not assessed. PULMONARY: Normal respiratory effort, no respiratory distress or use of accessory muscles, speaking in full sentences, no tachypnea. EXTREMITIES: No pedal edema or cyanosis. SKIN: Normal skin appearance. NEUROLOGIC: Alert and oriented x4. PSHYCHIATRIC: Appropriate affect, mood normal, behavior normal, intact thought and speech. Breast examination shows large breast lesion and enlarged lymph node LABORATORY DATA: I have personally reviewed and interpreted each of the patient?s relevant lab tests, abnormal findings are below: Date 10/21/25 10/22/25 ??WHITE?BLOOD?COUNT?(Thou/mm3) 2.3?L 4.0 ??RED?BLOOD?COUNT?(Miln/mm3) 2.64?L 2.86?L ??HEMOGLOBIN?(gm/dl) 8.5?L 9.0?L ??HEMATOCRIT?(%) 23.5?L 25.5?L ??PLATELET?COUNT?(Thou/mm3) 31?L 33?L ??NEUTROPHILS?%,?AUTO?(%) 39 51 ??LYMPH?%,?AUTO?(%) 33 23 ??NEUTROPHILS,?AUTO?(Thou/mm3) 0.9?L 2.0 ??GLUCOSE,RANDOM?(mg/dL) ? 248?H ??BLOOD?UREA?NITROGEN?(mg/dL) ? 10 ??CREATININE?(mg/dL) ? 0.60 ??SODIUM?(mmol/L) ? 142 ??POTASSIUM?(mmol/L) ? 3.8 ??CHLORIDE?(mmol/L) ? 106 ??CrCl?(CandG)?(ml/min) ? 122.88 ??AST/SGOT?(Unit/L) ? 12 ??ALT/SGPT?(Unit/L) ? 16 ??ALKALINE?PHOSPHATASE?(Unit/L) ? 55 ??BILIRUBIN,?TOTAL?(mg/dL) ? 0.5 ??PROTEIN?TOTAL?(gm/dl) ? 5.9 ??ALBUMIN,?SERUM?(gm/dl) ? 3.9 ??GLOBULIN?(gm/dl) ? 2.0?L ??ALBUMIN/GLOBULIN?RATIO ? 2.0 ??CALCIUM,?SERUM?(mg/dL) ? 9.2 ??CALCIUM?SERUM?(CORRECTED)?(mg/dL) ? 9.3 ??MAGNESIUM?(mg/dL) ? 1.5?L ASSESSMENT/PLAN:?Luc King Assessment/Plan? Triple negative breast cancer Patient is on chemotherapy neoadjuvantly Patient's tumor size has reduced in size Patient had severe neutropenia with the last chemo cycle Electrolyte abnormalities Patient advised to take magnesium daily Will add IV fluids Already on Neulasta Will reduce cyclophosphamide by 10% Continues closely monitoring and will proceed with the next cycle Headache Assessment: Patient reports daily headaches, likely multifactorial in etiology. Contributing factors may include chemotherapy-induced muscle weakness, eye strain, and possible caffeine withdrawal. We cannot rule out metastatic disease Plan: MRI brain to evaluate metastatic disease - Recommend consistent use of prescription eyewear - Advise on proper posture (shoulders back, lift bust) - Consider protein shakes (e.g., Ensure, Premier Protein) for nutritional support Myalgia Assessment: Patient reports shoulder pain, which is exacerbated by poor posture. Physical examination reveals significant muscle tightness in the shoulder area. Plan: - Prescribe muscle relaxant for nighttime use - Recommend posture-supporting belt - Educate on proper posture techniques Dermatitis of scalp Assessment: Patient presents with scalp irritation and rash following chemotherapy-induced alopecia. Scalp is sensitive to touch, suggesting possible inflammation or dermatitis. Plan: - Recommend application of minor-infused coconut oil twice daily - Prescribe topical steroid cream for scalp - Advise against scratching or irritating the scalp - Suggest use of cold cap therapy during chemotherapy to reduce pain and sensitivity Hyperpigmentation Assessment: Patient exhibits matthew of the skin, which may be due to chemotherapy side effects or possible iron deficiency. Plan: - Order iron studies - Recommend twice-daily application of sunscreen - Advise sun avoidance - Consider IV iron supplementation pending lab results Anxiety Assessment: Patient experiences anxiety before chemotherapy treatments, manifesting as dyspnea and tachycardia (heart rate up to 132 bpm noted previously). Plan: - Prescribe Ativan 1 mg tablet PRN for anxiety, especially before chemotherapy treatments - Educate on proper use and potential for habit formation - Recommend distraction techniques (e.g., music, watching shows) during chemotherapy - Teach vagus nerve stimulation technique (rubbing behind the ear ORDERS: Order # Description [id number] Comprehensive Metabolic Panel - 12 + CBC with Auto Diff [id number] Iron Panel + Ferritin + Vitamin B-12 + Folic Acid; Serum [id number] Follow Up 2 Months [id number] CBC + Comprehensive Metabolic Panel [id number] Lab Appointment ORDERS: Order # Description [id number] CBC + Comprehensive Metabolic Panel [id number] Lab Appointment [id number] CBC + Comprehensive Metabolic Panel [id number] Lab Appointment [id number] CBC + Comprehensive Metabolic Panel [id number] Lab Appointment [id number] Cardiac ECHO [id number] CBC + Comprehensive Metabolic Panel [id number] Lab Appointment [id number] CBC + Comprehensive Metabolic Panel [id number] Lab Appointment [id number] CBC + Comprehensive Metabolic Panel [id number] Lab Appointment [id number] CBC + Comprehensive Metabolic Panel [id number] Lab Appointment [id number] CBC + Comprehensive Metabolic Panel [id number] Lab Appointment [id number] CBC + Comprehensive Metabolic Panel [id number] Lab Appointment [id number] CBC + Comprehensive Metabolic Panel [id number] Lab Appointment [id number] CBC + Comprehensive Metabolic Panel [id number] Lab Appointment [id number] CBC + Comprehensive Metabolic Panel [id number] Lab Appointment RETURN TO CLINIC: I reviewed the diagnosis, prognosis, and recommended treatment/procedure options with the patient (and/or their legal circulation sales representative), including the potential benefits, risks, side effects and alternative therapies. We also discussed the option of no treatment and the possibility of clinical trial participation, if applicable. All questions were addressed, and they demonstrated understanding. They provided informed consent to proceed with the proposed plan of care. BILLING AND COMPLIANCE: I reviewed external records from providers outside my specialty as summarized above. I spent a total of 50 minutes on this patient?s care on the day of their visit excluding time spent related to any billed procedures. This time includes time spent with the patient as well as time spent documenting in the medical record, reviewing patients records and tests, obtaining history, placing orders, communicating with other healthcare professionals, counseling the patient, family or caregiver, and/or care coordination for the diagnoses above. Electronically Signed by: Guille King MD T: 11:29 PM CC: PCP: Referring: Shannon Benson This document was completed utilizing speech recognition software. Grammatical errors, random word insertions, pronoun errors, and incomplete sentences are an occasional consequence of this system due to software limitations, ambient noise, and hardware issues. Any formal questions or concerns about the content, text or information contained within the body of this dictation should be directly addressed to the provider for clarification.
== END 2025-10-28 23:59 | disposition home or self-care (01) ==
LOC: SCTC 14:11
PROVIDERS: PCP Nurse Practitioner Family; Referring Provider Nurse Practitioner Family; Visit Provider Internal Medicine Hematology & Oncology
DX: Z51.11 Encounter for antineoplastic chemotherapy (principal); C50.411 Malignant neoplasm of upper-outer quadrant of right female breast; Z17.421 Hormone receptor negative with human epidermal growth factor receptor 2 negative status; L30.9 Dermatitis, unspecified; R51.9 Headache, unspecified; L81.9 Disorder of pigmentation, unspecified; F41.9 Anxiety disorder, unspecified; M25.519 Pain in unspecified shoulder; D70.9 Neutropenia, unspecified; E87.8 Other disorders of electrolyte and fluid balance, not elsewhere classified
CPT/HCPCS: 36591; 80053; 84439; 84443; 84703; 85025; 96360; 96367; 96372; 96375; 96413; 96417; 99212; A4216; J1100; J1434; J1642; J2405; J3490; J7030; J7040; J7050; J9000; J9045; J9075; J9267; J9271; Q5122; A9270; G0463; J2506

== ENCOUNTER → 2025-10-30 | Outpatient (CLI) | payer MEDICAID, SELFPAY ==
--- NOTE | 2025-10-30 09:30 | ECHO_ITS ---
Patient Info Name: Kylie Marquez Age: 39 years : 1985 Gender: Female Ht: 157 cm Wt: 73 kg BSA: 1.81 m2 BP: 105 / 79 mmHg Exam Date: 10/30/2025 9:29 AM Admit Date: 10/30/2025 Site: [facility] Room Number: OP Patient Status: O Exam Type: CA echo doppler complete Clinical Case Manager: Marta Snell Ordering Physician: Guille King Referring Physician: Guille King Study Info Indications Malignant neoplasm of upper-outer quadrant of right female b - Primary Location: SDIM Left Ventricular Outflow Tract Name Value Normal LVOT 2D LVOT Diameter 1.9 cm LVOT Doppler LVOT Peak Velocity 98 cm/s LVOT Mean Gradient 2 mmHg LVOT VTI 19 cm LVOT VTI/AV VTI Ratio 0.8 LVOT Stroke Volume 52 ml Pulmonic Valve Name Value Normal PV Doppler PV Peak Velocity 95 cm/s Mitral Valve Name Value Normal MV Doppler MV Decel Cavalier 1,066 cm/s2 MV PHT 19 ms MV Area (PHT) 11.3 cm2 4.0-5.0 MV Diastolic Function MV E Peak Velocity 71 cm/s MV A Peak Velocity 96 cm/s MV E/A 0.7 MV Annular TDI MV Septal e' Velocity 11.9 cm/s MV E/e' (Septal) 6.0 MV Lateral e' Velocity 14.2 cm/s MV E/e' (Lateral) 5.0 MV e' Average 13.05 cm/s MV E/e' (Average) 5.5 Tricuspid Valve Name Value Normal TV Regurgitation Doppler TR Peak Velocity 198 cm/s Estimated PAP/RSVP RA Pressure 3 mmHg <=5 PA Systolic Pressure 19 mmHg <36 RV Systolic Pressure 19 mmHg <36 TV Annular TDI TV Lateral Ayesha s' Velocity 18.3 cm/s >=9.5 Aortic Valve Name Value Normal AV 2D/MM AV Cusp Sep (MM) 1.8 cm AV Doppler AV Peak Velocity 141 cm/s AV Mean Gradient 4 mmHg AV VTI 22 cm AV Area (Cont Eq VTI) 2.3 cm2 >=3.0 AV Area (Cont Eq Aramis) 2.0 cm2 AV DI (Aramis) 0.69 AV Regurgitation 2D LVOT Area 2.8 cm2 Ventricles Name Value Normal LV Dimensions 2D/MM IVS Diastolic Thickness (2D) 1.0 cm 0.6-0.9 LVID Diastole (2D) 3.8 cm 3.8-5.2 LVIW Diastolic Thickness (2D) 1.0 cm 0.6-0.9 LVID Systole (2D) 2.6 cm 2.2-3.5 LVOT Diameter 1.9 cm LV Mass (2D Cubed) 117.28 g 67.00-162.00 LV Mass Index (2D Cubed) 65 g/m2 43-95 Relative Wall Thickness (2D) 0.53 <=0.42 IVS/LVIW Diastolic Thickness (2D) 1.00 0.00-1.50 LV Fractional Shortening/Ejection Fraction 2D/MM LV Fractional Shortening (2D) 32 % 27-45 LV EF (2D Teichholz) 60 % RV Dimensions 2D/MM TV Lateral Ayesha s' Velocity 18.3 cm/s >=9.5 Atria Name Value Normal LA Dimensions LA Volume (4C A-L) 39 ml LA Volume (BP A-L) 39 ml Left Ventricle Left ventricular chamber dimension is normal. Left ventricular systolic function is normal with visually estimated ejection fraction of 60-65%. There is mild concentric hypertrophy noted in the left ventricle. Left ventricular segmental wall motion is normal. There is grade I diastolic dysfunction in the left ventricle. Right Ventricle Right ventricular chamber dimension is normal. Right ventricular systolic function is normal. Left Atrium Left atrial chamber dimension is mildly enlarged. Right Atrium Right atrial chamber dimension is normal. Aortic Valve The aortic valve is trileaflet. There is no aortic valve sclerosis. There is no aortic valve stenosis with a peak velocity of 141 cm/s, mean gradient of 4 mmHg, and aortic valve area of 2.3 cm2. There is no aortic valve regurgitation. Pulmonic Valve The pulmonic valve is normal. There is no pulmonic valve stenosis. There is no pulmonic regurgitation. Mitral Valve The mitral valve has normal leaflets. There is no mitral valve stenosis. There is trace mitral valve regurgitation. Tricuspid Valve The tricuspid valve leaflets are normal. There is no tricuspid valve stenosis. There is trace tricuspid valve regurgitation. No pulmonary hypertension, estimated pulmonary arterial systolic pressure is 19 mmHg and systemic blood pressure of 105 mmHg in systole. Pericardium/Pleural The pericardium appears normal. There is trivial pericardial effusion with no tamponade. No pleural effusion visualized. Inferior Vena Cava Normal inferior vena cava with >50% collapse upon inspiration consistent with normal right atrial pressure, 3 mmHg. Aorta The aortic measurements are indexed to age and body surface area. The aortic root at the sinus of Valsalva is not well visualized. The prox ascending aorta is not well visualized. Summary 1. Left ventricle size is normal and systolic function is normal. Estimated ejection fraction is 60-65%. There is grade I diastolic dysfunction. 2. Right ventricle chamber size is normal and systolic function is normal. Estimated RVSP is 19 mmHg. 3. There is trace mitral valve regurgitation. 4. There is trace tricuspid valve regurgitation. 5. The left atrium is mildly enlarged. The right atrium is normal. 6. Normal IVC with estimated RA pressure 3 mmHg. Report Signatures Finalized by Gabriele Kline on 10/30/2025 05:12 PM
== END | disposition home or self-care (01) ==
LOC: SDIM 09:09
PROVIDERS: PCP Family Medicine; Referring Provider Internal Medicine Hematology & Oncology; Visit Provider Internal Medicine Hematology & Oncology
DX: I08.1 Rheumatic disorders of both mitral and tricuspid valves (principal); I51.7 Cardiomegaly; I50.30 Unspecified diastolic (congestive) heart failure; C50.411 Malignant neoplasm of upper-outer quadrant of right female breast
CPT/HCPCS: 93306

== ENCOUNTER 2025-11-04 22:46 | Observation (INO) | payer MEDICAID, SELFPAY ==
[2025-11-04 22:46] VITALS: PULSE 120; RESP 20; O2SAT 98; BMI 29.2
[2025-11-04 22:48] VITALS: BP 125/82; PULSE 118; RESP 18; TEMP 36.9; O2SAT 100; BMI 29.2
--- NOTE | 2025-11-04 23:43 | PD.EDADULT ---
ED General RME/HPI General Chief complaint: General Adult/Misc Complain Stated complaint: WEAKNESS Arrival date/time: 11/04/25 22:41 RME / HPI RME / HPI narrative: Dr. Carlson?s Main ED Evaluation: 39yo female who is currently undergoing chemotherapy for breast CA presenting by EMS for a panic episode characterized by shortness of breath leading to hyperventilation and perioral and hand paresthesias. Patient endorses having chills, which she has had previously in the setting of hypomagnesemia and thrombocytopenia. No recent productive cough, dysuria, or diarrhea. Related Data Home Medications ?Medication ?Instructions ?Recorded ?Confirmed metformin 1,000 mg tablet 1,000 mg PO QDAY 07/05/25 07/05/25 sitagliptin phosphate 50 1 tab PO BID 07/05/25 07/05/25 mg-metformin 1,000 mg tablet (Janumet) Previous Rx's ?Medication ?Instructions ?Recorded rizatriptan 10 mg disintegrating See Rx Instructions PO .COMPLEX 07/18/25 tablet (Maxalt-MEDICAL TRANSCRIPTION RADIOLOGY) #14 tabs cefdinir 300 mg capsule 300 mg PO BID #14 caps 10/14/25 lorazepam 2 mg tablet (Ativan) 2 mg PO BID PRN anxiety #20 tabs 10/14/25 ondansetron 4 mg disintegrating 4 mg PO TID PRN nausea and 10/14/25 tablet vomiting 30 days #10 tabs magnesium glycinate 100 mg (as 100 mg PO QDAY 1 month #30 tabs 10/22/25 glycinate) tablet (Mag Glycinate) Allergies Allergy/AdvReac Type Severity Reaction Status Date / Time No Known Allergies Allergy Verified 11/04/25 22:46 Review of Systems Review of Systems Systems Reviewed: All systems reviewed, normal except as documented Past Medical History Past Medical History CARDIAC: Negative Cardiac Disorders or Congestive Heart Failure RESPIRATORY: Negative Chronic Obstructive Pulmonary Disease (COPD) or Asthma GASTROINTESTINAL: Negative Gastrointestinal Disorders GENITOURINARY: Positive Kidney Stones; Negative Renal Disease REPRODUCTIVE: Positive Breast Cancer MUSCULOSKELETAL: Positive Arthritis ENDOCRINE: Positive Endocrine Disorders and Diabetes Mellitus Type 2; Negative Diabetes Mellitus Type 1 HEMATOLOGIC: Negative Sickle Cell Disease OTHER HISTORY: Positive Hospitalization, Chemotherapy, Cancer and Breast Cancer; Negative Falls, Blood Transfusions or Anesthesia Reactions Surgical History SURGICAL: Positive Tubal Ligation Social History SMOKING STATUS: Never smoker SUBSTANCE USE: does not use ED Exam Narrative Physical exam: GENERAL APPEARANCE: alert and oriented x 4, well-developed, well-nourished, no acute distress VITALS: All vitals were reviewed and the pulse ox is 100% on room air, which is normal according to my interpretation. HEENT: Normocephalic, atraumatic; pupils equal, round, reactive to light; EOMI; mucous membranes pink, moist; oropharynx clear NECK: Supple LUNGS: CTABL; no wheezes, no rales, no rhonchi HEART: Regular rate, regular rhythm; normal S1, S2; no murmurs ABDOMEN: non distended; normal BS; soft, no tenderness, no guarding, no rebound; no masses, no organomegaly, no hernia BACK: no CVA tenderness EXTREMITIES: atraumatic; no edema NEUROLOGIC: awake; alert and oriented x4; cranial nerves II-XII grossly intact; no focal sensory or motor deficits PSYCHIATRIC: appropriate mood and affect SKIN: warm, dry, normal color; no rashes Course Quality Measures none Orders Category Date Time Status Stitching Machine Feeder Or Offbearer STAT Care 11/04/25 23:51 Active Continuous Pulse Oximetry STAT Care 11/04/25 23:51 Completed EKG (ED ONLY) *Do not use* NOW Care 11/04/25 23:51 Completed Insert IV NOW Care 11/04/25 23:51 Active NPO STAT Care 11/04/25 23:51 Active Strict Intake and Output Routine Care 11/04/25 23:51 Ordered EKG (ED Only) Stat Exams 11/04/25 23:51 Ordered XR chest 1V portable Stat Exams 11/04/25 23:52 Taken Blood Culture (Lab) Stat Lab 11/04/25 23:51 Received CBC Stat Lab 11/04/25 23:51 Completed Comprehensive Metabolic Panel Stat Lab 11/04/25 23:51 Completed Lactate (Lactic Acid) Stat Lab 11/04/25 23:51 Results Lipase Stat Lab 11/04/25 23:51 Completed Magnesium Stat Lab 11/04/25 23:51 Completed Phosphorous Stat Lab 11/04/25 23:51 Completed Procalcitonin Stat Lab 11/04/25 23:51 Completed Troponin I Stat Lab 11/04/25 23:51 Completed Urinalysis, C/S if Indicated Stat Lab 11/04/25 23:40 Completed Urine Culture Stat Lab 11/04/25 23:40 Received Magnesium Sulfate 4 GM Ivpb [Magnesium Sulfate Ivpb] Med 11/05/25 02:40 Active 4 gm in 50 ml IV X1 Sodium Chloride 0.9% 1000 ml [Ns] 1,503 ml Med 11/04/25 23:51 Discontinued IV 1,503 mls/hr cefTRIAXone/D5w 1gm IV premix [Rocephin/D5w 1gm IV Med 11/05/25 02:42 Active premix] 1 gm in 50 ml IV X1 Oxygen Delivery NOW RT 11/04/25 23:51 Active Vital Signs Vital signs: Vital Signs Temperature 98.5 F 11/04/25 22:48 Pulse Rate 118 H 11/04/25 22:48 Respiratory Rate 18 11/04/25 22:48 Blood Pressure 125/82 11/04/25 22:48 Pulse Oximetry (%) 100 11/04/25 22:48 Oxygen Delivery Method Room Air 11/04/25 22:48 Discharge Plan Plan Patient Disposition: Admit Acute Care w/in Hospital Prescriptions/Referrals Prescriptions/Med Rec: No Action rizatriptan [Maxalt-[facility] TRANSCRIPTION RADIOLOGY] 10 mg tablet,disintegrating See Rx Instructions .ROUTE .COMPLEX Qty: 14 0RF Rx Instructions: take 1 tab at onset of headache; if no relief may repeat 1 tab after at least 2 hrs; max = 3 tabs/24 hr Mag Glycinate 100 mg tablet 100 mg PO QDAY 30 Days Qty: 30 0RF Janumet 50-1,000 mg tablet 1 tab PO BID metformin 1,000 mg tablet 1,000 mg PO QDAY cefdinir 300 mg capsule 300 mg PO BID Qty: 14 0RF lorazepam [Ativan] 2 mg tablet 2 mg PO BID PRN (Reason: anxiety) Qty: 20 0RF ondansetron 4 mg tablet,disintegrating 4 mg PO TID PRN (Reason: nausea and vomiting) 30 Days Qty: 10 0RF Referrals: Olegario Haley MD [Primary Care Provider, Family Practice] - In 1 week Problem List Clinical Impression: Hypomagnesemia, UTI (urinary tract infection), Lactic acidosis Patient/Caregiver Discharge Instructions Print Language: [place] Islander Stand Alone Forms: Radha Award Info., Patient Portal Info Letter MDM Narrative MDM hospital course (for use when minimal MDM required): Scribe Attestation: 11/04/25 Jen Shelby, leland scribing for and in the presence of Dr. Carlson. 39yo female who is currently undergoing chemotherapy for breast CA presenting by EMS for a panic episode characterized by shortness of breath leading to hyperventilation and perioral and hand paresthesias. Patient endorses having chills, which she has had previously in the setting of hypomagnesemia and thrombocytopenia. Please see PE findings. Labs demonstrated elevated WBC count 13.5, Hgb stable at 8.7, Plt at 389, no left shift or bandemia. Chemistries demonstrated Na 143, Glucose 243, normal renal function. Lactic Acid 5.8. Mg 1.0. Troponin undetected. UA with evidence of UTI. Patient hydrated with saline and treated with empiric IV antibiotics. Patient additionally received magnesium IV supplementation. Patient hemodynamically improved, slight reduction in HR, and remains normaltensive. Hospitalist consulted for consideration of admission. Dx: UTI, hypomagnesemia, lactic acidosis Clinical Information Provided by: patient Medical Records reviewed [facility] [place] (Per chart review, patient was admitted here on 10/18/25 for hypomagnesemia.) Meds/Rx considered, not ordered None Labs/Rad/Tests considered, not ordered None Chronic Illness/Social Conditions Explain: Hx breast CA, DMII EKG Interpretation EKG #1: EKG Interpretation: EKG done at 0034, sinus tachycardia, rate of 104, no acute pathological ST segment changes, no ectopy, normal intervals, normal axis, according to my interpretation. Labs Labs: interpreted by me Imaging Imaging interpretation: interpreted by me Imaging Interpretation(s): CXR shows normal cardiac silhouette, no infiltrates, no pleural effusions, according to my interpretation. Medication Administration(s) Medication Administration History Magnesium Sulfate (Magnesium Sulfate Ivpb) 4 gm in 50 mls @ 12.5 mls/hr IV X1 ONE Stop: 11/05/25 06:39 Ceftriaxone Sodium/Dextrose (Rocephin/D5w 1gm Iv Premix) 1 gm in 50 mls @ 100 mls/hr IV X1 ONE Stop: 11/05/25 03:11 Discontinued Medications Sodium Chloride (Ns) 1,503 mls @ 1,503 mls/hr 30 ml/kg infuse over 60 min (1503 ml) IV .Q1H ONE Stop: 11/05/25 00:50 Last Infusion: 11/05/25 01:54 Dose: Infused Documented By: Admin: 11/05/25 00:51 Dose: 1,503 mls/hr Documented By: SENIA see above Diagnosis Differential Diagnosis ED Complaint MDM: dehydration, UTI, electrolyte abnormality, panic attack
--- NOTE | 2025-11-04 23:52 | XR_ITS ---
EXAMINATION: AP chest single view TECHNIQUE: AP portable upright chest single view Date and time: October,, 0019 hours, comparison October 18, 2025 INDICATION: Shortness of breath today. FINDINGS: Minor subsegmental atelectasis right base Normal heart size Lungs are clear Intact osseous structures IMPRESSION: Minor atelectasis at the right lung base
[2025-11-05] VITALS (9 sets, daily range): BP systolic 118–130; BP diastolic 70–88; PULSE 95–106; RESP 13–98; TEMP 36.2–36.8; O2SAT 98–100; BMI 32.8
[2025-11-05 00:12] LABS: Collection Type, Urine Clean Catch
[2025-11-05 00:47] LABS: Basophils # (Auto) 0.1 Thou/mm3 (0.0-0.2); Basophils % (Auto) 1 % (0-2.5); Eosinophils # (Auto) 0.0 Thou/mm3 (0.0-0.5); Eosinophils % (Auto) 0 % (0-10); Hematocrit 26.0 % (36.0-46.0); Immature Granulocytes Auto 3.08 Thou/mm3 (0.00-0.00); Lactate (Lactic Acid) 5.8 mMol/L (0.4-2.0); Lymphocytes # (Auto) 1.2 Thou/mm3 (1.0-4.8); Lymphocytes % (Auto) 9 % (10-50); Mean Corpuscular HGB Conc 33.5 g/dl (31.0-37.0); Mean Corpuscular Hemoglobin 32.0 pg (25.0-35.0); Mean Corpuscular Volume 96 fL (80-100); Monocytes # (Auto) 0.6 Thou/mm3 (0.0-0.8); Monocytes % (Auto) 4 % (0-12); Neutrophils # (Auto) 8.6 Thou/mm3 (1.8-7.7); Neutrophils % (Auto) 63 % (37-80); Nucleated Red Blood Cell # 0.00 Thou/mm3 (0.00-0.00); Nucleated Red Blood Cell % 0 /100 WBC (0); Platelet Count 389 Thou/mm3 (140-440); RDW Standard Deviation 55.9 fL (36.4-46.3); Red Blood Count 2.72 Miln/mm3 (4.00-5.20); White Blood Count 13.5 Thou/mm3 (3.6-11.0)
--- NOTE | 2025-11-05 00:49 | PC.NURSE ---
pt refused in and out cath
[2025-11-05] MEDS: SODIUM CHLORIDE 0.9% 1000 ML 1,503 ML 1503 ML IV (00:51)
[2025-11-05 00:53] LABS: Bacteria,Urine 2+; Bilirubin,Urine Negative (Negative); Blood,Urine Negative (Negative); Clarity,Urine Clear (Clear/Hazy); Color,Urine Colorless (Lt Yel-Yel); Glucose, Urine 1+ (Negative); Ketones,Urine Negative (Negative); Leukocyte Esterase,Urine Positive (Negative); Nitrite,Urine Negative (Negative); PH,Urine 7.0 (5.0-7.0); Protein,Urine Negative (Neg - Trace); RBC,Urine 3 /hpf (0-3); Specific Gravity,Urine 1.010 (1.001-1.035); Squamous Epithelial Cell,Urine 2 /hpf (0-5); Urobilinogen,Urine Negative mg/dL (0.0-1.0); WBC,Urine 5 /hpf (0-5)
[2025-11-05 00:59] LABS: Culture Indicated,Urine Yes
[2025-11-05 01:01] LABS: Hemoglobin 8.7 g/dL (12.0-16.0)
[2025-11-05 01:17] LABS: Alanine Aminotransferase 18 U/L (10-49); Albumin, Serum 3.6 gm/dL (3.5-5.0); Albumin/Globulin Ratio 1.7 (1.2-2.2); Alkaline Phosphatase 84 U/L (46-116); Anion Gap 13 (7-16); Aspartate Amino Transferase 16 U/L (0-34); BUN/Creatinine Ratio 22 Ratio (12-20); Bilirubin,Total 0.4 mg/dL (0.3-1.2); Blood Urea Nitrogen 13 mg/dL (9-23); Calcium 9.0 mg/dL (8.3-10.6); Calcium (Corrected) 9.3 mg/dL (8.5-10.1); Carbon Dioxide 23.3 mMol/L (20.0-31.0); Chloride 107 mMol/L (98-107); Creatinine (Component) 0.6 mg/dL (0.6-1.3); Estimated Creatinine Clearance 115.1 mL/min (>60); Globulin 2.1 gm/dL (2.3-3.5); Glucose 243 mg/dL (74-106); Lipase 46 U/L (12-53); Osmolality,Calculated 293 (275-295); Phosphorous 2.5 mg/dL (2.4-5.1); Potassium 3.8 mMol/L (3.4-5.1); Procalcitonin 0.19 ng/ml (0.0-0.49); Sodium 143 mMol/L (136-145); Total Protein 5.7 gm/dL (5.7-8.2); Troponin I < 0.020 ng/mL (0.0-0.045); eGFR > 60 See Note
[2025-11-05 01:25] LABS: Magnesium 1.0 mg/dL (1.6-2.6)
[2025-11-05] MEDS: cefTRIAXone/D5w 1gm IV premix 1 GM/50 ML BAG IV (02:57)
--- NOTE | 2025-11-05 03:13 | XR_ITS ---
Examination: Venous duplex lower extremity sonogram, bilateral. Date and time of exam: November 05, 2025, 0326 hours INDICATIONS: Bilateral leg swelling and edema today Technique: Multiple sonographic images of the deep venous system have been obtained. B-mode/2-D grayscale imaging of vascular structures and Doppler spectral analysis (waveforms) and color performed Both legs are examined. Findings: Deep venous systems do not demonstrate abnormal echogenicity. All visualized deep veins exhibit compressibility. All visualized deep veins exhibit augmentation. Impression: Negative for deep vein thrombosis
--- NOTE | 2025-11-05 03:40 | ESHP_ITS ---
<Statement entered by Francois Glass MD - 11/05/25 06:38> I have personally seen and examined the patient, agree with residents assessment and plan Patient plan of care was discussed with the attending physician, Dr. Iram Glass, PGY2 Documentation for date of: 11/05/25 HPI History of Present Illness Chief complaint: Perioral & hand paresthesias History of present illness: This patient is a 39-year-old female with history of hypertension, insulin- dependent type 2 diabetes mellitus, infiltrating ductal carcinoma of the right breast (triple negative breast cancer), anxiety, and dermatitis of scalp (secondary to chemotherapy) who presented to [facility] ED on 11/04 for perioral and hand paresthesias. The patient was admitted under observation for lactic acidosis. The patient has a known history of episodes where the patient becomes short of breath with a tightness in her chest, most likely panic attack secondary to her anxiety, to which she has been prescribed lorazepam by her oncologist. She often gets these episodes when she has chemotherapy and occasionally throughout the day, however the patient usually does not comply with taking her lorazepam as needed. The patient usually does not go to the hospital for these attacks, however with this most recent episode, the patient experienced perioral and hand paresthesias as well as intermittent chills, which is new for the patient. As such, the patient went to the ED due to concerns that this may be more than just her anxiety. The patient was previously admitted on 10/18 for neutropenic fever, to which she was treated sufficiently with antibiotics and transfused with 1 unit of PRBC. Her oncologist was contacted by the hospitalist team at that time, and patient was started on filgrastim, which improved her absolute neutrophil count. The patient was discharged on 10/22 and was prescribed levofloxacin to complete her course of antibiotics outpatient. The patient would then follow-up with her hematology oncologist, Dr. King, who would continue the patient's Adriamycin and cyclophosphamide with a reduced dose of cyclophosphamide. Additionally, her hematology oncologist would give the patient Neulasta 6 mg to stimulate WBC production and instructed to follow-up 1 week after chemotherapy, to which the patient stated that she completed last Wednesday. Patient denies any fevers, headaches, abdominal pain, diarrhea, and dysuria. ED course: Patient presented with initial vitals significant for heart rate of 118. Initial labs significant for WBC 13.5, hemoglobin 8.7, lactic acid 5.8, magnesium 1.0, and urinalysis positive for 2+ bacteria with positive leukocyte esterase. Patient received 1.5 L of NS and given one-time dose of ceftriaxone. Past Surgical History: Patient denies Current Medication(s): Pending med rec Allergies (w/ Reactions): NKDA Alcohol Intake: Patient denies Tobacco/Vape Use: Patient denies Other Drug Use: Patient denies Review of Systems Review of Systems Systems Reviewed: All systems reviewed, normal except as documented Exam Vital Signs Temp Pulse Resp BP Pulse Ox O2 Del Method 98.3 F 101 H 14 127/85 H 99 Room Air 11/05/25 00:49 11/05/25 00:49 11/05/25 00:49 11/05/25 00:49 11/05/25 00:49 11/05/25 00:49 Narrative Exam Physical Exam: General: Alert, no acute distress. Non-toxic appearing. Skin: Warm, dry, intact. Head: Normocephalic, atraumatic. Eye: Normal conjunctiva, PERRL. Throat: Oral mucosa dry. No obvious lesions in oropharynx. Cardiovascular: Tachycardic rate and rhythm, no murmur, +S1/S2. Respiratory: Lungs are clear to auscultation, respirations unlabored, no crackles, no wheezing. Gastrointestinal: Soft, nontender, non-distended. No guarding or rebound tenderness. Extremities: Trace pitting edema in BLE up to knees, no cyanosis, no clubbing. 2+ radial pulse bilaterally, 2+ pedal pulse bilaterally. Tender to light palpation in BLE. Neuro: No focal deficits observed. Conversant, moving all extremities. No overt cerebellar signs/incoordination. Psychiatric: Cooperative, appropriate affect. Results: Labs 11/05/25 04:53 11/05/25 04:53 Labs: Short CBC 11/05/25 Range/Units 00:15 WBC 13.5 H D (3.6-11.0) Thou/mm3 Hgb 8.7 L (12.0-16.0) g/dL Hct 26.0 L (36.0-46.0) % Plt Count 389 D (140-440) Thou/mm3 BMP 11/05/25 00:15 Sodium 143 Potassium 3.8 Chloride 107 Carbon Dioxide 23.3 BUN 13 Creatinine 0.6 Glucose 243 H Calcium 9.0 Cardiac Enzymes 11/05/25 Range/Units 00:15 Troponin I < 0.020 (0.0-0.045) ng/mL Liver Function 11/05/25 Range/Units 00:15 Total Bilirubin 0.4 (0.3-1.2) mg/dL AST 16 (0-34) U/L ALT 18 (10-49) U/L Alkaline Phosphatase 84 (46-116) U/L Albumin 3.6 (3.5-5.0) gm/dL Urine 11/04/25 Range/Units 23:40 Urine Color Colorless A (Lt Yel-Yel) Urine Clarity Clear (Clear/Hazy) Urine pH 7.0 (5.0-7.0) Ur Specific [place] 1.010 (1.001-1.035) Urine Protein Negative (Neg - Trace) Urine Glucose (UA) 1+ A (Negative) Quality Measures Quality Measures VTE prophylaxis Medications Home Medications and Allergies Allergies Allergy/AdvReac Type Severity Reaction Status Date / Time No Known Allergies Allergy Verified 11/04/25 22:46 Visit Medications Magnesium Sulfate (Magnesium Sulfate Ivpb) 4 gm in 50 mls @ 12.5 mls/hr IV X1 ONE Stop: 11/05/25 06:39 Magnesium Sulfate (Magnesium Sulfate Ivpb) 2 gm in 50 mls @ 25 mls/hr IV X1 ONE Stop: 11/05/25 05:10 Lactated Ringer's (Lactated Ringers) 1,000 mls @ 125 mls/hr IV .Q8H ONE Stop: 11/05/25 11:31 Discontinued Medications Sodium Chloride (Ns) 1,503 mls @ 1,503 mls/hr 30 ml/kg infuse over 60 min (1503 ml) IV .Q1H ONE Stop: 11/05/25 00:50 Last Infusion: 11/05/25 01:54 Dose: Infused Ceftriaxone Sodium/Dextrose (Rocephin/D5w 1gm Iv Premix) 1 gm in 50 mls @ 100 mls/hr IV X1 ONE Stop: 11/05/25 03:11 Last Infusion: 11/05/25 03:33 Dose: Infused Assessment & Plan Plan This patient is a 39-year-old female with history of hypertension, insulin- dependent type 2 diabetes mellitus, infiltrating ductal carcinoma of the right breast (triple negative breast cancer), anxiety, and dermatitis of scalp (secondary to chemotherapy) who presented to [facility] ED on 11/04 for perioral and hand paresthesias. The patient was admitted under observation for lactic acidosis. #Lactic acidosis #Infiltrating ductal carcinoma of right breast, triple negative #Leukocytosis #History of neutropenic fever Patient has a history of infiltrating ductal carcinoma of the right breast that was found to be triple negative. Initially found on mammogram on 08/28/2024 with subsequent workup identifying the malignancy. The patient currently sees the hematology oncologist Dr. King. Patient was recently started on Adriamycin and cyclophosphamide for chemotherapy management, however patient was noted to have an episode of neutropenic fever after the first round, so peripheral cyclophosphamide dosage was decreased on the patient was put on Neulasta 6 mg to stimulate WBC formation. Diagnostic: Initial labs in ED show WBC of 13.5 and lactic acid of 5.8 Absolute neutrophil count on admission noted to be elevated at 8.6 Treatment: Patient is status post 1.5 L of NS on admission Will give additional 1 L of LR running at 125 mL/h Will follow-up with repeat lactic acid Lactic acid may be secondary to the patient's Janumet (sitagliptin/metformin) use, decreased oral intake, and recent chemotherapy session Venous Doppler of bilateral lower extremity ordered to assess for any DVTs given hypercoagulable state from malignancy, pending #History of anxiety #Likely panic attacks Patient does have a history of episodes where she feels short of breath, becomes tachycardic, becomes tachypneic, and feels a tightness in her chest. Likely panic attacks, especially as these are triggered when the patient takes chemotherapy. The patient has been previously prescribed lorazepam by her hematology oncologist for management of these episodes, however the patient is noncompliant. Unlike other episodes, the most recent one that brought her to the hospital included perioral and hand paresthesias along with intermittent chills. Treatment: Resumed lorazepam 1 mg twice daily as needed for these episodes, pending official med rec Patient to follow-up outpatient Possible recommendation of continuous glucose monitoring as patient has been having significantly decreased oral intake and these may be episodes of hypoglycemia #Severe hypomagnesemia #Perioral and hand paresthesias Magnesium noted to be 1.0 on admission. Patient does have a history of hypomagnesemia and has been prescribed magnesium glycinate at home for management of this condition. Treatment: Replete magnesium as indicated Magnesium oxalate 400 mg daily, patient to resume magnesium glycinate once discharged as it is nonformulary in the hospital #Asymptomatic bacteriuria Patient noted to have 2+ bacteria and positive leukocyte esterase on urinalysis in ED. Patient denies any symptoms associated with a urinary tract infection. Treatment: Blood cultures and urine cultures collected in ED Patient to follow-up outpatient #Insulin-dependent type 2 diabetes mellitus Patient has a history of type 2 diabetes mellitus for which he takes Janumet (sitagliptin/metformin) and insulin at home, however the patient does not know what dose of insulin she takes. Diagnostic: Hemoglobin A1c on 10/14 7.5% Treatment: Sliding scale insulin Bedside glucose checks ACHS Carbohydrate consistent diet Will hold metformin for now given patient presented with lactic acidosis Consider discontinuation of home metformin given active chemotherapy, decreased oral intake, and metformin may cause clinically nonrelevant elevation of lactic acid #Dermatitis of scalp As noted per patient history. Patient presented to her hematology oncologist with scalp irritation and rash following chemotherapy induced alopecia, where it was noted that the scalp was sensitive to touch. Patient was prescribed topical steroid cream for scalp by her hematology oncologist. Treatment: Patient to follow-up with outpatient hematology oncology DVT Prophylaxis: Heparin GI Prophylaxis: N/A Bowel: N/A Diet: Carbohydrate consistent Pool: N/A Lines: PIV Antibiotics: N/A Code Status: FULL Reason for Hospitalization: Lactic acidosis Other Barriers to Discharge: N/A Patient plan of care was discussed with the senior resident Dr. Glass (PGY-2) and attending physician Dr. Iram Delgado, PGY1 Attending Provider Attestation/Addendum After examination of the patient and review of the clinical data I feel that this patient needs admission to the hospital for further treatment/evaluation. Plan of care discussed with patient and is in agreement. I Kei Walden MD, attest that I was physically present for sykes portions of evaluation, and examined patient, labs and imagings and plan of care were discussed with IM residents team, and I agree with the findings and plans documented above.
[2025-11-05 03:41] LABS: Reflex Lactate? Y
--- NOTE | 2025-11-05 04:01 | PRELIM_ITS ---
Bilateral lower extremity venous Doppler ultrasound. November 05, 2025 0326 hours Clinical history: To R/o DVT Technique: Duplex scan of the bilateral lower extremity deep venous systems was performed utilizing 2D grayscale imaging, Doppler spectral analysis and color flow Doppler and with compression. Comparison: No prior study is available for comparison. Findings: Addison scale, color flow and spectral Doppler evaluation of the lower extremity deep veins was performed. Right: The common femoral, superficial femoral and popliteal veins are patent and compressible. Normal respiratory variation is noted. There is no evidence of occlusive or nonocclusive thrombus. The great saphenous vein is patent at the level of the saphenofemoral junction. . Left: The common femoral, superficial femoral and popliteal veins are patent and compressible. Normal respiratory variation is noted. There is no evidence of occlusive or nonocclusive thrombus. The great saphenous vein is patent at the level of the saphenofemoral junction. Impression: No sonographic evidence of deep venous thrombosis in both lower extremities. Report Electronically Signed By: Perla Vazquez 11/05/2025 4:01:29 AM [EST]
[2025-11-05] MEDS: Magnesium Sulfate 4 GM Ivpb 4 GM/50 ML BAG IV (04:51)
[2025-11-05 05:09] LABS: Lactic Acid, 3 HR 2.3 mMol/L (0.4-2.0)
[2025-11-05 05:11] LABS: Basophils # (Auto) 0.1 Thou/mm3 (0.0-0.2); Basophils % (Auto) 1 % (0-2.5); Eosinophils # (Auto) 0.0 Thou/mm3 (0.0-0.5); Eosinophils % (Auto) 0 % (0-10); Hematocrit 24.0 % (36.0-46.0); Immature Granulocytes Auto 2.53 Thou/mm3 (0.00-0.00); Lymphocytes # (Auto) 0.8 Thou/mm3 (1.0-4.8); Lymphocytes % (Auto) 8 % (10-50); Mean Corpuscular HGB Conc 33.8 g/dl (31.0-37.0); Mean Corpuscular Hemoglobin 32.1 pg (25.0-35.0); Mean Corpuscular Volume 95 fL (80-100); Monocytes # (Auto) 0.4 Thou/mm3 (0.0-0.8); Monocytes % (Auto) 4 % (0-12); Neutrophils # (Auto) 6.0 Thou/mm3 (1.8-7.7); Neutrophils % (Auto) 61 % (37-80); Nucleated Red Blood Cell # 0.00 Thou/mm3 (0.00-0.00); Nucleated Red Blood Cell % 0 /100 WBC (0); Platelet Count 328 Thou/mm3 (140-440); RDW Standard Deviation 56.0 fL (36.4-46.3); Red Blood Count 2.52 Miln/mm3 (4.00-5.20); White Blood Count 9.8 Thou/mm3 (3.6-11.0)
[2025-11-05 05:19] LABS: Hemoglobin 8.1 g/dL (12.0-16.0)
[2025-11-05 05:20] LABS: Influenza A Ag Negative; Influenza B Ag Negative
[2025-11-05] MEDS: RINGERS LACTATED 1000 ML 1,000 ML 125 ML IV (05:26)
[2025-11-05] MEDS: HEPARIN SOD INJ 5000 UNIT/ML VIAL SC ×2 (05:27→15:23)
[2025-11-05 05:31] LABS: COVID-19 Antigen (In-House) Negative (Negative)
[2025-11-05 05:55] LABS: Path Review Blood Smear Sent to Pathologist
[2025-11-05 06:32] LABS: Albumin, Serum 3.4 gm/dL (3.5-5.0); Anion Gap 10 (7-16); BUN/Creatinine Ratio 18 Ratio (12-20); Blood Urea Nitrogen 9 mg/dL (9-23); Calcium 8.3 mg/dL (8.3-10.6); Calcium (Corrected) 8.8 mg/dL (8.5-10.1); Carbon Dioxide 26.1 mMol/L (20.0-31.0); Chloride 108 mMol/L (98-107); Creatinine (Component) 0.5 mg/dL (0.6-1.3); Estimated Creatinine Clearance 138.1 mL/min (>60); Glucose 210 mg/dL (74-106); Osmolality,Calculated 291 (275-295); Phosphorous 3.2 mg/dL (2.4-5.1); Potassium 3.9 mMol/L (3.4-5.1); Sodium 144 mMol/L (136-145); eGFR > 60 See Note
[2025-11-05 06:40] LABS: Magnesium 0.8 mg/dL (1.6-2.6)
[2025-11-05] MEDS: INSULIN LISPRO (AdmeLOG) 1 UNIT/0.01 ML UNIT SC ×3 (07:39→16:46)
[2025-11-05] MEDS: Magnesium Sulfate 2 GM Ivpb 2 GM/50 ML BAG IV (07:39)
[2025-11-05] MEDS: ACETAMINOPHEN 325 MG TABLET 650 MG PO (09:14)
--- NOTE | 2025-11-05 12:07 | ESPR_ITS ---
<Statement entered by Leonarda Webster MD - 11/05/25 15:54> This 39-year-old female with a history of hypertension, insulin-dependent type 2 diabetes, triple-negative infiltrating ductal carcinoma of the right breast, anxiety, and chemotherapy-induced dermatitis presented to the [facility] ED with perioral and hand paresthesias. She was admitted for lactic acidosis likely related to chemotherapy. She was given fluids and will have repeat lactic acid monitored. The patient has a history of panic attacks, with symptoms triggered by chemotherapy. Her most recent episode included paresthesias and chills. Lorazepam was resumed, and glucose monitoring may be recommended due to hypoglycemia concerns from decreased intake. Her hypomagnesemia was treated with magnesium oxalate while inpatient. She also has asymptomatic bacteriuria, and cultures were sent. Insulin management was adjusted, with metformin temporarily held due to lactic acidosis risk. Lastly, her scalp dermatitis continues to be treated with topical steroids, with follow- up planned. I?ve reviewed the note and agree with this assessment and plan, with the exceptions outlined above. I personally went over the labs, imaging, home medications, and prior records, and examined the patient. The case was also reviewed with the attending physician. Please note: this document was transcribed using voice recognition technology; minor inaccuracies may be present. Leonarda Webster DO PGY II Documentation for date of: 11/05/25 Subjective Subjective Interval history: No overnight events. Evaluated at bedside. stated that patient has not been eating much since starting chemotherapy, home diet mostly consist of soups since loss of appetite for solid foods. Marinol ordered. Lactate this morning 2.3, decreased from 5.8 yesterday. Will repeat lactate tmr AM, likely DC if WNL. Exam Vital Signs Temp Pulse Resp BP Pulse Ox O2 Del Method 97.4 F 97 18 128/84 99 Room Air 11/05/25 08:00 11/05/25 08:00 11/05/25 08:00 11/05/25 08:00 11/05/25 08:00 11/05/25 06:42 Narrative Exam General: Awake and in no acute distress. A/O x 3. HEENT: Normocephalic, atraumatic, mucous membranes moist. Heart: Regular rate and rhythm Lungs: Clear to auscultation with no wheezing or crackles. Abdomen: Soft, nondistended, nontender. No guarding or rebound tenderness. Neurologic: Alert and oriented x3, no gross neurological deficit, and patient able to move all 4 extremities. Ambulate independently. Extremities: Moving all 4 extremities. Skin: D/C/I. No ecchymoses. Objective Labs 11/05/25 04:53 11/05/25 04:53 Labs: Laboratory Results - last 24 hr 11/04/25 11/05/25 11/05/25 23:40 00:15 03:05 WBC 13.5 H D RBC 2.72 L Hgb 8.7 L Hct 26.0 L MCV 96 MCH 32.0 MCHC 33.5 RDW Std Deviation 55.9 H Plt Count 389 D Neut % (Auto) 63 Lymph % (Auto) 9 L [place] % (Auto) 4 Eos % (Auto) 0 Baso % (Auto) 1 Neut # (Auto) 8.6 H Lymph # (Auto) 1.2 [place] # (Auto) 0.6 Eos # (Auto) 0.0 Baso # (Auto) 0.1 Immature Gran # (Auto) 3.08 H Absolute Nucleated RBC 0.00 Immature Gran % 23 H Nucleated RBC % 0 Smear Path Review Sent to Pathologist Sodium 143 Potassium 3.8 Chloride 107 Carbon Dioxide 23.3 Anion Gap 13 BUN 13 Creatinine 0.6 Estim Creat Clear Calc 115.1 eGFR > 60 BUN/Creatinine Ratio 22 H Glucose 243 H Calculated Osmolality 293 Lactic Acid 5.8 H* Calcium 9.0 Corrected Calcium 9.3 Phosphorus 2.5 Magnesium 1.0 L Total Bilirubin 0.4 AST 16 ALT 18 Alkaline Phosphatase 84 Troponin I < 0.020 Total Protein 5.7 Albumin 3.6 Globulin 2.1 L Albumin/Globulin Ratio 1.7 Lipase 46 Procalcitonin 0.19 Ur Collection Type Clean Catch Urine Color Colorless A Urine Clarity Clear Urine pH 7.0 Ur Specific [place] 1.010 Urine Protein Negative Urine Glucose (UA) 1+ A Urine Ketones Negative Urine Blood Negative Urine Nitrite Negative Urine Bilirubin Negative Urine Urobilinogen (Auto) Negative Ur Leukocyte Esterase Positive Urine RBC 3 Urine WBC 5 Ur Squamous Epith Cells 2 Urine Bacteria 2+ A Ur Culture Indicated? Yes Influenza A (Rapid) Negative Influenza B (Rapid) Negative SARS-CoV-2 Ag (Rapid) Negative 11/05/25 04:53 WBC 9.8 RBC 2.52 L Hgb 8.1 L Hct 24.0 L MCV 95 MCH 32.1 MCHC 33.8 RDW Std Deviation 56.0 H Plt Count 328 D Neut % (Auto) 61 Lymph % (Auto) 8 L [place] % (Auto) 4 Eos % (Auto) 0 Baso % (Auto) 1 Neut # (Auto) 6.0 Lymph # (Auto) 0.8 L [place] # (Auto) 0.4 Eos # (Auto) 0.0 Baso # (Auto) 0.1 Immature Gran # (Auto) 2.53 H Absolute Nucleated RBC 0.00 Immature Gran % 26 H Nucleated RBC % 0 Smear Path Review Sodium 144 Potassium 3.9 Chloride 108 H Carbon Dioxide 26.1 Anion Gap 10 BUN 9 Creatinine 0.5 L Estim Creat Clear Calc 138.1 eGFR > 60 BUN/Creatinine Ratio 18 Glucose 210 H Calculated Osmolality 291 Lactic Acid 2.3 H Calcium 8.3 Corrected Calcium 8.8 Phosphorus 3.2 Magnesium 0.8 L* Total Bilirubin AST ALT Alkaline Phosphatase Troponin I Total Protein Albumin 3.4 L Globulin Albumin/Globulin Ratio Lipase Procalcitonin Ur Collection Type Urine Color Urine Clarity Urine pH Ur Specific [place] Urine Protein Urine Glucose (UA) Urine Ketones Urine Blood Urine Nitrite Urine Bilirubin Urine Urobilinogen (Auto) Ur Leukocyte Esterase Urine RBC Urine WBC Ur Squamous Epith Cells Urine Bacteria Ur Culture Indicated? Influenza A (Rapid) Influenza B (Rapid) SARS-CoV-2 Ag (Rapid) Quality Measures Quality Measures VTE prophylaxis Assessment & Plan Assessment Current Active Medications: Generic Name Dose Route Start Last Admin Trade Name Freq PRN Reason Stop Dose Admin Acetaminophen 650 mg 11/05/25 03:30 11/05/25 09:14 Acetaminophen 325 Mg Tablet PO 12/05/25 03:29 650 mg Q6H PRN Administration Fever >101.5 or pain 1-3 Dextrose 25 ml 11/05/25 03:35 Dextrose 50%-Water Inj 50 Ml Syringe IV 12/05/25 03:34 Q15MIN PRN BG 50-70 responsive npo pt Dextrose 50 ml 11/05/25 03:35 Dextrose 50%-Water Inj 50 Ml Syringe IV 12/05/25 03:34 Q15MIN PRN BG <50 OR BG <70 & pt unresponsive Dronabinol 2.5 mg 11/05/25 17:00 Dronabinol 2.5 Mg Capsule PO 12/05/25 16:59 BIDAC KELLY Glucagon 1 mg 11/05/25 03:35 Glucagon Inj 1 Mg Vial IM Q15MIN PRN BG <70, and no IV access Heparin Sodium (Porcine) 5,000 unit 11/05/25 03:30 11/05/25 05:27 Heparin Sod Inj 5000 Unit/Ml Vial SC 11/19/25 03:29 5,000 unit Q12H KELLY Administration Insulin Human Lispro 0 unit 11/05/25 07:30 11/05/25 11:07 Insulin Lispro (Admelog) 1 Unit/0.01 Ml Unit SC 12/05/25 07:29 2 unit AC KELLY Administration Protocol Lorazepam 1 mg 11/05/25 03:35 Lorazepam 0.5 Mg Tablet PO 11/10/25 08:59 BID PRN ANXIETY Magnesium Oxide 400 mg 11/05/25 09:00 11/05/25 08:57 Magnesium Oxide 400 Mg Tablet PO 12/05/25 08:59 [facility] Ondans[facility]ron HCl 4 mg 11/05/25 03:30 Ondansetron Inj 2 Mg/Ml Inj 2 Ml IVP 12/05/25 03:29 Q6H PRN NAUSEA OR VOMITING Protocol Plan This patient is a 39-year-old female with history of hypertension, insulin- dependent type 2 diabetes mellitus, infiltrating ductal carcinoma of the right breast (triple negative breast cancer), anxiety, and dermatitis of scalp (secondary to chemotherapy) who presented to [facility] ED on 11/04 for perioral and hand paresthesias. The patient was admitted under observation for lactic acidosis. #Lactic acidosis #Infiltrating ductal carcinoma of right breast, triple negative #Leukocytosis #History of neutropenic fever Patient has a history of infiltrating ductal carcinoma of the right breast that was found to be triple negative. Initially found on mammogram on 08/28/2024 with subsequent workup identifying the malignancy. The patient currently sees the hematology oncologist Dr. King. Patient was recently started on Adriamycin and cyclophosphamide for chemotherapy management, however patient was noted to have an episode of neutropenic fever after the first round, so peripheral cyclophosphamide dosage was decreased on the patient was put on Neulasta 6 mg to stimulate WBC formation. Diagnostic: - Initial labs in ED show WBC of 13.5 and lactic acid of 5.8 - Absolute neutrophil count on admission noted to be elevated at 8.6 - 11/05: lactate of 2.3 Treatment: - Patient is status post 1.5 L of NS on admission - Additional 1 L of LR completed - Will follow-up with repeat lactic acid in AM - Lactic acid may be secondary to the patient's Janumet (sitagliptin/metformin) use, decreased oral intake, and recent chemotherapy session - Venous Doppler of bilateral lower extremity ordered to assess for any DVTs given hypercoagulable state from malignancy, result negative for DVT. #History of anxiety #Likely panic attacks #Perioral and hand paresthesias Patient does have a history of episodes where she feels short of breath, becomes tachycardic, becomes tachypneic, and feels a tightness in her chest. Likely panic attacks, especially as these are triggered when the patient takes chemotherapy. The patient has been previously prescribed lorazepam by her hematology oncologist for management of these episodes, however the patient is noncompliant. Unlike other episodes, the most recent one that brought her to the hospital included perioral and hand paresthesias along with intermittent chills. Treatment: - Resumed lorazepam 1 mg twice daily as needed for these episodes - Patient to follow-up outpatient - Possible recommendation of continuous glucose monitoring as patient has been having significantly decreased oral intake and these may be episodes of hypoglycemia #Hypomagnesemia Magnesium noted to be 1.0 on admission. Patient does have a history of hypomagnesemia and has been prescribed magnesium glycinate at home for management of this condition. Treatment: - Replete magnesium as indicated - Magnesium oxalate 400 mg daily, patient to resume magnesium glycinate once discharged as it is nonformulary in the hospital #Asymptomatic bacteriuria Patient noted to have 2+ bacteria and positive leukocyte esterase on urinalysis in ED. Patient denies any symptoms associated with a urinary tract infection. Treatment: - Pending blood cultures and urine cultures collected in ED - Patient to follow-up outpatient #Insulin-dependent type 2 diabetes mellitus Patient has a history of type 2 diabetes mellitus for which he takes Janumet (sitagliptin/metformin) and insulin at home, however the patient does not know what dose of insulin she takes. Diagnostic: - Hemoglobin A1c on 10/14 7.5% Treatment: - Sliding scale insulin - Bedside glucose checks ACHS - Carbohydrate consistent diet - Will hold metformin for now given patient presented with lactic acidosis - Consider discontinuation of home metformin given active chemotherapy, decreased oral intake, and metformin may cause clinically nonrelevant elevation of lactic acid #Dermatitis of scalp As noted per patient history. Patient presented to her hematology oncologist with scalp irritation and rash following chemotherapy induced alopecia, where it was noted that the scalp was sensitive to touch. Patient was prescribed topical steroid cream for scalp by her hematology oncologist. Treatment: - Patient to follow-up with outpatient hematology oncology Health maintenance Dispo: Pending resolution of lactic acidosis, likely DC tmr. DVT prophylaxis: SubQ HEPARIN GI prophylaxis: N/A Antibiotics:N/A Bowel Regimen:N/A Diet: Carbohydrate consistent Lines: Peripheral IV Code status: Full code Case discussed with my senior resident Dr. Webster Case discussed with my attending Dr. Francy Elliott, DO PGY 1
--- NOTE | 2025-11-05 14:43 | PC.SS ---
Rounding: One more day of monitoring, labs
--- NOTE | 2025-11-05 21:26 | PC.NURSE ---
Spoke to Dr. Glass d/t prior conversation with Dr. Jerome about pt's glucose being 321. Dr Jerome stated he would order long acting degludec since pt did not have coverage for HS. However, both insulin lispro and degludec were ordered, called to clarify orders, dr Glass instructed to only give degludec for now and recheck glucose at 11pm
[2025-11-05] MEDS: INSULIN DEGLUDEC 5 UNIT/0.05 ML (PER 5 UNITS) 12 UNIT SC (21:33)
[2025-11-06] VITALS: BP 101/72; PULSE 102; RESP 18; TEMP 36.4; O2SAT 96
[2025-11-06] MEDS: HEPARIN SOD INJ 5000 UNIT/ML VIAL SC (03:34)
[2025-11-06 04:00] VITALS: BP 117/76; PULSE 92; RESP 17; TEMP 36.1; O2SAT 99
[2025-11-06 05:38] LABS: Lactate (Lactic Acid) 1.0 mMol/L (0.4-2.0)
[2025-11-06 05:57] LABS: INR 1.1 (0.9-1.3); Partial Thromboplastin Time 29.3 Seconds (22.0-36.0); Prothrombin Time 11.4 Seconds (9.0-12.2)
[2025-11-06 06:03] LABS: Basophils # (Auto) 0.1 Thou/mm3 (0.0-0.2); Basophils % (Auto) 2 % (0-2.5); Eosinophils # (Auto) 0.1 Thou/mm3 (0.0-0.5); Eosinophils % (Auto) 2 % (0-10); Hematocrit 24.9 % (36.0-46.0); Immature Granulocytes Auto 0.29 Thou/mm3 (0.00-0.00); Lymphocytes # (Auto) 0.7 Thou/mm3 (1.0-4.8); Lymphocytes % (Auto) 18 % (10-50); Mean Corpuscular HGB Conc 33.7 g/dl (31.0-37.0); Mean Corpuscular Hemoglobin 31.9 pg (25.0-35.0); Mean Corpuscular Volume 95 fL (80-100); Monocytes # (Auto) 0.3 Thou/mm3 (0.0-0.8); Monocytes % (Auto) 7 % (0-12); Neutrophils # (Auto) 2.5 Thou/mm3 (1.8-7.7); Neutrophils % (Auto) 65 % (37-80); Nucleated Red Blood Cell # 0.00 Thou/mm3 (0.00-0.00); Nucleated Red Blood Cell % 0 /100 WBC (0); Platelet Count 328 Thou/mm3 (140-440); RDW Standard Deviation 54.4 fL (36.4-46.3); Red Blood Count 2.63 Miln/mm3 (4.00-5.20); White Blood Count 3.9 Thou/mm3 (3.6-11.0)
[2025-11-06 06:11] LABS: Hemoglobin 8.4 g/dL (12.0-16.0)
[2025-11-06 06:29] LABS: Albumin, Serum 3.6 gm/dL (3.5-5.0); Anion Gap 9 (7-16); Calcium 8.9 mg/dL (8.3-10.6); Calcium (Corrected) 9.2 mg/dL (8.5-10.1); Carbon Dioxide 27.2 mMol/L (20.0-31.0); Chloride 107 mMol/L (98-107); Potassium 3.6 mMol/L (3.4-5.1); Sodium 143 mMol/L (136-145)
[2025-11-06 06:36] LABS: BUN/Creatinine Ratio 30 Ratio (12-20); Blood Urea Nitrogen 12 mg/dL (9-23); Creatinine (Component) 0.4 mg/dL (0.6-1.3); Estimated Creatinine Clearance 182.9 mL/min (>60); Glucose 234 mg/dL (74-106); Magnesium 1.3 mg/dL (1.6-2.6); Osmolality,Calculated 292 (275-295); Phosphorous 3.6 mg/dL (2.4-5.1); eGFR > 60 See Note
[2025-11-06] MEDS: INSULIN LISPRO (AdmeLOG) 1 UNIT/0.01 ML UNIT SC ×2 (07:31→11:23)
[2025-11-06 08:00] VITALS: BP 115/81; PULSE 109; RESP 17; TEMP 36.3; O2SAT 92
[2025-11-06] MEDS: Magnesium Sulfate 4 GM Ivpb 4 GM/50 ML BAG IV (08:25)
[2025-11-06] MEDS: MAGNESIUM OXIDE 400 MG TABLET PO (08:25)
--- NOTE | 2025-11-06 10:23 | ESDS_ITS ---
<Statement entered by Sebastian Haley MD - 11/06/25 18:23> Patient was examined and case was reviewed with team including attending physician. Note reviewed, I agree with most of its contents and agree with the patient's care as documented by Dr. Lexi Hlaey MD PGY-2 Planned Discharge Date 11/06/25 DS: Providers Provider Date of admission: 11/05/25 03:30 Primary care physician: Olegario Haley MD Admitting Provider: Kei Walden MD Attending Provider on Admission: Kei Walden MD Consults: 11/05/25 06:37 Health [facility] Referral - Knowledge Deficit Routine Comment: Positive screening for knowledge deficit needs. Attending Provider on DC: Dr. Renan Conrad MD Discharging Provider: Harrison Elliott DO Anticipated date of discharge: 11/06/25 DS: Diagnosis Problem List Completed Was Problem List Reviewed/Reconciled?: Yes Hospital Course Hospital Course Hospital course: Mrs. Marquez is a 39F with history of hypertension, insulin-dependent type 2 diabetes mellitus, infiltrating ductal carcinoma of the right breast (triple negative breast cancer), anxiety, and dermatitis of scalp (secondary to chemotherapy) who presented to [facility] ED on 11/04 for perioral and hand paresthesias. Patient does have known history of anxiety, however, she usually does not experience perioral or hand parestehsias with these attacks, which prompted her to come to the ED. While in the ED, there's an incidental finding of elevated lactic acid of 5.8. Urinalysis positive for 2+ bacteria with positive leukocyte esterase, consistent with asyptomatic UTI. Patient was hydrated with saline and treated with empiric IV antibiotics. The patient was admitted under observation for lactic acidosis. On Day 1 of hospital stay (day of discharge), patient reported resolution of paresthesias. Lactate level had significantly improved from 5.8 to 1.0 after fluid resuscitation. Patient was given dranobinol due to loss of appetitie from chemotherapy. She was advised to continue follow up with her oncologist for close monitoring of her magnesium level as well as subsequent chemotherapy sessions. At this time, patient is medically and physically stable for discharge for home. All questions and concerns addressed, plan of care discussed with patient, return precautions given. Diagnosis: #Lactic acidosis #Infiltrating ductal carcinoma of right breast, triple negative #Leukocytosis #History of neutropenic fever #History of anxiety #Panic attacks #Perioral and hand paresthesias #Hypomagnesemia #Asymptomatic bacteriuria #Insulin-dependent type 2 diabetes mellitus #Dermatitis of scalp Discharge Plan: Follow up with primary care physician within 1 week of discharge Continue to follow up with your Oncologist with regards to your chemotherapy Instructions have been explained to the patient with regards to their medications and how to take them. Patient was able to explain back to physician and nursing staff how to take their medications. Patient expressed understanding with instructions. Continue to take the rest of your medications as prescribed by your primary care physician. Patient has been explained that should any symptoms recur or worsen patient is instructed to return to the Emergency Department. Case discussed with my senior resident Dr. Adame Case discussed with my attending Dr. Houston Elliott DO PGY 1 Status at Discharge Overall status at discharge: patient is back to baseline Time Spent with Patient Time attestation: Total time spent providing and/or coordinating discharge services: 32 minutes Time spent: Greater than 30 minutes Exam Vital Signs Temp Pulse Resp BP Pulse Ox O2 Del Method 97.4 F 109 H 17 115/81 92 L Nasal Cannula 11/06/25 08:00 11/06/25 08:00 11/06/25 08:00 11/06/25 08:00 11/06/25 08:00 11/06/25 08:00 Narrative Exam General: Awake and in no acute distress. A/O x 3 HEENT: Normocephalic, atraumatic. Heart: Regular rate and rhythm Lungs: Clear to auscultation with no wheezing or crackles. Abdomen: Soft, nondistended, nontender. No guarding or rebound tenderness. Neurologic: Alert and oriented x3, no gross neurological deficit. Extremities: Patient able to move all 4 extremities. Skin: Dry, clean, intact. No ecchymoses. Discharge Plan Plan Patient Disposition: HOME (Self Care) Care Plan Goals: Follow up with primary care physician within 1 week of discharge Continue to follow up with your Oncologist with regards to your chemotherapy Instructions have been explained to the patient with regards to their medications and how to take them. Patient was able to explain back to physician and nursing staff how to take their medications. Patient expressed understanding with instructions. Continue to take the rest of your medications as prescribed by your primary care physician. Patient has been explained that should any symptoms recur or worsen patient is instructed to return to the Emergency Department. Prescriptions/Referrals Prescriptions/Med Rec: New dronabinol 5 mg capsule 5 mg PO BID Qty: 60 0RF Rx Instructions: administer before lunch and evening meal/dinner Continued rizatriptan [[employer]] 10 mg tablet,disintegrating See Rx Instructions .ROUTE .COMPLEX Qty: 14 0RF Rx Instructions: take 1 tab at onset of headache; if no relief may repeat 1 tab after at least 2 hrs; max = 3 tabs/24 hr Mag Glycinate 100 mg tablet 100 mg PO QDAY 30 Days Qty: 30 0RF cefdinir 300 mg capsule 300 mg PO BID Qty: 14 0RF ondansetron 4 mg tablet,disintegrating 4 mg PO TID PRN (Reason: nausea and vomiting) 30 Days Qty: 10 0RF Referrals: Olegario Haley MD [Primary Care Provider, Family Practice] Patient/Caregiver Discharge Instructions Print Language: Israeli Stand Alone Forms: Radha Award Info., Patient Portal Info Letter, Work/Release Restrictions Discharge Order Discharge Orders: Discharge (Routine); Ordered 11/06/25 Ordered By: Sebastian Haley Quality Discharge Quality Measures none MD Attestestation MD Attestation I have seen and examined the patient. I was physically present for the sykes portions of the services provided including history, physical exam, diagnosis, treatment plans and orders. I agree with assessment and plan of care as documented by residents. Even though this this note was carefully revised there may still be minor errors in horse race starter due to voice recognition software. Hugh Conrad MD
== END 2025-11-06 12:18 | disposition home or self-care (01) ==
LOC: SERX 11-05 02:51 → SERHOLD 11-05 04:45 → SERX 11-05 05:38 → SERHOLD 11-05 05:40 → S3NX 11-05 06:26
PROVIDERS: Student in an Organized Health Care Education/Training Program; Admitting Provider Student in an Organized Health Care Education/Training Program; Emergency Provider Emergency Medicine; PCP Family Medicine; Referring Provider Student in an Organized Health Care Education/Training Program; Visit Provider Student in an Organized Health Care Education/Training Program
DX: R20.2 Paresthesia of skin (principal); L30.9 Dermatitis, unspecified; E11.9 Type 2 diabetes mellitus without complications; E87.20 Acidosis, unspecified; E83.42 Hypomagnesemia; R82.71 Bacteriuria; F41.0 Panic disorder [episodic paroxysmal anxiety]; D72.829 Elevated white blood cell count, unspecified; C50.911 Malignant neoplasm of unspecified site of right female breast; I10 Essential (primary) hypertension; Z17.421 Hormone receptor negative with human epidermal growth factor receptor 2 negative status
CPT/HCPCS: 36415; 71045; 80053; 80069; 81001; 83605; 83690; 83735; 84100; 84145; 84484; 85025; 85610; 85730; 87040; 87077; 87081; 87086; 87186; 87502; 87811; 93005; 93970; 96361; 96365; 96372; 99284; G0378; J0696; J1644; J1815; J3475; J7030; J7120; Q0167; A9270

== ENCOUNTER 2025-11-08 13:49 | Emergency (ER) | payer MEDICAID, SELFPAY ==
[2025-11-08 13:51] VITALS: BMI 29.2
[2025-11-08 14:10] VITALS: BP 131/91; PULSE 97; RESP 18; TEMP 36.6; O2SAT 97
--- NOTE | 2025-11-08 14:33 | XR_ITS ---
AP and lateral views of the lumbosacral spine on 11/08/2025 at 2:41 p.m. Clinical indication: Lower back pain for 24 hours Findings the radiographic appearance, intervertebral disc spaces and alignment of the entire lower thoracic and lumbosacral spine are entirely normal. Sacroiliac joints and the visible bony pelvis appear normal. Bowel gas pattern appears normal. IMPRESSION: Normal study
--- NOTE | 2025-11-08 16:13 | PD.EDBACK ---
ED Back Injury Pain RME/HPI General Chief Complaint: Back Pain/Injury Stated Complaint: BACK PAIN RADIATING TO BLE, WEAKNESS TO BLE Time Seen by Provider: 11/08/25 14:29 Source: patient and electro tech Arrival date/time: 11/08/25 13:49 Mode of arrival: wheelchair Limitations: language barrier RME / HPI RME / HPI Narrative: This patient is a Armenian-speaking only 39-year-old female who arrives to the ED today for evaluation of right sided lower back pain radiating into her gluteal region and lateral right leg for the past 2 days. Patient's medical history is significant for current chemotherapy to address her breast cancer concerns. Patient denies any traumatic events. Patient states the pain came on 2 days ago and has been relatively unrelenting. Patient denies any history of low back concerns or sciatic issues. Related Data Previous Rx's ?Medication ?Instructions ?Recorded rizatriptan 10 mg disintegrating See Rx Instructions PO .COMPLEX 07/18/25 tablet (Maxalt-LICENSED LOAN OFFICER ASSISTANT) #14 tabs cefdinir 300 mg capsule 300 mg PO BID #14 caps 10/14/25 ondansetron 4 mg disintegrating 4 mg PO TID PRN nausea and 10/14/25 tablet vomiting 30 days #10 tabs magnesium glycinate 100 mg (as 100 mg PO QDAY 1 month #30 tabs 10/22/25 glycinate) tablet (Mag Glycinate) dronabinol 5 mg capsule 5 mg PO BID #60 caps 11/06/25 hydrocodone 10 mg-acetaminophen 1 tab PO Q8H PRN pain #10 tabs 11/08/25 325 mg tablet Allergies Allergy/AdvReac Type Severity Reaction Status Date / Time No Known Allergies Allergy Verified 11/04/25 22:46 Review of Systems Review of Systems Systems Reviewed: All systems reviewed, normal except as documented Past Medical History Past Medical History CARDIAC: Negative Cardiac Disorders or Congestive Heart Failure RESPIRATORY: Negative Chronic Obstructive Pulmonary Disease (COPD) or Asthma GASTROINTESTINAL: Positive Obesity; Negative Gastrointestinal Disorders GENITOURINARY: Positive Kidney Stones; Negative Renal Disease REPRODUCTIVE: Positive Breast Cancer (Patient is currently in chemotherapy) MUSCULOSKELETAL: Positive Arthritis ENDOCRINE: Positive Endocrine Disorders and Diabetes Mellitus Type 2; Negative Diabetes Mellitus Type 1 HEMATOLOGIC: Negative Sickle Cell Disease PSYCHO/SOCIAL: Positive Anxiety OTHER HISTORY: Positive Hospitalization, Chemotherapy, Cancer and Breast Cancer (Patient is currently in chemotherapy); Negative Falls, Blood Transfusions or Anesthesia Reactions Surgical History SURGICAL: Positive Tubal Ligation Social History SMOKING STATUS: Never smoker SECOND HAND EXPOSURE: No SUBSTANCE USE: does not use ED Exam General Limitations: Present language barrier General appearance: Present alert and in distress (Moderate distress due to right-sided back pain and leg concerns.) Head Head exam: Present atraumatic Eye Eye exam: Present normal appearance, PERRL and EOMI ENT ENT exam: Present normal exam, normal oropharynx and mucous membranes moist Neck Neck exam: Present normal inspection, full ROM and trachea midline Chest Chest inspection: Present normal inspection and symmetric chest wall rise Respiratory Respiratory exam: Present normal lung sounds bilaterally Cardiovascular Cardiovascular exam: Present regular rate, normal rhythm and normal heart sounds Abdominal Exam Abdominal exam: Present soft and normal bowel sounds Extremities Exam Extremities exam: Present normal inspection and full ROM Back Exam Back exam: Present other (Diffuse nonspecific right-sided lumbar tenderness to palpation throughout extending into the right sided gluteal region and lateral right leg. No signs of trauma. No step-offs noted. Patient denies any saddle paresthesia. This neurovascular tact.) Neurological Exam Neurological exam: Present alert, oriented X3 and CN II-XII intact Psychiatric Psychiatric exam: Present normal affect and normal mood Skin Skin exam: Present warm, dry, intact and normal color Course Quality Measures none Orders Category Date Time Status XR lumbar spine 2-3V Stat Exams 11/08/25 14:33 Completed HYDROcodone/APAP [[place] ] Med 11/08/25 14:33 Discontinued 1 tab PO X1 ONE Vital Signs Vital signs: Vital Signs Temperature 97.9 F 11/08/25 14:10 Pulse Rate 97 11/08/25 14:10 Respiratory Rate 18 11/08/25 14:10 Blood Pressure 131/91 H 11/08/25 14:10 Pulse Oximetry (%) 97 11/08/25 14:10 Oxygen Delivery Method Room Air 11/08/25 14:10 As noted above Back Pain / Injury MDM Narrative MDM Narrative:: All studies performed the ED were evaluated by me personally. Imaging studies of the lumbar spine were relatively unremarkable for any degenerative disc disease. Patient appears to be suffering neuropathy based on low back concerns. Patient responded well to medication dispensed. Advised patient utilize medication as needed as well as ice therapy. If symptoms continue, patient will need to follow-up with primary care provider for continued evaluation and management. Patient data External records reviewed:: [facility] previous records Clinical information provided by:: patient and other (specify) (Book [employer]ver) Social determinants that could affect healthcare access:: none Patient has the following chronic illnesses:: Breast cancer How is presenting disease/condition affected by chronic disease/condition?: uneffected by Evaluation data The following diagnostics were reviewed and interpreted by me:: radiology exam(s) Lab and/or radiology exams considered but not ordered:: None Interpretation Summary: Imaging studies were unremarkable for any degenerative disc disease or signs of impingement concerns. Medications / Prescriptions Medications or Prescriptions considered but not ordered:: None Medication administrations:: Medication Administration History Discontinued Medications Hydrocodone Bitart/Acetaminophen (Hydrocodone/Apap 10/325 Tab) 1 tab PO X1 ONE Stop: 11/08/25 14:34 Last Admin: 11/08/25 15:51 Dose: 1 tab Documented By: DO As noted above Consultations Consultation(s) initiated? (list below): No Diagnosis Differential diagnosis back pain/injury: lumbar radiculopathy, sciatica and strain of lumbar region Most likely diagnosis given after review of the tests above:: Lumbar radiculopathy Admission Indicated Admission indicated?: not indicated Admission Request Was there a request for admission?: No Disposition Plan Disposition Plan: Discharge Discharge Attestation Discharge Attestation: The patient and all family members were given an opportunity to ask questions and understood the discharge instructions. Discharge instructions specifically effects, indications for sooner follow up or return to the emergency department, and the expected course of current diagnosis. Patient condition: Stable Discharge Plan Plan Patient Disposition: HOME (Self Care) Prescriptions/Referrals Prescriptions/Med Rec: New hydrocodone-acetaminophen 10-325 mg tablet 1 tab PO Q8H MDD 3 tabs PRN (Reason: pain) Qty: 10 0RF No Action rizatriptan [Maxalt-LICENSED LOAN OFFICER ASSISTANT] 10 mg tablet,disintegrating See Rx Instructions .ROUTE .COMPLEX Qty: 14 0RF Rx Instructions: take 1 tab at onset of headache; if no relief may repeat 1 tab after at least 2 hrs; max = 3 tabs/24 hr Mag Glycinate 100 mg tablet 100 mg PO QDAY 30 Days Qty: 30 0RF dronabinol 5 mg capsule 5 mg PO BID Qty: 60 0RF Rx Instructions: administer before lunch and evening meal/dinner cefdinir 300 mg capsule 300 mg PO BID Qty: 14 0RF ondansetron 4 mg tablet,disintegrating 4 mg PO TID PRN (Reason: nausea and vomiting) 30 Days Qty: 10 0RF Referrals: No Primary/Family,Physician [Primary Care Provider] - In 1 week Problem List Clinical Impression: Lumbar radiculopathy Patient/Caregiver Discharge Instructions Education Materials: Back Exercises: Back Release Additional Instructions: Advised patient utilize medication as needed for symptomatic pain relief as well as ice therapy. If symptoms continue, patient will need to follow-up with primary care provider for long-term management. Print Language: Armenian Stand Alone Forms: Radha Award Info., Patient Portal Info Letter
== END 2025-11-08 16:37 | disposition home or self-care (01) ==
PROVIDERS: Emergency Provider Physician Assistant
DX: M54.16 Radiculopathy, lumbar region (principal)
CPT/HCPCS: 72100; 99282; A9270

== ENCOUNTER 2025-11-27 15:41 | Emergency (ER) | payer MEDICAID, SELFPAY ==
[2025-11-27 15:52] VITALS: PULSE 120; RESP 18; O2SAT 98
[2025-11-27 15:55] VITALS: BP 123/85; PULSE 120; RESP 18; TEMP 36.6; O2SAT 98
--- NOTE | 2025-11-27 15:57 | XR_ITS ---
EXAMINATION: AP chest single view TECHNIQUE: AP portable upright chest single view Date and time: November 27, 2025, 1626 hours, comparison November 05, 2025 INDICATIONS: Shortness of breath postchemotherapy today. FINDINGS: Minor prominence left ventricle Mild to moderate elevation right hemidiaphragm Mild vascular congestion. No lobar pneumonia or pulmonary edema. Right internal jugular Port-A-Cath tip satisfactory position IMPRESSION: Mild vascular congestion No pneumonia or pulmonary edema
--- NOTE | 2025-11-27 15:57 | EKG_ITS ---
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
--- NOTE | 2025-11-27 16:00 | PD.EDADULT ---
ED General RME/HPI General Chief complaint: Shortness of Breath/Dyspnea Stated complaint: SOB Time Seen by Provider: 11/27/25 15:54 Arrival date/time: 11/27/25 15:41 CC: The chest pressure chills facial numbness shortness of breath HPI patient was on the third medication of the chemotherapy treatment regimen, she received Keytruda Cytoxan 4 g of mag and was on Ariamyocin infusion for 2 minutes, when she experienced the symptoms described. EMS was contacted and they present the patient to the ER where the patient is tachycardic. Discussion with the oncology nurse confirmed that the patient is persistently tachycardic during infusions. Patient has a breast cancer this is her third round. Oncology nurse note that the patient has a history of anxiety. Related Data Previous Rx's ?Medication ?Instructions ?Recorded rizatriptan 10 mg disintegrating See Rx Instructions PO .COMPLEX 07/18/25 tablet (Maxalt-ALARM INSTALLATION TECHNICIAN) #14 tabs cefdinir 300 mg capsule 300 mg PO BID #14 caps 10/14/25 dronabinol 5 mg capsule 5 mg PO BID #60 caps 11/06/25 hydrocodone 10 mg-acetaminophen 1 tab PO Q8H PRN pain #10 tabs 11/08/25 325 mg tablet Allergies Allergy/AdvReac Type Severity Reaction Status Date / Time No Known Allergies Allergy Verified 11/27/25 15:54 Review of Systems Review of Systems Narrative Review of Systems: GEN: No fever, no chills, no weight loss EYES: No discharge, no visual changes, no pain HEENT: No ear pain, no congestion, no sore throat PULM: No shortness of breath, no cough, no congestion CV: No chest pain, no dyspnea on exertion, no palpitations GI: No nausea, no vomiting, no diarrhea, no pain, no constipation : No frequency, no urgency, no dysuria MUSC/SKEL: No joint pain, no back pain SKIN: No rash PSYCH: No hallucinations, no depression HEME/LYMPH: No easy bleeding or bruising tendencies NEURO: No weakness, no headache Past Medical History Past Medical History CARDIAC: Negative Cardiac Disorders or Congestive Heart Failure RESPIRATORY: Negative Chronic Obstructive Pulmonary Disease (COPD) or Asthma GASTROINTESTINAL: Positive Obesity; Negative Gastrointestinal Disorders GENITOURINARY: Positive Kidney Stones; Negative Renal Disease REPRODUCTIVE: Positive Breast Cancer (Patient is currently in chemotherapy) MUSCULOSKELETAL: Positive Arthritis ENDOCRINE: Positive Endocrine Disorders and Diabetes Mellitus Type 2; Negative Diabetes Mellitus Type 1 HEMATOLOGIC: Negative Sickle Cell Disease PSYCHO/SOCIAL: Positive Anxiety OTHER HISTORY: Positive Hospitalization, Chemotherapy, Cancer and Breast Cancer (Patient is currently in chemotherapy); Negative Falls, Blood Transfusions or Anesthesia Reactions Surgical History SURGICAL: Positive Tubal Ligation Social History SMOKING STATUS: Never smoker SECOND HAND EXPOSURE: No SUBSTANCE USE: does not use ED Exam Narrative Physical exam: [General: Obese, anxious, but not in any acute distress Head normocephalic HEENT: Eyes pupils are PERRLA EOMs are intact mouth: [place] dry membranes. All other subsystems of HEENT are within acceptable limits Neck is supple nontender Chest equal chest rise nontender to palpation Port-A-Cath in the right anterior chest is accessed. Respiratory: Clear to auscultation no wheezes crackles or rubs CV: Rate rhythm is regular, tachycardic, no murmurs rubs or clicks Abdomen is soft nontender no masses positive bowel sounds all 4 quadrants Back: No CVA tenderness no spinous process tenderness from cervical spine thoracic and lumbar spine Skin: Alopecia, intact no petechiae rash induration ulceration or crepitus Extremities: Moving all extremities against resistance cap refill less than 2 seconds neurosensory intact Neuro: Awake alert oriented x3 Glascow coma 15 no focal deficits] Course Course Course Narrative: Patient stated chest pressure is resolved, the patient still continues to have some tingling in her face but upon reflection patient states that she had tingling in her face with the prior chemotherapeutic infusions in the past. This makes me less concerned there is anything acute. Blood sugar is comes back at 301 we will recheck it to make sure that there is no hyperglycemia issue that needs to be addressed. Patient's vital signs have been stable throughout her visit upon reassessment at 1809, the patient is awake alert with no other complaints. I suspect this is more anxiety secondary to the symptoms she has experienced with prior chemotherapeutics. Repeat blood glucose levels 288. Was determined that the patient was given 3 juices prior to transfer from the [facility] to our facility. There are no other acute findings this time patient will be discharged home. Quality Measures none Orders Category Date Time Status EKG (ED ONLY) *Do not use* NOW Care 11/27/25 15:57 Active EKG (ED Only) Stat Exams 11/27/25 15:57 Draft XR chest 1V Stat Exams 11/27/25 15:57 Completed B-Type Natriuretic Peptide Stat Lab 11/27/25 16:38 Completed CBC Stat Lab 11/27/25 16:38 Completed Comprehensive Metabolic Panel Stat Lab 11/27/25 16:38 Completed Drug Screen,Urine Stat Lab 11/27/25 16:35 Completed Glucose Stat Lab 11/27/25 17:39 Ordered LDH (Lactate Dehydrogenase) Stat Lab 11/27/25 16:38 Completed Magnesium Stat Lab 11/27/25 16:38 Completed Partial Thromboplastin Time Stat Lab 11/27/25 16:38 Completed Prothrombin Time with INR Stat Lab 11/27/25 16:38 Completed Troponin I Stat Lab 11/27/25 16:38 Completed Urinalysis, C/S if Indicated Stat Lab 11/27/25 16:35 Completed Vital Signs Vital signs: Vital Signs Temperature 97.8 F 11/27/25 15:55 Pulse Rate 120 H 11/27/25 15:55 Respiratory Rate 18 11/27/25 15:55 Blood Pressure 123/85 H 11/27/25 15:55 Pulse Oximetry (%) 98 11/27/25 15:55 Oxygen Delivery Method Room Air 11/27/25 15:55 Discharge Plan Plan Patient Disposition: HOME (Self Care) Patient condition on transfer: Stable Prescriptions/Referrals Prescriptions/Med Rec: No Action rizatriptan [Maxalt-ALARM INSTALLATION TECHNICIAN] 10 mg tablet,disintegrating See Rx Instructions .ROUTE .COMPLEX Qty: 14 0RF Rx Instructions: take 1 tab at onset of headache; if no relief may repeat 1 tab after at least 2 hrs; max = 3 tabs/24 hr dronabinol 5 mg capsule 5 mg PO BID Qty: 60 0RF Rx Instructions: administer before lunch and evening meal/dinner hydrocodone-acetaminophen 10-325 mg tablet 1 tab PO Q8H MDD 3 tabs PRN (Reason: pain) Qty: 10 0RF cefdinir 300 mg capsule 300 mg PO BID Qty: 14 0RF Referrals: Guille King MD [Physician, Hematology & Oncology] - In 1 week No Primary/Family,Physician [Primary Care Provider] - In 1 week Problem List Clinical Impression: Chest pressure, Facial tingling Patient/Caregiver Discharge Instructions Other Activity Instructions:: There is no acute finding in the workup, at this time we will send you home you to follow-up with Dr. Carreon in the [facility] for scheduling for your additional chemotherapeutics. Education Materials: ED Chest Pain, Uncertain Cause Print Language: Portuguese Stand Alone Forms: Radha Award Info., Work/School Release, Patient Portal Info Letter NAILA/MELODY Supervising Physician NAILA/MELODY Supervising Physician: Link Arriaga ENP [facility] Clinical Information Provided by: patient and EMS Medical Records reviewed [facility] and EMS Meds/Rx considered, not ordered None Labs/Rad/Tests considered, not ordered None Chronic Illness/Social Conditions Explain: Breast cancer on active chemotherapy. EKG Interpretation EKG #1: EKG Interpretation: EKG performed at 1843 shows a ventricular of 115 DC interval 141 QRS of 95 QTc of 426 sinus tachycardia. Labs Labs: interpreted by me Lab(s) Interpretation(s): CBC shows no leukocytosis, hemoglobin of 9.8 hematocrit of 30.3. Note: This is a stable anemia when reviewed with prior laboratory draws no thrombocytopenia Coags within acceptable limits CMP shows a CO2 of 17.4 gap of 17 glucose of 301 no other electrolyte imbalances no renal impairment transaminitis or T. bili elevation Troponin is unremarkable BNP is unremarkable Urine shows 4+ glucose 1+ ketones 4 RBCs no signs of infection. UDS is negative. Imaging Imaging interpretation: interpreted by me Imaging Interpretation(s): Chest x-ray shows mild vascular congestion no pneumonia.
[2025-11-27 16:56] LABS: Collection Type, Urine Clean Catch
[2025-11-27 17:00] LABS: Basophils # (Auto) 0.0 Thou/mm3 (0.0-0.2); Basophils % (Auto) 0 % (0-2.5); Eosinophils # (Auto) 0.0 Thou/mm3 (0.0-0.5); Eosinophils % (Auto) 0 % (0-10); Hematocrit 30.3 % (36.0-46.0); Hemoglobin 9.8 g/dL (12.0-16.0); Immature Granulocytes Auto 0.08 Thou/mm3 (0.00-0.00); Lymphocytes # (Auto) 0.5 Thou/mm3 (1.0-4.8); Lymphocytes % (Auto) 5 % (10-50); Mean Corpuscular HGB Conc 32.3 g/dl (31.0-37.0); Mean Corpuscular Hemoglobin 31.2 pg (25.0-35.0); Mean Corpuscular Volume 97 fL (80-100); Monocytes # (Auto) 0.1 Thou/mm3 (0.0-0.8); Monocytes % (Auto) 1 % (0-12); Neutrophils # (Auto) 8.3 Thou/mm3 (1.8-7.7); Neutrophils % (Auto) 93 % (37-80); Nucleated Red Blood Cell # 0.00 Thou/mm3 (0.00-0.00); Nucleated Red Blood Cell % 0 /100 WBC (0); Platelet Count 258 Thou/mm3 (140-440); RDW Standard Deviation 53.5 fL (36.4-46.3); Red Blood Count 3.14 Miln/mm3 (4.00-5.20); White Blood Count 8.9 Thou/mm3 (3.6-11.0)
[2025-11-27 17:07] LABS: Bilirubin,Urine Negative (Negative); Blood,Urine Negative (Negative); Clarity,Urine Clear (Clear/Hazy); Color,Urine Colorless (Lt Yel-Yel); Culture Indicated,Urine Not Indicated; Glucose, Urine 4+ (Negative); Ketones,Urine 1+ (Negative); Leukocyte Esterase,Urine Negative (Negative); Nitrite,Urine Negative (Negative); PH,Urine 6.0 (5.0-7.0); Protein,Urine Negative (Neg - Trace); RBC,Urine 4 /hpf (0-3); Specific Gravity,Urine 1.014 (1.001-1.035); Squamous Epithelial Cell,Urine 1 /hpf (0-5); Urobilinogen,Urine Negative mg/dL (0.0-1.0); WBC,Urine 1 /hpf (0-5)
[2025-11-27 17:10] LABS: Amphetamine/Methamp Scrn,U Negative (Negative); Barbiturate Screen,Urine Negative (Negative); Benzodiazepines Screen,Urine Negative (Negative); Benzoylecgonine Screen, Ur Negative (Negative); Fentanyl Screen,Urine Negative (Negative); Opiate Screen,Urine Negative (Negative); THC Screen,Urine Negative (Negative)
[2025-11-27 17:16] LABS: B-Type Natriuretic Peptide < 20 pg/mL (0-100); INR 1.0 (0.9-1.3); Partial Thromboplastin Time 32.5 Seconds (22.0-36.0); Prothrombin Time 10.6 Seconds (9.0-12.2)
[2025-11-27 17:18] LABS: Alanine Aminotransferase 43 U/L (10-49); Albumin, Serum 4.3 gm/dL (3.5-5.0); Albumin/Globulin Ratio 1.7 (1.2-2.2); Alkaline Phosphatase 63 U/L (46-116); Anion Gap 17 (7-16); Aspartate Amino Transferase 30 U/L (0-34); BUN/Creatinine Ratio 25 Ratio (12-20); Bilirubin,Total 0.5 mg/dL (0.3-1.2); Blood Urea Nitrogen 20 mg/dL (9-23); Calcium 8.8 mg/dL (8.3-10.6); Calcium (Corrected) 8.8 mg/dL (8.5-10.1); Carbon Dioxide 17.4 mMol/L (20.0-31.0); Chloride 106 mMol/L (98-107); Creatinine (Component) 0.8 mg/dL (0.6-1.3); Globulin 2.5 gm/dL (2.3-3.5); Glucose 301 mg/dL (74-106); LDH (Lactate Dehydrogenase) 204 U/L (120-246); Magnesium 2.0 mg/dL (1.6-2.6); Osmolality,Calculated 293 (275-295); Potassium 4.2 mMol/L (3.4-5.1); Sodium 140 mMol/L (136-145); Total Protein 6.8 gm/dL (5.7-8.2); Troponin I < 0.020 ng/mL (0.0-0.045); eGFR > 60 See Note
[2025-11-27 18:13] VITALS: BP 142/88; PULSE 82; RESP 16; O2SAT 98
[2025-11-27] MEDS: HEPARIN SOD LOCK SYR 100 UNIT/ML 500 UNIT IV (19:27)
[2025-11-27 19:31] VITALS: RESP 18
[2025-11-27 19:39] LABS: Glucose 285 mg/dL (74-106)
== END 2025-11-27 19:32 | disposition home or self-care (01) ==
PROVIDERS: Registered Nurse General Practice; Emergency Provider Family Medicine
DX: R07.89 Other chest pain (principal); R20.2 Paresthesia of skin; R09.89 Other specified symptoms and signs involving the circulatory and respiratory systems
CPT/HCPCS: 36415; 71045; 80053; 80307; 81001; 82947; 83615; 83735; 83880; 84484; 85025; 85610; 85730; 93005; 99283; J1642

== ENCOUNTER 2025-11-28 09:21 | Outpatient (RCR) | payer MEDICAID, SELFPAY ==
[2025-10-31 11:20] LABS: Basophils # (Auto) 0.0 Thou/mm3 (0.0-0.2); Basophils % (Auto) 0 % (0-2.5); Eosinophils # (Auto) 0.0 Thou/mm3 (0.0-0.5); Eosinophils % (Auto) 1 % (0-10); Hematocrit 28.3 % (36.0-46.0); Hemoglobin 9.6 g/dL (12.0-16.0); Immature Granulocytes Auto 0.08 Thou/mm3 (0.00-0.00); Lymphocytes # (Auto) 1.1 Thou/mm3 (1.0-4.8); Lymphocytes % (Auto) 25 % (10-50); Mean Corpuscular HGB Conc 33.9 g/dl (31.0-37.0); Mean Corpuscular Hemoglobin 32.4 pg (25.0-35.0); Mean Corpuscular Volume 96 fL (80-100); Monocytes # (Auto) 0.6 Thou/mm3 (0.0-0.8); Monocytes % (Auto) 13 % (0-12); Neutrophils # (Auto) 2.6 Thou/mm3 (1.8-7.7); Neutrophils % (Auto) 59 % (37-80); Nucleated Red Blood Cell # 0.00 Thou/mm3 (0.00-0.00); Nucleated Red Blood Cell % 0 /100 WBC (0); Platelet Count 504 Thou/mm3 (140-440); RDW Standard Deviation 56.9 fL (36.4-46.3); Red Blood Count 2.96 Miln/mm3 (4.00-5.20); White Blood Count 4.5 Thou/mm3 (3.6-11.0)
[2025-10-31 11:47] LABS: Alanine Aminotransferase 35 U/L (10-49); Albumin, Serum 4.4 gm/dL (3.5-5.0); Albumin/Globulin Ratio 1.9 (1.2-2.2); Alkaline Phosphatase 58 U/L (46-116); Anion Gap 14 (7-16); Aspartate Amino Transferase 31 U/L (0-34); BUN/Creatinine Ratio 26 Ratio (12-20); Bilirubin,Total 0.3 mg/dL (0.3-1.2); Blood Urea Nitrogen 18 mg/dL (9-23); Calcium 9.5 mg/dL (8.3-10.6); Calcium (Corrected) 9.5 mg/dL (8.5-10.1); Carbon Dioxide 21.4 mMol/L (20.0-31.0); Chloride 109 mMol/L (98-107); Creatinine (Component) 0.7 mg/dL (0.6-1.3); Free T4 (Free Thyroxine) 1.26 ng/dL (0.89-1.76); Globulin 2.3 gm/dL (2.3-3.5); Glucose 221 mg/dL (74-106); Osmolality,Calculated 295 (275-295); Potassium 3.7 mMol/L (3.4-5.1); Sodium 144 mMol/L (136-145); Thyroid Stimulating Hormone 0.36 uIU/mL (0.55-4.78); Total Protein 6.7 gm/dL (5.7-8.2); eGFR > 60 See Note
[2025-10-31 12:14] LABS: Magnesium 0.9 mg/dL (1.6-2.6)
[2025-11-01 09:50] LABS: Magnesium 1.2 mg/dL (1.6-2.6)
[2025-11-02 09:43] LABS: Magnesium 1.2 mg/dL (1.6-2.6)
[2025-11-08 11:27] LABS: Magnesium 1.3 mg/dL (1.6-2.6)
[2025-11-12 12:50] LABS: Basophils # (Auto) 0.0 Thou/mm3 (0.0-0.2); Basophils % (Auto) 0 % (0-2.5); Eosinophils # (Auto) 0.1 Thou/mm3 (0.0-0.5); Eosinophils % (Auto) 1 % (0-10); Hematocrit 27.6 % (36.0-46.0); Hemoglobin 9.6 g/dL (12.0-16.0); Immature Granulocytes Auto 2.62 Thou/mm3 (0.00-0.00); Lymphocytes # (Auto) 1.6 Thou/mm3 (1.0-4.8); Lymphocytes % (Auto) 14 % (10-50); Mean Corpuscular HGB Conc 34.8 g/dl (31.0-37.0); Mean Corpuscular Hemoglobin 32.2 pg (25.0-35.0); Mean Corpuscular Volume 93 fL (80-100); Monocytes # (Auto) 1.7 Thou/mm3 (0.0-0.8); Monocytes % (Auto) 15 % (0-12); Neutrophils # (Auto) 5.7 Thou/mm3 (1.8-7.7); Neutrophils % (Auto) 48 % (37-80); Nucleated Red Blood Cell # 0.22 Thou/mm3 (0.00-0.00); Nucleated Red Blood Cell % 2 /100 WBC (0); Platelet Count 155 Thou/mm3 (140-440); RDW Standard Deviation 49.1 fL (36.4-46.3); Red Blood Count 2.98 Miln/mm3 (4.00-5.20); White Blood Count 11.8 Thou/mm3 (3.6-11.0)
[2025-11-12 12:57] LABS: Alanine Aminotransferase 38 U/L (10-49); Albumin, Serum 4.4 gm/dL (3.5-5.0); Albumin/Globulin Ratio 1.9 (1.2-2.2); Alkaline Phosphatase 91 U/L (46-116); Anion Gap 14 (7-16); Aspartate Amino Transferase 28 U/L (0-34); BUN/Creatinine Ratio 20 Ratio (12-20); Bilirubin,Total 0.4 mg/dL (0.3-1.2); Blood Urea Nitrogen 12 mg/dL (9-23); Calcium 9.6 mg/dL (8.3-10.6); Calcium (Corrected) 9.6 mg/dL (8.5-10.1); Carbon Dioxide 23.5 mMol/L (20.0-31.0); Chloride 102 mMol/L (98-107); Creatinine (Component) 0.6 mg/dL (0.6-1.3); Globulin 2.3 gm/dL (2.3-3.5); Glucose 281 mg/dL (74-106); Magnesium 1.2 mg/dL (1.6-2.6); Osmolality,Calculated 287 (275-295); Potassium 4.1 mMol/L (3.4-5.1); Sodium 139 mMol/L (136-145); Total Protein 6.7 gm/dL (5.7-8.2); eGFR > 60 See Note
[2025-11-12 16:33] LABS: Path Review Blood Smear Sent to Pathologist
[2025-11-15 09:56] LABS: Magnesium 1.2 mg/dL (1.6-2.6)
[2025-11-19 11:36] LABS: Magnesium 1.2 mg/dL (1.6-2.6)
[2025-11-26 12:19] LABS: Basophils # (Auto) 0.0 Thou/mm3 (0.0-0.2); Basophils % (Auto) 1 % (0-2.5); Eosinophils # (Auto) 0.1 Thou/mm3 (0.0-0.5); Eosinophils % (Auto) 2 % (0-10); Hematocrit 29.9 % (36.0-46.0); Hemoglobin 9.7 g/dL (12.0-16.0); Immature Granulocytes Auto 0.04 Thou/mm3 (0.00-0.00); Lymphocytes # (Auto) 1.0 Thou/mm3 (1.0-4.8); Lymphocytes % (Auto) 17 % (10-50); Mean Corpuscular HGB Conc 32.4 g/dl (31.0-37.0); Mean Corpuscular Hemoglobin 31.5 pg (25.0-35.0); Mean Corpuscular Volume 97 fL (80-100); Monocytes # (Auto) 0.9 Thou/mm3 (0.0-0.8); Monocytes % (Auto) 15 % (0-12); Neutrophils # (Auto) 4.1 Thou/mm3 (1.8-7.7); Neutrophils % (Auto) 66 % (37-80); Nucleated Red Blood Cell # 0.00 Thou/mm3 (0.00-0.00); Nucleated Red Blood Cell % 0 /100 WBC (0); Platelet Count 291 Thou/mm3 (140-440); RDW Standard Deviation 56.1 fL (36.4-46.3); Red Blood Count 3.08 Miln/mm3 (4.00-5.20); White Blood Count 6.2 Thou/mm3 (3.6-11.0)
[2025-11-26 12:38] LABS: Magnesium 1.3 mg/dL (1.6-2.6)
[2025-11-26 12:44] LABS: Alanine Aminotransferase 41 U/L (10-49); Albumin, Serum 4.1 gm/dL (3.5-5.0); Albumin/Globulin Ratio 1.6 (1.2-2.2); Alkaline Phosphatase 57 U/L (46-116); Anion Gap 12 (7-16); Aspartate Amino Transferase 25 U/L (0-34); BUN/Creatinine Ratio 32 Ratio (12-20); Bilirubin,Total 0.3 mg/dL (0.3-1.2); Blood Urea Nitrogen 16 mg/dL (9-23); Calcium 9.5 mg/dL (8.3-10.6); Calcium (Corrected) 9.5 mg/dL (8.5-10.1); Carbon Dioxide 24.4 mMol/L (20.0-31.0); Chloride 108 mMol/L (98-107); Creatinine (Component) 0.5 mg/dL (0.6-1.3); Free T4 (Free Thyroxine) 1.23 ng/dL (0.89-1.76); Globulin 2.6 gm/dL (2.3-3.5); Glucose 82 mg/dL (74-106); Osmolality,Calculated 287 (275-295); Potassium 3.6 mMol/L (3.4-5.1); Sodium 144 mMol/L (136-145); Thyroid Stimulating Hormone 2.14 uIU/mL (0.55-4.78); Total Protein 6.7 gm/dL (5.7-8.2); eGFR > 60 See Note
== END 2025-11-28 23:59 | disposition home or self-care (01) ==
LOC: SCTC 09:21
PROVIDERS: PCP Family Medicine; Referring Provider Family Medicine; Visit Provider Internal Medicine Hematology & Oncology
DX: Z51.11 Encounter for antineoplastic chemotherapy (principal); C50.411 Malignant neoplasm of upper-outer quadrant of right female breast; Z17.421 Hormone receptor negative with human epidermal growth factor receptor 2 negative status; R51.9 Headache, unspecified; M25.519 Pain in unspecified shoulder; L30.9 Dermatitis, unspecified; L81.9 Disorder of pigmentation, unspecified; F41.9 Anxiety disorder, unspecified
CPT/HCPCS: 36591; 80053; 83735; 84439; 84443; 85025; 96361; 96365; 96366; 96367; 96368; 96372; 96375; 96411; 96413; 96417; 99211; A4216; J1100; J1434; J1642; J2405; J2919; J3475; J3490; J7030; J7040; J7050; J9000; J9075; J9271; Q5122; A9270; G0463; J2506